=== PATIENT | female | born 1990 | race Caucasian/White ===

== ENCOUNTER 2022-02-08 23:12 | Emergency (ER) | payer OTHER ==
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
--- NOTE | 2022-02-09 00:20 | EDPHYS ---
Physician Documentation [facility] Name: Matt Tillman Age: 31 yrs Sex: Female : 1990 Arrival Date: 02/08/2022 Time: 23:15 Bed 3 Private MD: JESSICA Physician Adelso Wang HPI: 02/09 00:16 This 31 yrs old Female presents to ER via Wheelchair with complaints of Fall najma Injury. 00:16 Details of fall: The patient fell from an upright position, while walking. Onset: The najma symptoms/episode began/occurred just prior to arrival. Associated injuries: The patient sustained injury to the head, contusion, hematoma, pain, swelling. Severity of symptoms: At their worst the symptoms were. The patient has not experienced similar symptoms in the past. 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 - Social history:: Smoking status: Patient denies any tobacco usage or history of. Patient uses alcohol, on a daily basis. ROS: 02/09 00:17 Constitutional: Negative for fever, chills, and weight loss, Eyes: Negative for injury, najma pain, redness, and discharge, ENT: Negative for injury, pain, and discharge, Neck: Negative for injury, pain, and swelling, Cardiovascular: Negative for chest pain, palpitations, and edema, Respiratory: Negative for shortness of breath, cough, wheezing, and pleuritic chest pain, Abdomen/GI: Negative for abdominal pain, nausea, vomiting, diarrhea, and constipation, Back: Negative for injury and pain, : Negative for injury, bleeding, discharge, and swelling, MS/Extremity: Negative for injury and deformity, Skin: Negative for injury, rash, and discoloration, Psych: Negative for depression, anxiety, suicide ideation, homicidal ideation, and hallucinations, Allergy/Immunology: Negative for hives, rash, and allergies, Endocrine: Negative for neck swelling, polydipsia, polyuria, polyphagia, and marked weight changes, Hematologic/Lymphatic: Negative for swollen nodes, abnormal bleeding, and unusual bruising. Neuro: Positive for headache, of the forehead. Exam: 00:17 Constitutional: This is a well developed, well nourished patient who is awake, alert, najma and in no acute distress. Eyes: Pupils equal round and reactive to light, extra-ocular motions intact. Lids and lashes normal. Conjunctiva and sclera are non-icteric and not injected. Cornea within normal limits. Periorbital areas with no swelling, redness, or edema. ENT: Nares patent. No nasal discharge, no septal abnormalities noted. Tympanic membranes are normal and external auditory canals are clear. Oropharynx with no redness, swelling, or masses, exudates, or evidence of obstruction, uvula midline. Mucous membranes moist. Neck: Trachea midline, no thyromegaly or masses palpated, and no cervical lymphadenopathy. Supple, full range of motion without nuchal rigidity, or vertebral point tenderness. No Meningismus. Chest/axilla: Normal chest wall appearance and motion. Nontender with no deformity. No lesions are appreciated. Cardiovascular: Regular rate and rhythm with a normal S1 and S2. No gallops, murmurs, or rubs. Normal PMI, no JVD. No pulse deficits. Respiratory: Lungs have equal breath sounds bilaterally, clear to auscultation and percussion. No rales, rhonchi or wheezes noted. No increased work of breathing, no retractions or nasal flaring. Abdomen/GI: Soft, non-tender, with normal bowel sounds. No distension or tympany. No guarding or rebound. No evidence of tenderness throughout. Back: No spinal tenderness. No costovertebral tenderness. Full range of motion. Female : Normal external genitalia. Skin: Warm, dry with normal turgor. Normal color with no rashes, no lesions, and no evidence of cellulitis. MS/ Extremity: Pulses equal, no cyanosis. Neurovascular intact. Full, normal range of motion. Neuro: Awake and alert, GCS 15, oriented to person, place, time, and situation. Cranial nerves II-XII grossly intact. Motor strength 5/5 in all extremities. Sensory grossly intact. Cerebellar exam normal. Normal gait. Psych: Awake, alert, with orientation to person, place and time. Behavior, mood, and affect are within normal limits. 00:17 Head/face: Noted is hematoma, swelling, that is mild, of the forehead. Vital Signs: 02/08 23:20 BP 120 / 91; Pulse 105; Resp 18; Temp 98.2(TE); Pulse Ox 99% on R/A; Weight 54.43 kg; ld1 Height 5 ft. 2 in. (157.48 cm); Pain 0/10; 02/09 01:00 BP 110 / 60; Pulse 94; Resp 18; Pulse Ox 97% on R/A; lp1 02/08 23:20 Body Mass Index 21.95 (54.43 kg, 157.48 cm) ld1 MDM: 02/08 23:33 Patient medically screened. [facility] 02/08 23:33 Order name: CT Head C Spine najma Administered Medications: 02/09 01:07 Drug: Bactroban (mupirocin) Ointment 2 % 1 application Route: Topical; Site: chin; lp1 Disposition Summary: 02/09/22 00:19 Discharge Ordered Location: Home najma Problem: new najma Symptoms: have improved najma Condition: Stable najma Diagnosis - Fall on same level, unspecified najma - Unspecified injury of head, initial encounter - hematoma najma Followup: najma - With: Private Physician - When: 2 - 3 days - Reason: Recheck today's complaints, Continuance of care, Re-evaluation by your physician Discharge Instructions: - Head Injury, Adult najma - Head Injury, Adult, Whzm-so-Luou najma - Discharge Summary Sheet cp Forms: - Medication Reconciliation Form najma - Thank You Letter najma - Antibiotic Education najma - Prescription Opioid Use najma Prescriptions: - Centany 2 % Topical ointment - apply 1 application by TOPICAL route 3 times per day for 14 days; 45 gram; cp Refills: 0, Product Selection Permitted Signatures: Dispatcher [employer] Adelso Zapata MD MD cha Pena, Laura RN RN lp1 Marialuisa Martinez RN RN ld1
--- NOTE | 2022-02-09 00:20 | ER ---
Nurse's Notes 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 Pt has had previous TBI and was told to come to the ER if she ever hit her head. Denies LOC - Not on blood thinners. Coronavirus screen: At this time, the client does not indicate any symptoms associated with coronavirus-19. Ebola Screen: No symptoms or risks identified at this time. Initial Sepsis Screen: Does the patient meet any 2 criteria? No. Patient's initial sepsis screen is negative. Does the patient have a suspected source of infection? No. Patient's initial sepsis screen is negative. Risk Assessment: Do you want to hurt yourself or someone else? Patient reports no desire to harm self or others. Onset of symptoms was February 08, 2022. 23:20 Method Of Arrival: Wheelchair ld1 23:20 Acuity: ABY 3 ld1 Triage Assessment: 23:22 General: Appears in no apparent distress. comfortable, Behavior is calm, cooperative, ld1 appropriate for age. Pain: Denies pain. EENT: No signs and/or symptoms were reported regarding the EENT system. Neuro: Level of Consciousness is awake, alert, obeys commands, Oriented to person, place, time, situation. Respiratory: Airway is patent Respiratory effort is even, unlabored. 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 - Social history:: Smoking status: Patient denies any tobacco usage or history of. Patient uses alcohol, on a daily basis. Screenin/07 00:00 Abuse screen: Denies threats or abuse. Denies injuries from another. Nutritional lp1 screening: No deficits noted. Tuberculosis screening: No symptoms or risk factors identified. Fall Risk Total Carbone Fall Scale indicates High Risk Score (45 or more points). Fall prevention measures have been instituted. Side Rails Up X 2 As available patient and family educated on Fall Prevention Program and Strategies. Assessment: 02/08 23:52 General: Appears in no apparent distress. Behavior is calm, cooperative. lp1 02/09 00:07 Pain: Complains of pain in forehead Pain currently is 7 out of 10 on a pain scale. lp1 Quality of pain is described as aching. Neuro: Level of Consciousness is awake, alert, obeys commands, Oriented to person, place, time, situation, Patient has hx of TBI, weakness to left arm and left leg. EENT: No deficits noted. Cardiovascular: Patient's skin is warm and dry. Respiratory: Respiratory effort is even, unlabored, Breath sounds are clear bilaterally. GI: Abdomen is non-distended. : No signs and/or symptoms were reported regarding the genitourinary system. Derm: Skin is pink, warm \T\ dry. Bruising that is dark purple, on forehead. Musculoskeletal: Circulation, motion, and sensation intact. left BKA noted. Vital Signs: 02/08 23:20 BP 120 / 91; Pulse 105; Resp 18; Temp 98.2(TE); Pulse Ox 99% on R/A; Weight 54.43 kg; ld1 Height 5 ft. 2 in. (157.48 cm); Pain 0/10; 02/09 01:00 BP 110 / 60; Pulse 94; Resp 18; Pulse Ox 97% on R/A; lp1 02/08 23:20 Body Mass Index 21.95 (54.43 kg, 157.48 cm) ld1 ED Course: 02/08 23:15 Patient arrived in ED. ja2 23:22 Triage completed. ld1 23:22 Arm band placed on right wrist. ld1 23:33 Adelso Wang MD is Attending Physician. [facility] 23:52 Amirah Wiggins RN is Primary Nurse. lp1 02/09 00:00 Patient has correct armband on for positive identification. lp1 00:11 CT Head C Spine In Process Unspecified. EDMS 01:00 No provider procedures requiring assistance completed. Patient did not have IV access lp1 during this emergency room visit. 01:10 Wound care: to abrasion, located on chin was cleaned with dressed with Applied lp1 Bactroban and band-aid to site . Administered Medications: 01:07 Drug: Bactroban (mupirocin) Ointment 2 % 1 application Route: Topical; Site: chin; lp1 Outcome: 00:19 Discharge ordered by MD. yao 01:13 Discharged to home via wheelchair, with friend. lp1 01:13 Condition: good 01:13 Discharge instructions given to patient, friend, Instructed on discharge instructions, follow up and referral plans. medication usage, Demonstrated understanding of instructions, follow-up care, medications, Prescriptions given X 1. 01:13 Patient left the ED. lp1 Signatures: Dispatcher [employer] EDMS Adelso Wang MD MD cha Pena, Laura, RN RN lp1 Marialuisa Martinez RN RN ld1 Yasmine Díaz Corrections: (The following items were deleted from the chart) 00:10 04/06 23:52 General: Appears in no apparent distress. Behavior is calm, cooperative, lp1lp1
[2022-02-09] MEDS ORDERED: MUPIROCIN 2% OINT 22GM TUBE TOP ONE (01:02)
--- NOTE | 2022-02-09 09:06 | RAD REPORT ---
EXAM DESCRIPTION: CT - Head C Spine Mpr Wo Con - 02/09/2022 6:42 am CLINICAL HISTORY: The patient is 31 years old and is Female; PAIN TECHNIQUE: Axial computed tomography images of the head/brain and cervical spine without intravenous contrast. Sagittal and coronal reformatted images were created and reviewed. This CT exam was pe rformed using one or more of the following dose reduction techniques: automated exposure control, a djustment of the mA and/or kV according to patient size, and/or use of iterative reconstruction techn ique. COMPARISON: No relevant prior studies available. FINDINGS: Brain: Mild nonspecific white matter changes likely related to chronic microvascular isc hemic disease. Small right frontal calvarial defect with some right frontal encephalomalacia. Correlate with any history of kathy hole/right frontal approach ventriculostomy. Right anterior temporal encephalomalacia. No hemorrhage. Ventricles: Mild to moderate ventricular prominence. Skull: See above. Sinuses: Unremarkable as visualized. No acute sinusitis. Mastoid air cells: Unremarkable as visualized. No mastoid effusion. Vertebrae: Unremarkable. No acute fracture. Normal alignment. Discs/spinal canal/neural foramina: No acute findings. No spinal canal stenosis. Soft tissues: Left frontal/periorbital soft tissue swelling. IMPRESSION: No acute intracranial abnormality. No acute fracture or subluxation in the cervical spin e. Electronically signed by: Perry Agarwla MD 02/09/2022 12:39 AM CDT Due to temporary technical issues with the PACS/Fluency reporting system, reports are being signed by the in house radiologists without review as a courtesy to insure prompt reporting. The interpreting radiologist is fully responsible for the content of the report.
[2022-02-09 10:32] VITALS: BP 120/91; TEMP 98.2; O2SAT 99
== END 2022-02-09 01:13 | disposition home or self-care (01) ==
LOC: ER 23:12
DX: S00.83XA Contusion of other part of head, initial encounter (principal); W18.30XA Fall on same level, unspecified, initial encounter; F32.A Depression, unspecified; Z87.820 Personal history of traumatic brain injury
CPT/HCPCS: 70450; 72125; 99284

== ENCOUNTER 2022-06-13 14:50 | Emergency (ER) | payer OTHER ==
--- OUTSIDE RECORDS SUMMARY | 2022-06-13 14:54 | XMS REPORT | Continuity of Care Document ---
:1990 Author Organization [facility] t Address [address] [place] [address] Care Team Providers Name Role Phone RODOLFO QUEEN Primary Care Physician Unavailable LUCERO NAPOLES Attending Clinician Unavailable MARIE Attending Clinician Unavailable Lucero Napoles PA-C Attending Clinician MARIE Admitting Clinician Unavailable Payers Payer Name Policy Type Policy Number Effective Date Expiration Date S ource Problems Condition Condition Condition Status Onset Resolution Last Treating Co mments Source Name Details Category Date Date Treatment Clinician Date Allergic Allergic Disease Active Unive rs rhinitis rhinitis 7-14 ity of 00:00: [place] [facility] Herpes Herpes Disease Active Univers labialis labialis 7-14 ity of 00:00: [place] [facility] Anxiety Anxiety Disease Active Univers and and 7-14 [place] [facility] Dysarthria Dysarthria Disease Active 2019- U nivers 1-21 ity of 00:00: [place] 00 [facility] Chronic Chronic Disease Active 2019- Univers cough cough 1-21 ity of 00:00: [place] 00 [facility] S/P BKA S/P BKA Disease Active 2019- Univers (below (below 1-21 ity of knee knee 00:00: [place] amputation amputation 00 Me dical ), left ), left Branch 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 Address in postpartu m Decreased Decreased Disease Active Uni vers range of range of 3-14 ity of motion motion 00:00: [place] (ROM) of (ROM) of 00 Medica l [...] Active Univers ALLERGIE Class ity of S [facility] Social History Social Habit Start Date Stop Date Quantity Comments Source History SDOH University o f Alcohol Frequency [place] [facility] History SDOH University o f Alcohol Std [place] [facility] Drinks Branch History SDOH University o f Alcohol Binge [place] [facility] Exposure to 2022-04-14 2022-04-24 Not sure University of SARS-CoV-2 00:00:00 13:40:00 [place] [facility] (event) Branch Alcohol intake 2022-04-24 2022-04-24 Current University of 00:00:00 00:00:00 non-drinker of [facility] alcohol (finding) Branch Alcohol Comment 2022-01-04 2022-01-04 occasional Universit y of 00:00:00 00:00:00 [facility] Tobacco use and 2017-05-22 2017-05-22 Never used Universit y of exposure 00:00:00 00:00:00 [facility] Tobacco Comment 2017-05-22 2017-05-22 half a pack per Univ ersity of 00:00:00 00:00:00 day [facility] History of 2017-05-08 Cigarette Smoker Universi ty of tobacco use 00:00:00 [facility] Sex Ass[birth year] Universit y of 00:00:00 00:00:00 [facility] Smoking Status Start Date Stop Date Source Former smoker 2017-05-22 00:00:00 2017-05-22 00:00:00 Universi ty of [facility] Medications Ordered Filled Start Stop Current Ordering Indication Dosage Frequency Signature Comments Components Source Medication Medication Date Date Medication? Clinician (SIG) Name Name citalopram 2020-11 Yes [id number] 20mg Take 1 U nivers 20 mg 1-18 tablet by ity of tablet 00:00: mouth [place] 00 daily. Medical Branch fluticasone Yes [id number] 1{spray Use 1 Univers propionate 3-06 } Omro in ity o f 50 00:00: each [place] mcg/actuati 00 nostril 2 Med ical on nasal (two) Branch spray times daily. Immunizations Ordered Filled Immunization Date Status Comments Sour e Immunization Name Name Influenza Virus 2021-09-22 Completed Universit y of Vaccine Quad IM, 00:00:00 [facility] dical Preserv and ABX Branch Free 6 MO-64 YRS Influenza Virus 2020-09-16 Completed Universit y of Vaccine Quad .5 mL 00:00:00 [place] [facility] IM 6+ MO Branch Pneumococcal 2020-09-16 Completed University o f Polysaccharide, 00:00:00 [place] [facility] ical PPSV23 (PNEUMOVAX) Branch Influenza Virus 2019-12-12 Completed Universit y of Vaccine Quad .5 mL 00:00:00 [place] [facility] IM 6+ MO Branch MMR 2017-10-29 Completed University 00:00:00 [facility] TDAP 2017-10-25 Completed [facility] 00:00:00 [facility] Vital Signs Vital Name Observation Time Observation Value Comments Source Body weight 2022-04-24 18:50:00 54.885 kg [facility] BMI 2022-04-24 18:50:00 22.13 kg/m2 [facility] Procedures This patient has no known procedures. Encounters Start End Encounter Admission Attending Care Care Encounter Source Date/Time Date/Time Type Type Clinicians Facility Department ID 2022-11-09 2022-11-09 Outpatient R YESIKA [facility] [id number] Univers 13:30:00 13:30:00 LUCERO [id number] ity [facility] 2022-05-18 2022-05-18 Outpatient DANIELLE_CLAUDIA NVMAL [facility] [id number] 10:46:00 10:46:00 N 0714 [address] [facility] 2022-04-24 2022-04-24 Office Yesika [facility] [id number] Univers 13:30:00 13:45:00 Visit Lucero GONZALEZ [id number] i ty of [facility] [id number] [place] [id number] [address] Results This patient has no known results.
--- NOTE | 2022-06-13 15:48 | RAD REPORT ---
EXAM DESCRIPTION: RAD - Abdomen 1 View (KUB) - 06/13/2022 3:42 pm CLINICAL HISTORY: fb Pain COMPARISON: No comparisons FINDINGS: The bowel gas pattern is non-obstructive. No evidence of free air or pneumatosis. No suspi cious calcifications. No significant bony findings. Rounded structure is seen projecting inferior pelvis, largely radiolucent. IMPRESSION: No acute intra-abdominal finding.
--- NOTE | 2022-06-13 15:59 | ER ---
Nurse's Notes [facility] Name: Matt Tillman Age: 31 yrs Sex: Female : 1990 Arrival Date: 06/13/2022 Time: 14:52 Bed 12 Private MD: Diagnosis: Person with feared health complaint in whom no diagnosis is made Presentation: 06/13 14:55 Chief complaint: Patient states: kegel ball stuck inside vagina, got stuck two days iw ago. Coronavirus screen: At this time, the client does not indicate any symptoms associated with coronavirus-19. Ebola Screen: Patient negative for fever greater than or equal to 101.5 degrees Fahrenheit, and additional compatible Ebola Virus Disease symptoms Patient denies exposure to infectious person. Patient denies travel to an Ebola-affected area in the 21 days before illness onset. No symptoms or risks identified at this time. Initial Sepsis Screen: Does the patient meet any 2 criteria? No. Patient's initial sepsis screen is negative. Does the patient have a suspected source of infection? No. Patient's initial sepsis screen is negative. Risk Assessment: Do you want to hurt yourself or someone else? Patient reports no desire to harm self or others. Onset of symptoms was June 11, 2022. 14:55 Method Of Arrival: Wheelchair iw 14:55 Acuity: ABY 3 iw Triage Assessment: 15:21 General: Appears in no apparent distress. slender, unkempt, Behavior is calm, jh5 cooperative, appropriate for age. Pain: Denies pain. 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 Denies injuries from another. Nutritional 5 screening: No deficits noted. Tuberculosis screening: No symptoms or risk factors identified. Fall Risk None identified. Vital Signs: 14:55 BP 112 / 87; Pulse 79; Resp 16; Temp 97.6; Pulse Ox 97% on R/A; iw ED Course: 14:52 Patient arrived in ED. am2 14:55 [facility]ord[facility] Greg[facility]-C [facility]. kb 14:55 Adelso Wang MD is Attending Physician. kb 14:58 Triage completed. iw 14:58 Arm band placed on. iw 15:04 Yasmine Rubalcava, RN is Primary Nurse. jh5 15:18 Patient has correct armband on for positive identification. jh5 15:18 No provider procedures requiring assistance completed. Patient did not have IV access jh5 during this emergency room visit. 15:44 Abdomen 1 View (KUB) XRAY In Process Unspecified. EDMS Administered Medications: No medications were administered Medication: 15:21 VIS not applicable for this client. jh5 Outcome: 15:58 Discharge ordered by . kb 16:10 Patient left the ED. 5 Signatures: Dispatcher [employer] EDMS Jordana Gregorio FNP-C FNP-Krystle Valenzuela RN RN Lacy Ness am2 Yasmine Rubalcava, RN RN 5 Corrections: (The following items were deleted from the chart) 15:57 14:55 Pulse 79bpm; Resp 16bpm; Pulse Ox 97% RA; Temp 97.6F; iw iw
--- NOTE | 2022-06-13 15:59 | EDPHYS ---
Physician Documentation [facility] Name: Matt Tillman Age: 31 yrs Sex: Female : 1990 Arrival Date: 06/13/2022 Time: 14:52 Bed 12 Private MD: JESSICA Physician Adelso Wang HPI: 06/13 15:52 This 31 yrs old Female presents to ER via Wheelchair with complaints of Foreign body In kb Vagina. 15:52 The patient has not recently seen a physician. kb 15:54 The patient presents with FB in vagina. Onset: The symptoms/episode began/occurred kb today. Modifying factors: The symptoms are alleviated by nothing, the symptoms are aggravated by nothing. Associated signs and symptoms: The patient has no apparent associated signs or symptoms. Severity of symptoms: At their worst the symptoms were very mild, in the emergency department the symptoms are unchanged. The patient has not experienced similar symptoms in the past. Pt reports she was using a kegal ball and has not been able to find it so she believes it is in her vagina. 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 kb 15:51 : Positive for foreign body in vagina. 15:51 All other systems are negative. Exam: 15:51 Constitutional: This is a well developed, well nourished patient who is awake, alert, kb and in no acute distress. Head/Face: Normocephalic, atraumatic. ENT: Moist Mucous membranes Cardiovascular: Regular rate and rhythm with a normal S1 and S2. No gallops, murmurs, or rubs. No pulse deficits. Respiratory: Respirations even and unlabored. No increased work of breathing. Talking in full sentences Abdomen/GI: Soft, non-tender. No distention Pelvic Exam: Normal external genitalia. Speculum exam with closed cervical os, no discharge or bleeding noted. Bimanual exam with normal adnexa, no adnexal or cervical motion tenderness. Normal uterus. No FB found on exam Skin: Warm, dry with normal turgor. Normal color. MS/ Extremity: Pulses equal, no cyanosis. Neurovascular intact. Full, normal range of motion. Neuro: Awake and alert, GCS 15, oriented to person, place, time, and situation. Moves all extremities. Normal gait. Psych: Awake, alert, with orientation to person, place and time. Behavior, mood, and affect are within normal limits. Vital Signs: 14:55 BP 112 / 87; Pulse 79; Resp 16; Temp 97.6; Pulse Ox 97% on R/A; iw MDM: 14:58 Patient medically screened. kb 15:50 Data reviewed: vital signs, nurses notes. Data interpreted: Pulse oximetry: on room air kb is 97 %. Interpretation: normal. Counseling: I had a detailed discussion with the patient and/or guardian regarding: the historical points, exam findings, and any diagnostic results supporting the discharge/admit diagnosis, radiology results, the need for outpatient follow up, a family practitioner, to return to the emergency department if symptoms worsen or persist or if there are any questions or concerns that arise at home. 06/13 15:18 Order name: Abdomen 1 View (KUB) XRAY; Complete Time: 15:50 kb 06/13 15:00 Order name: Pelvic Exam Setup; Complete Time: 15:05 kb Administered Medications: No medications were administered Disposition Summary: 06/13/22 15:58 Discharge Ordered Location: Home kb Condition: Stable kb Diagnosis - Person with feared health complaint in whom no diagnosis is made kb Followup: kb - With: Emergency Department - When: As needed - Reason: Worsening of condition Followup: kb - With: Private Physician - When: 2 - 3 days - Reason: Recheck today's complaints, Continuance of care, Re-evaluation by your physician Discharge Instructions: - Discharge Summary Sheet kb - Vaginal Foreign Body, [id number] kb Forms: - Medication Reconciliation Form kb - Thank You Letter kb - Antibiotic Education kb - Prescription Opioid Use kb Signatures: Dispatcher [employer] Jordana Schwartz, ZHOU-C ZHOU-Krystle Valenzuela, RN RN iw
[2022-06-13 16:49] VITALS: BP 112/87; TEMP 97.6; O2SAT 97
== END 2022-06-13 16:10 | disposition home or self-care (01) ==
LOC: ER 14:50
DX: Z71.1 Person with feared health complaint in whom no diagnosis is made (principal)
CPT/HCPCS: 74018; 99282

== ENCOUNTER 2022-10-13 16:40 | Inpatient (IN) | payer OTHER ==
[~2022-10-13 16:40] MED LIST: LORazepam 2 MG/ML VIAL ONE
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
[2022-10-13 17:18] LABS: Absolute Lymphocytes (CBC) 6.2 K/uL (0.7-4.9); Hematocrit 40.8 % (36.0-45.0); Lymphocytes % 49.3 % (15.3-44.8); MCV 93.9 fL (80-100); MPV 8.7 fL (7.6-11.3); RBC Red Blood Cell Count 4.34 M/uL (3.86-4.86)
[2022-10-13] MEDS ORDERED: RSI MEDICATION KIT IV ONE (17:20)
[2022-10-13] MEDS ORDERED: propofoL 1,000 MG/100 ML VIAL IV ONE (17:21)
[2022-10-13] MEDS ORDERED: NA CHLORIDE 0.9% 1,000 ML ONE (17:21)
[2022-10-13 17:32] LABS: Albumin 4.5 g/dL (3.4-5.0); Bilirubin Total 0.2 mg/dL (0.2-1.0); Potassium 3.1 mmol/L (3.5-5.1); Protein, Total 7.8 g/dL (6.4-8.2)
--- NOTE | 2022-10-13 18:14 | RAD REPORT ---
EXAM DESCRIPTION: CT - Head Brain Wo Cont - 10/13/2022 5:45 pm CLINICAL HISTORY: Seizure disorder, clinical change COMPARISON: HEAD BRAIN W O CONTRAST dated 11/11/2015; Head C Spine Mpr Wo Con dated 02/08/2022 TECHNIQUE: Axial 5 mm thick images of the head were obtained without IV contrast. All CT scans are performed using dose optimization technique as appropriate and may include automated exposure control or mA/KV adjustment according to patient size. FINDINGS: No intracranial hemorrhage is present. Brain parenchymal volume loss is present involving the right temporal lobe and anterior right occipital lobe. Volume loss in the cerebellum is suspected as well. There are patchy areas of decreased attenuation in the anterior bifrontal region. An acute cortical based infarction is not suspected. No abnormal extra-axial fluid collections. Ventricles are prominent. Intracranial findings are similar to the February 08 examination. Mastoid air cells are clear. No air-fluid levels in the paranasal sinuses. No acute bony findings. IMPRESSION: No hemorrhage, mass, edema or other acute intracranial finding. The above detailed intracranial findings are stable from February 2022.
[2022-10-13 18:31] LABS: Arterial Blood Carboxyhemoglob 0.9 % (0-1.5); Blood Gas Oxyhemoglobin 95.4 % (94-97); Blood O2 Saturation 97.5 % (92-98.5)
[2022-10-13 18:39] LABS: Urine Blood Negative (Negative); Urine Glucose Negative (Negative); Urine Protein 1+ (Negative); Urine Specific Gravity >=1.030 (1.005-1.030); Urine pH 5.5 (5.0-7.0)
[2022-10-13] MEDS ORDERED: FENTANYL CITR 100 MCG/2 ML ONE (18:59)
[2022-10-13 19:03] LABS: Urine Mucus Slight /HPF (None Seen); Urine RBC <5 /HPF (None Seen)
--- NOTE | 2022-10-13 19:03 | ER ---
Nurse's Notes [facility] Name: Matt Tillman Age: 31 yrs Sex: Female : 1990 Arrival Date: 10/13/2022 Time: 16:41 Bed 27 Private MD: Diagnosis: Epilepsy, unspecified, not intractable, with status epilepticus;Acute respiratory failure Presentation: 10/13 16:44 Chief complaint: Parent and/or Guardian states: Pt brought to ED by family, brought ph through ambulance bay, actively seizing, hx of seizures, family states, " I went into [place] and she stayed in the truck and when I came out she was having a seizure." Pt brought to ED [address] Vegas at bedside. Coronavirus screen: Vaccine status: Patient reports being unvaccinated. Ebola Screen: No symptoms or risks identified at this time. Initial Sepsis Screen: Does the patient meet any 2 criteria? No. Patient's initial sepsis screen is negative. Does the patient have a suspected source of infection? No. Patient's initial sepsis screen is negative. Risk Assessment: Do you want to hurt yourself or someone else? Patient reports no desire to harm self or others. Onset of symptoms was October 13, 2022. 16:44 Method Of Arrival: [facility] 16:44 Acuity: ABY 2 ph Triage Assessment: 16:50 General: Appears uncomfortable, well groomed, Behavior is unresponsive. Pain: Unable to ph use pain scale. Patient is unresponsive. Neuro: Seizure activity noted at this time. Cardiovascular: Patient's skin is warm and dry. Rhythm is sinus tachycardia. Respiratory: Airway is patent. Derm: Skin is pink, warm \\T\\ dry. Historical: - Allergies: 16:49 levetiracetam; ph - PMHx: 16:49 depressive disorder; traumatic brain injury; ph - PSHx: 16:49 left leg amputation; ph - Immunization history:: Adult Immunizations unknown. - Social history:: Smoking status: unknown. Screenin:54 Abuse screen: Denies threats or abuse. Denies injuries from another. Nutritional ph screening: No deficits noted. Tuberculosis screening: No symptoms or risk factors identified. Fall Risk No fall in past 12 months (0 pts). Secondary diagnosis (15 points) seizures, IV access (20 points). Ambulatory Aid- None/Bed Rest/Nurse Assist (0 pts). Gait- Normal/Bed Rest/Wheelchair (0 pts) Mental Status- Overestimates/Forgets Limitations (15 pts.). Total Carbone Fall Scale indicates High Risk Score (45 or more points). Fall prevention measures have been instituted. Side Rails Up X 2 Placed Close to Nursing Station Frequent Obs/Assessments Occuring As available patient and family educated on Fall Prevention Program and Strategies. Assessment: 16:45 Reassessment: 24 FR nasopharyngeal airway placed, pt noted to have urinated onself. ph 17:15 Reassessment: Pt actively seizing, appears to be posturing w/ uneven pupils, ERP at ph bedside, preparing to intubate. 18:30 Reassessment: Patient appears in no apparent distress at this time. Patient and/or ph family updated on plan of care and expected duration. Pain level reassessed. Pt intubated and sedated, parents at bedside, state that she has not had a seizure in many years, pt of DR Oquendo. Vital Signs: 16:44 BP 145 / 117; Pulse 155; Pulse Ox 72% on R/A; ph 17:30 BP 141 / 102; Pulse 128; Resp 24; Pulse Ox 98% on Non-rebreather mask; ph 17:31 Weight 55.79 kg; mm9 18:30 BP 122 / 87; Pulse 127; Resp 18; Pulse Ox 100% on 40% FiO2 ETT vent; ph 19:56 BP 106 / 74; Pulse 95; Resp 14; Temp 99.2(C); Pulse Ox 100% ; ke1 ED Course: 16:41 Patient arrived in ED. zm 16:42 Inserted saline lock: 20 gauge in right antecubital area, using aseptic technique. zm 16:44 Ronel Chen, DONTAE is Primary Nurse. ph 16:47 Javi Vegas MD is Attending Physician. rt 16:48 Triage completed. ph 16:49 Arm band placed on Patient placed in an exam room, on a stretcher, on oxygen, on ph bender helper, on pulse oximetry. 16:50 Oxygen administration via non-rebreather mask \\T\\ 15L/min. ph 16:50 Patient has correct armband on for positive identification. Placed in gown. Bed in low ph position. Call light in reach. Side rails up X2. Seizure precautions initiated. Client placed on continuous cardiac and pulse oximetry monitoring. NIBP monitoring applied. 17:27 Assisted provider with intubation using 7.5 mm ETT via oral route. ET tube secured at ph 22cm at the teeth. Set up intubation tray. Intubated by Javi Vegas MD Placement verified by CO2 detector w/ + color change, auscultating bilateral breath sounds, Patient tolerated well. 17:32 NGT: inserted 16 Fr. other Via Oral route verified placement of air over stomach, to ld1 intermittent suction. Patient tolerated well. 17:46 CT Head Brain wo Cont In Process Unspecified. EDMS 18:25 Sexton cath inserted, using sterile technique, 16 Fr., by ms, balloon inflated, to ph gravity drainage, urine specimen collected. returned clear yellow urine. Patient tolerated well. Patient admitted, IV remains in place. 18:33 Inserted saline lock: 20 gauge in left forearm, using aseptic technique. Blood ld1 collected. 19:01 Brayan Esteban MD is Hospitalizing Provider. rt 19:12 Chest Single View XRAY In Process Unspecified. EDMS 10/14 06:43 Primary Nurse role handed off by Ronel Chen, DONTAE eb 07:41 Lennox Astorga, RN is Primary Nurse. bp Administered Medications: 10/13 16:38 Drug: Ativan (LORazepam) 2 mg Route: IVP; Site: right antecubital; ph 19:37 Follow up: Response: No adverse reaction ph 16:45 Drug: Ativan (LORazepam) 1 mg Route: IVP; Site: right antecubital; ph 19:37 Follow up: Response: No adverse reaction ph 17:20 Drug: Ativan (LORazepam) 1 mg Route: IVP; Site: right antecubital; ph 19:37 Follow up: Response: No adverse reaction ph 17:25 Drug: Propofol 100 mg Route: IVP; Site: right antecubital; ph 19:37 Follow up: Response: No adverse reaction ph 17:26 Drug: Rocuronium 100 mg Route: IVP; Site: right antecubital; ph 19:38 Follow up: Response: No adverse reaction ph 18:00 Drug: Propofol 5 mcg/kg/min {Note: initiated at 15 mcg/kg/min, weight set at 55 kg.} ph Route: IV; Rate: calculated rate; Site: right antecubital; 18:20 Follow up: Rate change 20 mcg/kg/min ph 18:45 Follow up: Rate change 25 mcg/kg/min ph 21:20 Follow up: Response: RASS: Very agitated (+3); Rate change 27 mcg/kg/min ke1 21:25 Follow up: Response: RASS: Drowsy (-1) ke1 18:37 Drug: Ativan (LORazepam) 2 mg Route: IVP; Site: left forearm; ph 19:37 Follow up: Response: No adverse reaction ph 19:00 Drug: fentaNYL (PF) 100 mcg Route: IVP; Site: left forearm; ph 19:38 Follow up: Response: No adverse reaction ph 19:27 Drug: Fosphenytoin 1 grams Route: IVPB; Site: right antecubital; ke1 19:36 CANCELLED (Other Intervention Used): Ativan (LORazepam) 1 mg IVP once ph Medication: 16:55 VIS not applicable for this client. ph Outcome: 19:02 Decision to Hospitalize by Provider. rt 10/14 13:27 Patient left the ED. eb Signatures: Dispatcher [employer] EDRonel Boone RN RN ph Lennox Astorga, RN Dahlia Cano Lauren, RN RN Jono Alford RN RN Aundrea Mayberry Maria mm9 Javi Vegas MD MD rt Corrections: (The following items were deleted from the chart) 10/13 18:05 18:04 NGT: inserted 16 Fr. other Via Oral route verified placement of air over stomach, ld1 to intermittent suction. Patient tolerated well. ld1 19:33 18:00 Propofol 5 mcg/kg/min IV at calculated rate in right antecubital ph ph 19:36 16:44 Ativan (LORazepam) 1 mg IVP in right antecubital ph ph
--- NOTE | 2022-10-13 19:03 | EDPHYS ---
Physician Documentation [facility] Name: Matt Tillman Age: 31 yrs Sex: Female : 1990 Arrival Date: 10/13/2022 Time: 16:41 Bed 27 Private MD: ED Physician Javi Vegas HPI: 10/13 17:54 This 31 yrs old Female presents to ER via [place] with complaints of Seizure. rt 17:54 Character of seizure(s): Motor activity: generalized, shaking all over. Seizure onset: rt the onset is not known. Unable to obtain HPI due to altered mental status. 17:54 History limited due to altered mental status due to seizure. Patient was dropped off at rt the ambulance entrance, right seizure. Further history could be obtained. Symptoms are severe in severity, no reported aggravating or alleviating factors. Historical: - Allergies: 16:49 levetiracetam; ph - PMHx: 16:49 depressive disorder; traumatic brain injury; ph - PSHx: 16:49 left leg amputation; ph - Immunization history:: Adult Immunizations unknown. - Social history:: Smoking status: unknown. ROS: 17:54 Unable to obtain ROS due to altered mental status. rt Exam: 17:44 ECG was reviewed by the Attending Physician. rt 17:54 Chest/axilla: Normal chest wall appearance and motion. Nontender with no deformity. rt No lesions are appreciated. Abdomen/GI: Soft, non-tender, with normal bowel sounds. No distension or tympany. No guarding or rebound. No evidence of tenderness throughout. Skin: Warm, dry with normal turgor. Normal color with no rashes, no lesions, and no evidence of cellulitis. MS/ Extremity: Pulses equal, no cyanosis. Neurovascular intact. Full, normal range of motion. 17:54 Constitutional: The patient appears Actively seizing, unresponsive 17:54 Eyes: Rightward gaze, somewhat disconjugate, unequal pupils.. 17:54 Cardiovascular: Tachycardic, regular rhythm, heart sounds normal. 17:54 Neuro: Actively seizing with occasional decerebrate posturing. Vital Signs: 16:44 BP 145 / 117; Pulse 155; Pulse Ox 72% on R/A; ph 17:30 BP 141 / 102; Pulse 128; Resp 24; Pulse Ox 98% on Non-rebreather mask; ph 17:31 Weight 55.79 kg; mm9 18:30 BP 122 / 87; Pulse 127; Resp 18; Pulse Ox 100% on 40% FiO2 ETT vent; ph 19:56 BP 106 / 74; Pulse 95; Resp 14; Temp 99.2(C); Pulse Ox 100% ; ke1 Procedures: 18:56 Intubation: Ventilated with 100% NRB prior to procedure. O2 saturation prior to rt procedure was 100 %. Intubated orally using Curved glidescope with 7.5 mm ETT. was successful on first attempt. Ventilated with ventilator. Tube secured with ETT arrieta Placement verified by CXR, CO2 detector with (+) color change, Patient tolerated well. MDM: 16:49 Patient medically screened. rt 18:56 Differential diagnosis: cerebral vascular accident, drug overdose, cardiac arrhythmia, rt seizure. Data reviewed: vital signs, nurses notes, old medical records, lab test result(s), EKG, radiologic studies. ED course: Patient presents to the ED with a seizure. The patient had multiple seizure episodes, requiring large doses of benzodiazepines. Patient was intubated for airway protection. Patient does have an allergy to Keppra, after discussion with neurology, will give fosphenytoin. Neurology recommends fosphenytoin every 8 hours with level check in the morning.. 12/09 17:00 Order name: CBC with Diff; Complete Time: 17:39 rt 12 17:00 Order name: CMP; Complete Time: 17:39 rt 12 17:00 Order name: Test, Serum; Complete Time: 07:14 rt 12 17:00 Order name: UA MICROSCOPIC; Complete Time: 07:14 rt 12 17:03 Order name: Salicylate; Complete Time: 07:14 rt 12 17:03 Order name: Acetaminophen; Complete Time: 18:16 rt 12/09 17:00 Order name: CT Head Brain wo Cont; Complete Time: 18:16 rt 12 17:03 Order name: Alcohol Level; Complete Time: 17:44 rt 12 17:03 Order name: UDS; Complete Time: 07:14 rt 12 18:15 Order name: ABG; Complete Time: 18:34 rt 12 18:39 Order name: Urine Dipstick-Ancillary; Complete Time: 18:44 EDMS 10/13 19:30 Order name: SARS RAPID; Complete Time: 07:14 vc1 12 05:14 Order name: CBC with Automated Diff; Complete Time: 07:14 EDMS 10/14 05:30 Order name: Comprehensive Metabolic Panel; Complete Time: 07:14 EDMS 10/13 17:00 Order name: Urine Dipstick-Ancillary (obtain specimen); Complete Time: 18:32 rt 10/13 18:50 Order name: Chest Single View XRAY; Complete Time: 07:14 rt 10/13 20:12 Order name: CONS Physician Consult; Complete Time: 21:36 EDMS 10/13 20:12 Order name: NPO; Complete Time: 21:36 EDMS EC:44 Rate is 129 beats/min. Rhythm is regular, Sinus tachycardia with No ectopy. IA interval rt is normal. QRS interval is normal. Clinical impression: NSR w/ Non-specific ST/T Changes. Administered Medications: 16:38 Drug: Ativan (LORazepam) 2 mg Route: IVP; Site: right antecubital; ph 19:37 Follow up: Response: No adverse reaction ph 16:45 Drug: Ativan (LORazepam) 1 mg Route: IVP; Site: right antecubital; ph 19:37 Follow up: Response: No adverse reaction ph 17:20 Drug: Ativan (LORazepam) 1 mg Route: IVP; Site: right antecubital; ph 19:37 Follow up: Response: No adverse reaction ph 17:25 Drug: Propofol 100 mg Route: IVP; Site: right antecubital; ph 19:37 Follow up: Response: No adverse reaction ph 17:26 Drug: Rocuronium 100 mg Route: IVP; Site: right antecubital; ph 19:38 Follow up: Response: No adverse reaction ph 18:00 Drug: Propofol 5 mcg/kg/min {Note: initiated at 15 mcg/kg/min, weight set at 55 kg.} ph Route: IV; Rate: calculated rate; Site: right antecubital; 18:20 Follow up: Rate change 20 mcg/kg/min ph 18:45 Follow up: Rate change 25 mcg/kg/min ph 21:20 Follow up: Response: RASS: Very agitated (+3); Rate change 27 mcg/kg/min ke1 21:25 Follow up: Response: RASS: Drowsy (-1) ke1 18:37 Drug: Ativan (LORazepam) 2 mg Route: IVP; Site: left forearm; ph 19:37 Follow up: Response: No adverse reaction ph 19:00 Drug: fentaNYL (PF) 100 mcg Route: IVP; Site: left forearm; ph 19:38 Follow up: Response: No adverse reaction ph 19:27 Drug: Fosphenytoin 1 grams Route: IVPB; Site: right antecubital; ke1 19:36 CANCELLED (Other Intervention Used): Ativan (LORazepam) 1 mg IVP once ph Disposition Summary: 10/13/22 19:02 Hospitalization Ordered Hospitalization Status: Inpatient Admission rt Provider: Brayan Esteban rt Condition: Critical rt Problem: an acute exacerbation rt Symptoms: have improved rt Bed/Room Type: Standard rt Location: [facility] ER HOLD(10/13/22 22:03) cg Room Assignment: ERHOLD-(10/13/22 22:03) cg Diagnosis - Epilepsy, unspecified, not intractable, with status epilepticus rt - Acute respiratory failure rt Forms: - Medication Reconciliation Form rt - SBAR form rt Critical care time excluding procedures: 19:02 Critical care time: Bedside Care: 40 minutes, Consultation: 10 minutes. Total time: 50 rt minutes Signatures: Dispatcher [employer] EDRonel Boone RN RN ph Garcia, Cindy, RN RN Jono Ha RN RN ke1 Javi Vegas MD MD rt Corrections: (The following items were deleted from the chart) 19:36 19:35 Ativan (LORazepam) 1 mg IVP once ordered. ph ph 19:36 19:35 Ativan (LORazepam) 1 mg IVP once given. ph ph 19:36 19:36 Ativan (LORazepam) 1 mg IVP once ordered. ph ph 22:03 19:02 Intensive Care Unit rt cg 22:03 19:02 rt cg
[2022-10-13 19:05] LABS: Barbiturates NEGATIVE (NEGATIVE); Benzodiazepines NEGATIVE (NEGATIVE); Cocaine NEGATIVE (NEGATIVE); METHAMPHETAM NEGATIVE (NEGATIVE); Methadone NEGATIVE (NEGATIVE); Opiates NEGATIVE (NEGATIVE); Phencyclidine NEGATIVE (NEGATIVE); THC Cannibis POSITIVE (NEGATIVE)
[2022-10-13] MEDS ORDERED: FOSPHENYTOIN PE 500 MG/10 ML VIAL ONE (19:20)
[2022-10-13] MEDS ORDERED: NA CHLORIDE 0.9% 100 ML IV ONE (19:21)
--- NOTE | 2022-10-13 19:33 | RAD REPORT ---
EXAM DESCRIPTION: RAD - Chest Single View - 10/13/2022 7:10 pm CLINICAL HISTORY: intubation COMPARISON: None TECHNIQUE: AP portable chest image was obtained 10/13/2022 7:10 pm . FINDINGS: Endotracheal tube has been placed. Tip is mid aortic arch 3 cm above the howard. NG tube h as been placed. Tip is in the proximal stomach. Side port of the tubing is in the distal esophagus. N o diffuse pulmonary edema. Hazy left base opacification could be atelectasis or infiltrate. Aspiratio n is possible given the history. This area can be monitored. Trachea is midline. Heart and vasculature are normal. No measurable pleural effusion and no pneumotho rax. No acute bony abnormality seen. No acute aortic findings suspected. IMPRESSION: Hazy left base opacification could be atelectasis or infiltrate. ET tube in good position. NG tube tip is proximal stomach with side port in the distal esophagus.
[2022-10-13] MEDS ORDERED: LORazepam 2 MG/ML VIAL IV PRN ×2 (20:05→21:35)
--- NOTE | 2022-10-13 20:11 | P.HP ---
Certification for Inpatient Patient admitted to: Inpatient With expected LOS: >2 Midnights Practitioner: I am a practitioner with admitting privileges, knowledge of patient current condition, hospital course, and medical plan of care. Services: Services provided to patient in accordance with Admission requirements found in Title 42 Section 412.3 of the Code of Federal Regulations Patient History Date of Service: 10/14/22 Reason for admission: Status epilepticus. History of Present Illness: 32-year-old female patient with a medical history significant for remote traumatic brain injury who also has a history of seizures was brought in by family member for episode of continuous seizures. Report was that patient has been having significant pain and has been feeling unwell prior to onset of seizures. No recent fall with head injury reported. Patient continued to have seizure while in the ER and patient was intubated for airway protection and started on sedation for status epilepticus. Neurology was consulted and recommendation was the patient should be given a loading dose of fosphenytoin and continued on maintenance dose. Allergies levetiracetam [From [facility]] Allergy (Severe, Verified 10/20/13 15:29) Hives/Rash NKDA Allergy (Uncoded 11/11/15 22:44) Unknown Home Medications: Baclofen [Lioresal*] 10 mg PO DAILY 10/20/13 Beta-Carotene(A)-Vits C and E [E-400 C-500 & Beta Carotene] 400 iu PO DAILY 10/20/13 Citalopram Hydrobromide [Celexa] 20 mg PO DAILY 10/20/13 Famotidine [Acid [employer] Operator] 10 mg PO BID 10/20/13 Ferrous Fumarate/Vit Bcomp&C [Super B-Complex Caplet] 1 tab PO DAILY 10/20/13 Melatonin 3 mg PO BEDTIME PRN 10/20/13 [place]-3/Dha/Epa/Fish Oil [[place]-3 Fish Oil 1,000 mg Sfgl] 1,000 mg PO DAILY 10/20/13 Ubidecarenone [Co Q-10] 1 cap PO DAILY 10/20/13 Vit B2/Niacin/B6/B12/Dexpanth [B Complex Sublingual Liquid] 10/20/13 Vit C/Chromium/Brindall Grewal [Trutical Capsule] 1,000 mg PO DAILY 10/20/13 Vit D3/Folic Acid/B2/B6/B12 [Folgard Tablet] 5,000 iu PO DAILY 10/20/13 lamoTRIgine [Lamictal*] 100 mg PO BEDTIME 10/20/13 - Past Medical/Surgical History Diabetic: No -: head injury -: seizures -: left bka -: sinus problems- sinus congestedcant breath throw her nose -: child 2005 -: child 2008 -: sinus -: tubes in ears - Social History Alcohol use: No CD- Drugs: No Caffeine use: Yes Review of Systems is unable to be obtained (Due to mechanical ventilation) Physical Examination - Physical Exam General: Other (Sedated.) HEENT: Atraumatic, Normocephalic Neck: Supple Respiratory: Normal air movement Cardiovascular: Regular rate/rhythm, Normal S1 S2 Gastrointestinal: Soft and benign Musculoskeletal: No swelling Neurological: Other (Sedated.) - Studies Laboratory Data (last 24 hrs) 10/13/22 16:50: Sodium 136, Potassium 3.1 L, BUN 10, Creatinine 0.99, Glucose 129 H, Total Bilirubin 0.2, AST 17, ALT 25, Alkaline Phosphatase 51 10/13/22 16:50: WBC 12.50 H, Hgb 13.1, Hct 40.8, Plt Count 367 Assessment and Plan - Plan Status epilepticus: Patient has continued to have seizures and has been sedated. Will continue mechanical ventilation. Will continue phenytoin dose pending neurology evaluation. No significant trigger recognized for this episode. EEG to be obtained. Neurologist consulted for management recommendation. Prophylaxis: Lovenox for DVT prophylaxis CODE STATUS: Full code Disposition: Pending neurology evaluation. Discharge Plan: Home - Advance Directives Does patient have a Living Will: No Does patient have a Durable POA for Healthcare: Yes
[2022-10-13] MEDS: D5 0.45 NS 1,000 ML IV SCH (21:00)
[2022-10-13] MEDS ORDERED: MIDAZOLAM HCL 2 MG/2 ML INJ IV PRN (21:35)
[2022-10-13 21:43] LABS: SARS-CoV-2 Antigen Rapid Res Negative (Negative)
[2022-10-13] MEDS: LORazepam 2 MG/ML VIAL IV PRN (21:55)
[2022-10-13] MEDS ORDERED: D5 0.45 NS 1,000 ML IV ONE (21:58)
[2022-10-14 00:46] VITALS: O2SAT 100
[2022-10-14] MEDS ORDERED: propofoL 1,000 MG/100 ML VIAL IV ONE ×3 (00:57→12:37)
[2022-10-14] MEDS ORDERED: LORazepam 2 MG/ML VIAL ONE ×3 (04:47→12:42)
[2022-10-14] MEDS: LORazepam 2 MG/ML VIAL IV PRN ×2 (04:47→08:00)
[2022-10-14 05:01] VITALS: BMI 20.1
[2022-10-14 05:13] LABS: Absolute Lymphocytes (CBC) 1.6 K/uL (0.7-4.9); Hematocrit 34.5 % (36.0-45.0); Lymphocytes % 11.8 % (15.3-44.8); MCV 90.2 fL (80-100); MPV 8.3 fL (7.6-11.3); RBC Red Blood Cell Count 3.82 M/uL (3.86-4.86)
[2022-10-14] MEDS ORDERED: PHENYTOIN Inj 1,000 MG in NA CHLORIDE 0.9% 100 ML IV STA ×2 (05:15→05:23)
[2022-10-14 05:29] LABS: Albumin 3.5 g/dL (3.4-5.0); Bilirubin Total 0.2 mg/dL (0.2-1.0); Protein, Total 6.3 g/dL (6.4-8.2)
[2022-10-14] MEDS ORDERED: NA CHLORIDE 0.9% 100 ML IV ONE (05:41)
[2022-10-14] MEDS ORDERED: D5 0.45 NS 1,000 ML IV ONE (05:55)
[2022-10-14] MEDS: D5 0.45 NS 1,000 ML IV SCH (05:56)
[2022-10-14] MEDS ORDERED: KCL 20 MEQ/100 mL IVPB 100 ML IV ONE ×2 (06:06→08:35)
[2022-10-14] MEDS: KCL 20 MEQ/100 mL IVPB 20 MEQ/100 ML BAG IV SCH ×2 (06:10→08:30)
[2022-10-14] MEDS: propofoL 1,000 MG/100 ML VIAL IV SCH ×2 (07:24)
[2022-10-14] MEDS ORDERED: ENOXAPARIN 40 MG/0.4 ML SQ ONE (08:35)
[2022-10-14] MEDS ORDERED: PHENYTOIN NA 100 MG/2 ML IV ONE (08:58)
[2022-10-14] MEDS ORDERED: ENOXAPARIN 40 MG/0.4 ML SQ SCH (09:00)
[2022-10-14] MEDS ORDERED: PHENYTOIN NA 100 MG/2 ML IV SCH (09:00)
[2022-10-14] MEDS ORDERED: ROCURONIUM 50 MG/5 ML VIAL IV ONE (09:16)
[2022-10-14] MEDS ORDERED: NA CHLORIDE 0.9% IV ONE (11:00)
[2022-10-14] MEDS ORDERED: PHENYTOIN IV ONE (11:00)
[2022-10-14] MEDS ORDERED: THIAMINE 200 MG/2 ML INJ IVP SCH (11:13)
[2022-10-14] MEDS ORDERED: PHENOBARBITAL 130 MG/ML INJ IV ONE (11:14)
[2022-10-14] MEDS ORDERED: LORazepam 2 MG/ML VIAL IV PRN (11:14)
[2022-10-14] MEDS ORDERED: THIAMINE 200 MG/2 ML INJ ONE (11:27)
--- NOTE | 2022-10-14 11:34 | P.CNS ---
Date of Consult: 10/14/22 Reason for Consult: Status epilepticus patient on a ventilator Chief Complaint: Status epilepticus. History of Present Illness: Patient is 32 years of age admitted with status epilepticus she has a history of traumatic brain injury brought in by her relatives was intubated currently is still twitching on a ventilator spite being on propofol also has had Ativan and Dilantin Allergies levetiracetam [From [facility]] Allergy (Severe, Verified 10/20/13 15:29) Hives/Rash NKDA Allergy (Uncoded 11/11/15 22:44) Unknown Home Medications: Baclofen [Lioresal*] 10 mg PO DAILY 10/20/13 Beta-Carotene(A)-Vits C and E [E-400 C-500 & Beta Carotene] 400 iu PO DAILY 10/20/13 Citalopram Hydrobromide [Celexa] 20 mg PO DAILY 10/20/13 Famotidine [Acid [employer] Head] 10 mg PO BID 10/20/13 Ferrous Fumarate/Vit Bcomp&C [Super B-Complex Caplet] 1 tab PO DAILY 10/20/13 Melatonin 3 mg PO BEDTIME PRN 10/20/13 [place]-3/Dha/Epa/Fish Oil [[place]-3 Fish Oil 1,000 mg Sfgl] 1,000 mg PO DAILY 10/20/13 Ubidecarenone [Co Q-10] 1 cap PO DAILY 10/20/13 Vit B2/Niacin/B6/B12/Dexpanth [B Complex Sublingual Liquid] 10/20/13 Vit C/Chromium/Brindall Grewal [Trutical Capsule] 1,000 mg PO DAILY 10/20/13 Vit D3/Folic Acid/B2/B6/B12 [Folgard Tablet] 5,000 iu PO DAILY 10/20/13 lamoTRIgine [Lamictal*] 100 mg PO BEDTIME 10/20/13 - Past Medical/Surgical History Diabetic: No -: head injury -: seizures -: left bka -: sinus problems- sinus congestedcant breath throw her nose -: child 2005 -: child 2008 -: sinus -: tubes in ears - Social History Smoking Status: Current some day smoker Alcohol use: No CD- Drugs: No Caffeine use: Yes Place of Residence: Home Review of Systems is unable to be obtained Physical Examination Temp Pulse Resp BP Pulse Ox 99.4 F 113 H 14 114/70 100 10/14/22 04:00 10/14/22 10:00 10/14/22 10:00 10/14/22 10:00 10/14/22 10:00 General: Unresponsive, Comatose Neck: Supple Respiratory: Clear to auscultation bilaterally Cardiovascular: No edema, Regular rate/rhythm Laboratory Data (last 24 hrs) 10/13/22 16:50: Sodium 136, Potassium 3.1 L, BUN 10, Creatinine 0.99, Glucose 129 H, Total Bilirubin 0.2, AST 17, ALT 25, Alkaline Phosphatase 51 10/13/22 16:50: WBC 12.50 H, Hgb 13.1, Hct 40.8, Plt Count 367 - Problems (1) Status epilepticus Current Visit: Yes Status: Acute Plan: Patient is 31 years of age admitted with status epilepticus currently on a ventilator still having some apparent seizure-like activity only on propofol receiving Ativan and phenytoin have also added a 1 dose of phenobarbital patient is also hypokalemic oxygenation satisfactory potassium replacement protocol start patient on thiamine oxygenation satisfactory patient was apparently compliant with her medication
[2022-10-14 12:13] VITALS: TEMP 98.9
[2022-10-14 12:16] VITALS: BP 114/84
--- NOTE | 2022-10-14 12:23 | P.DS ---
Admission Date: 10/13/22 Discharge Date: 10/14/22 Disposition: TRANSFER TO [facility] Comment: [facility] Discharge Condition: FAIR Reason for Admission: Status epilepticus. Consultations: 1. Neurology 2. Pulmonary Medicine Procedures: - 10/13/2022 - Endotracheal Intubation Hospital Course: DIAGNOSES: # Status Epilepticus s/p Endotracheal Intubation # Seizure Disorder # History of Traumatic Brain Injury # Substance Use Disorder - Cannabinoids HOSPITAL COURSE: Ms. Matt Tillman is a 31 year old female with a past medical history significant for seizure disorder and prior traumatic brain injury who was admitted to the [facility] on 10/13/2022 for status epi lepticus. Upon presentation, she required endotracheal intubation and was placed on mechanical ventilation. Pulmonary Medicine was consulted for assistance with the ventilator settings. Neurology was consulted and Dr. Oquendo was notified. She was started on propofol, and given phenytoin and phenobarbital. She now appears calm on the ventilator, but remains tachycardic in the 110s. After further discussion with Dr. Oquendo, it was decided to transfer her to [facility] for continuous EEG monitoring. I spoke with her parents, who were in agreement with the transfer. I have completed doc-to-doc with Dr. Brandon Peck (fellow for Dr. Kd Kiran), who has generously accepted her for transfer to the [facility]. A copy of this discharge summary will be sent to the above providers to f acilitate continuity of care. Today, I personally spent 50 minutes on her case, of which greater than 50% of the time was spent in patient family education, counseling, and coordination of care as described above. Vital Signs/Physical Exam: Temp Pulse Resp BP Pulse Ox 98.9 F 114 H 15 106/70 100 10/14/22 11:00 10/14/22 11:00 10/14/22 11:00 10/14/22 11:00 10/14/22 11:00 General: Other (Intubated, Sedated) HEENT: Atraumatic, Sclerae nonicteric Neck: JVD not distended Respiratory: Clear to auscultation bilaterally, Diminished Cardiovascular: No edema, Normal S1 S2, No gallops, No rubs, No murmurs, Other (tachycardic rate) Gastrointestinal: Normal bowel sounds, Soft and benign, Non-distended Musculoskeletal: No clubbing Integumentary: No rashes Neurological: Other (Sedated) Laboratory Data at Discharge: WBC 13.80 K/uL (4.3-10.9) H 10/14/22 04:40 Hgb 11.8 g/dL (12.0-15.0) L D 10/14/22 04:40 Hct 34.5 % (36.0-45.0) L 10/14/22 04:40 Plt Count 247 K/uL (152-406) D 10/14/22 04:40 Sodium 138 mmol/L (136-145) 10/14/22 04:48 Potassium 3.0 mmol/L (3.5-5.1) L 10/14/22 04:48 BUN 7 mg/dL (7-18) 10/14/22 04:48 Creatinine 0.53 mg/dL (0.55-1.02) L 10/14/22 04:48 Glucose 135 mg/dL (74-106) H 10/14/22 04:48 Total Bilirubin 0.2 mg/dL (0.2-1.0) 10/14/22 04:48 AST 28 U/L (15-37) 10/14/22 04:48 ALT 25 U/L (13-56) 10/14/22 04:48 Alkaline Phosphatase 31 U/L (45-117) L D 10/14/22 04:48 Home Medications: Baclofen [Lioresal*] 10 mg PO DAILY 10/20/13 Beta-Carotene(A)-Vits C and E [E-400 C-500 & Beta Carotene] 400 iu PO DAILY 10/20/13 Citalopram Hydrobromide [Celexa] 20 mg PO DAILY 10/20/13 Famotidine [Acid Waiter/[employer]] 10 mg PO BID 10/20/13 Ferrous Fumarate/Vit Bcomp&C [Super B-Complex Caplet] 1 tab PO DAILY 10/20/13 Melatonin 3 mg PO BEDTIME PRN 10/20/13 Lawai-3/Dha/Epa/Fish Oil [Lawai-3 Fish Oil 1,000 mg Sfgl] 1,000 mg PO DAILY 10/20/13 Ubidecarenone [Co Q-10] 1 cap PO DAILY 10/20/13 Vit B2/Niacin/B6/B12/Dexpanth [B Complex Sublingual Liquid] 10/20/13 Vit C/Chromium/Brindall Grewal [Trutical Capsule] 1,000 mg PO DAILY 10/20/13 Vit D3/Folic Acid/B2/B6/B12 [Folgard Tablet] 5,000 iu PO DAILY 10/20/13 lamoTRIgine [Lamictal*] 100 mg PO BEDTIME 10/20/13 Diet: NPO Activity: Bedrest Followup: Rakan Oquendo MD [ASSOCIATE-ACTIVE - CAN ADMIT] - Time spent managing pt's care (in minutes): 50
[2022-10-15] MEDS ORDERED: PHENYTOIN NA 100 MG/2 ML IV SCH (01:00)
--- NOTE | 2022-10-16 15:05 | EKG ---
Test Date: 2022-10-13 Test Time: 16:40:44 Renal Dietitian: ANGÉLICA MEASUREMENT RESULTS: Intervals: Rate: 129 [place]: 142 QRSD: 80 QT: 318 QTc: 465 [place]: P: 81 [place]: 142 QRS: 58 T: 67 INTERPRETIVE STATEMENTS: Sinus tachycardia Possible Left atrial enlargement Nonspecific ST abnormality Abnormal ECG No previous ECG available for comparison Electronically Signed On 10-16-22 14:58:00 MUSIC COORDINATOR by Wilton Quigley
== END 2022-10-14 13:21 | disposition short-term general hospital (02) | DRG 100 ==
LOC: ER 16:40 → ERHOLD 20:06
PROVIDERS: ADMIT Internal Medicine Nephrology; ATTEND Internal Medicine
PROC: 5A1935Z Respiratory Ventilation, Less than 24 Consecutive Hours (ICD-10-PCS; principal; 2022-10-13)
PROC: 0BH17EZ Insertion of Endotracheal Airway into Trachea, Via Natural or Artificial Opening (ICD-10-PCS; 2022-10-13)
DX: G40.901 Epilepsy, unspecified, not intractable, with status epilepticus (principal); J96.00 Acute respiratory failure, unspecified whether with hypoxia or hypercapnia; R40.20 Unspecified coma; E87.6 Hypokalemia; F17.200 Nicotine dependence, unspecified, uncomplicated; Z78.1 Physical restraint status; Z88.8 Allergy status to other drugs, medicaments and biological substances; Z87.820 Personal history of traumatic brain injury; Z79.899 Other long term (current) drug therapy; Z89.612 Acquired absence of left leg above knee; Z20.822 Contact with and (suspected) exposure to COVID-19
CPT/HCPCS: 31500; 36415; 51702; 70450; 71045; 80053; 80307; 80320; 80329; 81003; 81015; 82805; 84703; 85025; 87811; 93005; 94002; 94003; 99291; 99292; J1165; J1650; J2704; J3010; J3411; J3480; J7030; J7799; Q2009

== ENCOUNTER 2023-03-14 09:05 | Emergency (ER) | payer OTHER ==
[2023-03-14] MEDS ORDERED: ROCURONIUM 50 MG/5 ML VIAL IV ONE ×2 (09:06→09:14)
[2023-03-14] MEDS ORDERED: ETOMIDATE 20 MG/10 ML VIAL IV ONE (09:06)
[2023-03-14] MEDS ORDERED: LORazepam 2 MG/ML VIAL ONE ×2 (09:07→09:10)
[2023-03-14] MEDS ORDERED: RSI MEDICATION KIT IV ONE (09:10)
--- OUTSIDE RECORDS SUMMARY | 2023-03-14 09:12 | XMS REPORT | Continuity of Care Document ---
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 ical on nasal (two) Branch spray times daily. Immunizations Ordered Filled Immunization Date Status Comments [facility] e Immunization Name Name Influenza Virus 2021-09-22 Completed [facility], 00:00:00 [place] [facility] Preserv and ABX Branch Free 6 MO-64 YRS Influenza Virus 2021-09-22 Completed [facility], 00:00:00 [place] [facility] Preserv and ABX Branch Free 6 MO-64 YRS Influenza Virus 2021-09-22 Completed [facility], 00:00:00 [place] [facility] Preserv and ABX Branch Free 6 MO-64 YRS Influenza Virus 2021-09-22 Completed [facility], 00:00:00 [place] [facility] Preserv and ABX Branch Free 6 MO-64 YRS Influenza Virus 2021-09-22 Completed [facility], 00:00:00 [place] [facility] Preserv and ABX Branch Free 6 MO-64 YRS Influenza Virus 2021-09-22 Completed [facility], 00:00:00 [place] [facility] Preserv and ABX Branch Free 6 MO-64 YRS Influenza Virus 2021-09-22 Completed [facility], 00:00:00 [place] [facility] Preserv and ABX Branch Free 6 MO-64 YRS Influenza Virus 2021-09-22 Completed [facility], 00:00:00 [place] [facility] Preserv and ABX Branch Free 6 MO-64 YRS Influenza Virus 2021-09-22 Completed [facility], 00:00:00 [place] [facility] Preserv and ABX Branch Free 6 MO-64 YRS Influenza Virus 2021-09-22 Completed [facility], 00:00:00 [place] [facility] Preserv and ABX Branch Free 6 MO-64 YRS Influenza Virus 2021-09-22 Completed [facility], 00:00:00 [place] [facility] Preserv and ABX Branch Free 6 MO-64 YRS Influenza Virus 2021-09-22 Completed [facility], 00:00:00 [place] [facility] Preserv and ABX Branch Free 6 MO-64 YRS Influenza Virus 2021-09-22 Completed [facility], 00:00:00 [place] [facility] Preserv and ABX Branch Free 6 MO-64 YRS Influenza Virus 2021-09-22 Completed [facility], 00:00:00 [place] [facility] Preserv and ABX Branch Free 6 MO-64 YRS Influenza Virus 2021-09-22 Completed [facility], 00:00:00 [place] [facility] Preserv and ABX Branch Free 6 MO-64 YRS Influenza Virus 2021-09-22 Completed [facility], 00:00:00 [place] [facility] Preserv and ABX Branch Free 6 MO-64 YRS Influenza Virus 2021-09-22 Completed [facility], 00:00:00 [place] [facility] Preserv and ABX Branch Free 6 MO-64 YRS Influenza Virus 2021-09-22 Completed [facility], 00:00:00 [place] [facility] Preserv and ABX Branch Free 6 MO-64 YRS Influenza Virus 2021-09-22 Completed [facility], 00:00:00 [place] [facility] Preserv and ABX Branch Free 6 MO-64 YRS Influenza Virus 2021-09-22 Completed [facility], 00:00:00 [place] [facility] Preserv and ABX Branch Free 6 MO-64 YRS Influenza Virus 2021-09-22 Completed [facility], 00:00:00 [place] [facility] Preserv and ABX Branch Free 6 MO-64 YRS Influenza Virus 2021-09-22 Completed [facility], 00:00:00 [place] [facility] Preserv and ABX Branch Free 6 MO-64 YRS Influenza Virus 2021-09-22 Completed [facility], 00:00:00 [place] [facility] Preserv and ABX Branch Free 6 MO-64 YRS Influenza Virus 2021-09-22 Completed [facility], 00:00:00 [place] [facility] Preserv and ABX Branch Free 6 MO-64 YRS Influenza Virus 2020-09-16 Completed [facility] .5 mL 00:00:00 [place] [facility] 6+ MO Branch Pneumococcal 2020-09-16 Completed University o f Polysaccharide, 00:00:00 [place] [facility] PPSV23 (PNEUMOVAX) Branch Influenza Virus 2020-09-16 Completed [facility] .5 mL 00:00:00 [place] [facility] IM 6+ MO Branch Pneumococcal 2020-09-16 Completed University o f Polysaccharide, 00:00:00 [place] [facility] PPSV23 (PNEUMOVAX) Branch Influenza Virus 2020-09-16 Completed [facility] .5 mL 00:00:00 [place] [facility] 6+ MO Branch Pneumococcal 2020-09-16 Completed University o f Polysaccharide, 00:00:00 [place] [facility] PPSV23 (PNEUMOVAX) Branch Influenza Virus 2020-09-16 Completed [facility] .5 mL 00:00:00 [place] [facility] 6+ MO Branch Pneumococcal 2020-09-16 Completed University o f Polysaccharide, 00:00:00 [place] [facility] PPSV23 (PNEUMOVAX) Branch Influenza Virus 2020-09-16 Completed [facility] .5 mL 00:00:00 [place] [facility] 6+ MO Branch Pneumococcal 2020-09-16 Completed University o f Polysaccharide, 00:00:00 [place] [facility] PPSV23 (PNEUMOVAX) Branch Influenza Virus 2020-09-16 Completed [facility] .5 mL 00:00:00 [place] [facility] 6+ MO Branch Pneumococcal 2020-09-16 Completed University o f Polysaccharide, 00:00:00 [place] [facility] PPSV23 (PNEUMOVAX) Branch Influenza Virus 2020-09-16 Completed [facility] .5 mL 00:00:00 [place] [facility] 6+ MO Branch Pneumococcal 2020-09-16 Completed University o f Polysaccharide, 00:00:00 [place] [facility] PPSV23 (PNEUMOVAX) Branch Influenza Virus 2020-09-16 Completed [facility] .5 mL 00:00:00 [place] [facility] 6+ MO Branch Pneumococcal 2020-09-16 Completed University o f Polysaccharide, 00:00:00 [place] [facility] PPSV23 (PNEUMOVAX) Branch Influenza Virus 2020-09-16 Completed [facility] .5 mL 00:00:00 [place] [facility] 6+ MO Branch Pneumococcal 2020-09-16 Completed University o f Polysaccharide, 00:00:00 [place] [facility] PPSV23 (PNEUMOVAX) Branch Influenza Virus 2020-09-16 Completed [facility] .5 mL 00:00:00 [place] [facility] IM 6+ MO Branch Pneumococcal 2020-09-16 Completed University o f Polysaccharide, 00:00:00 [place] [facility] PPSV23 (PNEUMOVAX) Branch Influenza Virus 2020-09-16 Completed [facility] .5 mL 00:00:00 [place] [facility] IM 6+ MO Branch Pneumococcal 2020-09-16 Completed University o f Polysaccharide, 00:00:00 [place] [facility] PPSV23 (PNEUMOVAX) Branch Influenza Virus 2020-09-16 Completed [facility] .5 mL 00:00:00 [place] [facility] IM 6+ MO Branch Pneumococcal 2020-09-16 Completed University o f Polysaccharide, 00:00:00 [place] [facility] PPSV23 (PNEUMOVAX) Branch Influenza Virus 2020-09-16 Completed [facility] .5 mL 00:00:00 [place] [facility] IM 6+ MO Branch Pneumococcal 2020-09-16 Completed [facility] o f Polysaccharide, 00:00:00 [place] [facility] PPSV23 (PNEUMOVAX) Branch Influenza Virus 2020-09-16 Completed [facility] .5 mL 00:00:00 [place] [facility] 6+ MO Branch Pneumococcal 2020-09-16 Completed University o f Polysaccharide, 00:00:00 [place] [facility] PPSV23 (PNEUMOVAX) Branch Influenza Virus 2020-09-16 Completed [facility] .5 mL 00:00:00 [place] [facility] 6+ MO Branch Pneumococcal 2020-09-16 Completed [facility] o f Polysaccharide, 00:00:00 [place] [facility] PPSV23 (PNEUMOVAX) Branch Influenza Virus 2020-09-16 Completed [facility] .5 mL 00:00:00 [place] [facility] 6+ MO Branch Pneumococcal 2020-09-16 Completed University o f Polysaccharide, 00:00:00 [place] [facility] PPSV23 (PNEUMOVAX) Branch Influenza Virus 2020-09-16 Completed [facility] .5 mL 00:00:00 [place] [facility] 6+ MO Branch Pneumococcal 2020-09-16 Completed University o f Polysaccharide, 00:00:00 [place] [facility] PPSV23 (PNEUMOVAX) Branch Influenza Virus 2020-09-16 Completed [facility] .5 mL 00:00:00 [place] [facility] 6+ MO Branch Pneumococcal 2020-09-16 Completed University o f Polysaccharide, 00:00:00 [place] [facility] PPSV23 (PNEUMOVAX) Branch Influenza Virus 2020-09-16 Completed [facility] .5 mL 00:00:00 [place] [facility] 6+ MO Branch Pneumococcal 2020-09-16 Completed University o f Polysaccharide, 00:00:00 [place] [facility] PPSV23 (PNEUMOVAX) Branch Influenza Virus 2020-09-16 Completed [facility]it [facility] of Vaccine [facility] .5 mL 00:00:00 [place] [facility] IM 6+ MO Branch Pneumococcal 2020-09-16 Completed University o f Polysaccharide, 00:00:00 [place] [facility] PPSV23 (PNEUMOVAX) Branch Influenza Virus 2020-09-16 Completed [facility]ine [facility] .5 mL 00:00:00 [place] [facility] IM 6+ MO Branch Pneumococcal 2020-09-16 Completed University o f Polysaccharide, 00:00:00 [place] [facility] PPSV23 (PNEUMOVAX) Branch Influenza Virus 2020-09-16 Completed [facility] .5 mL 00:00:00 [place] [facility] 6+ MO Branch Pneumococcal 2020-09-16 Completed University o f Polysaccharide, 00:00:00 [place] [facility] PPSV23 (PNEUMOVAX) Branch Influenza Virus 2020-09-16 Completed [facility] of [facility]ine [facility] .5 mL 00:00:00 [place] [facility] 6+ MO Branch Pneumococcal 2020-09-16 Completed University o f Polysaccharide, 00:00:00 [place] [facility] PPSV23 (PNEUMOVAX) Branch Influenza Virus 2020-09-16 Completed [facility] of [facility] .5 mL 00:00:00 [place] [facility] IM 6+ MO Branch Pneumococcal 2020-09-16 Completed University o f Polysaccharide, 00:00:00 [place] [facility] PPSV23 (PNEUMOVAX) Branch Influenza Virus 2019-12-12 Completed [facility] .5 mL 00:00:00 [place] [facility] IM 6+ MO Branch Influenza Virus 2019-12-12 Completed [facility] .5 mL 00:00:00 [place] [facility] 6+ MO Branch Influenza Virus 2019-12-12 Completed [facility] of [facility]ine [facility] .5 mL 00:00:00 [place] [facility] 6+ MO Branch Influenza Virus 2019-12-12 Completed [facility] of [facility]ine [facility] .5 mL 00:00:00 [place] [facility] 6+ MO Branch Influenza Virus 2019-12-12 Completed [facility]it [facility] of [facility] .5 mL 00:00:00 [place] [facility] IM 6+ MO Branch Influenza Virus 2019-12-12 Completed [facility]it [facility] of [facility]ine [facility] .5 mL 00:00:00 [place] [facility] IM 6+ MO Branch Influenza Virus 2019-12-12 Completed [facility] of [facility]ine Quad .5 mL 00:00:00 [place] [facility] IM 6+ MO Branch Influenza Virus 2019-12-12 Completed [facility]it [facility] of [facility]ine Quad .5 mL 00:00:00 [place] [facility] 6+ MO Branch Influenza Virus 2019-12-12 Completed [facility] of Vaccine [facility] .5 mL 00:00:00 [place] [facility] IM 6+ MO Branch Influenza Virus 2019-12-12 Completed [facility] of Vaccine Quad .5 mL 00:00:00 [place] [facility] 6+ MO Branch Influenza Virus 2019-12-12 Completed [facility] of [facility]ine [facility] .5 mL 00:00:00 [place] [facility] 6+ MO Branch Influenza Virus 2019-12-12 Completed [facility] of Vaccine Quad .5 mL 00:00:00 [place] [facility] 6+ MO Branch Influenza Virus 2019-12-12 Completed [facility] of Vaccine [facility] .5 mL 00:00:00 [place] [facility] 6+ MO Branch Influenza Virus 2019-12-12 Completed [facility] of Vaccine [facility] .5 mL 00:00:00 [place] [facility] 6+ MO Branch Influenza Virus 2019-12-12 Completed [facility]ine [facility] .5 mL 00:00:00 [place] [facility] 6+ MO Branch Influenza Virus 2019-12-12 Completed [facility] Vaccine Quad .5 mL 00:00:00 [place] [facility] 6+ MO Branch Influenza Virus 2019-12-12 Completed [facility] Vaccine [facility] .5 mL 00:00:00 [place] [facility] 6+ MO Branch Influenza Virus 2019-12-12 Completed [facility] of Vaccine [facility] .5 mL 00:00:00 [place] [facility] 6+ MO Branch Influenza Virus 2019-12-12 Completed [facility] of [facility]ine [facility] .5 mL 00:00:00 [place] [facility] 6+ MO Branch Influenza Virus 2019-12-12 Completed [facility] of [facility]ine [facility] .5 mL 00:00:00 [place] [facility] 6+ MO Branch Influenza Virus 2019-12-12 Completed [facility]ine [facility] .5 mL 00:00:00 [place] [facility] 6+ MO Branch Influenza Virus 2019-12-12 Completed [facility] .5 mL 00:00:00 [place] [facility] 6+ MO Branch Influenza Virus 2019-12-12 Completed [facility] .5 mL 00:00:00 [place] [facility] 6+ MO Branch Influenza Virus 2019-12-12 Completed [facility]it y of Vaccine Quad .5 mL 00:00:00 [facility] [place] [facility] 6+ MO Branch MMR 2017-10-29 Completed University of 00:00:00 [facility] MMR 2017-10-29 Completed University of 00:00:00 [facility] MMR 2017-10-29 Completed University of 00:00:00 [facility] MMR 2017-10-29 Completed University of 00:00:00 [place] [facility] MMR 2017-10-29 Completed University of 00:00:00 [facility] MMR 2017-10-29 Completed University of 00:00:00 [facility] MMR 2017-10-29 Completed University of 00:00:00 [place] [facility] MMR 2017-10-29 Completed University of 00:00:00 [facility] MMR 2017-10-29 Completed University of 00:00:00 [facility] MMR 2017-10-29 Completed University of 00:00:00 [facility] MMR 2017-10-29 Completed University of 00:00:00 [facility] MMR 2017-10-29 Completed University of 00:00:00 [facility] MMR 2017-10-29 Completed University of 00:00:00 [facility] MMR 2017-10-29 Completed University of 00:00:00 [place] [facility] MMR 2017-10-29 Completed [facility] of 00:00:00 [place] [facility] MMR 2017-10-29 Completed [facility] of 00:00:00 [place] [facility] MMR 2017-10-29 Completed [facility] of 00:00:00 [place] [facility] MMR 2017-10-29 Completed [facility] of 00:00:00 [place] [facility] MMR 2017-10-29 Completed [facility] of 00:00:00 [place] [facility] MMR 2017-10-29 Completed [facility] of 00:00:00 [place] [facility] MMR 2017-10-29 Completed University of 00:00:00 [place] [facility] MMR 2017-10-29 Completed University of 00:00:00 [place] [facility] MMR 2017-10-29 Completed University of 00:00:00 [place] [facility] MMR 2017-10-29 Completed University of 00:00:00 [place] [facility] TDAP 2017-10-25 Completed University of 00:00:00 [place] [facility] TDAP 2017-10-25 Completed [facility] of 00:00:00 [place] [facility] TDAP 2017-10-25 Completed University of 00:00:00 [place] [facility] TDAP 2017-10-25 Completed University of 00:00:00 [place] [facility] TDAP 2017-10-25 Completed [facility] of 00:00:00 [place] [facility] TDAP 2017-10-25 Completed [facility] of 00:00:00 [place] [facility] TDAP 2017-10-25 Completed [facility] of 00:00:00 [place] [facility] TDAP 2017-10-25 Completed [facility] of 00:00:00 [place] [facility] TDAP 2017-10-25 Completed [facility] of 00:00:00 [place] [facility] TDAP 2017-10-25 Completed [facility] of 00:00:00 [place] [facility] TDAP 2017-10-25 Completed [facility] of 00:00:00 [place] [facility] TDAP 2017-10-25 Completed [facility] of 00:00:00 [place] [facility] TDAP 2017-10-25 Completed [facility] of 00:00:00 [place] [facility] TDAP 2017-10-25 Completed [facility] of 00:00:00 [place] [facility] TDAP 2017-10-25 Completed [facility] of 00:00:00 [place] [facility] TDAP 2017-10-25 Completed University of 00:00:00 [place] [facility] TDAP 2017-10-25 Completed [facility] of 00:00:00 [place] [facility] TDAP 2017-10-25 Completed [facility] of 00:00:00 [place] [facility] TDAP 2017-10-25 Completed University of 00:00:00 [place] [facility] TDAP 2017-10-25 Completed University of 00:00:00 [place] [facility] TDAP 2017-10-25 Completed University of 00:00:00 [place] [facility] TDAP 2017-10-25 Completed [facility] of 00:00:00 [place] [facility] TDAP 2017-10-25 Completed [facility] of 00:00:00 [place] [facility] TDAP 2017-10-25 Completed University of 00:00:00 [facility] Vital Signs Vital Name Observation Time Observation Value Comments Source Systolic blood 2023-01-04 16:02:00 113 mm[Hg] Univer sity of pressure [facility] Diastolic blood 2023-01-04 16:02:00 71 mm[Hg] Unive rsity of pressure [facility] Heart rate 2023-01-04 16:02:00 74 /min Universi ty of [facility] Body temperature 2023-01-04 16:02:00 36.72 Diana Univ ersity of [facility] Respiratory rate 2023-01-04 16:02:00 18 /min Univ ersity of [facility] Body height 2023-01-04 16:02:00 157.5 cm Universi ty of [facility] Body weight 2023-01-04 16:02:00 54.885 kg Universi ty of [facility] BMI 2023-01-04 16:02:00 22.13 kg/m2 Universi ty of [facility] Systolic blood 2022-12-05 19:20:00 117 mm[Hg] Univer sity of pressure [facility] Diastolic blood 2022-12-05 19:20:00 75 mm[Hg] Unive rsity of pressure [facility] Heart rate 2022-12-05 19:20:00 96 /min Universi ty of [facility] Body height 2022-12-05 19:20:00 154.9 cm Universi ty of [place] [facility] Body weight 2022-12-05 19:20:00 55.339 kg Universi ty of [facility] BMI 2022-12-05 19:20:00 23.05 kg/m2 [facility] [place] [facility] HEIGHT 2022-11-19 03:00:00 157.5 cm WEIGHT 2022-11-19 03:00:00 45 kg HEIGHT 2022-11-19 03:00:00 157.5 cm WEIGHT 2022-11-19 03:00:00 45 kg HEIGHT 2022-11-19 03:00:00 157.5 cm WEIGHT 2022-11-19 03:00:00 45 kg Systolic blood 2022-10-27 22:20:00 119 mm[Hg] Univer sity of [facility] Diastolic blood 2022-10-27 22:20:00 50 mm[Hg] Unive rsity of [facility] Heart rate 2022-10-27 22:20:00 68 /min Universi ty [facility] Body height 2022-10-27 22:20:00 154.9 cm Universi ty [facility] Body weight 2022-10-27 22:20:00 53.978 kg Universi [facility] BMI 2022-10-27 22:20:00 22.48 kg/m2 Universi ty [facility] WEIGHT 2022-10-17 05:54:00 52.1 kg HEIGHT 2022-10-14 14:52:00 165 cm WEIGHT 2022-10-14 14:52:00 52 kg WEIGHT 2022-10-17 05:54:00 52.1 kg HEIGHT 2022-10-14 14:52:00 165 cm WEIGHT 2022-10-14 14:52:00 52 kg WEIGHT 2022-10-17 05:54:00 52.1 kg HEIGHT 2022-10-14 14:52:00 165 cm WEIGHT 2022-10-14 14:52:00 52 kg Body weight 2022-04-24 18:50:00 54.885 kg Universi ty [facility] BMI 2022-04-24 18:50:00 22.13 kg/m2 Universi [facility] Systolic blood 2022-11-20 12:00:00 130 mm[Hg] [facility] Diastolic blood 2022-11-20 12:00:00 68 mm[Hg] [facility] Heart rate 2022-11-20 12:00:00 82 /min [facility] Body temperature 2022-11-20 12:00:00 37.39 Diana [facility] Respiratory rate 2022-11-20 12:00:00 18 /min [facility] Oxygen saturation in 2022-11-20 12:00:00 96 /min [facility] Arterial blood by Medical Ce nter Pulse oximetry Body height 2022-11-19 03:00:00 157.5 cm [facility] Body weight 2022-11-19 03:00:00 45 kg [facility] BMI 2022-11-19 03:00:00 18.15 kg/m2 [facility] Systolic blood 2022-10-17 15:00:00 128 mm[Hg] [facility] Diastolic blood 2022-10-17 15:00:00 72 mm[Hg] [facility] Heart rate 2022-10-17 15:00:00 112 /min [facility] Respiratory rate 2022-10-17 15:00:00 29 /min [facility] Oxygen saturation in 2022-10-17 15:00:00 98 /min [facility] Arterial blood by Medical Ce nter Pulse oximetry Body temperature 2022-10-17 12:00:00 36.94 Diana [facility] Body weight 2022-10-17 05:54:00 52.1 kg [facility] BMI 2022-10-17 05:54:00 19.14 kg/m2 [facility] Body height 2022-10-14 14:52:00 165 cm [facility] Procedures Procedure Date / Time Performing Clinician Source Performed [facility] PATIENT FINANCIAL 2023-01-04 15:34:04 Doctor Unassigned, No [facility] POLICY Name Medical [place] CONSENT/REFUSAL FOR 2022-12-05 18:48:29 Doctor Unassigned, No [facility] DIAGNOSIS AND TREATMENT Name Medical Branch POCT-GLUCOSE METER 2022-11-19 16:38:00 [facility] & 2022-11-19 13:30:00 Courtney Shukla [facility] REF LABS) Center SCREEN, URINE 2022-11-19 13:30:00 [employer] [facility] POCT-GLUCOSE METER 2022-11-19 11:58:00 Felicita Prakash [facility] XR CHEST 1 VIEW PORTABLE 2022-11-19 08:27:00 [employer] [facility] / BEDSIDE Center LACTIC ACID, VENOUS 2022-11-19 08:12:00 [facility] RAPID DRUG SCREEN, URINE 2022-11-19 04:11:00 [facility] LIPID PANEL 2022-11-19 04:08:00 [facility] COMPREHENSIVE METABOLIC 2022-11-19 04:08:00 [facility] TSH/FREE T4 IF INDICATED 2022-11-19 04:08:00 [facility] CREATINE KINASE (CK) 2022-11-19 04:08:00 [facility] CBC W/PLT COUNT & AUTO 2022-10-17 03:30:00 Nery [facility] DIFFERENTIAL [place] CBC W/PLT COUNT & AUTO 2022-10-17 03:30:00 Thierry Gabriel [facility] DIFFERENTIAL Center MAGNESIUM 2022-10-17 03:30:00 [facility] PHOSPHORUS 2022-10-17 03:30:00 [facility] BASIC METABOLIC PANEL 2022-10-17 03:30:00 [facility] POCT-GLUCOSE METER 2022-10-16 17:34:00 Manjula Mckay [facility] MAGNESIUM 2022-10-16 17:30:00 [facility] POTASSIUM 2022-10-16 17:30:00 [facility] PHOSPHORUS 2022-10-16 17:30:00 [facility] POCT-GLUCOSE METER 2022-10-16 13:44:00 [facility] EEG 12-26 HR CONTINUOUS 2022-10-16 06:15:00 Sandip Kiran [facility] MONITORING WITH VIDEO Center POCT-GLUCOSE METER 2022-10-16 05:49:00 Sandip Kiran [facility] CBC W/PLT COUNT & AUTO 2022-10-16 04:37:00 Thierry Gabriel [facility] DIFFERENTIAL [place] CBC W/PLT COUNT & AUTO 2022-10-16 04:37:00 Thierry Gabriel [facility] COMPREHENSIVE METABOLIC 2022-10-16 04:37:00 Thierry Gabriel [facility] PANEL Center MAGNESIUM 2022-10-16 04:37:00 [place] [facility] PHOSPHORUS 2022-10-16 04:37:00 [facility] POCT-GLUCOSE METER 2022-10-15 15:25:00 Sandip Kiran [facility] PROCALCITONIN 2022-10-15 12:03[facility]ID, VENOUS 2022-10-15 12:03[facility] MAGNESIUM 2022-10-15 12:03:00 [facility] POTASSIUM 2022-10-15 12:03:00 [facility] POCT-GLUCOSE METER 2022-10-15 09:05:00 Sandip Kiran [facility] EEG 12-26 HR CONTINUOUS 2022-10-15 06:01:00 Thierry Gabriel [facility] Medical MONITORING WITH VIDEO Center BLOOD GAS, ARTERIAL 2022-10-15 05:26:00 [facility] CBC W/PLT COUNT & AUTO 2022-10-15 03:17:00 Thierry Gabriel [facility] DIFFERENTIAL Center CBC W/PLT COUNT & AUTO 2022-10-15 03:17:00 Thierry Gabriel [facility] COMPREHENSIVE METABOLIC 2022-10-15 03:16:00 Thierry Gabriel [facility] PANEL Center MAGNESIUM 2022-10-15 03:16:00 [place] [facility] PHOSPHORUS 2022-10-15 03:16:00 [facility] XR ABDOMEN/KUB 1 VIEW 2022-10-15 01:02:00 [facility] XR ABDOMEN/KUB 1 VIEW 2022-10-15 00:31:00 [facility] XR ABDOMEN/KUB 1 VIEW 2022-10-15 00:25:00 [facility] XR ABDOMEN/KUB 1 VIEW 2022-10-14 22:18:00 [facility] POCT-GLUCOSE METER 2022-10-14 17:36:00 Sandip Kiran [facility] XR CHEST 1 VIEW PORTABLE 2022-10-14 17:27:00 [facility] B[facility] Center XR ABDOMEN/KUB 1 VIEW 2022-10-14 17:27:00 [facility] SARS-COV2/INFLUENZA/RSV 2022-10-14 17:06:00 Thierry Gabriel [facility] RT-PCR [place] BLOOD GAS, ARTERIAL 2022-10-14 16:47:00 Nery [facility] URINALYSIS WITH 2022-10-14 16:45:00 Nery [facility] MICROSCOPIC IF INDICATED Center COMPREHENSIVE METABOLIC 2022-10-14 16:38:00 Thierry Gabriel [facility] PANEL [place] HCG, QUANTITATIVE, 2022-10-14 16:38:00 Nery [facility] [place] Plan of Care Planned Activity Planned Date Details Comments Source Future Scheduled 2027-10-25 DTAP/TDAP/TD VACCINES [facility] Test 00:00:00 (2 - Td or Tdap) Medical Daniella ter [code = DTAP/TDAP/TD VACCINES (2 - Td or Tdap)] Future Scheduled 2027-10-25 DTAP/TDAP/TD VACCINES [facility] Test 00:00:00 (2 - Td or Tdap) Medical Daniella ter [code = DTAP/TDAP/TD VACCINES (2 - Td or Tdap)] Future Scheduled 2023-07-[address] [facility] Test 00:00:00 (Season Ended) [code Medical Center = INFLUENZA VACCINE (Season Ended)] Future Scheduled 2022-11-[address] [facility] Test 00:00:00 (12+) [code = Medical Center DEPRESSION SCREENING (12+)] Future Scheduled 2022-11-[address] [facility] Test 00:00:00 (12+) [code = Medical Center DEPRESSION SCREENING (12+)] Future Scheduled 2022-07-[address] [facility] Test 00:00:00 (#1) [code = Medical Center INFLUENZA VACCINE (#1)] Future Scheduled [address] [facility] Test 00:00:00 malignant neoplasm of Medica l Center cervix (procedure) [code = 763172447] Future Scheduled [address] [facility] Test 00:00:00 malignant neoplasm of Medica l Center cervix (procedure) [code = 398489986] Future Scheduled 2007 HEPATITIS C SCREENING [facility] Test 00:00:00 [code = HEPATITIS C Medical Center SCREENING] Future Scheduled 2007 HEPATITIS C SCREENING [facility] Test 00:00:00 [code = HEPATITIS C Medical Center SCREENING] Future Scheduled [address] [facility] Test 00:00:00 Counseling and Medical Cente r Screening (12+) [code = Tobacco Cessation Counseling and Screening (12+)] Future Scheduled [address] [facility] Test 00:00:00 Counseling and Medical Cente r Screening (12+) [code = Tobacco Cessation Counseling and Screening (12+)] Future Scheduled 1990-05-03 COVID-19 VACCINE (#1) [facility] 00:00:00 [code = COVID-[address] VACCINE (#1)] Future Scheduled 1990-05-03 COVID-19 VACCINE (#1) [facility] Test 00:00:00 [code = COVID-[address] VACCINE (#1)] Encounters Start End Encounter Admission Attending Care Care Encounter Source Date/Time Date/Time Type Type Clinicians Facility Department ID 2023-03-13 2023-03-13 [facility] 1.2.840.114 [id number] Univers 00:00:00 00:00:00 Boni TITUS 350.1.13.10 i ty of [facility] [place] [phone] Me dical NAL 134 [facility] 2023-02-13 2023-02-13 [facility] 1.2.840.114 [id number] Univers 00:00:00 00:00:00 [facility] 350.1.13.10 it y of [place] 4.2.7.2.686 Ed as PHUC?BLEA [id number] Sd dical KNEY 044 [facility] OFFICE [facility] 2023-02-12 2023-02-12 Jose [facility] 1.2.840.114 [id number] Univers 00:00:00 00:00:00 [facility] 350.1.13.10 ity of [place] 4.2.7.2.686 Ed as PHUC?BLEA [phone] Sd dical KNEY 092 [facility] 2023-01-10 2023-01-10 [facility] 1.2.840.114 [id number] Univers 00:00:00 00:00:00 [facility] 350.1.13.10 it y of Edward [place] 4.2.7.2.686 Ed as PHUC?BLEA [id number] Sd dical KNEY 044 [facility] OFFICE [facility] 2023-01-04 2023-01-04 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 2, Adc Lab [facility] 1.2.840.114 [id number] Univers 10:30:00 10:45:00 Visit Boni Estrella 350.1.13.10 ity of [place].2.7.2.[place] [phone] Me dical NAL 353 [facility] 2023-01-04 2023-01-04 Outpatient [facility] [id number] Univers 09:30:00 10:32:33 BONI kamryn [facility] 2023-01-04 2023-01-04 Office [facility] 1.2.009.992 [id number] Univers 09:30:00 10:32:33 Visit Boniharriet TITUS 350.1.13.10 i ty of [place] 4.2.7.2.686 [place] [id number] Sd dical [facility] 134 [facility] 2023-01-04 2023-01-04 Outpatient R SAMEER [facility] [id number] Univers 09:30:00 09:30:00 BONI [facility] 2023-01-04 2023-01-04 Orders Doctor BURDEN 1.2.840.114 [id number] Univers 00:00:00 00:00:00 Only Unassigned, REHANA 350.1.13.10 [facility] 4.2.7.2.686 Ed as [id number] [address] 2022-12-15 2022-12-15 Telephone [facility] 1.2.840.114 [id number] Univers 00:00:00 00:00:00 [facility] 350.1.13.10 ity of [place] 4.2.7.2.686 Ed as PHUC?BLEA [id number] [address] 2022-12-12 2022-12-12 Telephone [facility] 1.2.840.114 [id number] Univers 00:00:00 00:00:00 [facility] 350.1.13.10 ity of [place] 4.2.7.2.686 Ed as PHUC?BLEA [id number] [address] 2022-12-11 2022-12-11 [facility] 1.2.840.114 [id number] Univers 00:00:00 00:00:00 [facility] 350.1.13.10 it y of [place] 4.2.7.2.686 Ed as PHUC?BLEA [id number] Sd savanna CALLEJAS [address] MEDICAL OFFICE BUILDING 2022-12-05 2022-12-05 Outpatient R MARS HARVEY [facility] [id number] Univers 13:00:00 13:55:10 MARS HARVEY ity of [facility] 2022-12-05 2022-12-05 Office Mallory [facility] 1.2.840.114 [id number] Univers 13:00:00 13:55:10 Visit [facility] 350.1.13.10 ity of [place] 4.2.7.2.686 Ed as PHUC?BLEA [id number] Sd savanna [facility] [address] [place] [address] MEDICAL OFFICE [facility] 2022-12-05 2022-12-05 Orders Doctor JENISE 1.2.840.114 [id number] Univers 00:00:00 00:00:00 Only Unassigned, REHANA 350.1.13.10 ity of [place] [facility] 4.2.7.2.686 Ed as [phone] [address] 2022-11-24 2022-11-24 Telephone [facility] 1.2.840.114 [id number] Univers 00:00:00 00:00:00 [facility] 350.1.13.10 ity of [place] 4.2.7.2.686 Ed as PHUC?BLEA [id number] [address] MEDICAL OFFICE [facility] 2022-11-19 2022-11-20 [facility] Dwain Felicitadonna Alegria [facility] [id number] [facility] 02:42:00 15:24:00 Encounter Sandee [facility] 2022-11-19 2022-11-20 Inpatient ER SARAH MOORE Neurology [id number] [facility] 02:42:00 15:24:00 [facility] 2022-11-06 2022-11-06 Refshen Cunningham [facility] 1.2.840.114 [id number] Univers 00:00:00 00:00:00 [facility] 350.1.13.10 it y of Edward [place] 4.2.7.2.686 Ed as PHUC?BLEA [id number] Sd savanna CALLEJAS [address] [place] MEDICAL OFFICE BUILDING 2022-10-27 2022-10-27 Outpatient R MARS HARVEY [facility] [id number] Univers 16:20:00 16:53:51 MARS HARVEY ity of [facility] 2022-10-27 2022-10-27 Office Mallory [facility] 1.2.840.114 [id number] Univers 16:20:00 16:53:51 Visit [facility] 350.1.13.10 ity of [place] 4.2.7.2.686 Ed as PHUC?BLEA [id number] Sd savanna [facility] [address] [place] [address] MEDICAL OFFICE [facility] 2022-10-19 2022-10-19 Telephone Octavio [facility] 1.2.840.114 [id number] Univers 00:00:00 00:00:00 [facility] 350.1.13.10 it y of [place] 4.2.7.2.686 Ed as PHUC?BLEA [id number] Sd savanna [address] MEDICAL OFFICE [facility] 2022-10-18 2022-10-18 Telephone Mallory [facility] 1.2.840.114 [id number] Univers 00:00:00 00:00:00 [facility] 350.1.13.10 ity of [place] 4.2.7.2.686 Ed as PHUC?BLEA [id number] [address] MEDICAL OFFICE [facility] 2022-10-14 2022-10-17 [facility] [id number] [facility] St 14:16:00 17:30:00 Encounter Felicita Prakash Nejmudin [facility] [place] 2022-10-14 2022-10-17 [facility] [id number] 14:16:00 17:30:00 Encounter Felicita Prakash Nejmudin [facility] [place] 2022-10-14 2022-10-17 Inpatient UR SEVEN, [facility] Neurology [id number] SLE 14:16:00 17:30:00 THAO 2022-09-19 2022-09-19 Refshen [facility] 1.2.840.114 [id number] Univers 00:00:00 00:00:00 Micaela HEALTH 350.1.13.10 it y of [place] 4.2.7.2.686 Ed as PHUC?BLEA [id number] [address] MEDICAL OFFICE [facility] 2022-07-28 2022-07-28 Refshen Queen[facility] 1.2.840.114 [id number] Univers 00:00:00 00:00:00 Wondiful A HEALTH 350.1.13.10 ity of [place] 4.2.7.2.686 Ed as PHUC?BLEA [id number] [address] 2022-05-18 2022-05-18 Outpatient [place] [address] [place] 10:46:00 10:46:00 N 0714 [facility] 2022-04-24 2022-04-24 Office [facility] 1.2.840.114 [id number] Univers 13:30:00 13:45:00 Visit Lucero GONZALEZ 350.1.13.10 i ty of [place].7.2.686 [place] [id number] [address] 2022-04-24 2022-04-24 Outpatient Sheree NAPOLES [facility] [id number] Univers 13:30:00 13:30:00 LUCERO beasley [facility] 2022-04-24 2022-04-24 Outpatient Sheree NAPOLES [facility] [id number] Univers 13:30:00 13:30:00 LUCERO beasley [facility] 2022-03-23 2022-03-23 Office Octavio [facility] 1.2.840.114 [id number] Univers 11:00:00 11:30:00 Visit Micaela [facility] 350.1.13.10 it y of [place] 4.2.7.2.686 Ed as PHUC?BLEA [id number] Sd dical KARRIEEY 044 [facility] OFFICE [facility] 2022-03-23 2022-03-23 Outpatient R OCTAVIO [facility] [id number] Univers 11:00:00 11:00:00 [facility] 2022-03-23 2022-03-23 Outpatient R VALREIAALICIA [facility] [id number] Univers 11:00:00 11:00:00 [facility] 2022-02-28 2022-02-28 [facility] 1.2.840.114 [id number] Univers 14:40:00 15:48:53 Visit [facility] 350.1.13.10 ity eyal [place] 4.2.7.2.686 Ed as PHUC?BLEA [phone] Sd savanna YOON [address] [place] [address] 2022-02-28 2022-02-28 Outpatient MARS MANNING [facility] [id number] Univers 14:40:00 15:48:53 MALLORYMARS [facility] 2022-02-28 2022-02-28 Outpatient MARS MANNING [facility] [id number] Univers 14:40:00 14:40:00 MARS HARVEY [facility] 2022-02-07 2022-02-07 Telephone Mallory, [facility] 1.2.840.114 [id number] Univers 00:00:00 00:00:00 [facility] 350.1.13.10 itKimberly 4.2.7.2.686 Ed as PHUC?BLEA [phone] Sd dicswathi YOONEY 092 [facility] 2022-01-04 2022-01-04 Office [facility] 1.2.427.092 [id number] Univers 13:00:00 14:05:16 Visit Boni TITUS 350.1.13.10 i ty of [place]2.7.2.[place] [id number] Sd dical NAL 134 [facility] 2022-01-04 2022-01-04 Outpatient Sheree ESTRELLA [facility] [id number] Univers 13:00:00 14:05:16 BONI [facility] 2022-01-04 2022-01-04 Outpatient Sheree ESTRELLA [facility] [id number] Univers 13:00:00 13:00:00 BONI [facility] 2021-10-24 2021-10-24 Office [facility] 1.2.840.114 [id number] Univers 13:00:00 13:37:52 Visit Miroslavamackenzie GONZALEZ 350.1.13.10 i ty of [facility] 4.2.7.2.686 [place] [id number] [facility] [address] 2021-10-24 2021-10-24 Outpatient R [facility] [id number] Univers 13:00:00 13:37:52 [facility] 2021-10-18 2021-10-18 [facility] 1.2.840.114 [id number] Univers 11:08:45 23:59:00 Encounter Sandip TITUS 350.1.13.10 ity of [place].2.7.2.686 [place] [id number] [facility] [address] 2021-10-18 2021-10-18 Outpatient Sheree MALLORY MARS [facility] [id number] Univers 10:30:17 11:07:00 [facility] 2021-10-18 2021-10-18 [facility] 1.2.796.442 [id number] Univers 10:30:00 11:07:00 Encounter Mars ITTUS 350.1.13.10 ity of [facility] 4.2.7.2.686 [place] C[place] [phone] [facility] [address] 2021-09-22 2021-09-22 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 Lab, Gentry - Walt [facility] 1.2.840.1 14 [id number] Univers 14:58:12 15:13:12 Visit Rodolfo Queen [facility] 350.1.13.1 0 ity of [place] 4.2.7.2.686 Ed as PHUC?BLEA [phone] Me dicswathi CALLEJAS 353 [facility] OFFICE [facility] 2021-09-22 2021-09-22 Office [facility] 1.2.840.114 [id number] Univers 14:02:46 14:48:25 Visit [facility] 350.1.13.10 ity of [place] 4.2.7.2.686 Ed as PHUC?BLEA [phone] Me dicswathi CALLEJAS 044 [facility] OFFICE [facility] 2021-09-22 2021-09-22 Outpatient R BERNICE [facility] [id number] Univers 14:00:00 14:48:25 [facility] ity o f [facility] 2021-09-22 2021-09-22 Telephone [facility] 1.2.840.114 [id number] Univers 00:00:00 00:00:00 [facility] 350.1.13.10 ity of [place] 4.2.7.2.686 Ed as PHUC?BLEA [id number] Sd savanna CALLEJAS 092 [facility] OFFICE [facility] 2021-08-26 2021-08-26 Office [facility] 1.2.840.114 [id number] Univers 11:18:55 11:44:59 Visit Jenise Titus 350.1.13.10 i ty of [place]2.7.2.[place] Profess[place] [phone] [facility] nal 188 [facility] 2021-08-26 2021-08-26 Outpatient Sheree GIL [facility] [id number] Univers 11:15:00 11:15:00 JENISE beasley [facility] 2021-08-05 2021-08-05 Office [facility] 1.2.840.114 [id number] Univers 09:41:48 11:12:52 Visit Jenise Titus 350.1.13.10 i ty of [place].2.7.2.[place] [phone] Sd dical nal 188 [facility] 2021-08-05 2021-08-05 Outpatient R [facility] [id number] Univers 09:30:00 09:30:00 EJNISE beasley [facility] 2021-08-05 2021-08-05 Orders Doctor JENISE 1.2.840.114 [id number] Univers 00:00:00 00:00:00 Only Unassigned, REHANA 350.1.13.10 ity of [place] [facility] 4.2.7.2.686 Ed as [id number] [address] 2021-07-12 2021-07-12 Office Mallory [facility] 1.2.840.114 [id number] Univers 13:36:24 15:02:01 Visit Mars [facility] 350.1.13.10 ity of [place] 4.2.7.2.686 Ed as Phuc?Blea [id number] [facility] 092 [facility] Office Building 2021-07-12 2021-07-12 Outpatient R MARS HARVEY [facility] [id number] Univers 13:40:00 13:40:00 MARS HARVEY [facility] 2021-06-30 2021-06-30 Office [facility] 1.2.840.114 [id number] Univers 12:09:02 12:54:48 Visit Wonchristianoful [facility] Health 350.1.13.10 ity of [place] 4.2.7.2.686 Ed as Phuc?Blea [id number] [facility] [address] Medical Office Building 2021-06-30 2021-06-30 Outpatient R BERNICE [facility] [id number] Univers 11:45:00 11:45:00 WONDIFUL ity o f [facility] 2021-06-06 2021-06-06 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 Lab, Adc Fam Pob I [facility] 1.2. 840.114 [id number] Univers 10:33:58 10:53:58 Visit Rodolfo [facility] 350.1.13.1 0 ity of [place] 4.2.7.2.686 Ed as Professio [phone] [address] Office Building One 2021-06-06 2021-06-06 Outpatient R BERNICE [facility] [id number] Univers 10:20:00 10:20:00 WONDIFUL ity o f [facility] 2021-06-02 2021-06-02 Office [facility] 1.2.840.114 [id number] Univers 15:39:55 17:24:04 Visit Wondiful [facility] Health 350.1.13.10 ity of [place] 4.2.7.2.686 Ed as Professio [id number] [address] Office [facility] One 2021-06-02 2021-06-02 Outpatient R B[facility]LECT [facility] [id number] Univers 15:45:00 15:45:00 WONDIFUL ity o f [facility] 2021-05-17 2021-05-17 Office [facility] 1.2.840.114 [id number] Univers 11:13:31 12:02:[address] [facility] 350.1.13.10 ity of [place] 4.2.7.2.686 Ed as Professio [phone] [address] Office [facility] One 2021-05-17 2021-05-17 Outpatient R BERNICE [facility] [id number] Univers 11:15:00 11:15:00 WONDIFUL ity o [facility] 2021-05-17 2021-05-17 Orders Doctor JENISE 1.2.840.114 [id number] Univers 00:00:00 00:00:00 Only Unassigned, REHANA 350.1.13.10 ity of [place] [facility] 4.2.7.2.686 Ed as [phone] [facility] [address] 2021-04-25 2021-04-25 Office [facility] 1.2.840.114 [id number] Univers 12:54:10 13:09:10 Visit Miroslavamackenzie GONZALEZ 350.1.13.10 i ty of [facility] 4.2.7.2.686 [place] [id number] [facility] [address] 2021-04-25 2021-04-25 Outpatient R KEVIN [facility] [id number] Univers 11:30:00 11:30:00 MIROSLAVA ity of [facility] 2021-01-03 2021-01-03 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 2, Adc Lab [facility] 1.2.840.114 [id number] Univers 10:00:53 10:15:53 Visit Boni Estrella 350.1.13.10 ity of [place].2.[place] [phone] [facility] 353 [facility] 2021-01-03 2021-01-03 Office Sameer [facility] 1.2.295.826 [id number] Univers 08:30:48 09:39:14 Visit Boni Chandlerton 350.1.13.10 i ty of [place].2.7.2.[place] [id number] [facility] 134 [facility] 2021-01-03 2021-01-03 Outpatient R SAMEER [facility] [id number] Univers 08:00:00 08:00:00 BONI [facility] 2020-12-31 2020-12-31 Outpatient R SAMEER [facility] [id number] Univers 09:00:00 09:00:00 [facility] 2020-10-26 2020-10-26 Telephone [facility] 1.2.840.114 [id number] Univers 00:00:00 00:00:00 Wondiful A Health 350.1.13.10 ity of [place] 4.2.7.2.686 Ed as Professio [phone] [facility] [address] Office Building One 2020-10-26 2020-10-26 Orders Doctor JENISE 1.2.840.114 [id number] Univers 00:00:00 00:00:00 Only Unassigned, REHANA 350.1.13.10 ity of [place] [facility] 4.2.7.2.686 Ed as [phone] [facility] [address] 2020-10-25 2020-10-25 Office Kevin [facility] 1.2.840.114 [id number] Univers 14:44:52 14:59:52 Visit Miroslava GONZALEZ 350.1.13.10 i ty of [facility] 4.2.7.2.686 [place] [phone] [address] 2020-10-25 2020-10-25 Outpatient R KEVIN [facility] [id number] Univers 14:45:00 14:45:00 MIROSLAVA ity [facility] 2020-10-08 2020-10-08 Ancillary Marilou Franklin [facility] 1.2.840 .114 [id number] Univers 11:06:11 11:46:11 Visit Hesham Max 350.1.13.10 ity of [place].2.[place] [phone] Sd dical nal 179 [facility] 2020-10-08 2020-10-08 Outpatient R [facility] [id number] Univers 11:20:00 11:20:00 ity of [facility] 2020-10-08 2020-10-08 Ancillary Snow Lambert [facility] 1.2.8 40.114 [id number] Univers 10:20:06 11:05:06 Visit Hesham Max 350.1.13.10 ity of [place].2.[place] [id number] Sd dical nal 145 [facility] 2020-10-08 2020-10-08 Outpatient R [facility] [id number] Univers 10:15:00 10:15:00 HESHAM ity [facility] 2020-09-24 2020-09-24 Outpatient R [facility] [id number] Univers 10:15:00 10:15:00 ity of [facility] 2020-09-24 2020-09-24 Ancillary Snow Lambert [facility] 1.2.8 40.114 [id number] Univers 09:23:11 10:08:11 Visit Hesham Max 350.1.13.10 ity of [place].2.[place] [phone] Sd dical nal 145 [facility] 2020-09-24 2020-09-24 Ancillary Narcisa Peraza [facility] 1 .2.840.114 [id number] Univers 08:52:03 09:52:03 Visit Hesham Max 350.1.13.10 ity of [place]2.7.2.[place] [phone] Sd dical nal 179 [facility] 2020-09-24 2020-09-24 Outpatient R [facility] [id number] Univers 08:40:00 08:40:00 ity of [facility] 2020-09-16 2020-09-16 Office Bernice [facility] 1.2.840.114 [id number] Univers 14:24:24 15:07:08 Visit Wondiful A Health 350.1.13.10 ity of [place] 4.2.7.2.686 Ed as Professio [phone] Sd dical nal 044 [facility] 2020-09-16 2020-09-16 Out[facility] [id number] Univers 14:15:00 14:15:00 WONDIFUL ity o f [facility] 2020-01-16 2020-01-16 [facility] [id number] [id number] Univers 00:00:00 00:00:00 [facility] 350.1.13.10 ity of [place] 4.2.7.2.686 Ed as Professio [phone] [facility] 044 [facility] 2020-01-09 2020-01-09 [facility] [id number] [id number] [facility] 09:01:26 09:16:26 Visit Libertadjay GONZALEZ 350.1.13.10 ity of [facility] 4[place].7.2.[place] [phone] [address] 2020-01-09 2020-01-09 Outpatient R MARSHA [facility] [id number] Univers 08:45:00 08:45:[address] [facility] ity of [facility] 2019-12-26 2020-01-06 Office Sameer [facility] [id number] Univers 10:09:19 10:58:29 Visit Boni Titus 350.1.13.10 i [place]2.[place] Profess[place] [phone] Sd dical nal 134 [facility] 2019-12-26 2019-12-26 Outpatient R SAMEER, [facility] [id number] Univers 10:00:00 11:02:01 BONI itkamryn of [facility] 2019-12-13 2019-12-13 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 Kyler [facility] 1.2.8 40.114 [id number] Univers 09:29:57 09:44:57 Visit Rodolfo [place] 350.1.13. 10 [place] Profess[place] [phone] [facility] 353 [facility] 2019-12-13 2019-12-13 Orders Doctor JENISE [id number] [id number] Univers 00:00:00 00:00:00 Only Unassigned, REHANA 350.1.13.10 ity of [facility] 4.2.7.2.686 Ed as [phone] [address] 2019-12-12 2019-12-12 [facility] 1.2.840.114 [id number] Univers 11:51:09 12:29:49 Visit [facility] 350.1.13.10 ity of [place] 4.2.7.2.686 Ed as Professio [phone] [facility] [address] [facility] One 2019-11-25 2019-11-25 [facility] 1.2.840.114 [id number] Univers 10:22:11 11:33:49 Visit [facility] 350.1.13.10 ity of [place] 4.2.7.2.686 Ed as Professio [phone] [facility] [address] [place] Office [facility] 2019-11-25 2019-11-25 Orders Doctor JENISE 1.2.840.114 [id number] Univers 00:00:00 00:00:00 Only Unassigned, REHANA 350.1.13.10 ity of [place] [facility] 4.2.7.2.686 Ed as [phone] [address] 2018-11-25 2018-11-25 Orders Doctor JENISE 1.2.840.114 [id number] Univers 00:00:00 00:00:00 Only Unassigned, REHANA 350.1.13.10 ity of [place] [facility] 4.2.7.2.686 Ed as [phone] Medi sue 009 Branch Results Test Description Test Time Test Comments Results Result Comments Source POC-Glucose meter 2022-11-19 16:50:01 Test Item Value Reference Range Interpretation Comme nts POC-Glucose Meter (test code = 101 mg/dL 70-110 : TESTED AT [facility] [address]) [facility], 770 30: Insurance Loss Assessor/Techni rosita ID = [id number] for Isabel Powell Lab Interpretation (test code = Normal 68587-1) [facility] [id number] 16:50:01 Test Item Value Reference Range Interpretation Comments POC-GLUCOSE METER 101 mg/dL 70-110 : TESTED A T [facility] [address]20 (BEAKER) (test code = [address] R [facility], 1538) [address]: Insurance Loss Assessor/Techni rosita ID = [id number] for Deana todd, Isabel Screen, [id number] 14:40:42 Test Item Value Reference Range Interpretation Comments Preg Test, Ur (test code = 2112-1) Negative Negative Lab Interpretation (test code = Normal 72389-1) [facility], [id number] 14:40:42 Test Item Value Reference Range Interpretation Comments TEST URINE (BEAKER) (test Negative Negative code = 583) SARS-CoV2/RT-PCR (Asymptomatic ONLY)2022-11-19 14:36:36 Test Item Value Reference Interpretation Comments Range SARS-COV2/RT-PCR Negative Negative The SARS-Co V-2 (test code = target nucleic 38826-6) acids are not detected in [facility] s specimen. Negat janelle results do not preclude SARS-C oV-2 infection and should not be u sed as the sole bas is for patient management decisions. Nega tive results must be combined with clinical observations, patient history , and epidemiolog ical information. A false negative result may occu r if a specimen is improperly collected, transported or handled. This S ARS CoV-2 test is a rapid, real-rody e RT-PCR test intended for e qualitative detection of nucleic acid fr om SARS-CoV-2 in a nasopharyngeal swab specimen collec keron from individual s suspected of COVID-19 by the ir healthcare provider. GABRIEL (test code = This test has been GABRIEL) authorized by FDA under an EUA for use by authorized laboratories. This test is only authorized for the duration of the declaration that circumstances exist justifying the authorization of emergency use of in vitro diagnostic tests for detection and/or diagnosis of COVID-19 under Section 564(b)(1) of the Federal Food, Drug and Cosmetic Act, 21 U.S.C. 360bbb-3(b)(1), unless the authorization is terminated or revoked sooner. Fact Sheet for Healthcare Providers: https://www.[employer]/Documents/Xp ert%20Xpress%20SAR S%20CoV-2/Fact%20S heets/302-3802%20S ARS-COV-2%20HEALTH CARE%20PROVIDERS%2 0FACT%20SHEET.pdf Fact Sheet for Healthcare Patients: https://wwwThink [employer]/Documents/Xp ert%20Xpress%20SAR S%20CoV-2/Fact%20S heets/302-3801%20S ARS-COV-2%20PATIEN T%20FACT%20SHEET.p df Lab Interpretation Normal (test code = 41844-7) [facility])2022-11-19 14:36:36 Test Item Value Reference Range Interpretation Comments SARS-COV2/RT-PCR Negative Negative The SARS-Co V-2 target (test code = nucleic acids a re not 4385157) detected in thi s specimen. Negative result s do not preclude SARS-C oV-2 infection and s hould not be used as the modesto e basis for patient managem ent decisions. Nega tive results must be combine d with clinical observ ations, patient history , and epidemiological information. A false negativ e result may occur if a spec imen is improperly jonathon ected, transported or handled. This SARS CoV-2 test is a rapid, real-time RT-PC R test intended for th e qualitative detection of nu cleic acid from SARS-CoV-2 in a nasopharyngeal swab specimen collected from individuals suspected of CO VID-19 by their healthcar e provider. This test has been authorized by FDA under an EUA for use by authorized laboratories. This test is only authorized for the duration of the declaration that circumstances exist justifying the authorization of emergency use of in vitro diagnostic tests for detection and/or diagnosis of COVID-19 under Section 564(b)(1) of the Federal Food, Drug and Cosmetic Act, 21 U.S.C. 360bbb-3(b)(1), unless the authorization is terminated or revoked sooner. Fact Sheet for Healthcare Providers: https://www.[employer]/Documents/Xpert%20Xpress%20SARS%20CoV-2/Fact%20Sheets/302-3802%43CPWJ-ZCY-7%20 HEALTHCARE%20PROVIDERS%20FACT%20SHEET.pdf Fact Sheet for Healthcare Patients: https://www.[employer]/Documents/Xpert%20Xp ress%20SARS%20CoV-2/Fact%20Sheets/302-3801%22UTDL-PGJ-7%20PATIENT%20FACT%20SHEET .pdfPOCT-GLUCOSE [id number] 12:10:04 Test Item Value Reference Range Interpretation Comments POC-GLUCOSE METER 107 mg/dL 70-110 : TESTED A T [facility] 6720 ([facility]) (test code = [address] [place], 1538) [address]: Insurance Loss Assessor/Techni rosita ID = [id number] for Lo irmaz, Isabel Rapid drug screen, [id number] 09:26:21 Test Item Value Reference Range Interpretation Comments Barbiturate Screen Negative Negative (test code = 36080-4) Benzodiazepine Screen Negative Negative (test code = 82852-1) Cocaine (Metab.) Negative Negative Screen (test code = 3397-7) Methadone Screen (test Negative Negative code = 16510-3) Opiate Screen (test Negative Negative code = 93064-3) Cannabinoid Screen Positive Negative A (test code = 49917-2) Amph/Methamph Screen Negative Negative (test code = 66576-2) Phencyclidine Screen Negative Negative (test code = 96486-5) pH, UA (test code = 6.5 5.0-8.0 5803-2) GABRIEL (test code = GABRIEL) DRUG CUTOFF CONC.Cocaine 300 ng/mL Cannabinoid 50 ng/mLBenzodiazepine 200 ng/mLBarbiturate 200 ng/mLPhencyclidine 25 ng/mLOpiate 300 ng/mLMethadone 300 ng/mLAmphetamine/ 1000 ng/mL Methamphetamine This assay provides an unconfirmed qualitative test result for the clinical management of patients in emergency situations. Chain of custody not maintained. Some hqaz-aro-rhtbezw medications, as well as adulterants, may cause inaccurate results. Clinical correlation should be applied. A more comprehensive drug screen or confirmation of a detected drug may be performed upon request.Insurance Loss Assessor ID Shemar Clark ID - tech Lab Interpretation Abnormal (test code = 60380-5) [facility], [id number] 09:26:21 Test Item Value Reference Range Interpretation Comments BARBITURATE URINE (BEAKER) (test Negative Negative code = 725) BENZODIAZEPINE SCREEN URINE (BEAKER) Negative Negative (test code = 726) COCAINE (METAB.) SCREEN (BEAKER) Negative Negative (test code = 1164) METHADONE SCREEN (BEAKER) (test code Negative Negative = 1436) OPIATE SCREEN URINE (BEAKER) (test Negative Negative code = 734) CANNABINOID SCREEN URINE (BEAKER) Positive Negative A (test code = 727) AMPH/METHAMPH SCREEN (BEAKER) (test Negative Negative code = 1438) PHENCYCLIDINE SCREEN URINE (BEAKER) Negative Negative (test code = 608) PH UA (BEAKER) (test code = 467) 6.5 5.0-8.0 DRUG CUTOFF CONC.Cocaine 300 ng/mL Cannabinoid 50 ng/mLBenzodiazepine 200 ng/mLBarbiturate 200 ng/mLPhencyclidine 25 ng/mLOpiate 300 ng/mLMethadone 300 ng/mLAmphetamine/ 1000 ng/mL MethamphetamineThis assay provides an unconfirmed qualitative test result for the clinical management of patients in emergency situations. Chain of custody not maintained. Some hxah-pmd-dptmniu medications, as well as adulterants, may cause inaccurate results. Clinical correlation should be applied. A more comprehensive drug screen or confirmation of a detected drug may be performed upon request.Insurance Loss Assessor ID Shemar Clark ID - techRAD, CHEST, 1 VIEW, NON [id number] 09:22:00Reason for exam:->cough, concern for aspirationShould this be performed at the bedside?->Yes [facility] : 1990 Sex: FFINAL REPORT AP view of the chest dated 11/19/2022 CLINICAL INFORMATION: cough, concern for aspiration Comment: Heart is normal in size. Pulmonary vasculature is unremarkable. Lungs are clear. No pulmonary infiltrate or pleural effusion is present. Impression: No active cardiopulmonary disease. Signed: Micaela Barton Verified Date/Time: 11/19/2022 09:22:00 Reading Location: [facility] C013Y CT Body Reading Room CREATINE KINASE (CK)2022-11-19 08:43:21 Test Item Value Reference Range Interpretation Comments CREATINE KINASE TOTAL (BEAKER) (test 406 U/L 29-200 H code = 380) Insurance Loss Assessor ID - PIANNIKA LLACTIC ACID, [id number] 08:39:17 Test Item Value Reference Range Interpretation Comments LACTATE BLOOD VENOUS 1.31 mmol/L 0.50-2.20 Specime n slightly (2) (BEAKER) (test hemolyzed code = 2872) Insurance Loss Assessor ID - PIANNIKA LTSH/FREE T4 IF [id number] 04:57:19 Test Item Value Reference Range Interpretation Comments THYROID STIMULATING HORMONE 0.891 uIU/mL 0.350-4.940 (BEAKER) (test code = 772) Insurance Loss Assessor ID - MARIA DEL ROSARIO LCOMPREHENSIVE METABOLIC [id number] 04:35:14 Test Item Value Reference Range Interpretation Comments TOTAL PROTEIN 5.9 gm/dL 6.0-8.3 L (BEAKER) (test code = 770) ALBUMIN (BEAKER) 3.8 g/dL 3.5-5.0 (test code = 1145) ALKALINE 42 U/L 40-150 PHOSPHATASE (BEAKER) (test code = 346) BILIRUBIN TOTAL 0.2 mg/dL 0.2-1.2 (BEAKER) (test code = 377) SODIUM (BEAKER) 139 meq/L 136-145 (test code = 381) POTASSIUM (BEAKER) 3.7 meq/L 3.5-5.1 (test code = 379) CHLORIDE (BEAKER) 111 meq/L 98-107 H (test code = 382) CO2 (BEAKER) (test 21 meq/L 22-29 L code = 355) BLOOD UREA 8 mg/dL 7-21 NITROGEN (BEAKER) (test code = 354) CREATININE 0.62 mg/dL 0.57-1.25 (BEAKER) (test code = 358) GLUCOSE RANDOM 109 mg/dL 70-105 H (BEAKER) (test code = 652) CALCIUM (BEAKER) 8.6 mg/dL 8.4-10.2 (test code = 697) AST (SGOT) 17 U/L 5-34 (BEAKER) (test code = 353) ALT (SGPT) 16 U/L 6-55 (BEAKER) (test code = 347) EGFR (BEAKER) 121 Interpretatio n of eGFR (test code = 1092) mL/min/1.[address] age Description sq m Result G1 Kaylene l or high >=90 G2 Mildly decreased 60-89 G3a Mild ly to moderately 45-5 9 G3b Moderately to s everely 30-44 G4 Severl y decreased 15-29 G5 Kidney failure <15Reported eGF R is based on the CKD-EPI 2021 equation that d oes not use a race coefficientEsti mated GFR is not as accur ate as Creatinine Violeta sofy in predicting glom erular filtration rate . Estimated GFR is not appl icable for dialysis patien ts Insurance Loss Assessor ID - MARIA DEL ROSARIO MORALESID [id number] 04:35:14 Test Item Value Reference Range Interpretation Comments TRIGLYCERIDES (BEAKER) (test code = 71 mg/dL 540) CHOLESTEROL (BEAKER) (test code = 161 mg/dL 631) HDL CHOLESTEROL (BEAKER) (test code 42 mg/dL = 976) LDL CHOLESTEROL CALCULATED (BEAKER) 105 mg/dL (test code = 633) Triglyceride Reference Range: Low Risk <150 Borderline 150-199 High Risk 200- 499 Very High Risk >=500Cholesterol Reference Range: Low Risk <200 Borderline 200-239 High Risk >240HDL Cholesterol Reference Range: Low Risk >=60 High Risk <40LDL Cholesterol Reference Range: Optimal <100 Near Optimal 100-129 Borderline 130-159 High 160-189 Very High >=190 Insurance Loss Assessor ID - MARIA DEL ROSARIO LBASIC METABOLIC [id number] 04:39:21 Test Item Value Reference Range Interpretation Comments SODIUM (BEAKER) 141 meq/L 136-145 (test code = 381) POTASSIUM 4.1 meq/L 3.5-5.1 (BEAKER) (test code = 379) CHLORIDE (BEAKER) 112 meq/L 98-107 H (test code = 382) CO2 (BEAKER) 21 meq/L 22-29 L (test code = 355) BLOOD UREA 4 mg/dL 7-21 L NITROGEN (BEAKER) (test code = 354) CREATININE 0.57 mg/dL 0.57-1.25 (BEAKER) (test code = 358) GLUCOSE RANDOM 89 mg/dL 70-105 (BEAKER) (test code = 652) CALCIUM (BEAKER) 9.2 mg/dL 8.4-10.2 (test code = 697) EGFR (BEAKER) 124 Interpretati on of eGFR (test code = mL/min/1.73 values Stage De scription 1092) sq m Result G1 Kaylene l or high >=90 G2 Mildly decreased 60-89 G3a Mildl y to moderately 45-5 9 G3b Moderately to s everely 30-44 G4 Severl y decreased 15-29 G5 Kidney failure <15Reported eGF R is based on the CKD-EPI 2020 equation that d oes not use a race coefficientEsti mated GFR is not as accur ate as Creatinine Violeta sofy in predicting glom erular filtration rate . Estimated GFR is not appl icable for dialysis patien ts Insurance Loss Assessor ID - [id number] 04:39:21 Test Item Value Reference Range Interpretation Comments MAGNESIUM (BEAKER) (test code = 1.8 mg/dL 1.6-2.6 627) Insurance Loss Assessor ID - [id number] 04:39:21 Test Item Value Reference Range Interpretation Comments PHOSPHORUS (BEAKER) (test code = 3.4 mg/dL 2.3-4.7 604) Insurance Loss Assessor ID - MARCOCBC W/PLT COUNT & AUTO [id number] 04:00:45 Test Item Value Reference Range Interpretation Comments WHITE BLOOD CELL COUNT (BEAKER) 4.8 K/ L 3.5-10.5 (test code = 775) RED BLOOD CELL COUNT (BEAKER) 3.85 M/ L 3.93-5.22 L (test code = 761) HEMOGLOBIN (BEAKER) (test code = 11.5 GM/DL 11.2-15.7 410) HEMATOCRIT (BEAKER) (test code = 34.1 % 34.1-44.9 411) MEAN CORPUSCULAR VOLUME (BEAKER) 89 fL 79-95 (test code = 753) MEAN CORPUSCULAR HEMOGLOBIN 29.9 pg 25.6-32.2 (BEAKER) (test code = 751) MEAN CORPUSCULAR HEMOGLOBIN CONC 33.7 GM/DL 32.2-35.5 (BEAKER) (test code = 752) RED CELL DISTRIBUTION WIDTH 13.2 % 11.7-14.4 (BEAKER) (test code = 412) PLATELET COUNT (BEAKER) (test 230 K/CU MM 150-450 code = 756) MEAN PLATELET VOLUME (BEAKER) 10.3 fL 9.4-12.3 (test code = 754) NUCLEATED RED BLOOD CELLS 0 /100 WBC 0-0 (BEAKER) (test code = 413) NEUTROPHILS RELATIVE PERCENT 61 % (BEAKER) (test code = 429) LYMPHOCYTES RELATIVE PERCENT 27 % (BEAKER) (test code = 430) MONOCYTES RELATIVE PERCENT 8 % (BEAKER) (test code = 431) EOSINOPHILS RELATIVE PERCENT 3 % (BEAKER) (test code = 432) BASOPHILS RELATIVE PERCENT 1 % (BEAKER) (test code = 437) NEUTROPHILS ABSOLUTE COUNT 2.92 K/ L 1.56-6.13 (BEAKER) (test code = 670) LYMPHOCYTES ABSOLUTE COUNT 1.26 K/ L 1.18-3.74 (BEAKER) (test code = 414) MONOCYTES ABSOLUTE COUNT (BEAKER) 0.38 K/ L 0.24-0.36 H (test code = 415) EOSINOPHILS ABSOLUTE COUNT 0.14 K/ L 0.04-0.36 (BEAKER) (test code = 416) BASOPHILS ABSOLUTE COUNT (BEAKER) 0.03 K/ L 0.01-0.08 (test code = 417) IMMATURE GRANULOCYTES-RELATIVE 0.60 % 0.00-1.00 PERCENT (BEAKER) (test code = 2801) [id number] 18:26:18 Test Item Value Reference Range Interpretation Comments PHOSPHORUS (BEAKER) 2.2 mg/dL 2.3-4.7 L Specimen slightly (test code = 604) hemolyzed Insurance Loss Assessor ID - PIANNIKA [id number] 18:26:18 Test Item Value Reference Range Interpretation Comments POTASSIUM (BEAKER) 4.0 meq/L 3.5-5.1 Specimen slightly (test code = 379) hemolyzed Insurance Loss Assessor ID - PIANNIKA [id number] 18:26:17 Test Item Value Reference Range Interpretation Comments MAGNESIUM (BEAKER) 2.1 mg/dL 1.6-2.6 Specimen slightly (test code = 627) hemolyzed Insurance Loss Assessor ID - MARIA DEL ROSARIO LPOC-Glucose [id number] 17:59:36 Test Item Value Reference Range Interpretation Comments POC-Glucose Meter (test 108 mg/dL 70-110 : TE STED AT [facility] code = 1538) [address] [facility] [place], [address]: Insurance Loss Assessor/Techni rosita ID = [id number] for DANIELLA PATEL Lab Interpretation (test Normal code = 34347-3) [facility] [id number] 17:59:36 Test Item Value Reference Range Interpretation Comments POC-GLUCOSE METER 108 mg/dL 70-110 : [facility] (BEAKER[facility] (test code = [facility], 153) [address]: Insurance Loss Assessor/Techni rosita ID = [id number] for DANIELLA CHEN POCT-GLUCOSE [id number] 16:16:05 Test Item Value Reference Range Interpretation Comments POC-GLUCOSE METER 92 mg/dL 70-110 : [facility] (BEAKER) (test code = [facility], 1538) [address]: Insurance Loss Assessor/Techni rosita ID = [id number] for DANIELLA SANTIAGO POCT-GLUCOSE [id number] 06:01:33 Test Item Value Reference Range Interpretation Comments POC-GLUCOSE METER 100 mg/dL 70-110 : TESTED A T [facility] 6720 (BEAKER) (test code = [address] [facility], 1538) [address]: Insurance Loss Assessor/Techni rosita ID = [id number] for GIL DE LA TORRE [id number] 05:57:41 Test Item Value Reference Range Interpretation Comments PHOSPHORUS (BEAKER) (test code = 1.5 mg/dL 2.3-4.7 LL 604) Insurance Loss Assessor ID - PIAYA LCOMPREHENSIVE METABOLIC [id number] 05:33:19 Test Item Value Reference Range Interpretation Comments TOTAL PROTEIN 6.1 gm/dL 6.0-8.3 (BEAKER) (test code = 770) ALBUMIN (BEAKER) 3.6 g/dL 3.5-5.0 (test code = 1145) ALKALINE 48 U/L 40-150 PHOSPHATASE (BEAKER) (test code = 346) BILIRUBIN TOTAL 0.4 mg/dL 0.2-1.2 (BEAKER) (test code = 377) SODIUM (BEAKER) 138 meq/L 136-145 (test code = 381) POTASSIUM (BEAKER) 3.5 meq/L 3.5-5.1 (test code = 379) CHLORIDE (BEAKER) 111 meq/L 98-107 H (test code = 382) CO2 (BEAKER) (test 19 meq/L 22-29 L code = 355) BLOOD UREA 7 mg/dL 7-21 NITROGEN (BEAKER) (test code = 354) CREATININE 0.53 mg/dL 0.57-1.25 L (BEAKER) (test code = 358) GLUCOSE RANDOM 98 mg/dL 70-105 (BEAKER) (test code = 652) CALCIUM (BEAKER) 8.3 mg/dL 8.4-10.2 L (test code = 697) AST (SGOT) 38 U/L 5-34 H (BEAKER) (test code = 353) ALT (SGPT) 21 U/L 6-55 (BEAKER) (test code = 347) EGFR (BEAKER) 126 Interpretatio n of eGFR (test code = 1092) mL/min/1.[address] age Description sq m Result G1 Kaylene l or high >=90 G2 Mildly decreased 60-89 G3a Mildl y to moderately 45-5 9 G3b Moderately to s everely 30-44 G4 Severl y decreased 15-29 G5 Kidney failure <15Reported eGF R is based on the CKD-EPI 2020 equation that d oes not use a race coefficientEsti mated GFR is not as accur ate as Creatinine Violeta sofy in predicting glom erular filtration rate . Estimated GFR is not appl icable for dialysis patien ts Insurance Loss Assessor ID - MARIA DEL ROSARIO [id number] 05:33:19 Test Item Value Reference Range Interpretation Comments MAGNESIUM (BEAKER) (test code = 1.9 mg/dL 1.6-2.6 627) Insurance Loss Assessor ID - MARIA DEL ROSARIO LCBC W/PLT COUNT & AUTO [id number] 05:31:00 Test Item Value Reference Range Interpretation Comments WHITE BLOOD CELL COUNT (BEAKER) 8.3 K/ L 3.5-10.5 (test code = 775) RED BLOOD CELL COUNT (BEAKER) 3.56 M/ L 3.93-5.22 L (test code = 761) HEMOGLOBIN (BEAKER) (test code = 10.9 GM/DL 11.2-15.7 L 410) HEMATOCRIT (BEAKER) (test code = 31.7 % 34.1-44.9 L 411) MEAN CORPUSCULAR VOLUME (BEAKER) 89 fL 79-95 (test code = 753) MEAN CORPUSCULAR HEMOGLOBIN 30.6 pg 25.6-32.2 (BEAKER) (test code = 751) MEAN CORPUSCULAR HEMOGLOBIN CONC 34.4 GM/DL 32.2-35.5 (BEAKER) (test code = 752) RED CELL DISTRIBUTION WIDTH 13.0 % 11.7-14.4 (BEAKER) (test code = 412) PLATELET COUNT (BEAKER) (test 214 K/CU MM 150-450 code = 756) MEAN PLATELET VOLUME (BEAKER) 11.3 fL 9.4-12.3 (test code = 754) NUCLEATED RED BLOOD CELLS 0 /100 WBC 0-0 (BEAKER) (test code = 413) NEUTROPHILS RELATIVE PERCENT 77 % (BEAKER) (test code = 429) LYMPHOCYTES RELATIVE PERCENT 15 % (BEAKER) (test code = 430) MONOCYTES RELATIVE PERCENT 6 % (BEAKER) (test code = 431) EOSINOPHILS RELATIVE PERCENT 2 % (BEAKER) (test code = 432) BASOPHILS RELATIVE PERCENT 0 % (BEAKER) (test code = 437) NEUTROPHILS ABSOLUTE COUNT 6.34 K/ L 1.56-6.13 H (BEAKER) (test code = 670) LYMPHOCYTES ABSOLUTE COUNT 1.22 K/ L 1.18-3.74 (BEAKER) (test code = 414) MONOCYTES ABSOLUTE COUNT (BEAKER) 0.51 K/ L 0.24-0.36 H (test code = 415) EOSINOPHILS ABSOLUTE COUNT 0.16 K/ L 0.04-0.36 (BEAKER) (test code = 416) BASOPHILS ABSOLUTE COUNT (BEAKER) 0.02 K/ L 0.01-0.08 (test code = 417) IMMATURE GRANULOCYTES-RELATIVE 0.40 % 0.00-1.00 PERCENT (BEAKER) (test code = 2801) POCT-GLUCOSE [id number] 15:36:17 Test Item Value Reference Range Interpretation Comments POC-GLUCOSE METER 110 mg/dL 70-110 : TESTED A T [facility] 6720 (BEAKER) (test code = [address] [place], 1538) [address]: Insurance Loss Assessor/Techni rosita ID = [id number] for An akani, Lula [id number] 12:44:12 Test Item Value Reference Range Interpretation Comments PROCALCITONIN (BEAKER) (test code = < ng/mL <0.05 3036) SEPSIS RISK (ng/mL)Low: 0.05-0.50Intermediate: 0.51-2.00High: >=2.01MAGNESIUM 2022-10-15 12:34:52 Test Item Value Reference Range Interpretation Comments MAGNESIUM (BEAKER) (test code = 2.2 mg/dL 1.6-2.6 627) Insurance Loss Assessor ID - [id number] 12:34:52 Test Item Value Reference Range Interpretation Comments POTASSIUM (BEAKER) (test code = 3.8 meq/L 3.5-5.1 379) Insurance Loss Assessor ID - MARCOLACTIC ACID, [id number] 12:32:48 Test Item Value Reference Range Interpretation Comments LACTATE BLOOD VENOUS (2) (JIMMY) 1.10 mmol/L 0.50-2.20 (test code = 2872) Insurance Loss Assessor ID - MARCOPOCT-GLUCOSE [id number] 09:16:39 Test Item Value Reference Range Interpretation Comments POC-GLUCOSE METER 119 mg/dL 70-110 H : TESTED A T [facility] 6720 (JIMMY) (test code = [place], 1538) [address]: Insurance Loss Assessor/Techni rosita ID = [id number] for Irlanda Devlin RAD, ABDOMEN/KUB, 1 VIEW [id number] 07:45:00Reason for exam:->S/P corpa placementShould this be performed at the bedside?->Yes [facility] : 1990 Sex: FFINAL REPORT RAD, ABDOMEN/KUB, 1 VIEW AP INDICATION: S/P corpa placement COMPARISON: Prior day's exam FINDINGS: Portable frontal view of the chest. IMPRESSION: Support Lines: ET tube tip is 2 cm superior to the howard. Feeding tube descends below the diaphragm, terminating overlying the distal stomach. Lungs and pleura: The visualized lungs are clear. No significant pneumothorax. Heart and mediastinum: Normal contours. Additional findings: None. Signed: Andressa Grady VerifiedDate/Time: 10/15/2022 07:45:36 Blood gas, [id number] 05:54:55 Test Item Value Reference Range Interpretation Comments pH, Arterial (test code 7.43 7.35-7.45 = 2744-1) pCO2, Arterial (test 33 See_Comment L [Autom ated code = 2019-06) message] The system which generated this result transmitted reference range : 35 - 45 mm Hg. The reference range was not used to interpret this result as normal/abnormal . pO2, Arterial (test 201 See_Comment H [Automa keron code = 2703-7) message] The system which generated this result transmitted reference range : 80 - 90 mm Hg. The reference range was not used to interpret this result as normal/abnormal . O2 Sat, Arterial (test 99.4 % 96.0-97.0 H code = 2708-6) HCO3, Arterial (test 21 mmol/L 21-29 code = 1960-4) Base Excess, Arterial -2.2 mmol/L -2.0-3.0 L (test code = 1925-7) Patient Temperature 36.9 (test code = 8310-5) FIO2 (test code = 1819) 40 Lab Interpretation Abnormal (test code = 61240-8) [id number] 05:54:55 Test Item Value Reference Range Interpretation Comments pH, Arterial (test code 7.43 7.35-7.45 = 2744-1) pCO2, Arterial (test 33 See_Comment L [Autom ated code = 2019-06) message] The system which generated this result transmitted reference range : 35 - 45 mm Hg. The reference range was not used to interpret this result as normal/abnormal . pO2, Arterial (test 201 See_Comment H [Automa keron code = 2703-7) message] The system which generated this result transmitted reference range : 80 - 90 mm Hg. The reference range was not used to interpret this result as normal/abnormal . O2 Sat, Arterial (test 99.4 % 96.0-97.0 H code = 2708-6) HCO3, Arterial (test 21 mmol/L 21-29 code = 1960-4) Base Excess, Arterial -2.2 mmol/L -2.0-3.0 L (test code = 1925-7) Patient Temperature 36.9 (test code = 8310-5) FIO2 (test code = 1819) 40 Lab Interpretation Abnormal (test code = 39482-6) [facility] [id number] 05:54:55 Test Item Value Reference Range Interpretation Comments PH ARTERIAL (BEAKER) (test code = 7.43 7.35-7.45 383) PCO2 ARTERIAL (BEAKER) (test code 33 mm Hg 35-45 L = 384) PO2 ARTERIAL (BEAKER) (test code 201 mm Hg 80-90 H = 385) O2 SATURATION ARTERIAL (BEAKER) 99.4 % 96.0-97.0 H (test code = 386) HCO3 ARTERIAL (BEAKER) (test code 21 mmol/L 21-29 = 388) BASE EXCESS ARTERIAL (BEAKER) -2.2 mmol/L -2.0-3.0 L (test code = 387) PATIENT TEMPERATURE (BEAKER) 36.9 (test code = 1818) FIO2 (BEAKER) (test code = 1819) 40.0 [id number] 04:06:58 Test Item Value Reference Range Interpretation Comments PHOSPHORUS (BEAKER) 2.7 mg/dL 2.3-4.7 Specimen slightly (test code = 604) hemolyzed Insurance Loss Assessor ID - FRANKIE MCOMPREHENSIVE METABOLIC [id number] 04:06:58 Test Item Value Reference Range Interpretation Comments TOTAL PROTEIN 6.1 gm/dL 6.0-8.3 Specimen sligh tly (BEAKER) (test hemolyzed code = 770) ALBUMIN (BEAKER) 3.6 g/dL 3.5-5.0 Specimen sl ightly (test code = 1145) hemolyzed ALKALINE 35 U/L 40-150 L PHOSPHATASE (BEAKER) (test code = 346) BILIRUBIN TOTAL 0.4 mg/dL 0.2-1.2 Specimen sli ghtly (BEAKER) (test hemolyzed code = 377) SODIUM (BEAKER) 136 meq/L 136-145 (test code = 381) POTASSIUM (BEAKER) 3.5 meq/L 3.5-5.1 Specimen slightly (test code = 379) hemolyzed CHLORIDE (BEAKER) 109 meq/L 98-107 H (test code = 382) CO2 (BEAKER) (test 19 meq/L 22-29 L code = 355) BLOOD UREA 6 mg/dL 7-21 L NITROGEN (BEAKER) (test code = 354) CREATININE 0.63 mg/dL 0.57-1.25 Specimen slight ly (BEAKER) (test hemolyzed code = 358) GLUCOSE RANDOM 116 mg/dL 70-105 H (BEAKER) (test code = 652) CALCIUM (BEAKER) 8.2 mg/dL 8.4-10.2 L (test code = 697) AST (SGOT) 27 U/L 5-34 Specimen slight ly (BEAKER) (test hemolyzed code = 353) ALT (SGPT) 14 U/L 6-55 Specimen slight ly (BEAKER) (test hemolyzed code = 347) EGFR (BEAKER) 121 Interpretatio n of eGFR (test code = 1092) mL/min/1.[address] age Description sq m Result G1 Kaylene l or high >=90 G2 Mildly decreased 60-89 G3a Mildl y to moderately 45-5 9 G3b Moderately to s everely 30-44 G4 Severl y decreased 15-29 G5 Kidney failure <15Reported eGF R is based on the CKD-EPI 2020 equation that d oes not use a race coefficientEsti mated GFR is not as accur ate as Creatinine Violeta sofy in predicting glom erular filtration rate . Estimated GFR is not appl icable for dialysis patien ts Insurance Loss Assessor ID - FRANKIE [id number] 04:06:57 Test Item Value Reference Range Interpretation Comments MAGNESIUM (BEAKER) 1.8 mg/dL 1.6-2.6 Specimen slightly (test code = 627) hemolyzed Insurance Loss Assessor ID - FRANKIE MCBC W/PLT COUNT & AUTO [id number] 03:35:01 Test Item Value Reference Range Interpretation Comments WHITE BLOOD CELL COUNT (BEAKER) 15.0 K/ L 3.5-10.5 H (test code = 775) RED BLOOD CELL COUNT (BEAKER) 3.73 M/ L 3.93-5.22 L (test code = 761) HEMOGLOBIN (BEAKER) (test code = 11.2 GM/DL 11.2-15.7 410) HEMATOCRIT (BEAKER) (test code = 33.7 % 34.1-44.9 L 411) MEAN CORPUSCULAR VOLUME (BEAKER) 90 fL 79-95 (test code = 753) MEAN CORPUSCULAR HEMOGLOBIN 30.0 pg 25.6-32.2 (BEAKER) (test code = 751) MEAN CORPUSCULAR HEMOGLOBIN CONC 33.2 GM/DL 32.2-35.5 (BEAKER) (test code = 752) RED CELL DISTRIBUTION WIDTH 13.2 % 11.7-14.4 (BEAKER) (test code = 412) PLATELET COUNT (BEAKER) (test 198 K/CU MM 150-450 code = 756) MEAN PLATELET VOLUME (BEAKER) 10.3 fL 9.4-12.3 (test code = 754) NUCLEATED RED BLOOD CELLS 0 /100 WBC 0-0 (BEAKER) (test code = 413) NEUTROPHILS RELATIVE PERCENT 84 % (BEAKER) (test code = 429) LYMPHOCYTES RELATIVE PERCENT 10 % (BEAKER) (test code = 430) MONOCYTES RELATIVE PERCENT 5 % (BEAKER) (test code = 431) EOSINOPHILS RELATIVE PERCENT 0 % (BEAKER) (test code = 432) BASOPHILS RELATIVE PERCENT 0 % (BEAKER) (test code = 437) NEUTROPHILS ABSOLUTE COUNT 12.50 K/ L 1.56-6.13 H (BEAKER) (test code = 670) LYMPHOCYTES ABSOLUTE COUNT 1.52 K/ L 1.18-3.74 (BEAKER) (test code = 414) MONOCYTES ABSOLUTE COUNT (BEAKER) 0.80 K/ L 0.24-0.36 H (test code = 415) EOSINOPHILS ABSOLUTE COUNT 0.01 K/ L 0.04-0.36 L (BEAKER) (test code = 416) BASOPHILS ABSOLUTE COUNT (BEAKER) 0.04 K/ L 0.01-0.08 (test code = 417) IMMATURE GRANULOCYTES-RELATIVE 0.50 % 0.00-1.00 PERCENT (BEAKER) (test code = 2801) RAD, ABDOMEN/KUB, 1 VIEW [id number] 01:14:00Reason for exam:->corpak readjustmentShould this be performed at the bedside?->Yes [facility] 1990 Sex: FFINAL REPORT CLINICAL HISTORY: corpak readjustment COMPARISON: 10/15/2022 at 0025 hourshours FINDINGS: A single image of the upper abdomen is submitted. A feeding tube is similar in position with the distal portion looped in the gastric lumen and the tip projecting over the proximal stomach. The examination is otherwise similar to previous. Signed: Jaret Stallworth Verified Date/Time: 10/15/2022 01:14:07 RAD, ABDOMEN/KUB, 1 VIEW [id number] 01:11:00Reason for exam:->S/p NG tube readjustmentShould this be performed at the bedside?->Yes [facility] 1990 Sex: FFINAL REPORT CLINICAL HISTORY: S/p NG tube readjustment COMPARISON: 10/15/2022 at 2218 hours FINDINGS: A single image of the upper abdomen is submitted. A feeding tube is similar in position with the distal portion looped in the gastric lumen and the tip projecting over the proximal stomach. The examination is otherwise similar to previous. Signed: Jaret Stallworth Verified Date/Time: 10/15/2022 01:11:13 RAD, ABDOMEN/KUB, 1 VIEW [id number] 23:16:00Reason for exam:->S/p NG tube placementShould this be performed at the bedside?->Yes [facility] 1990 Sex: FFINAL REPORT CLINICAL HISTORY: S/p NG tube placement COMPARISON: Same date at 1640 hours FINDINGS: 2 supine images of the abdomen are submitted. The distal portion of a feeding tube is looped in the gastric lumen with the tip overlying the proximal stomach. The abdominal bowel gas patternis nonspecific but grossly unobstructed. There is no acute osseous abnormality. Signed: Jaret Stallworth MDReport Verified Date/Time: 10/14/2022 23:16:15 SARS-CoV2/Influenza/RSV [id number] 19:15:20 Test Item Value Reference Interpretation Comments Range SARS-COV2/RT-PCR Negative Negative The SARS-Co V-2 (test code = target nucleic 99537-6) acids are not detected in thi s specimen. Negat janelle results do not preclude SARS-C oV-2 infection and should not be u sed as the sole bas is for patient management decisions. Nega tive results must be combined with clinical observations, patient history , and epidemiolog ical information. A false negative result may occu r if a specimen is improperly collected, transported or handled. This S ARS CoV-2 test is a rapid, real-rody e RT-PCR test intended for th e qualitative detection of nucleic acid fr om SARS-CoV-2 in a nasopharyngeal swab specimen collec keron from individual s suspected of COVID-19 by the healthcare provider. Influenza A RT-PCR Negative Negative The Flu A target (test code = [place] [address]-6) not detected in this specimen. Influenza B RT-PCR Negative Negative The Flu B target (test code = [place] 52[address]-1) not detected in this specimen. RSV by RT-PCR (test Negative Negative The RSV target code = 48917-6) nucleic acid s are not detected in this specimen. GABRIEL (test code = The presence of GABRIEL) SARS-CoV-2/FLU/RSV viral nucleic acids cannot rule out co-infections or disease caused by other viral or bacterial pathogens. As with any molecular test, mutations within the target regions of the Xpert Xpress SARS-CoV-2/Flu/RSV test could affect primer and/or probe binding resulting in failure to detect the presence of virus or the virus being detected less predictably. False negative results may occur if the virus is present at levels below the analytical limit of detection in this specimen. This Xpert Xpress SARS-CoV-2/Flu/RSV test is a rapid, real-time RT-PCR test intended for the qualitative detection of nucleic acid from Xpert Xpress SARS-CoV-2/Flu/RSV in a nasopharyngeal swab specimen collected from individuals suspected of Xpert Xpress SARS-CoV-2/Flu/RSV by their healthcare provider. Results from [facility] Xpert Xpress SARS-CoV-2/Flu/RSV test should be correlated with the clinical history, epidemiological data, and other data available to the clinician evaluating the patient. Viral nucleic acid may persist in vivo, independent of virus viability. Detection of analyte target(s) does not imply that the corresponding virus(es) are infectious or are the causative agents for clinical symptoms. This test has not been Food and Drug Administration (FDA) cleared or approved and has been authorized by FDA under an Emergency Use Authorization (EUA). This EUA will be effective until the declaration that circumstances exist justifying the authorization of the emergency use of in vitro diagnostic tests for detection and/or diagnosis of COVID-19 is terminated under Section 564(b)(2) of the Act or the EUA is revoked under Section 564(g) of the Act. Fact Sheet for Healthcare Providers:https://w SmartCup/Docu ments/Xpert%20Xpres s%20SARS%20CoV-2/Fa ct%20Sheets/302-390 2%98VGND-FBA-2%20HE ALTHCARE%20PROVIDER S%20FACT%20SHEET.pd f Fact Sheet for Healthcare Patients:https://ww PicBadges/Docum ents/Xpert%20Xpress %20SARS%20Cov-2/Fac t%20Sheets/302-3801 %18JGFC-ANI-4%20PAT IENT%20FACT%20SHEET .pdf Lab Interpretation Normal (test code = 65526-5) [facility] [id number] 19:15:20 Test Item Value Reference Interpretation Comments Range SARS-COV2/RT-PCR Negative Negative The SARS-Co V-2 (test code = target nucleic 91149-6) acids are not detected in thi s specimen. Negat janelle results do not preclude SARS-C oV-2 infection and should not be u sed as the sole bas is for patient management decisions. Nega tive results must be combined with clinical observations, patient history , and epidemiolog ical information. A false negative result may occu r if a specimen is improperly collected, transported or handled. This S ARS CoV-2 test is a rapid, real-rody e RT-PCR test intended for e qualitative detection of nucleic acid fr om SARS-CoV-2 in a nasopharyngeal swab specimen collec keron from individual s suspected of COVID-19 by the ir healthcare provider. Influenza A RT-PCR Negative Negative The Flu A target (test code = [place] [address]-6) not detected in this specimen. Influenza B RT-PCR Negative Negative The Flu B target (test code = nucleic acids [place] 11339-5) not detected in this specimen. RSV by RT-PCR (test Negative Negative The RSV target code = 61247-7) nucleic acid s are not detected in this specimen. GABRIEL (test code = The presence of GABRIEL) SARS-CoV-2/FLU/RSV viral nucleic acids cannot rule out co-infections or disease caused by other viral or bacterial pathogens. As with any molecular test, mutations within the target regions of the Xpert Xpress SARS-CoV-2/Flu/RSV test could affect primer and/or probe binding resulting in failure to detect the presence of virus or the virus being detected less predictably. False negative results may occur if the virus is present at levels below the analytical limit of detection in this specimen. This Xpert Xpress SARS-CoV-2/Flu/RSV test is a rapid, real-time RT-PCR test intended for the qualitative detection of nucleic acid from Xpert Xpress SARS-CoV-2/Flu/RSV in a nasopharyngeal swab specimen collected from individuals suspected of Xpert Xpress SARS-CoV-2/Flu/RSV by their healthcare provider. Results from [facility] Xpert Xpress SARS-CoV-2/Flu/RSV test should be correlated with the clinical history, epidemiological data, and other data available to the clinician evaluating the patient. Viral nucleic acid may persist in vivo, independent of virus viability. Detection of analyte target(s) does not imply that the corresponding virus(es) are infectious or are the causative agents for clinical symptoms. This test has not been Food and Drug Administration (FDA) cleared or approved and has been authorized by FDA under an Emergency Use Authorization (EUA). This EUA will be effective until the declaration that circumstances exist justifying the authorization of the emergency use of in vitro diagnostic tests for detection and/or diagnosis of COVID-19 is terminated under Section 564(b)(2) of the Act or the EUA is revoked under Section 564(g) of the Act. Fact Sheet for Healthcare Providers:https://w SmartCup/Docu ments/Xpert%20Xpres s%20SARS%20CoV-2/Fa ct%20Sheets/302-390 2%93LEGN-VUJ-0%20HE ALTHCARE%20PROVIDER S%20FACT%20SHEET.pd f Fact Sheet for Healthcare Patients:https://ramsey PicBadges/Docum ents/Xpert%20Xpress %20SARS%20Cov-2/Fac t%20Sheets/302-3801 %08DQFQ-GDE-0%20PAT IENT%20FACT%20SHEET .pdf Lab Interpretation Normal (test code = 80078-5) [facility]FL[facility]ZA/RSV [id number] 19:15:20 Test Item Value Reference Range Interpretation Comments SARS-COV2/RT-PCR Negative Negative The SARS-Co V-2 target (test code = nucleic acids a re not 3908855) detected in thi s specimen. Negat janelle results do not preclude SARS-CoV-2 infe ction and should not be u sed as the sole basis for patient management deci sions. Negative result s must be combined with c linical observations, p atient history, and epidemiological information. A false negative result may occur if a specimen i s improperly jonathon ected, transported or handled. This SARS CoV-2 test is a rapid, real-rody e RT-PCR test intended f or the qualitative det ection of nucleic acid fr om SARS-CoV-2 in a nasopharyngeal swab specimen collec keron from individuals yvon pected of COVID-19 by the [facility]. INFLUENZA A RT-PCR Negative Negative The Flu A target nucleic (test code = acids are not d etected in 9717815) this specimen. INFLUENZA B RT-PCR Negative Negative The Flu B target nucleic (test code = acids are not d etected in 3263031) this specimen. RSV RT-PCR (test Negative Negative The RSV tar get nucleic code = 7543066) acids are no t detected in this specimen. The presence of SARS-CoV-2/FLU/RSV viral nucleic acids cannot rule out co- infections or disease caused by other viral or bacterial pathogens. As with any molecular test, mutations within the target regions of the Xpert Xpress SARS-CoV-2/Flu/RSV test could affect primer and/or probe binding resulting in failure to detect the presence of virus or the virus being detected less predictably. False negative results may occur if the virus is present at levels below the analytical limit of detection in thisspecimen.This Xpert Xpress SARS-CoV-2/Flu/RSV test is a rapid, real-time RT-PCR test intended for the qualitative detection of nucleic acid from Xpert Xpress SARS-CoV-2/Flu/RSV in a nasopharyngeal swabspecimen collected from individuals suspected of Xpert Xpress SARS-CoV-2/Flu/RSV by their healthcareprovider. Results from [facility] Xpert Xpress SARS-CoV-2/Flu/RSV test should be correlated with the clinical history, epidemiological data, and other data available to the clinician evaluating the patient. Viral nucleic acid may persist in vivo, independent of virus viability. Detection of analyte target(s)does not imply that the corresponding virus(es) are infectious or are the causative agents for clinical symptoms.This test has not been Food and Drug Administration (FDA) cleared or approved and has been authorized by FDA under an Emergency Use Authorization (EUA). This EUA will be effective until thedeclaration that circumstances exist justifying the authorization of the emergency use of in vitro diagnostic tests for detection and/or diagnosis of COVID-19 is terminated under Section 564(b)(2) of the Act or the EUA is revoked under Section 564(g) of the Act.Fact Sheet for Healthcare Providers:https ://www.1EQ/Documents/Xpert%20Xpress%20SARS%20CoV-2/Fact%20Sheets/302-390 2%92HBWT-GDB-1%20HEALTHCARE%20PROVIDERS%20FACT%20SHEET.pdfFact Sheet for Healthcare Patients:https://www.1EQ/Docum ents/Xpert%20Xpress%20SARS%20Cov-2/Fact%20Sheets/302-3801%50DIYX-MXX-1%20PATIENT %20FACT%20SHEET.pdfPOCT-GLUCOSE [id number] 17:48:07 Test Item Value Reference Range Interpretation Comments POC-GLUCOSE METER 110 mg/dL 70-110 : TESTED A T [facility] 6720 (gantto) (test code = [address], 1538) [address]: Insurance Loss Assessor/Techni rosita ID = [id number] for Lo pez, Isabel HCG, QUANTITATIVE, [id number] 17:36:23 Test Item Value Reference Range Interpretation Comments GONADOTROPIN, CHORIONIC (HCG) QUANT < mIU/mL 0-10 (gantto) (test code = 649) Non- Females: <10 mIU/mL Females: Gestation Age Reference Range(mIU/mL) 0.2-1 Week 5-50 1-2 Weeks 50-500 2-3 Weeks 100-5,000 3-4 Weeks 500-10,000 4-5 Weeks 1,000-50,000 5-6 Weeks 10,000-100,000 6-8 Weeks 15,000- 200,000 2-3 Months 10,000-100,000 Insurance Loss Assessor MARILYN PATTENOMPREHENSIVE METABOLIC [id number] 17:26:15 Test Item Value Reference Range Interpretation Comments TOTAL PROTEIN 6.1 gm/dL 6.0-8.3 (BEAKER) (test code = 770) ALBUMIN (BEAKER) 3.8 g/dL 3.5-5.0 (test code = 1145) ALKALINE 35 U/L 40-150 L PHOSPHATASE (BEAKER) (test code = 346) BILIRUBIN TOTAL 0.4 mg/dL 0.2-1.2 (BEAKER) (test code = 377) SODIUM (BEAKER) 135 meq/L 136-145 L (test code = 381) POTASSIUM (BEAKER) 3.5 meq/L 3.5-5.1 (test code = 379) CHLORIDE (BEAKER) 109 meq/L 98-107 H (test code = 382) CO2 (BEAKER) (test 17 meq/L 22-29 L code = 355) BLOOD UREA 4 mg/dL 7-21 L NITROGEN (BEAKER) (test code = 354) CREATININE 0.61 mg/dL 0.57-1.25 (BEAKER) (test code = 358) GLUCOSE RANDOM 150 mg/dL 70-105 H (BEAKER) (test code = 652) CALCIUM (BEAKER) 8.1 mg/dL 8.4-10.2 L (test code = 697) AST (SGOT) 24 U/L 5-34 (BEAKER) (test code = 353) ALT (SGPT) 14 U/L 6-55 (BEAKER) (test code = 347) EGFR (BEAKER) 122 Interpretatio n of eGFR (test code = 1092) mL/min/1.[address] age Description sq m Result G1 Kaylene l or high >=90 G2 Mildly decreased 60-89 G3a Mildl y to moderately 45-5 9 G3b Moderately to s everely 30-44 G4 Severl y decreased 15-29 G5 Kidney failure <15Reported eGF R is based on the CKD-EPI 2020 equation that d oes not use a race coefficientEsti mated GFR is not as accur ate as Creatinine Violeta neelyce in predicting glom erular filtration rate . Estimated GFR is not appl icable for dialysis patien ts Insurance Loss Assessor ID - MARIA DEL ROSARIO LUrinalysis with Microscopic If [id number] 17:22:51 Test Item Value Reference Range Interpretation Comments Color, UA (test code = Light Yellow 5778-6) Clarity, UA (test code = Clear 5767-9) Specific [place], UA (test 1.010 1.001-1.035 code = 5811-5) pH, UA (test code = 6.0 5.0-8.0 5803-2) Protein, UA (test code = Negative Negative 52074-0) Glucose, UA (test code = 500 mg/dL Negative A 365) Ketones, UA (test code = Negative Negative 2514-8) Bilirubin, UA (test code = Negative Negative 15611-8) Blood, UA (test code = Negative Negative 80287-4) Nitrite, UA (test code = Negative Negative 5802-4) Leukocytes, UA (test code Negative Negative = 5799-2) Urobilinogen, UA (test 0.2 0.2-1.0 code = 91162-3) Specimen Source (test code = 2795) GABRIEL (test code = GABRIEL) Insurance Loss Assessor ID - [auto]Insurance Loss Assessor ID - tech Lab Interpretation (test Abnormal code = 39617-5) [facility] If [id number] 17:22:51 Test Item Value Reference Range Interpretation Comments Color, UA (test code = Light Yellow 5778-6) Clarity, UA (test code = Clear 5767-9) Specific [place], UA (test 1.010 1.001-1.035 code = 5811-5) pH, UA (test code = 6.0 5.0-8.0 5803-2) Protein, UA (test code = Negative Negative 31359-2) Glucose, UA (test code = 500 mg/dL Negative A 365) Ketones, UA (test code = Negative Negative 2514-8) Bilirubin, UA (test code = Negative Negative 56916-8) Blood, UA (test code = Negative Negative 40294-4) Nitrite, UA (test code = Negative Negative 5802-4) Leukocytes, UA (test code Negative Negative = 5799-2) Urobilinogen, UA (test 0.2 0.2-1.0 code = 99300-4) Specimen Source (test code = 2795) GABRIEL (test code = GABRIEL) Insurance Loss Assessor ID - [auto]Insurance Loss Assessor ID - tech Lab Interpretation (test Abnormal code = 47422-9) [facility]OSCOPIC IF [id number] 17:22:51 Test Item Value Reference Range Interpretation Comments COLOR (BEAKER) (test code = 470) Light Yellow CLARITY (BEAKER) (test code = Clear 469) SPECIFIC GRAVITY UA (BEAKER) 1.010 1.001-1.035 (test code = 468) PH UA (BEAKER) (test code = 467) 6.0 5.0-8.0 PROTEIN UA (BEAKER) (test code = Negative Negative 464) GLUCOSE UA (BEAKER) (test code = 500 mg/dL Negative A 365) KETONES UA (BEAKER) (test code = Negative Negative 371) BILIRUBIN UA (BEAKER) (test code Negative Negative = 462) BLOOD UA (BEAKER) (test code = Negative Negative 461) NITRITE UA (BEAKER) (test code = Negative Negative 465) LEUKOCYTE ESTERASE UA (BEAKER) Negative Negative (test code = 466) UROBILINOGEN UA (BEAKER) (test 0.2 0.2-1.0 code = 463) SOURCE(BEAKER) (test code = 2795) Insurance Loss Assessor ID - [auto]Insurance Loss Assessor ID - techRAD, ABDOMEN/KUB, 1 VIEW [id number] 17:17:00Reason for exam:->[facility] 1990 Sex: FFINAL REPORT RAD, ABDOMEN/KUB, 1 VIEW AP INDICATION: OG placement COMPARISON: None TECHNIQUE: Limited portable radiograph of the lower chest and upper abdomen was acquired for purposes of evaluating tube placement FINDINGS/IMPRESSION:NG side-port overlies the esophagus. Signed: Andressa Grady Verified Date/Time: 10/14/2022 17:17:14 RAD, CHEST, 1 VIEW, NON DEPT 2022-10-14 17:06:00Post-intubationReason for exam:->Tube positionShould this be performed at the bedside?->Yes [facility] 1990 Sex: FFINAL REPORT RAD, CHEST, 1 VIEW, NON DEPT INDICATION: Tube position COMPARISON: Prior day's exam FINDINGS: Portable frontal view of the chest. IMPRESSION: Support Lines: ET tube tip is 2 cm superior to howard. NG side-port overlies the mid esophagus. Lungs and pleura: Lungs are clear. No significant pneumothorax. Heart and mediastinum: Normal contours. Additional findings: None. Signed: Andressa Grady Verified Date/Time: 10/14/2022 17:06:21 D GAS, [id number] 16:58:15 Test Item Value Reference Range Interpretation Comments PH ARTERIAL (BEAKER) (test code = 7.43 7.35-7.45 383) PCO2 ARTERIAL (BEAKER) (test code 29 mm Hg 35-45 L = 384) PO2 ARTERIAL (BEAKER) (test code 224 mm Hg 80-90 H = 385) O2 SATURATION ARTERIAL (BEAKER) 99.5 % 96.0-97.0 H (test code = 386) HCO3 ARTERIAL (BEAKER) (test code 19 mmol/L 21-29 L = 388) BASE EXCESS ARTERIAL (BEAKER) -3.9 mmol/L -2.0-3.0 L (test code = 387) PATIENT TEMPERATURE (BEAKER) 38.0 (test code = 1818) FIO2 (BEAKER) (test code = 1819) 50.0
[2023-03-14] MEDS ORDERED: propofoL 1,000 MG/100 ML VIAL IV ONE (09:22)
[2023-03-14 09:31] LABS: Absolute Lymphocytes (CBC) 2.1 K/uL (0.7-4.9); Lymphocytes % 18.4 % (15.3-44.8); MCV 88.3 fL (80-100); MPV 7.8 fL (7.6-11.3)
--- NOTE | 2023-03-14 09:45 | RAD REPORT ---
EXAM DESCRIPTION: RAD - Chest Single View - 03/14/2023 9:37 am CLINICAL HISTORY: intubation COMPARISON: Chest Single View dated 10/13/2022; Abdomen 1 View (KUB) dated 06/13/2022 FINDINGS: Lines: Endotracheal tube terminates at the howard and is angulated toward the right. Enter ic tube overlying the stomach. Lungs: Ill-defined retrocardiac opacities similar to prior. Pleural: No significant pleural effusions or pneumothorax. Cardiac: The heart size is within normal limits. Mediastinum: Within normal limits. Bones: No acute fractures. Other: None IMPRESSION: 1. ETT angulated toward the right mainstem bronchus. Recommend retraction by 2 cm. Enter ic tube in satisfactory position. 2. Persistent mild retrocardiac opacities could reflect atelectasis, pneumonitis, and/or pneumonia.
[2023-03-14 09:50] LABS: Albumin 4.1 g/dL (3.4-5.0); Bilirubin Total 0.2 mg/dL (0.2-1.0); Magnesium 1.9 mg/dL (1.6-2.4); Potassium 3.1 mEq/L (3.5-5.1); Protein, Total 7.4 g/dL (6.4-8.2)
[2023-03-14 10:08] LABS: Specific Gravity 1.014 (1.005-1.030)
[2023-03-14 10:09] LABS: Specific Gravity 1.014 (1.005-1.030); Urine Bacteria <20 /HPF (<20); Urine Bilirubin NEGATIVE (Negative); Urine Blood Negative (Negative); Urine Clarity Clear (Clear); Urine Color Light-Yellow (Yellow); Urine Glucose TRACE (Negative); Urine Mucus Slight /HPF (None Seen); Urine Protein TRACE (Negative); Urine RBC <5 /HPF (None Seen); Urine Urobilinogen Normal (Normal); Urine pH 5.5 (5.0-7.0)
[2023-03-14 10:10] LABS: Arterial Blood Carboxyhemoglob 0.9 % (0-1.5); Blood Gas Oxyhemoglobin 96.4 % (94-97); Blood O2 Saturation 98.9 % (92-98.5)
--- NOTE | 2023-03-14 10:48 | RAD REPORT ---
EXAM DESCRIPTION: CT - Head Brain Wo Cont - 03/14/2023 9:43 am CLINICAL HISTORY: seuzure COMPARISON: Head Brain Wo Cont dated 10/13/2022; HEAD BRAIN W O CONTRAST dated 11/11/2015; Head C Spine Mpr Wo Con dated 11/18/2022 TECHNIQUE: All CT scans are performed using dose optimization technique as appropriate and may inclu de automated exposure control or mA/KV adjustment according to patient size. FINDINGS: No intracranial hemorrhage, hydrocephalus or extra-axial fluid collection.No areas of brai n edema or evidence of midline shift. Chronic right temporal lobe encephalomalacia. Remote right hayde etal craniotomy. Bifrontal encephalomalacia. Age advanced cerebral atrophy. Partially imaged endotrac heal tube. The paranasal sinuses and mastoids are clear. The calvarium is intact. IMPRESSION: No acute intracranial abnormality. No significant change compared 11/18/2022.
[2023-03-14] MEDS ORDERED: MIDAZOLAM HCL 2 MG/2 ML INJ ONE (10:49)
--- NOTE | 2023-03-14 10:59 | EDPHYS ---
Physician Documentation [facility] Name: Matt Tillman Age: 32 yrs Sex: Female : 1990 Arrival Date: 03/14/2023 Time: 09:05 Bed 2 Private MD: ED Physician Javi Vegas HPI: 03/14 09:39 This 32 yrs old Female presents to ER via EMS with complaints of Seizure. rt 09:39 History limited due to patient with altered mental status. History obtained per EMS. rt Patient with reported seizure disorder and missed a dose of her medications last night, is unclear what medications these are. Patient has had a seizure, the timing of which is unclear. Patient was given a total of 10 mg of Versed prior to arrival by EMS with no improvement of his seizure activity. Denies any evidence of trauma. No other reported complaints. Symptoms are severe in severity, no other aggravating or alleviating factors.. Historical: - Allergies: 09:27 levetiracetam; ss - PMHx: 09:27 depressive disorder; traumatic brain injury; ss - PSHx: 09:27 left leg amputation; ss - Family history:: not pertinent. ROS: 09:39 Unable to obtain ROS due to altered mental status. rt Exam: 09:39 Chest/axilla: Normal chest wall appearance and motion. Nontender with no deformity. rt No lesions are appreciated. Cardiovascular: Regular rate and rhythm with a normal S1 and S2. No gallops, murmurs, or rubs. Normal PMI, no JVD. No pulse deficits. Abdomen/GI: Soft, non-tender, with normal bowel sounds. No distension or tympany. No guarding or rebound. No evidence of tenderness throughout. 09:39 Constitutional: The patient appears Actively seizing, unresponsive 09:39 Eyes: Left eye laterally deviated, right eye inferiorly deviated. 09:39 ENT: Laceration on tongue, currently biting on tongue. 09:39 Respiratory: Sonorous respirations, not protecting airway. 09:39 Neuro: Actively seizing with generalized tonic-clonic activity. 11:02 ECG was reviewed by the Attending Physician. rt Vital Signs: 09:07 BP 143 / 92; Pulse 123; Resp 33 S; Pulse Ox 87% on 15 lpm Non-rebreather mask; ss 09:24 BP 126 / 79; Pulse 99; Resp 20 A; Pulse Ox 100% on ETT vent; iw 09:53 BP 124 / 82; Pulse 97; Resp 18 A; Pulse Ox 100% on ETT vent; iw 10:16 BP 124 / 77; Pulse 95; Resp 20; Temp 99.2; Pulse Ox 100% on ETT vent; iw 11:10 BP 120 / 60; Pulse 102; Resp 23; Pulse Ox 100% on ETT vent; iw 11:34 Weight 59.87 kg (M); iw 11:34 BP 121 / 59; Pulse 95; Resp 22; Pulse Ox 100% on ETT vent; iw 12:15 BP 115 / 80; Pulse 79; Resp 22 A; Temp 99.9(Ca); Pulse Ox 100% on ETT vent; iw 12:30 BP 111 / 65; Pulse 92; Resp 22 A; Pulse Ox 100% on ETT vent; iw Procedures: 09:39 Intubation: Ventilated with 100% NRB prior to procedure. O2 saturation prior to rt procedure was 90 %. Intubated orally using Enderlin scope with 7.5 mm ETT. was successful on first attempt. Ventilated with Ambu bag. Tube secured with ETT arrieta measured 25 cm at lip. Placement verified by CXR, CO2 detector with (+) color change, O2 saturation after procedure was 100 %. Patient tolerated well, Retracted after chest x-ray. MDM: 09:15 Patient medically screened. rt 10:59 Differential diagnosis: Status epilepticus, intracranial hemorrhage, medication rt nonadherence, electrolyte disturbance, dysrhythmia. Data reviewed: vital signs, nurses notes. Consideration of Admission/Observation Requires transfer for higher level of care, neuro ICU, continuous EEG monitoring. Management of patient was discussed with the following: Driver Manager: Discussed with accepting neurologist. I considered the following discharge prescriptions or medication management in the emergency department Medications were administered in the Emergency Department. See MAR. Independent interpretation of the following test(s) in the Emergency Department X-Ray: My interpretation is Right mainstem intubation seen on my interpretation of the x-ray image, subsequently retracted. Discussion of test interpretation with radiology: I had a discussion with radiology regarding a test interpretation. Discussed x-ray findings with radiologist. Care significantly affected by the following chronic conditions: Seizure disorder. 03/14 09:18 Order name: CBC with Diff; Complete Time: 09:59 rt 03/14 09:18 Order name: CMP; Complete Time: 09:59 rt 03/14 09:18 Order name: Magnesium; Complete Time: 09:59 rt 03/14 09:18 Order name: UAM; Complete Time: 10:18 rt 03/14 09:18 Order name: PREGU; Complete Time: 10:18 rt 03/14 10:11 Order name: ABG Arterial Blood Gas; Complete Time: 10:18 EDMS 03/14 11:00 Order name: SARS-COV-2 Antigen Rapid; Complete Time: 12:20 bd 03/14 09:18 Order name: Chest Single View XRAY; Complete Time: 09:59 rt 03/14 09:18 Order name: CT Head Brain wo Cont; Complete Time: 10:53 rt 03/14 09:18 Order name: EKG; Complete Time: 09:19 rt 03/14 09:18 Order name: EKG - Nurse/Tech; Complete Time: 10:55 rt 03/14 09:18 Order name: Sexton; Complete Time: 09:31 rt EC:02 Rate is 83 beats/min. Rhythm is regular, Normal Sinus Rhythm with Occasional PVCs. NH rt interval is normal. QRS interval is normal. QT interval is normal. No Q waves. T waves are Normal. No ST changes noted. Interpreted by me. Administered Medications: 09:00 Drug: Ativan IVP 2 mg Route: IVP; Site: right hand; ss 09:04 Follow up: Response: No change in condition iw 09:05 Drug: Ativan IVP 2 mg Route: IVP; Site: right hand; ss 09:07 Follow up: Response: No change in condition iw 09:11 Drug: Etomidate IVP 20 mg Route: IVP; Site: right hand; ss 09:13 Follow up: Response: Patient is sedated iw 09:12 Drug: Rocuronium IVP 100 mg Route: IVP; Site: right hand; ss 09:13 Follow up: Response: Patient is sedated iw 09:24 Drug: Propofol IV 5 mcg/kg/min Route: IV; Rate: calculated rate; Site: right wrist; iw 09:26 Follow up: Response: RASS: Agitated (+2); Rate change 7 mcg/kg/min iw 09:30 Follow up: Response: RASS: Agitated (+2); Rate change 10 mcg/kg/min iw 09:40 Follow up: Response: RASS: Agitated (+2); Rate change 14 mcg/kg/min iw 09:45 Follow up: Rate change 15 mcg/kg/min iw 10:54 Follow up: Rate change 25 mcg/kg/min iw 12:41 Follow up: IV Status: Infusion continued upon transfer iw 09:30 Not Given (Physician Discretion): Etomidate IVP 15 mg IVP once ss 10:52 Drug: Midazolam IVP or IV 5 mg Route: IVP; Site: right wrist; iw 11:20 Follow up: Response: No adverse reaction iw 11:08 Drug: Potassium Chloride IV 40 mEq Route: IV; Rate: calculated rate; Site: right wrist; iw 12:40 Follow up: IV Status: Infusion continued upon transfer iw 11:15 Drug: Midazolam IVP or IV 5 mg Route: IVP; Site: right wrist; iw 11:20 Follow up: Response: No adverse reaction iw 11:34 Drug: Fosphenytoin IV 20 mg pe/kg Route: IV; Rate: calculated rate; Site: right wrist; iw 11:50 Follow up: IV Status: Completed infusion iw Disposition Summary: 03/14/23 10:59 Transfer Ordered Transfer Location: [facility] rt Reason: Higher level of care rt Condition: Critical rt Problem: an acute exacerbation rt Symptoms: have improved rt Accepting Physician: Dr. Colin(03/14/23 12:51) iw Diagnosis - Epilepsy, unspecified, intractable, with status epilepticus rt - Acute respiratory failure rt Forms: - Medication Reconciliation Form rt - SBAR form rt Critical care time excluding procedures: 10:00 Critical care time: Bedside Care: 30 minutes, Consultation: 10 minutes. Total time: 40 rt minutes Signatures: Dispatcher [employer] Krystle Ortega RN RN iw Delaney Briscoe RN RN ss Javi Vegas MD MD rt Corrections: (The following items were deleted from the chart) 11:18 10:59 rt rt 12:51 11:18 Dr. Colin rt iw
--- NOTE | 2023-03-14 10:59 | ER ---
Nurse's Notes [facility] Name: Matt Tillman Age: 32 yrs Sex: Female : 1990 Arrival Date: 03/14/2023 Time: 09:05 Bed 2 Private MD: Diagnosis: Epilepsy, unspecified, intractable, with status epilepticus;Acute respiratory failure Presentation: 03/14 09:00 Chief complaint: EMS states: Family member found patient seizing this morning. EMS ss initiated PIV and administered Versed 5 mg IVP x2 with no improvement. Pt still seizing upon arrival. NRB in place. Coronavirus screen: Client denies travel out of the [place] in the last 14 days. Ebola Screen: Patient denies exposure to infectious person. Patient denies travel to an Ebola-affected area in the 21 days before illness onset. Initial Sepsis Screen: Does the patient meet any 2 criteria? RR > 20 per min. HR > 90 bpm. Does the patient have a suspected source of infection? No. Patient's initial sepsis screen is negative. Onset of symptoms was March 14, 2023. 09:00 Method Of Arrival: EMS: [facility] ss 09:00 Acuity: ABY 1 ss Historical: - Allergies: 09:27 levetiracetam; ss - PMHx: 09:27 depressive disorder; traumatic brain injury; ss - PSHx: 09:27 left leg amputation; ss - Family history:: not pertinent. Assessment: 09:10 General: Appears ill, well developed, Behavior is restless. Neuro: Seizure activity iw noted at this time. reported prior to arrival. Type of seizure:. 09:12 Reassessment: no improvement in seizure activity after 2 rounds of Ativan, set up for iw intubation, RT at bedside , Dr. Gilliland at bedside. 09:45 Reassessment: pt started on propofol drip, per verbal order Dr. Vegas, increased iw propofol from 5 mcg/kg/min up to 15 mcg/kg/min from 923 to 944 until RASS of -2 was reached, Dr. Vegas aware of increase in drip rate, preparing pt for transport to CT at this time. 09:54 Reassessment: pt transported back to ER bed 2, remains on vent, on propofol, appears iw sedated , no seizure activity noted. 10:54 Reassessment: pt appears to be having a seizure , Dr. Vegas at bedside , order to iw increase propofol drip rate to 25 mcg/kg/min, verbal order given for versed 10 mg IVP for break through seizure activity, 5mg versed IVP given at 1052, 5 mg versed given at 1115 for noted seizure activity and restlessness, pt more relaxed RASS of -2 achieved. 11:41 Reassessment: Point of Contact, Allison Tillman Chance (mother) : . ss Vital Signs: 09:07 BP 143 / 92; Pulse 123; Resp 33 S; Pulse Ox 87% on 15 lpm Non-rebreather mask; ss 09:24 BP 126 / 79; Pulse 99; Resp 20 A; Pulse Ox 100% on ETT vent; iw 09:53 BP 124 / 82; Pulse 97; Resp 18 A; Pulse Ox 100% on ETT vent; iw 10:16 BP 124 / 77; Pulse 95; Resp 20; Temp 99.2; Pulse Ox 100% on ETT vent; iw 11:10 BP 120 / 60; Pulse 102; Resp 23; Pulse Ox 100% on ETT vent; iw 11:34 Weight 59.87 kg (M); iw 11:34 BP 121 / 59; Pulse 95; Resp 22; Pulse Ox 100% on ETT vent; iw 12:15 BP 115 / 80; Pulse 79; Resp 22 A; Temp 99.9(Ca); Pulse Ox 100% on ETT vent; iw 12:30 BP 111 / 65; Pulse 92; Resp 22 A; Pulse Ox 100% on ETT vent; iw ED Course: 09:00 Maintain EMS IV. Dressing intact. Good blood return noted. Site clean \T\ dry. Gauge \T\ ss site: 20 gauge in R hand. 09:07 Patient arrived in ED. bd 09:07 Javi Vegas MD is Attending Physician. ms3 09:13 Assisted provider with intubation using 7.0 mm ETT via oral route. ET tube secured at iw 25cm at the teeth. Set up intubation tray. Intubated by Javi Vegas MD Placement verified by CO2 detector w/ + color change, auscultating bilateral breath sounds, End-tidal CO2 montioring Patient tolerated well. 09:18 Inserted saline lock: 20 gauge in left antecubital area, using aseptic technique. ss ,using aseptic technique. insertion by Korina field operations technician Blood collected. 09:20 Sexton cath inserted, using sterile technique, 16 Fr., by dry wall finisher, balloon inflated, to gravity drainage. 09:24 Krystle Garces, RN is Primary Nurse. iw 09:27 Triage completed. ss 09:27 Arm band placed on right wrist. ss 09:30 Changed ETT pulled back to 23 at teeth. iw 09:38 Chest Single View XRAY In Process Unspecified. EDMS 09:45 CT Head Brain wo Cont In Process Unspecified. EDMS 11:02 initiated transfer to [facility]. bd 11:25 pt accepted in transfer to [facility] by dr Colin admin approval given by aziza Ness pt going to [address] [place] [address] room 17. 12:30 Patient transferred, IV remains in place. iw Administered Medications: 09:00 Drug: Ativan IVP 2 mg Route: IVP; Site: right hand; ss 09:04 Follow up: Response: No change in condition iw 09:05 Drug: Ativan IVP 2 mg Route: IVP; Site: right hand; ss 09:07 Follow up: Response: No change in condition iw 09:11 Drug: Etomidate IVP 20 mg Route: IVP; Site: right hand; ss 09:13 Follow up: Response: Patient is sedated iw 09:12 Drug: Rocuronium IVP 100 mg Route: IVP; Site: right hand; ss 09:13 Follow up: Response: Patient is sedated iw 09:24 Drug: Propofol IV 5 mcg/kg/min Route: IV; Rate: calculated rate; Site: right wrist; iw 09:26 Follow up: Response: RASS: Agitated (+2); Rate change 7 mcg/kg/min iw 09:30 Follow up: Response: RASS: Agitated (+2); Rate change 10 mcg/kg/min iw 09:40 Follow up: Response: RASS: Agitated (+2); Rate change 14 mcg/kg/min iw 09:45 Follow up: Rate change 15 mcg/kg/min iw 10:54 Follow up: Rate change 25 mcg/kg/min iw 12:41 Follow up: IV Status: Infusion continued upon transfer iw 09:30 Not Given (Physician Discretion): Etomidate IVP 15 mg IVP once ss 10:52 Drug: Midazolam IVP or IV 5 mg Route: IVP; Site: right wrist; iw 11:20 Follow up: Response: No adverse reaction iw 11:08 Drug: Potassium Chloride IV 40 mEq Route: IV; Rate: calculated rate; Site: right wrist; iw 12:40 Follow up: IV Status: Infusion continued upon transfer iw 11:15 Drug: Midazolam IVP or IV 5 mg Route: IVP; Site: right wrist; iw 11:20 Follow up: Response: No adverse reaction iw 11:34 Drug: Fosphenytoin IV 20 mg pe/kg Route: IV; Rate: calculated rate; Site: right wrist; iw 11:50 Follow up: IV Status: Completed infusion iw Outcome: 10:59 ER care complete, transfer ordered by MD. rt 12:41 Transferred by ground EMS to [facility], Transfer form completed. iw X-rays sent w/ patient. 12:41 Condition: stable 12:41 Discharge instructions given to family, Instructed on the need for transfer. 12:51 Patient left the ED. iw Signatures: Dispatcher [employer] EDMS Mora Hogue Irene, RN RN Delaney Briscoe RN RN Danilo Warner DO DO ms3 Javi Vegas MD MD rt Corrections: (The following items were deleted from the chart) 11:34 09:24 70 kg Reported; 03/15 07:18 03/14 10:54 Rate change 25 mcg/kg/min [facility] 03/15 07:19 07:17 Rate change 25 mcg/kg/min [facility] 07:26 03/14 09:30 Response: RASS: Agitated (+2); Rate change 10 mcg/kg/min [facility] 03/15 07:27 05 09:35 Response: RASS: Agitated (+2); Rate change 12 mcg/kg/min 03/15 07:30 05 09:45 Rate change 15 mcg/kg/min [facility] 03/15 07:30 07:28 Response: RASS: Light sedation (-2); Rate change 15 mcg/kg/min [facility] 07:30 07:29 Response: RASS: Light sedation (-2); Rate change 15 mcg/kg/min [facility] 07:42 05 10:54 Reassessment: pt appears to be having a seizure , Dr. Vegas at bedside iw , medicated as ordered iw
[2023-03-14] MEDS ORDERED: NA CHLORIDE 0.9% 1,000 ML ONE (11:10)
[2023-03-14] MEDS ORDERED: KCL 20 MEQ/100 mL IVPB 100 ML IV ONE (11:10)
[2023-03-14] MEDS ORDERED: FOSPHENYTOIN PE 500 MG/10 ML VIAL ONE (11:30)
[2023-03-14] MEDS ORDERED: NA CHLORIDE 0.9% 100 ML ONE (11:31)
[2023-03-14 12:18] LABS: SARS-CoV-2 Antigen Rapid Res Negative (Negative)
[2023-03-14 12:57] VITALS: O2SAT 100
[2023-03-14 13:06] VITALS: TEMP 99.9
[2023-03-14 13:08] VITALS: BP 111/65
--- NOTE | 2023-03-15 14:28 | EKG ---
Test Date: 2023-03-14 Test Time: 10:47:35 Estimating Manager: EARL MEASUREMENT RESULTS: Intervals: Rate: 83 MS: 138 QRSD: 86 QT: 408 QTc: 479 [place]: P: 81 MS: 138 QRS: 66 T: 34 INTERPRETIVE STATEMENTS: Normal sinus rhythm Nonspecific ST abnormality Abnormal ECG Compared to ECG 11/19/2022 00:28:27 ST (T wave) deviation now present Electronically Signed On 03-15-23 14:26:25 CDT by Wilton Quigley
== END 2023-03-14 12:51 | disposition short-term general hospital (02) ==
LOC: ER 09:05
PROC: 0BH17EZ Insertion of Endotracheal Airway into Trachea, Via Natural or Artificial Opening (ICD-10-PCS; principal; 2023-03-14)
PROC: 5A1935Z Respiratory Ventilation, Less than 24 Consecutive Hours (ICD-10-PCS; 2023-03-14)
DX: G40.911 Epilepsy, unspecified, intractable, with status epilepticus (principal); J96.00 Acute respiratory failure, unspecified whether with hypoxia or hypercapnia; Z20.822 Contact with and (suspected) exposure to COVID-19
CPT/HCPCS: 85025; 81001; 36415; 83735; 81025; 80053; 70450; 71045; 82805; 87811; 31500; 94002; J2704; J3480; Q2009; J2250; J7030; 93005; 94003

== ENCOUNTER 2023-06-27 13:23 | Emergency (ER) | payer OTHER ==
--- OUTSIDE RECORDS SUMMARY | 2023-06-27 13:30 | XMS REPORT | Continuity of Care Document ---
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 00 nostril 2 Med ical on nasal (two) Branch spray times daily. fluticasone 2020-0 Yes [id number] 1{spray Use 1 [facility] propionate 3-06 } [place] in ity o f 50 00:00: each [place] mcg/actuati 00 nostril 2 Med ical on nasal (two) Branch spray times daily. fluticasone 2020-0 Yes [id number] 1{spray Use 1 [facility] propionate 3-06 } [place] in ity o f 50 00:00: each [place] mcg/actuati 00 nostril 2 Med ical on nasal (two) Branch spray times daily. fluticasone 2020-0 Yes [id number] 1{spray Use 1 [facility] propionate 3-06 } [place] in it o f 50 00:00: each [place] mcg/actuati 00 nostril 2 Med ical on nasal (two) Branch spray times daily. fluticasone 2020-0 Yes [id number] 1{spray Use 1 [facility] propionate 3-06 } [place] in ity o f 50 00:00: each [place] mcg/actuati 00 nostril 2 Med ical on nasal (two) Branch spray times daily. fluticasone 2020-0 Yes [id number] 1{spray Use 1 [facility] propionate 3-06 } [place] in it o 50 00:00: each [place] mcg/actuati 00 nostril 2 Med ical on nasal (two) Branch spray times daily. fluticasone 2020-0 Yes [id number] 1{spray Use 1 [facility] propionate 3-06 } [place] in it o 50 00:00: each [place] mcg/actuati 00 nostril 2 Med ical on nasal (two) Branch spray times daily. fluticasone 2020-0 Yes [id number] 1{spray Use 1 [facility] propionate 3-06 } [place] in it o 50 00:00: each [place] mcg/actuati 00 nostril 2 Med ical on nasal (two) Branch spray times daily. fluticasone 2020-0 Yes [id number] 1{spray Use 1 [facility] propionate 3-06 } [place] in ity o f 50 00:00: each [place] mcg/actuati 00 nostril 2 Med ical on nasal (two) Branch spray times daily. fluticasone 2020-0 Yes [id number] 1{spray Use 1 [facility] propionate 3-06 } [place] in ity o f 50 00:00: each [place] mcg/actuati 00 nostril 2 Med ical on nasal (two) Branch spray times daily. fluticasone 2020-0 Yes [id number] 1{spray Use 1 [facility] propionate 3-06 } [place] in ity o f 50 00:00: each [place] mcg/actuati 00 nostril 2 Med ical on nasal (two) Branch spray times daily. fluticasone 2020-0 Yes [id number] 1{spray Use 1 [facility] propionate 3-06 } [place] in ity o f 50 00:00: each [place] mcg/actuati 00 nostril 2 Med ical on nasal (two) Branch spray times daily. fluticasone 2020-0 Yes [id number] 1{spray Use 1 [facility] propionate 3-06 } [place] in ity o f 50 00:00: each [place] mcg/actuati 00 nostril 2 Med ical on nasal (two) Branch spray times daily. Immunizations Ordered Filled Immunization Date Status Comments [facility] Immunization Name Name Influenza Virus 2021-09-22 [...] [facility]it [facility], 00:00:00 [place] [facility] Preserv and ABX Branch Free [...] y of Vaccine Quad .5 mL 00:00:00 [place] [facility] IM 6+ MO Branch Pneumococcal 2020-09-16 Completed University o f Polysaccharide, 00:00:00 [place] [facility] PPSV23 (PNEUMOVAX) Branch Influenza Virus 2020-09-16 Completed [facility]it [facility] Vaccine Quad .5 mL 00:00:00 [place] [facility] IM 6+ MO Branch Pneumococcal 2020-09-16 Completed University o f Polysaccharide, 00:00:00 [place] [facility] ical PPSV23 (PNEUMOVAX) Branch Influenza Virus 2020-09-16 Completed [facility]it [facility] .5 mL 00:00:00 [place] [facility] 6+ MO [facility] Pneumococcal 2020-09-16 Completed University o f Polysaccharide, 00:00:00 [place] [facility] PPSV23 (PNEUMOVAX) Branch Influenza Virus 2020-09-16 Completed [facility] .5 mL 00:00:00 [place] [facility] 6+ MO [facility] Pneumococcal 2020-09-16 Completed University o f Polysaccharide, 00:00:00 [place] [facility] ical PPSV23 (PNEUMOVAX) Branch Influenza Virus 2020-09-16 Completed [facility]it [facility] .5 mL 00:00:00 [place] [facility] 6+ MO [facility] Pneumococcal 2020-09-16 Completed University o f Polysaccharide, 00:00:00 [place] [facility] ical PPSV23 (PNEUMOVAX) Branch Influenza Virus 2020-09-16 Completed [facility]it [facility] .5 mL 00:00:00 [place] [facility] 6+ MO Branch Pneumococcal 2020-09-16 Completed University o f Polysaccharide, 00:00:00 [place] [facility] ical PPSV23 (PNEUMOVAX) Branch Influenza Virus 2020-09-16 Completed [facility]it [facility] .5 mL 00:00:00 [place] [facility] 6+ MO Branch Pneumococcal 2020-09-16 Completed University o f Polysaccharide, 00:00:00 [place] [facility] ical PPSV23 (PNEUMOVAX) Branch Influenza Virus 2020-09-16 Completed [facility]it [facility] Quad .5 mL 00:00:00 [place] [facility] 6+ MO [facility] Pneumococcal 2020-09-16 Completed University o f Polysaccharide, 00:00:00 [place] [facility] PPSV23 (PNEUMOVAX) Branch Influenza Virus 2020-09-16 Completed [facility]it [facility] Quad .5 mL 00:00:00 [place] [facility] 6+ MO Branch Pneumococcal 2020-09-16 Completed University o f Polysaccharide, 00:00:00 [place] [facility] ical PPSV23 (PNEUMOVAX) Branch Influenza Virus 2020-09-16 Completed [facility] Quad .5 mL 00:00:00 [place] [facility] 6+ MO Branch Pneumococcal 2020-09-16 Completed University o f Polysaccharide, 00:00:00 [place] [facility] ical PPSV23 (PNEUMOVAX) Branch Influenza Virus 2020-09-16 Completed [facility] Quad .5 mL 00:00:00 [place] [facility] 6+ MO Branch Pneumococcal 2020-09-16 [...] y of Vaccine Quad .5 mL 00:00:00 [place] [facility] 6+ MO Branch Pneumococcal 2020-09-16 Completed University o f Polysaccharide, 00:00:00 [place] [facility] ical PPSV23 (PNEUMOVAX) Branch Influenza Virus 2020-09-16 Completed [facility]it [facility] of Vaccine Quad .5 mL 00:00:00 [place] [facility] 6+ MO Branch Pneumococcal 2020-09-16 Completed University o f Polysaccharide, 00:00:00 [place] [facility] ical PPSV23 (PNEUMOVAX) Branch Influenza Virus 2020-09-16 Completed [facility]it y of Vaccine Quad .5 mL 00:00:00 [place] [facility] 6+ MO Branch Pneumococcal 2020-09-16 Completed University o f Polysaccharide, 00:00:00 [place] [facility] ical PPSV23 (PNEUMOVAX) Branch Influenza Virus 2020-09-16 Completed [facility]it y [facility] Vaccine Quad .5 mL 00:00:00 [place] [facility] 6+ MO Branch Pneumococcal 2020-09-16 Completed University o f Polysaccharide, 00:00:00 [place] [facility] PPSV23 (PNEUMOVAX) Branch Influenza Virus 2020-09-16 Completed [facility]it [facility] Vaccine Quad .5 mL 00:00:00 [place] [facility] 6+ MO Branch Pneumococcal 2020-09-16 Completed University o f Polysaccharide, 00:00:00 [place] [facility] PPSV23 (PNEUMOVAX) Branch Influenza Virus 2020-09-16 Completed [facility]it y of Vaccine Quad .5 mL 00:00:00 [place] [facility] 6+ MO Branch Pneumococcal 2020-09-16 Completed University o f Polysaccharide, 00:00:00 [place] [facility] PPSV23 (PNEUMOVAX) Branch Influenza Virus 2020-09-16 Completed [facility]it [facility] of Vaccine Quad .5 mL 00:00:00 [place] [facility] 6+ MO Branch Pneumococcal 2020-09-16 Completed University o f Polysaccharide, 00:00:00 [place] [facility] ical PPSV23 (PNEUMOVAX) Branch Influenza Virus 2020-09-16 Completed [facility]it y of Vaccine Quad .5 mL 00:00:00 [place] [facility] 6+ MO Branch Pneumococcal 2020-09-16 Completed University o f Polysaccharide, 00:00:00 [place] [facility] PPSV23 (PNEUMOVAX) Branch Influenza Virus 2020-09-16 Completed [facility]it [facility] of Vaccine Quad .5 mL 00:00:00 [place] [facility] 6+ MO Branch Pneumococcal 2020-09-16 Completed University o f Polysaccharide, 00:00:00 [facility] ical PPSV23 (PNEUMOVAX) Branch Influenza Virus 2019-12-12 Completed Universit y of Vaccine Quad .5 mL 00:00:00 [place] [facility] 6+ MO Branch Influenza Virus 2019-12-12 Completed Universit y of Vaccine Quad .5 mL 00:00:00 [place] [facility] 6+ MO Branch Influenza Virus 2019-12-12 Completed [facility]it y of Vaccine Quad .5 mL 00:00:00 [place] [facility] 6+ MO Branch Influenza Virus 2019-12-12 Completed [facility]it y of Vaccine Quad .5 mL 00:00:00 [place] [facility] 6+ MO Branch Influenza Virus 2019-12-12 Completed [facility]it y of Vaccine Quad .5 mL 00:00:00 [place] [facility] 6+ MO Branch Influenza Virus 2019-12-12 Completed [facility]it y of Vaccine Quad .5 mL 00:00:00 [place] [facility] 6+ MO Branch Influenza Virus 2019-12-12 Completed [facility]it y of Vaccine Quad .5 mL 00:00:00 [place] [facility] 6+ MO Branch Influenza Virus 2019-12-12 Completed [facility]it y of Vaccine Quad .5 mL 00:00:00 [place] [facility] 6+ MO Branch Influenza Virus 2019-12-12 Completed [facility]it y of Vaccine Quad .5 mL 00:00:00 [place] [facility] 6+ MO Branch Influenza Virus 2019-12-12 Completed [facility]it y of Vaccine Quad .5 mL 00:00:00 [place] [facility] 6+ MO Branch Influenza Virus 2019-12-12 Completed [facility]it y of Vaccine Quad .5 mL 00:00:00 [place] [facility] 6+ MO Branch Influenza Virus 2019-12-12 Completed [facility]it y of Vaccine Quad .5 mL 00:00:00 [place] [facility] 6+ MO Branch Influenza Virus 2019-12-12 Completed [facility]it y of Vaccine Quad .5 mL 00:00:00 [place] [facility] 6+ MO Branch Influenza Virus 2019-12-12 Completed [facility]it y of Vaccine Quad .5 mL 00:00:00 [place] [facility] 6+ MO Branch Influenza Virus [...] y of Vaccine Quad .5 mL 00:00:00 [place] [facility] 6+ MO [facility] MMR 2017-10-29 Completed University of 00:00:00 [facility] MMR 2017-10-29 Completed University of 00:00:00 [facility] MMR 2017-10-29 Completed University of 00:00:00 [facility] MMR 2017-10-29 Completed University of 00:00:00 [facility] MMR 2017-10-29 Completed University of 00:00:00 [place] [facility] MMR 2017-10-29 Completed University of 00:00:00 [place] [facility] MMR 2017-10-29 Completed University of 00:00:00 [place] [facility] MMR 2017-10-29 Completed University of 00:00:00 [place] [facility] MMR 2017-10-29 Completed University of 00:00:00 [place] [facility] MMR 2017-10-29 Completed University of 00:00:00 [place] [facility] MMR 2017-10-29 Completed University of 00:00:00 [place] [facility] MMR 2017-10-29 Completed University of 00:00:00 [place] [facility] MMR 2017-10-29 Completed University of 00:00:00 [place] [facility] MMR 2017-10-29 Completed University of 00:00:00 [place] [facility] MMR 2017-10-29 Completed University of 00:00:00 [place] [facility] MMR 2017-10-29 Completed University of 00:00:00 [place] [facility] MMR 2017-10-29 Completed University of 00:00:00 [place] [facility] MMR 2017-10-29 Completed University of 00:00:00 [place] [facility] MMR 2017-10-29 Completed University of 00:00:00 [place] [facility] MMR 2017-10-29 Completed University of 00:00:00 [place] [facility] MMR 2017-10-29 Completed University of 00:00:00 [place] [facility] MMR 2017-10-29 Completed University of 00:00:00 [place] [facility] MMR 2017-10-29 Completed University of 00:00:00 [place] [facility] MMR 2017-10-29 Completed University of 00:00:00 [place] [facility] MMR 2017-10-29 Completed University of 00:00:00 [place] [facility] MMR 2017-10-29 Completed University of 00:00:00 [place] [facility] MMR 2017-10-29 Completed University of 00:00:00 [place] [facility] MMR 2017-10-29 Completed University of 00:00:00 [place] [facility] MMR 2017-10-29 Completed University of 00:00:00 [place] [facility] MMR 2017-10-29 Completed University of 00:00:00 [place] [facility] TDAP 2017-10-25 Completed University of 00:00:00 [facility] TDAP 2017-10-25 Completed University of 00:00:00 [place] [facility] TDAP 2017-10-25 Completed University of 00:00:00 [place] [facility] TDAP 2017-10-25 Completed University of 00:00:00 [facility] TDAP 2017-10-25 Completed University of 00:00:00 [facility] TDAP 2017-10-25 Completed University of 00:00:00 [facility] TDAP 2017-10-25 Completed University of 00:00:00 [facility] TDAP 2017-10-25 Completed University of 00:00:00 [facility] TDAP 2017-10-25 Completed University of 00:00:00 [facility] TDAP 2017-10-25 Completed University of 00:00:00 [facility] TDAP 2017-10-25 Completed University of 00:00:00 [facility] TDAP 2017-10-25 Completed University of 00:00:00 [facility] TDAP 2017-10-25 Completed University of 00:00:00 [facility] TDAP 2017-10-25 Completed University of 00:00:00 [facility] TDAP 2017-10-25 Completed University of 00:00:00 [facility] TDAP 2017-10-25 Completed University of 00:00:00 [facility] TDAP 2017-10-25 Completed University of 00:00:00 [facility] TDAP 2017-10-25 Completed University of 00:00:00 [facility] TDAP 2017-10-25 Completed University of 00:00:00 [facility] TDAP 2017-10-25 Completed University of 00:00:00 [facility] TDAP 2017-10-25 Completed University of 00:00:00 [facility] TDAP 2017-10-25 Completed University of 00:00:00 [facility] TDAP 2017-10-25 Completed University of 00:00:00 [facility] TDAP 2017-10-25 Completed University of 00:00:00 [facility] TDAP 2017-10-25 Completed University of 00:00:00 [facility] TDAP 2017-10-25 Completed University of 00:00:00 [facility] TDAP 2017-10-25 Completed University of 00:00:00 [facility] TDAP 2017-10-25 Completed University of 00:00:00 [facility] TDAP 2017-10-25 Completed University of 00:00:00 [facility] TDAP 2017-10-25 Completed University of 00:00:00 [facility] Vital Signs Vital Name Observation Time Observation Value Comments Source Systolic blood 2023-05-02 14:16:00 113 mm[Hg] Univer sity of pressure [facility] Diastolic blood 2023-05-02 14:16:00 71 mm[Hg] Unive rsity of pressure [facility] Heart rate 2023-05-02 14:16:00 95 /min Universi ty of [facility] Body weight 2023-05-02 14:16:00 53.071 kg Universi ty of [facility] BMI 2023-05-02 14:16:00 21.40 kg/m2 [facility] [place] [facility] WEIGHT 2023-03-18 05:00:00 51.256 kg WEIGHT 2023-03-17 03:00:00 52.935 kg WEIGHT 2023-03-14 14:14:00 45 kg WEIGHT 2023-03-18 05:00:00 51.256 kg WEIGHT 2023-03-17 03:00:00 52.935 kg WEIGHT 2023-03-14 14:14:00 45 kg WEIGHT 2023-03-18 05:00:00 51.256 kg WEIGHT 2023-03-17 03:00:00 52.935 kg WEIGHT 2023-03-14 14:14:00 45 kg Systolic blood 2023-01-04 16:02:00 113 mm[Hg] Univer sity of pressure [facility] Diastolic blood 2023-01-04 16:02:00 71 mm[Hg] Unive rsity of pressure [facility] Heart rate 2023-01-04 16:02:00 74 /min Universi ty of [facility] Body temperature 2023-01-04 16:02:00 36.72 Diana Univ ersity of [facility] Respiratory rate 2023-01-04 16:02:00 18 /min Univ ersity of [facility] Body height 2023-01-04 16:02:00 157.5 cm [facility] [place] [facility] Body weight 2023-01-04 16:02:00 54.885 kg Universi ty of [facility] BMI 2023-01-04 16:02:00 22.13 kg/m2 Universi ty of [facility] Systolic blood 2022-12-05 19:20:00 117 mm[Hg] Univer sity of pressure [facility] Diastolic blood 2022-12-05 19:20:00 75 mm[Hg] Unive rsity of pressure [facility] Heart rate 2022-12-05 19:20:00 96 /min Universi ty of [facility] Body height 2022-12-05 19:20:00 154.9 cm Universi ty of [facility] Body weight 2022-12-05 19:20:00 55.339 kg Universi ty [facility] BMI 2022-12-05 19:20:00 23.05 kg/m2 Universi ty of [facility] HEIGHT 2022-11-19 03:00:00 157.5 cm WEIGHT 2022-11-19 03:00:00 45 kg HEIGHT 2022-11-19 03:00:00 157.5 cm WEIGHT 2022-11-19 03:00:00 45 kg HEIGHT 2022-11-19 03:00:00 157.5 cm WEIGHT 2022-11-19 03:00:00 45 kg Systolic blood 2022-10-27 22:20:00 119 mm[Hg] Univer sity of pressure [facility] Diastolic blood 2022-10-27 22:20:00 50 mm[Hg] Unive rsity of pressure [facility] Heart rate 2022-10-27 22:20:00 68 /min Universi ty of [facility] Body height 2022-10-27 22:20:00 154.9 cm Universi ty of [facility] Body weight 2022-10-27 22:20:00 53.978 kg Universi ty [facility] BMI 2022-10-27 22:20:00 22.48 kg/m2 Universi ty of [facility] WEIGHT 2022-10-17 05:54:00 52.1 kg HEIGHT 2022-10-14 14:52:00 165 cm WEIGHT 2022-10-14 14:52:00 52 kg WEIGHT 2022-10-17 05:54:00 52.1 kg HEIGHT 2022-10-14 14:52:00 165 cm WEIGHT 2022-10-14 14:52:00 52 kg WEIGHT 2022-10-17 05:54:00 52.1 kg HEIGHT 2022-10-14 14:52:00 165 cm WEIGHT 2022-10-14 14:52:00 52 kg Body weight 2022-04-24 18:50:00 54.885 kg [facility] BMI 2022-04-24 18:50:00 22.13 kg/m2 [facility] Heart rate 2023-03-19 15:23:00 92 /min [facility] Respiratory rate 2023-03-19 15:23:00 16 /min [facility] Oxygen saturation in 2023-03-19 15:23:00 98 /min [facility] Arterial blood by Medical Ce nter Pulse oximetry Systolic blood 2023-03-19 14:00:00 109 mm[Hg] [facility] Diastolic blood 2023-03-19 14:00:00 57 mm[Hg] [facility] Body temperature 2023-03-19 14:00:00 36.33 Diana [facility] Body weight 2023-03-18 05:00:00 51.256 kg [facility] BMI 2023-03-18 05:00:00 20.67 kg/m2 [facility] Systolic blood 2022-11-20 12:00:00 130 mm[Hg] [facility] Diastolic blood 2022-11-20 12:00:00 68 mm[Hg] [facility] Heart rate 2022-11-20 12:00:00 82 /min [facility] Body temperature 2022-11-20 12:00:00 37.39 Diana [facility] Respiratory rate 2022-11-20 12:00:00 18 /min [facility] Oxygen saturation in 2022-11-20 12:00:00 96 /min [facility] Arterial blood by Medical Ce nter Pulse oximetry Body height 2022-11-19 03:00:00 157.5 cm [facility] Body weight 2022-11-19 03:00:00 45 kg [facility] BMI 2022-11-19 03:00:00 18.15 kg/m2 [facility] Systolic blood 2022-10-17 15:00:00 128 mm[Hg] [facility] Diastolic blood 2022-10-17 15:00:00 72 mm[Hg] [facility] Heart rate 2022-10-17 15:00:00 112 /min [facility] Respiratory rate 2022-10-17 15:00:00 29 /min [facility] Oxygen saturation in 2022-10-17 15:00:00 98 /min [facility] Arterial blood by Medical Ce nter Pulse oximetry Body temperature 2022-10-17 12:00:00 36.94 Diana [facility] Body weight 2022-10-17 05:54:00 52.1 kg [facility] BMI 2022-10-17 05:54:00 19.14 kg/m2 [facility] Body height 2022-10-14 14:52:00 165 cm [facility] Procedures Procedure Date / Time Performing Clinician Source Performed POCT-GLUCOSE METER 2023-03-19 17:57:00 Meghan [facility] POCT-GLUCOSE METER 2023-03-19 13:38:00 Meghan [facility] POCT-GLUCOSE METER 2023-03-19 05:08:00 Meghan [facility] CBC W/PLT COUNT & AUTO 2023-03-19 04:41:[address] [facility] COMPREHENSIVE METABOLIC 2023-03-19 04:41:00 Fito [facility] PANEL [facility] MAGNESIUM 2023-03-19 04:41:00 Fito [facility] PHOSPHORUS 2023-03-19 04:41:00 Fito [facility] CBC W/PLT COUNT & AUTO 2023-03-19 04:41:[address] [facility] POCT-GLUCOSE METER 2023-03-18 23:19:00 Meghan [facility] POCT-GLUCOSE METER 2023-03-18 17:53:00 Meghan [facility] POCT-GLUCOSE METER 2023-03-18 11:28:00 Meghan, [facility] POCT-GLUCOSE METER 2023-03-18 05:53:00 [facility] POCT-GLUCOSE METER 2023-03-18 01:47:00 [facility] CBC W/PLT COUNT & AUTO 2023-03-18 01:42:[address] [facility] COMPREHENSIVE METABOLIC 2023-03-18 01:42[facility] 2023-03-18 [facility] 2023-03-18 01:42[facility]00 [facility] CBC W/PLT COUNT & AUTO 2023-03-18 01:42:[address] [facility] POCT-GLUCOSE METER 2023-03-17 17:42[facility]SE [facility] 2023-03-17 13:07:00 [facility] POCT-GLUCOSE METER 2023-03-17 06:35:00 [facility] POCT-GLUCOSE METER 2023-03-17 06:13:[facility] W/PLT COUNT & AUTO 2023-03-17 03:21:[address] [facility] COMPREHENSIVE METABOLIC 2023-03-17 03:21:00 [facility] MAGNESIUM 2023-03-17 03:21:00 Fito [facility] PHOSPHORUS 2023-03-17 03:21:00 [facility] PROCALCITONIN 2023-03-17 03:21:00 [facility] W/[facility]T [facility] & AUTO 2023-03-17 03:21:00 Fito [facility] DIFFERENTIAL [facility] POCT-GLUCOSE METER 2023-03-17 02:10:00 [facility] POCT-GLUCOSE METER 2023-03-17 01:49:00 [facility] POCT-GLUCOSE METER 2023-03-16 23:34:00 [facility] POCT-GLUCOSE METER 2023-03-16 17:50:00 [facility] POCT-GLUCOSE METER 2023-03-16 12:57:00 [facility] EEG 12-26 HR CONTINUOUS 2023-03-16 07:00:00 [facility] MONITORING WITH VIDEO [facility] POCT-GLUCOSE METER 2023-03-16 06:51:00 [facility] XR CHEST 1 VIEW PORTABLE 2023-03-16 05:27:00 [facility] / BEDSIDE [place] BLOOD GAS, ARTERIAL 2023-03-16 04:12:00 [facility] CBC W/PLT COUNT & AUTO 2023-03-16 04:11:00 [facility] DIFFERENTIAL [facility] COMPREHENSIVE METABOLIC 2023-03-16 04:11:00 [facility] PANEL [facility] MAGNESIUM 2023-03-16 04:11:00 [facility]ito [facility] PHOSPHORUS 2023-03-16 04:11:00 [facility] PROCALCITONIN 2023-03-16 04:11:00 [facility] CBC W/PLT COUNT & AUTO 2023-03-16 04:11:00 [facility] DIFFERENTIAL [facility] POCT-GLUCOSE METER 2023-03-16 00:48:00 [facility] POCT-GLUCOSE METER 2023-03-15 17:58:00 [facility] POCT-GLUCOSE METER 2023-03-15 11:02:00 [facility] EEG 12-26 HR CONTINUOUS 2023-03-15 08:24:07 [facility] MONITORING WITH VIDEO [facility] [facility] XR CHEST 1 VIEW PORTABLE 2023-03-15 04:10:00 [facility] / BEDSIDE Center CBC W/PLT COUNT & AUTO 2023-03-15 03:46:[address] [facility] COMPREHENSIVE METABOLIC 2023-03-15 03:46:00 [facility] PANEL [facility] MAGNESIUM 2023-03-15 03:46:00 [facility] PHOSPHORUS 2023-03-15 03:46:00 [facility] PROCALCITONIN 2023-03-15 03:46:00 [facility] BLOOD GAS, ARTERIAL 2023-03-15 03:46:00 Arjun [facility] CBC W/PLT COUNT & AUTO 2023-03-15 03:46:[address] [facility] POCT-GLUCOSE METER 2023-03-14 18:39:00 Marsha [facility] XR ABDOMEN/KUB 1 VIEW 2023-03-14 18:05:00 Fiot [facility] PORTABLE [facility] BLOOD CULTURE 2023-03-14 17:36:00 [facility] SPUTUM CULTURE + GRAM 2023-03-14 16:58:00 [facility] STAIN [facility] URINALYSIS W/ REFLEX 2023-03-14 16:37:00 Hottman, [facility] URINE CULTURE [facility] PHENYTOIN LEVEL, TOTAL 2023-03-14 16:33:00 Hottman, [facility] PROCALCITONIN 2023-03-14 16:33:00 Hottman, [facility] HIGH SENSITIVITY 2023-03-14 15:42:00 Hottman, [facility] TROPONIN I [facility] LACTIC ACID, VENOUS 2023-03-14 15:42:00 Hottman, [facility] CBC W/PLT COUNT & AUTO 2023-03-14 15:42:00 Hottman, [facility] DIFFERENTIAL [facility] COMPREHENSIVE METABOLIC 2023-03-14 15:42:00 Hottman, [facility] PANEL [facility] APTT 2023-03-14 15:42:00 Hottman, [facility] PROTHROMBIN TIME/INR 2023-03-14 15:42:00 Hottman, [facility] CBC W/PLT COUNT & AUTO 2023-03-14 15:42:00 Hottman, [facility] DIFFERENTIAL [facility] (CELLAVISION MANUAL 2023-03-14 15:42:00 Hottmmarjorie, [facility] DIFF) [facility] BLOOD GAS, ARTERIAL 2023-03-14 15:32:00 Hotmarjorie, [facility] XR CHEST 1 VIEW PORTABLE 2023-03-14 15:14:00 [facility] Tammy [facility] / BEDSIDE [facility] ECG 12-LEAD 2023-03-14 14:53:37 Hotan, [facility] ECG 12-LEAD 2023-03-14 14:53:37 Unknown, Hl7 Doctor [facility] HOME HEALTH - OTHER 2023-03-06 05:01:00 Doctor Unassigned, No Un [facility] HEALTH - OTHER 2023-02-16 05:01:00 Doctor Unassigned, No Un iversity of [facility] PATIENT FINANCIAL 2023-01-04 15:34:04 Doctor Unassigned, No [facility] POLICY Name Medical Branch CONSENT/REFUSAL FOR 2022-12-05 18:48:29 Doctor Unassigned, No [facility] Name Medical Branch POCT-GLUCOSE METER 2022-11-19 16:38:00 [facility] SARS-COV2/RT-PCR ([facility] & 2022-11-19 13:30:00 Courtney Shukla [facility] REF LABS) [place] SCREEN, URINE 2022-11-19 13:30:00 [facility] POCT-GLUCOSE METER 2022-11-19 11:58:00 [facility] XR CHEST 1 VIEW PORTABLE 2022-11-19 08:27:00 [facility] LACTIC ACID, VENOUS 2022-11-19 08:12:00 [facility] RAPID DRUG SCREEN, URINE 2022-11-19 04:11[facility]00 [facility]EL 2022-11-19 04:08:00 [facility] COMPREHENSIVE METABOLIC 2022-11-19 04:08:00 [facility] TSH/FREE T4 IF INDICATED 2022-11-19 04:08:00 [facility] CREATINE KINASE (CK) 2022-11-19 04:08:00 [facility] CBC W/PLT COUNT & AUTO 2022-10-17 03:30:00 Thierry Gabriel [facility] DIFFERENTIAL [place] CBC W/PLT COUNT & AUTO 2022-10-17 03:30:00 Thierry Gabriel [facility] DIFFERENTIAL Center MAGNESIUM 2022-10-17 03:30:00 [facility] PHOSPHORUS 2022-10-17 03:30:00 [facility] BASIC METABOLIC PANEL 2022-10-17 03:30:00 [facility] POCT-GLUCOSE METER 2022-10-16 17:34:00 Manjula Mckay [facility] MAGNESIUM 2022-10-16 17:30:00 Jeannie Díaz [facility] POTASSIUM 2022-10-16 17:30:00 Jeannie Díaz [facility] PHOSPHORUS 2022-10-16 17:30:00 [facility] POCT-GLUCOSE METER 2022-10-16 13:44:00 Felicita Prakash [facility] Center EEG 12-26 HR CONTINUOUS 2022-10-16 06:15:00 Sandip Kiran [facility] MONITORING WITH VIDEO Center POCT-GLUCOSE METER 2022-10-16 05:49:00 Sandip Kiran [facility] CBC W/PLT COUNT & AUTO 2022-10-16 04:37:00 Thierry Gabriel [facility] DIFFERENTIAL [place] CBC W/PLT COUNT & AUTO 2022-10-16 04:37:00 Thierry Gabriel [facility] DIFFERENTIAL Center COMPREHENSIVE METABOLIC 2022-10-16 04:37:00 Thierry Gabriel [facility] PANEL Center MAGNESIUM 2022-10-16 04:37:00 Jeannie Díaz [facility] PHOSPHORUS 2022-10-16 04:37:00 [facility] POCT-GLUCOSE METER 2022-10-15 15:25:00 Sandip Kiran [facility] PROCALCITONIN 2022-10-15 12:03:00 [facility] LACT[facility] ACID, VENOUS 2022-10-15 12:03:00 Thierry Gabriel [facility] MAGNESIUM 2022-10-15 12:03:00 Jeannie Díaz [facility] POTASSIUM 2022-10-15 12:03:00 Arjun [facility] POCT-GLUCOSE METER 2022-10-15 09:05:00 Sandip Kiran [facility] EEG 12-26 HR CONTINUOUS 2022-10-15 06:01:00 Thierry Gabriel [facility] Medical MONITORING WITH VIDEO Center BLOOD GAS, ARTERIAL 2022-10-15 05:26:00 Arjun [facility] CBC W/PLT COUNT & AUTO 2022-10-15 03:17:00 Thierry Gabriel [facility] DIFFERENTIAL Center CBC W/PLT COUNT & AUTO 2022-10-15 03:17:00 Thierry Gabriel [facility] DIFFERENTIAL Center COMPREHENSIVE METABOLIC 2022-10-15 03:16:00 Thierry Gabriel [facility] PANEL Center MAGNESIUM 2022-10-15 03:16:00 [facility] PHOSPHORUS 2022-10-15 03:16:00 [facility] XR ABDOMEN/KUB 1 VIEW 2022-10-15 01:02:00 [facility] XR ABDOMEN/KUB 1 VIEW 2022-10-15 00:31:00 [facility] XR ABDOMEN/KUB 1 VIEW 2022-10-15 00:25:00 [facility] XR ABDOMEN/KUB 1 VIEW 2022-10-14 22:18:00 [facility] POCT-GLUCOSE METER 2022-10-14 17:36:00 Sandip Kiran [facility] XR CHEST 1 VIEW PORTABLE 2022-10-14 17:27:00 [facility] / BEDSIDE Center XR ABDOMEN/KUB 1 VIEW 2022-10-14 17:27:00 Nery [facility] SARS-COV2/INFLUENZA/RSV 2022-10-14 17:06:00 Thierry Gabriel [facility] RT-PCR Center BLOOD GAS, ARTERIAL 2022-10-14 16:47:00 Nery [facility] URINALYSIS WITH 2022-10-14 16:45:00 Thierry Gabriel [facility] Medical [facility] IF INDICATED Center COMPREHENSIVE METABOLIC 2022-10-14 16:38:00 [facility] HCG, QUANTITATIVE, 2022-10-14 16:38:00 Thierry Gabriel [facility] Center Plan of Care Planned Activity Planned Date Details Comments Source Future Scheduled 2027-10-25 DTAP/TDAP/TD VACCINES ([address] [facility] 00:00:00 - Td or Tdap) [code = Medica l Center DTAP/TDAP/TD VACCINES (2 - Td or Tdap)] Future Scheduled 2027-10-25 DTAP/TDAP/TD VACCINES ([address] [facility] 00:00:00 - Td or Tdap) [code = Medica l Center DTAP/TDAP/TD VACCINES (2 - Td or Tdap)] Future Scheduled 2027-10-25 DTAP/TDAP/TD VACCINES ([address] [facility] 00:00:00 - Td or Tdap) [code = Medica l Center DTAP/TDAP/TD VACCINES (2 - Td or Tdap)] Future Scheduled 2025-11-19 Lipid panel (procedure) [facility] 00:00:00 [code = 10471502] Medical Ce nter Future Scheduled 2023-07-06 Influenza Vaccine (#1) [facility]00 [code = Influenza Vaccine Ma dical Center (#1)] Future Scheduled 2023-07-06 INFLUENZA VACCINE (Season [facility] 00:00:00 Ended) [code = INFLUENZA Med ical Center VACCINE (Season Ended)] Future Scheduled 2022-11-[address] [facility] 00:00:00 (12+) [code = DEPRESSION Med ical Center SCREENING (12+)] Future Scheduled 2022-11-[address] [facility] 00:00:00 (12+) [code = DEPRESSION Med ical Center SCREENING (12+)] Future Scheduled 2022-11-[address] [facility] 00:00:00 (12+) [code = DEPRESSION Med ical Center SCREENING (12+)] Future Scheduled 2022-07-06 INFLUENZA VACCINE (#1) [facility] 00:00:00 [code = INFLUENZA VACCINE [facility] Center (#1)] Future Scheduled 2010 Screening for malignant [facility] 00:00:00 neoplasm of cervix Medical C enter (procedure) [code = 487486206] Future Scheduled 2010 Screening for malignant [facility] 00:00:00 neoplasm of cervix Medical C enter (procedure) [code = 898307933] Future Scheduled 2010 Screening for malignant [facility] 00:00:00 neoplasm of cervix Medical C enter (procedure) [code = 410228850] Future Scheduled 2007 HEPATITIS C [facility]CRE[facility]ING [facility] 00:00:00 [code = HEPATITIS C Medical Center SCREENING] Future Scheduled 2007 HEPATITIS C [facility] 00:00:00 [code = HEPATITIS C Medical Center SCREENING] Future Scheduled 2007 HEPATITIS C [facility] 00:00:00 [code = HEPATITIS C Medical Center SCREENING] Future Scheduled [address] [facility] 00:00:00 virus screening Medical Cent er (procedure) [code = 689059781] Future Scheduled [address] [facility] 00:00:00 Counseling and Screening [facility] (12+) [code = Tobacco Cessation Counseling and Screening (12+)] Future Scheduled [address] [facility] 00:00:00 Counseling and Screening [facility] (12+) [code = Tobacco Cessation Counseling and Screening (12+)] Future Scheduled [address] [facility] 00:00:00 Counseling and Screening [facility] (12+) [code = Tobacco Cessation Counseling and Screening (12+)] Future Scheduled 1990-05-03 COVID-19 VACCINE (#1) [facility]00 [code = COVID-19 VACCINE [facility] ical Center (#1)] Future Scheduled 1990-05-03 COVID-19 VACCINE (#1) [facility] 00:00:00 [code = COVID-19 VACCINE [facility] ical Center (#1)] Future Scheduled 1990-05-03 COVID-19 VACCINE (#1) [facility] 00:00:00 [code = COVID-19 VACCINE Med [facility] (#1)] Encounters Start End Encounter Admission Attending Care Care Encounter Source Date/Time Date/Time Type Type Clinicians Facility Department ID 2023-11-01 2023-11-01 Outpatient Sheree CUNNINGHAM [facility] [id number] Univers 13:00:00 13:00:00 [facility] 2023-05-02 2023-05-02 Outpatient Sheree [facility] [id number] Univers 09:15:00 09:36:52 [facility] 2023-05-02 2023-05-02 Office [facility] 1.2.840.114 [id number] [facility] 09:15:00 09:30:00 Visit [place] [id number] it y of Edward [place] 4.2.7.2.686 Ed as PHUC?BLEA [phone] [address] OFFICE [facility] 2023-04-05 2023-04-05 [facility] 1.2.840.114 [id number] Univers 00:00:00 00:00:00 [facility] 350.1.13.10 it y of [place] 4.2.7.2.686 Ed as PHUC?BLEA [id number] [address] OFFICE [facility] 2023-03-20 2023-03-20 [facility] 1.2.840.114 [id number] Univers 00:00:00 00:00:00 [facility] 350.1.13.10 it y of [place] 4.2.7.2.686 Ed as PHUC?BLEA [id number] [address] OFFICE [facility] 2023-03-14 2023-03-19 Inpatient ER SARAH ELMORE Neuro ICU [id number] [facility] 13:52:00 19:35:00 MARYSE 2023-03-14 2023-03-19 [facility] Raymon Larson [facility] [id number] [facility] 13:52:00 19:35:00 Encounter Maryse Elmore [facility] 2023-03-14 2023-03-14 Travel [facility] [id number] [facility] 00:[facility]:00 [facility] 2023-03-14 2023-03-14 Orders [facility] [id number] 00:00:00 00:00:00 Only [facility] 2023-03-13 2023-03-13 Telephone [facility] 1.2.840.114 [id number] Univers 00:00:00 00:00:00 Boni TACHO 350.1.13.10 i ty of [place] [id number] Ma savanna [facility] [address] BU[address]ING 2023-03-06 2023-03-06 Orders Doctor BURDEN 1.2.840.114 [id number] Univers 00:00:00 00:00:00 Only Unassigned, REHANA 350.1.13.10 ity of [place] [facility] 4.2.7.2.686 Ed as [phone] [address] 2023-02-16 2023-02-16 Orders Doctor JENISE 1.2.840.114 [id number] Univers 00:00:00 00:00:00 Only Unassigned, REHANA 350.1.13.10 ity of [place] [facility] 4.2.7.2.686 Ed as [phone] [address] 2023-02-13 2023-02-13 Jose [facility] 1.2.840.114 [id number] Univers 00:00:00 00:00:00 [facility] 350.1.13.10 it y of [place] [facility] 4.2.7.2.686 Ed as PHUC?BLEA [id number] Ma dical KARRIEEY [address] MEDICAL OFFICE BUILDING 2023-02-12 2023-02-12 Jose Tejada [facility] 1.2.840.114 [id number] Univers 00:00:00 00:00:00 [facility] 350.1.13.10 ity of [place] 4.2.7.2.686 Ed as PHUC?BLEA [id number] Me dical KNEY 092 [facility] 2023-01-10 2023-01-10 Refshen Howard [facility] 1.2.840.114 [id number] Univers 00:00:00 00:00:00 [facility] 350.1.13.10 it y of [place] 4.2.7.2.686 Ed as PHUC?BLEA [id number] Me dical BRITTA 044 [facility] 2023-01-04 2023-01-04 Licensed Investment Sales Assistant 2, Adc Lab [facility] 1.2.840.114 [id number] Univers 10:30:00 10:45:00 Visit Boni Estrella 350.1.13.10 ity [facility] [place] [phone] Ma dical NAL 353 [facility] 2023-01-04 2023-01-04 Outpatient Sheree ESTRELLA [facility] [id number] Univers 09:30:00 10:32:33 BONI ity of [facility] 2023-01-04 2023-01-04 Office [facility] 1.2.732.054 [id number] Univers 09:30:00 10:32:33 Visit Boni TITUS 350.1.13.10 i ty of [place] 4.2.7.2.[place] [id number] Ma dical NAL 134 [facility] 2023-01-04 2023-01-04 Outpatient Sheree ESTRELLA [facility] [id number] Univers 09:30:00 09:30:00 BONI ity of [facility] 2023-01-04 2023-01-04 Orders Doctor BURDEN 1.2.840.114 [id number] Univers 00:00:00 00:00:00 Only Unassigned, REHANA 350.1.13.10 ity of [place] [facility] 4.2.7.2.686 Ed as [id number] [address] 2022-12-15 2022-12-15 Telephone [facility] 1.2.840.114 [id number] Univers 00:00:00 00:00:00 [facility] 350.1.13.10 ity of [place] 4.2.7.2.686 Ed as PHUC?BLEA [id number] Ma savanna YOON[address] OFFICE [facility] 2022-12-12 2022-12-12 Telephone Wes [facility] 1.2.840.114 [id number] Univers 00:00:00 00:00:00 [facility] 350.1.13.10 ity of [place] 4.2.7.2.686 Ed as PHUC?BLEA [id number] [address] OFFICE [facility] 2022-12-11 2022-12-11 Refill [facility] 1.2.840.114 [id number] Univers 00:00:00 00:00:00 [facility] 350.1.13.10 it y of [place] [facility] 4.2.7.2.686 Ed as PHUC?BLEA [id number] [address] OFFICE [facility] 2022-12-05 2022-12-05 Outpatient R MARS TEJADA [facility] [id number] Univers 13:00:00 13:55:10 MARS TEJADA ity of [facility] 2022-12-05 2022-12-05 Office [facility] 1.2.840.114 [id number] Univers 13:00:00 13:55:10 Visit [facility] 350.1.13.10 ity of [place] 4.2.7.2.686 Ed as PHUC?BLEA [phone] [address] OFFICE [facility] 2022-12-05 2022-12-05 Orders Doctor JENISE 1.2.840.114 [id number] Univers 00:00:00 00:00:00 Only Unassigned, REHANA 350.1.13.10 ity of [place] [facility] 4.2.7.2.686 Ed as [phone] [address] 2022-11-24 2022-11-24 Telephone [facility] 1.2.840.114 [id number] Univers 00:00:00 00:00:00 [facility] 350.1.13.10 ity of [place] 4.2.7.2.686 Ed as PHUC?BLEA [id number] Ma dicswathi CALLEJAS [address] MEDICAL OFFICE BUILDING 2022-11-19 2022-11-20 Hospital ER Felicita Prakash [facility] [id number] [facility] 02:42:00 15:24:00 Encounter Sandee [facility] 2022-11-19 2022-11-20 [facility] [id number] SLE 02:42:00 15:24:00 [facility] 2022-11-19 2022-11-20 [facility] [id number] [facility] 02[facility]42:00 15:24:00 [facility] 2022-11-06 2022-11-06 Refill [facility] 1.2.840.114 [id number] Univers 00:00:00 00:00:00 [facility] 350.1.13.10 it y of [place] [facility] 4.2.7.2.686 Ed as PHUC?BLEA [id number] [address] MEDICAL OFFICE [facility] 2022-10-27 2022-10-27 Outpatient R MARS TEJADA [facility] [id number] Univers 16:20:00 16:53:51 MARS TEJADA [facility] 2022-10-27 2022-10-27 Office Wes [facility] 1.2.840.114 [id number] [facility] 16:20:00 16:53:51 Visit [facility] 350.1.13.10 ity of [facility] 4.2.7.2.686 Ed as PHUC?BLEA [phone] Ma dicswathi CALLEJAS [address] MEDICAL OFFICE BUILDING 2022-10-19 2022-10-19 Telephone [facility] 1.2.840.114 [id number] Univers 00:00:00 00:00:00 [facility] 350.1.13.10 it y of [place] 4.2.7.2.686 Ed as PHUC?BLEA [id number] Ma [address] MEDICAL OFFICE BUILDING 2022-10-18 2022-10-18 Telephone [facility] 1.2.840.114 [id number] Univers 00:00:00 00:00:00 [facility] 350.1.13.10 ity of [place] 4.2.7.2.686 Ed as PHUC?BLEA [id number] [address] OFFICE [facility] 2022-10-14 2022-10-17 [facility] [id number] [facility] 14:16:00 17:30:00 Encounter Felicita Prakash [facility], [facility] 2022-10-14 2022-10-17 [facility] Neurology [id number] [facility] 14:16:00 17:30:00 [place] 2022-10-14 2022-10-17 [facility] [id number] [facility] 14:16:00 17:30:00 Encounter Felicita Prakash [facility], [facility] 2022-09-19 2022-09-19 Refshen [facility] 12.840.114 [id number] Univers 00:00:00 00:00:00 [facility] 350.1.13.10 it y of [place] 4.2.7.2.686 Ed as PHUC?BLEA [id number] [address] 2022-07-28 2022-07-28 Refill [facility] 1.2.840.114 [id number] Univers 00:00:00 00:00:00 Wondiful [facility] 350.1.13.10 ity of [place] 4.2.7.2.686 Ed as PHUC?BLEA [id number] [address] OFFICE [facility] 2022-05-18 2022-05-18 Outpatient [place] [id number] [place] 10:46:00 10:46:00 N 0714 [facility] 2022-04-24 2022-04-24 Office [facility] 1.2.840.114 [id number] Univers 13:30:00 13:45:00 Visit Lucero CARLOS 350.1.13.10 i ty of [facility] [place].2.7.2.686 [place] [id number] [address] 2022-04-24 2022-04-24 Outpatient R YESIKA [facility] [id number] Univers 13:30:00 13:30:00 LUCERO [facility] 2022-04-24 2022-04-24 Outpatient Sheree NAPOLES [facility] [id number] Univers 13:30:00 13:30:00 LUCERO [facility] 2022-03-23 2022-03-23 Office [facility] 1.2.840.114 [id number] Univers 11:00:00 11:30:00 Visit Micaela [facility] 350.1.13.10 it y of [place] 4.2.7.2.686 Ed as PHUC?BLEA [id number] [facility] [address] MEDICAL OFFICE BUILDING 2022-03-23 2022-03-23 Outpatient Sheree CUNNINGHAM [facility] [id number] Univers 11:00:00 11:00:00 MICAELA [facility] 2022-03-23 2022-03-23 Outpatient Sheree CUNNINGHAM [facility] [id number] Univers 11:00:00 11:00:00 MICAELA [facility] 2022-02-28 2022-02-28 Office Wes [facility] 1.2.840.114 [id number] Univers 14:40:00 15:48:53 Visit Mars Umana [facility] 350.1.13.10 ity of [place] 4.2.7.2.686 Ed as PHUC?BLEA [id number] [facility] [address] MEDICAL OFFICE BUILDING 2022-02-28 2022-02-28 Outpatient MARS MANNING [facility] [id number] Univers 14:40:00 15:48:53 MARS TEJADA [facility] 2022-02-28 2022-02-28 Outpatient R MARS TEJADA [facility] [id number] Univers 14:40:00 14:40:00 MARS TEJADA [facility] 2022-02-07 2022-02-07 Telephone Wes [facility] 1.2.840.114 [id number] Univers 00:00:00 00:00:00 [facility] 350.1.13.10 ity of [place] 4.2.7.2.686 Ed as PHUC?BLEA [id number] Ma dical KNEY 092 [facility] OFFICE [facility] 2022-01-04 2022-01-04 Office [facility] [id number] Univers 13:00:00 14:05:16 Visit Boni TITUS 350.1.13.10 i ty of [place].2.[place] [id number] Ma dical NAL 134 [facility] 2022-01-04 2022-01-04 Outpatient R [facility]SELECT [facility] [id number] Univers 13:00:00 14:05:16 [facility] 2022-01-04 2022-01-04 Out[facility] [place] [id number] Univers 13:00:00 13:00:00 [facility] 2021-10-24 2021-10-24 [facility] [id number] Univers 13:00:00 13:37:52 Visit Miroslava GONZALEZ [id number] i ty of [facility] [phone] [address] 2021-10-24 2021-10-24 Outpatient R [facility] [place] [id number] Univers 13:00:00 13:37:52 [facility] 2021-10-18 2021-10-18 [facility] [id number] Univers 11:08:45 23:59:00 Encounter Sandip M [place] [id number] ity of [place] 4.2.7.2.686 [facility] [phone] [facility] [address] [place] [address] 2021-10-18 2021-10-18 Outpatient R MARS TEJADA [facility] [id number] Univers 10:30:17 11:07:00 MARS TEJADA ity of [facility] 2021-10-18 2021-10-18 [facility] [id number] Univers 10:30:00 11:07:00 Encounter Mars MASONTON 350.1.13.10 ity of [place] 4.2.7.2.686 [facility] [phone] [address] 2021-09-22 2021-09-22 Licensed Investment Sales Assistant Lab, Ang - [facility] 1.2.840.1 [id number] Univers 14:58:12 15:13:12 Visit Rodolfo Queen A HEALTH 350.1.13.1 0 ity of [place] 4.2.7.2.686 Ed as PHUC?BLEA [phone] Ma dadaswathi BRITTA 353 [facility] OFFICE [facility] 2021-09-22 2021-09-22 Office [facility] 1.2.840.114 [id number] Univers 14:02:46 14:48:25 Visit Coleful A HEALTH 350.1.13.10 ity of [place] 4.2.7.2.686 Ed as PHUC?BLEA [phone] Ma savanna CALLEJAS [address] [place] MEDICAL OFFICE [facility] 2021-09-22 2021-09-22 Outpatient R BERNICE [facility] [id number] Univers 14:00:00 14:48:25 WONDIFUL ity o f Formerly [facility] 2021-09-22 2021-09-22 Telephone [facility] 1.2.840.114 [id number] Univers 00:00:00 00:00:00 Mars Umana HEALTH 350.1.13.10 ity of [place] 4.2.7.2.686 Ed as PHUC?BLEA [phone] Ma dadaswathi BRITTA [address] [place] MEDICAL OFFICE BUILDING 2021-08-26 2021-08-26 Office [facility] 1.2.840.114 [id number] Univers 11:18:55 11:44:59 Visit Jenise Tacho 350.1.13.10 i ty of [place].2.7.2.686 [place] [phone] Ma dical [facility] 188 [facility] 2021-08-26 2021-08-26 Outpatient Sheree [facility] [id number] Univers 11:15:00 11:15:00 JENISE beasley [facility] 2021-08-05 2021-08-05 Office [facility] 1.2.840.114 [id number] Univers 09:41:48 11:12:52 Visit Jenise Tacho 350.1.13.10 i ty of [place]2.7.2.[place] [phone] [address] 2021-08-05 2021-08-05 Outpatient Sheree EVANS [facility] [id number] Univers 09:30:00 09:30:00 JENISE beasley [facility] 2021-08-05 2021-08-05 Orders Doctor JENISE 1.2.840.114 [id number] Univers 00:00:00 00:00:00 Only Unassigned, REHANA 350.1.13.10 ity of [place] [facility] 4.2.7.2.686 Ed as [phone] [address] 2021-07-12 2021-07-12 Office Wes [facility] 1.2.840.114 [id number] Univers 13:36:24 15:02:01 Visit Mars [facility] 350.1.13.10 ity of [place] 4.2.7.2.686 Ed as Phuc?Blea [phone] Ma dada[address] 2021-07-12 2021-07-12 Outpatient MARS MANNING [facility] [id number] Univers 13:40:00 13:40:00 MARS TEJADA [facility] 2021-06-30 2021-06-30 Office Bernice [facility] 1.2.840.114 [id number] Univers 12:09:02 12:54:48 Visit Wondiful A Health 350.1.13.10 ity of [place] 4.2.7.2.686 Ed as Phuc?Blea [phone] Ma savanna callejas [address] [place] [address] Office Building 2021-06-30 2021-06-30 Outpatient R BERNICE [facility] [id number] Univers 11:45:00 11:45:00 WONDIFUL ity o f Formerly [facility] 2021-06-06 2021-06-06 Licensed Investment Sales Assistant Lab, Adc Fam Pob I [facility] 1.2. 840.114 [id number] Univers 10:33:58 10:53:58 Visit Rodolfo Queen [facility] 350.1.13.1 0 ity of [place] 4.2.7.2.686 Ed as Professio [phone] [address] Office [facility] 2021-06-06 2021-06-06 Outpatient R BERNICE [facility] [id number] Univers 10:20:00 10:20:00 WONDIFUL ity o f Formerly [facility] 2021-06-02 2021-06-02 Office [facility] 1.2.840.114 [id number] Univers 15:39:55 17:24:04 Visit Wondiful A Health 350.1.13.10 ity of [place] 4.2.7.2.686 Ed as Professio [phone] [address] Office [facility] 2021-06-02 2021-06-02 Outpatient R BERNICE [facility] [id number] Univers 15:45:00 15:45:00 WONDIFUL ity o f Formerly [facility] 2021-05-17 2021-05-17 Office [facility] 1.2.840.114 [id number] Univers 11:13:31 12:02:19 Visit Wondiful A Health 350.1.13.10 ity of [place] 4.2.7.2.686 Ed as Professio [phone] [address] Office [facility] 2021-05-17 2021-05-17 Outpatient R BERNICE [facility] [id number] Univers 11:15:00 11:15:00 WONDIFUL ity o f Formerly [facility] 2021-05-17 2021-05-17 Orders Doctor JENISE 1.2.840.114 [id number] Univers 00:00:00 00:00:00 Only Unassigned, REHANA 350.1.13.10 ity of [place] [facility] 4.2.7.2.686 Ed as [phone] [facility] [address] [place] 2021-04-25 2021-04-25 [facility] 1.2.840.114 [id number] [facility] 12:54:10 13:09:10 Visit Miroslava GONZALEZ 350.1.13.10 i ty of [facility] 4.2.7.2.[place] [phone] [facility] [address] [place] 2021-04-25 2021-04-25 Outpatient R VERONICA [facility] [id number] [facility] 11:30:00 11:30:00 MIROSLAVA beasley [facility] 2021-01-03 2021-01-03 Licensed Investment Sales Assistant 2, Adc Lab [facility] 1.2.840.114 [id number] [facility] 10:00:53 10:15:53 Visit Boni Estrella 350.1.13.10 ity of [place].2.7.2.[place] [phone] Ma dical [facility] 353 [facility] 2021-01-03 2021-01-03 Office [facility] 1.2.630.917 [id number] Univers 08:30:48 09:39:14 Visit Boni Titus 350.1.13.10 i ty of [place] 4.2.7.2.686 [place] [phone] Ma dical nal 134 [facility] 2021-01-03 2021-01-03 Outpatient R SAMEER [facility] [id number] Univers 08:00:00 08:00:00 BONI beasley [facility] 2020-12-31 2020-12-31 Outpatient R SAMEER [facility] [id number] Univers 09:00:00 09:00:00 BONI beasley [facility] 2020-10-26 2020-10-26 Telephone Bernice [facility] 1.2.840.114 [id number] Univers 00:00:00 00:00:00 Wondiful A Health 350.1.13.10 ity of [place] 4.2.7.2.686 Ed as Professio [phone] Ma dical nal [address] [place] Office Building One 2020-10-26 2020-10-26 Orders Doctor JENISE 1.2.840.114 [id number] Univers 00:00:00 00:00:00 Only Unassigned, REHANA 350.1.13.10 ity of [place] [facility] 4.2.7.2.686 Ed as [phone] [facility] [address] [place] 2020-10-25 2020-10-25 Office [facility] 1.2.840.114 [id number] Univers 14:44:52 14:59:52 Visit Miroslavamackenzie GONZALEZ 350.1.13.10 i ty of [facility] 4.2.7.2.[place] [phone] [facility] [address] [place] 2020-10-25 2020-10-25 [facility] [id number] Univers 14:45:00 14:45:00 MIROSLAVA ity of [facility] 2020-10-08 2020-10-08 Ancillary Marilou Franklin Román [facility] 1.2.840 .114 [id number] Univers 11:06:11 11:46:11 Visit Hesham Max 350.1.13.10 ity of [place].2.[place].2.[place] [phone] Ma dical nal 179 [facility] 2020-10-08 2020-10-08 Outpatient R [facility] [id number] Univers 11:20:00 11:20:00 ity of [facility] 2020-10-08 2020-10-08 Ancillary Snow Lambert [facility] 1.2.8 40.114 [id number] Univers 10:20:06 11:05:06 Visit Hesham Max 350.1.13.10 ity of [place].2.7.2.[place] [phone] Ma dical nal 145 [facility] 2020-10-08 2020-10-08 Outpatient R WINTER [facility] [id number] Univers 10:15:00 10:15:00 HESHAM ity of [facility] 2020-09-24 2020-09-24 Outpatient R [facility] [id number] Univers 10:15:00 10:15:00 ity of [facility] 2020-09-24 2020-09-24 Ancillary Snow Lambert [facility] 1.2.8 40.114 [id number] Univers 09:23:11 10:08:11 Visit Hesham Max Luca [place] 350.1.13.10 ity of [place].2.7.2.[place] [phone] Ma dical nal 145 [facility] 2020-09-24 2020-09-24 Ancillary Narcisa Peraza [facility] 1 .2.840.114 [id number] Univers 08:52:03 09:52:03 Visit Hesham Max [place] 350.1.13.10 ity of [place] 4.2.7.2.[place] [phone] Ma dical nal 179 [facility] 2020-09-24 2020-09-24 Outpatient R [facility] [id number] Univers 08:40:00 08:40:00 ity of [facility] 2020-09-16 2020-09-16 Office [facility] 1.2.840.114 [id number] Univers 14:24:24 15:07:08 Visit Wondiful A Health 350.1.13.10 ity of [place] 4.2.7.2.686 Ed as Professio [phone] Ma dical nal [address] [place] Office Building One 2020-09-16 2020-09-16 Outpatient R BERNICE [facility] [id number] Univers 14:15:00 14:15:00 WONDIFUL ity o f Formerly [facility] 2020-01-16 2020-01-16 Telephone Bernice [facility] 1.2.840.114 [id number] Univers 00:00:00 00:00:00 Wondiful A Health 350.1.13.10 ity of [place] 4.2.7.2.686 Ed as Professio [phone] Ma dical nal [address] [place] Office [facility] 2020-01-09 2020-01-09 Office Marsha [facility] 1.2.956.600 [id number] Univers 09:01:26 09:16:[address] Jerardo GONZALEZ 350.1.13.10 ity of [facility] 4.2.7.2.686 [place] [phone] [facility] [address] 2020-01-09 2020-01-09 Outpatient R [facility] [id number] Univers 08:45:00 08:45:00 LIBERTAD ity of [facility] 2019-12-26 2020-01-06 Office [facility] 1.2.053.735 [id number] [facility] 10:09:19 10:58:29 Visit Boni Titus 350.1.13.10 i ty of [place] 4.2.[place].2.[place] [phone] Ma dical nal 134 [facility] 2019-12-26 2019-12-26 Outpatient R [facility] [id number] Univers 10:00:00 11:02:01 BONI ity of [facility] 2019-12-13 2019-12-13 Licensed Investment Sales Assistant Kyler Collins Lab Main [facility] 1.2.8 40.114 [id number] Univers 09:29:57 09:44:57 Visit Rodolfo Queen 350.1.13. 10 ity of [place].2.7.2.686 [place] [phone] Ma dical nal 353 [facility] 2019-12-13 2019-12-13 Orders Doctor BURDEN 1.2.840.114 [id number] Univers 00:00:00 00:00:00 Only Unassigned, REHANA 350.1.13.10 ity of [place] [facility] 4.2.7.2.686 Ed as [phone] [facility] [address] [place] 2019-12-12 2019-12-12 Office Bernice [facility] 1.2.840.114 [id number] Univers 11:51:09 12:29:49 Visit Rodolfo Gomez Health 350.1.13.10 ity of [place] 4.2.7.2.686 Ed as Professio [phone] Ma dical nal [address] [place] Office Building One 2019-11-25 2019-11-25 Office BELEN Queen 1.2.840.114 [id number] Univers 10:22:11 11:33:49 Visit Rodolfo Gomez Health 350.1.13.10 ity of [place] 4.2.7.2.686 Ed as Professio [phone] Ma dical nal [address] [place] Office Building One 2019-11-25 2019-11-25 Orders Doctor JENISE 1.2.840.114 [id number] Univers 00:00:00 00:00:00 Only Unassigned, REHANA 350.1.13.10 ity of [place] [facility] 4.2.7.2.686 Ed as [phone] [address] 2018-11-25 2018-11-25 Orders Doctor JENISE 1.2.840.114 [id number] Univers 00:00:00 00:00:00 Only Unassigned, REHANA 350.1.13.10 ity of [place] [facility] 4.2.7.2.686 Ed as [phone] [address] Results Test Description Test Time Test Comments Results Result Comments Source BLOOD CULTURE 2023-03-19 19:01:00 Test Item Value Reference Range Interpretation Comme nts CULTURE (BEAKER) (test code = 1095) No growth in 5 days BLOOD [id number] 19:01:00 Test Item Value Reference Range Interpretation Comments CULTURE (BEAKER) (test No growth in 5 days code = 1095) POC-Glucose [id number] 18:09:19 Test Item Value Reference Range Interpretation Comments POC-Glucose Meter (test 112 mg/dL 70-110 H : TE STED AT [facility] code = 1538) 6720 [facility], 770 30: [facility]/Techni rosita ID = [id number] for Felipe Kymberly Lab Interpretation (test Abnormal code = 48639-9) [facility] [id number] 18:09:19 Test Item Value Reference Range Interpretation Comments POC-GLUCOSE METER 112 mg/dL 70-110 H : TESTED A T [facility] 6720 (BEAKER) (test code = ALEXANDER Bentley [place], 1538) [address]: [facility]/Techni rosita ID = [id number] for An Kymberly meyer POCT-GLUCOSE [id number] 13:52:12 Test Item Value Reference Range Interpretation Comments POC-GLUCOSE METER 143 mg/dL 70-110 H : TESTED A T [facility] 6720 (BEAKER) (test code = ALEXANDER Bentley [place], 1538) [address]: [facility]/Techni rosita ID = [id number] for An Kymberly meyer [id number] 05:55:02 Test Item Value Reference Range Interpretation Comments MAGNESIUM (BEAKER) (test code = 1.8 mg/dL 1.6-2.6 627) [facility] ID Shemar CAGE [id number] 05:55:02 Test Item Value Reference Range Interpretation Comments PHOSPHORUS (BEAKER) (test code = 3.9 mg/dL 2.3-4.7 604) [facility] ID Shemar CAGE WCOMPREHENSIVE METABOLIC [id number] 05:55:01 Test Item Value Reference Range Interpretation Comments TOTAL PROTEIN 6.3 gm/dL 6.0-8.3 (BEAKER) (test code = 770) ALBUMIN (BEAKER) 3.7 g/dL 3.5-5.0 (test code = 1145) ALKALINE 36 U/L 40-150 L PHOSPHATASE (BEAKER) (test code = 346) BILIRUBIN TOTAL 0.2 mg/dL 0.2-1.2 (BEAKER) (test code = 377) SODIUM (BEAKER) 141 meq/L 136-145 (test code = 381) POTASSIUM (BEAKER) 3.3 meq/L 3.5-5.1 L (test code = 379) CHLORIDE (BEAKER) 108 meq/L 98-107 H (test code = 382) CO2 (BEAKER) (test 20 meq/L 22-29 L code = 355) BLOOD UREA 9 mg/dL 7-21 NITROGEN (BEAKER) (test code = 354) CREATININE 0.57 mg/dL 0.57-1.25 (BEAKER) (test code = 358) GLUCOSE RANDOM 106 mg/dL 70-105 H (BEAKER) (test code = 652) CALCIUM (BEAKER) 8.8 mg/dL 8.4-10.2 (test code = 697) AST (SGOT) 32 U/L 5-34 (BEAKER) (test code = 353) ALT (SGPT) 21 U/L 6-55 (BEAKER) (test code = 347) EGFR (BEAKER) 123 Interpretatio n of eGFR (test code = [...] not appl icable for dialysis patien ts [facility] ID - NILES WPOCT-GLUCOSE [id number] 05:19:17 Test Item Value Reference Range Interpretation Comments POC-GLUCOSE METER 105 mg/dL 70-110 : TESTED A T [facility] 6720 ([facility] (test code = MISHELEVELIO Bentley [facility], 1538) 742[address]: Farmer [facility]/Techni rosita ID = [id number] for Charity Salvador [place] CBC W/PLT COUNT & AUTO [id number] 05:09:46 Test Item Value Reference Range Interpretation Comments WHITE BLOOD CELL COUNT (BEAKER) 5.7 K/ L 3.5-10.5 (test code = 775) RED BLOOD CELL COUNT (BEAKER) 3.54 M/ L 3.93-5.22 L (test code = 761) HEMOGLOBIN (BEAKER) (test code = 10.5 GM/DL 11.2-15.7 L 410) HEMATOCRIT (BEAKER) (test code = 30.9 % 34.1-44.9 L 411) MEAN CORPUSCULAR VOLUME (BEAKER) 87 fL 79-95 (test code = 753) MEAN CORPUSCULAR HEMOGLOBIN 29.7 pg 25.6-32.2 (BEAKER) (test code = 751) MEAN CORPUSCULAR HEMOGLOBIN CONC 34.0 GM/DL 32.2-35.5 (BEAKER) (test code = 752) RED CELL DISTRIBUTION WIDTH 14.4 % 11.7-14.4 (BEAKER) (test code = 412) PLATELET COUNT (BEAKER) (test 288 K/CU MM 150-450 code = 756) MEAN PLATELET VOLUME (BEAKER) 9.9 fL 9.4-12.3 (test code = 754) NUCLEATED RED BLOOD CELLS 0 /100 WBC 0-0 (BEAKER) (test code = 413) NEUTROPHILS RELATIVE PERCENT 50 % (BEAKER) (test code = 429) LYMPHOCYTES RELATIVE PERCENT 35 % (BEAKER) (test code = 430) MONOCYTES RELATIVE PERCENT 11 % (BEAKER) (test code = 431) EOSINOPHILS RELATIVE PERCENT 4 % (BEAKER) (test code = 432) BASOPHILS RELATIVE PERCENT 1 % (BEAKER) (test code = 437) NEUTROPHILS ABSOLUTE COUNT 2.84 K/ L 1.56-6.13 (BEAKER) (test code = 670) LYMPHOCYTES ABSOLUTE COUNT 2.01 K/ L 1.18-3.74 (BEAKER) (test code = 414) MONOCYTES ABSOLUTE COUNT (BEAKER) 0.60 K/ L 0.24-0.36 H (test code = 415) EOSINOPHILS ABSOLUTE COUNT 0.21 K/ L 0.04-0.36 (BEAKER) (test code = 416) BASOPHILS ABSOLUTE COUNT (BEAKER) 0.04 K/ L 0.01-0.08 (test code = 417) IMMATURE GRANULOCYTES-RELATIVE 0.30 % 0.00-1.00 PERCENT (BEAKER) (test code = 2801) POCT-GLUCOSE [id number] 23:31:36 Test Item Value Reference Range Interpretation Comments POC-GLUCOSE METER 118 mg/dL 70-110 H : TESTED A T [facility] 6720 (BEAKER) (test code = [facility], 1538) 08534: Farmer [facility]/Techni rosita ID = [id number] for REYES DE LA TORRE POCT-GLUCOSE [id number] 18:05:44 Test Item Value Reference Range Interpretation Comments POC-GLUCOSE METER 116 mg/dL 70-110 H : TESTED A T [facility] 6720 (BEAKER) (test code = [facility], 1538) 93803: Farmer [facility]/Techni rosita ID = [id number] for An Kymberly meyer POCT-GLUCOSE [id number] 11:39:36 Test Item Value Reference Range Interpretation Comments POC-GLUCOSE METER 153 mg/dL 70-110 H : TESTED A T [facility] 6720 (BEAKER) (test code = [facility], 1538) 61298: Farmer General/Techni rosita ID = [id number] for Kymberly Gunn POCT-GLUCOSE [id number] 06:05:31 Test Item Value Reference Range Interpretation Comments POC-GLUCOSE METER 89 mg/dL 70-110 : TESTED A T [facility] 6720 (BEAKER) (test code = [facility], 1538) 39790: Farmer [facility]/Techni rosita ID = [id number] for REYES [place] COMPREHENSIVE METABOLIC [id number] 02:16:43 Test Item Value Reference Range Interpretation Comments TOTAL PROTEIN 6.5 gm/dL 6.0-8.3 (BEAKER) (test code = 770) ALBUMIN (BEAKER) 3.8 g/dL 3.5-5.0 (test code = 1145) ALKALINE 40 U/L 40-150 PHOSPHATASE (BEAKER) (test code = 346) BILIRUBIN TOTAL 0.4 mg/dL 0.2-1.2 (BEAKER) (test code = 377) SODIUM (BEAKER) 139 meq/L 136-145 (test code = 381) POTASSIUM (BEAKER) 3.3 meq/L 3.5-5.1 L (test code = 379) CHLORIDE (BEAKER) 107 meq/L 98-107 (test code = 382) CO2 (BEAKER) (test 23 meq/L 22-29 code = 355) BLOOD UREA 4 mg/dL 7-21 L NITROGEN (BEAKER) (test code = 354) CREATININE 0.57 mg/dL 0.57-1.25 (BEAKER) (test code = 358) GLUCOSE RANDOM 81 mg/dL 70-105 (BEAKER) (test code = 652) CALCIUM (BEAKER) 9.0 mg/dL 8.4-10.2 (test code = 697) AST (SGOT) 28 U/L 5-34 (BEAKER) (test code = 353) ALT (SGPT) 19 U/L 6-55 (BEAKER) (test code = 347) EGFR (BEAKER) 123 Interpretatio n of eGFR (test code = [...] not appl icable for dialysis patien ts [facility] ID - NILES [id number] 02:16:43 Test Item Value Reference Range Interpretation Comments MAGNESIUM (BEAKER) (test code = 2.0 mg/dL 1.6-2.6 627) [facility] ID Shemar CAGE [id number] 02:16:43 Test Item Value Reference Range Interpretation Comments PHOSPHORUS (BEAKER) (test code = 3.1 mg/dL 2.3-4.7 604) [facility] ID Shemar CAGE OCT-GLUCOSE [id number] 01:58:52 Test Item Value Reference Range Interpretation Comments POC-GLUCOSE METER 87 mg/dL 70-110 : TESTED A T [facility] 6720 (BEAKER) (test code = ALEXANDER Bentley [facility], 1538) 22188: Farmer General/Techni rosita ID = [id number] for REYES GRE[place]OD CBC W/PLT COUNT & AUTO [id number] 01:53:22 Test Item Value Reference Range Interpretation Comments WHITE BLOOD CELL COUNT (BEAKER) 7.1 K/ L 3.5-10.5 (test code = 775) RED BLOOD CELL COUNT (BEAKER) 3.57 M/ L 3.93-5.22 L (test code = 761) HEMOGLOBIN (BEAKER) (test code = 10.6 GM/DL 11.2-15.7 L 410) HEMATOCRIT (BEAKER) (test code = 30.9 % 34.1-44.9 L 411) MEAN CORPUSCULAR VOLUME (BEAKER) 87 fL 79-95 (test code = 753) MEAN CORPUSCULAR HEMOGLOBIN 29.7 pg 25.6-32.2 (BEAKER) (test code = 751) MEAN CORPUSCULAR HEMOGLOBIN CONC 34.3 GM/DL 32.2-35.5 (BEAKER) (test code = 752) RED CELL DISTRIBUTION WIDTH 14.4 % 11.7-14.4 (BEAKER) (test code = 412) PLATELET COUNT (BEAKER) (test 289 K/CU MM 150-450 code = 756) MEAN PLATELET VOLUME (BEAKER) 10.5 fL 9.4-12.3 (test code = 754) NUCLEATED RED BLOOD CELLS 0 /100 WBC 0-0 (BEAKER) (test code = 413) NEUTROPHILS RELATIVE PERCENT 62 % (BEAKER) (test code = 429) LYMPHOCYTES RELATIVE PERCENT 27 % (BEAKER) (test code = 430) MONOCYTES RELATIVE PERCENT 8 % (BEAKER) (test code = 431) EOSINOPHILS RELATIVE PERCENT 1 % (BEAKER) (test code = 432) BASOPHILS RELATIVE PERCENT 1 % (BEAKER) (test code = 437) NEUTROPHILS ABSOLUTE COUNT 4.44 K/ L 1.56-6.13 (BEAKER) (test code = 670) LYMPHOCYTES ABSOLUTE COUNT 1.95 K/ L 1.18-3.74 (BEAKER) (test code = 414) MONOCYTES ABSOLUTE COUNT (BEAKER) 0.58 K/ L 0.24-0.36 H (test code = 415) EOSINOPHILS ABSOLUTE COUNT 0.10 K/ L 0.04-0.36 (BEAKER) (test code = 416) BASOPHILS ABSOLUTE COUNT (BEAKER) 0.04 K/ L 0.01-0.08 (test code = 417) IMMATURE GRANULOCYTES-RELATIVE 0.40 % 0.00-1.00 PERCENT (BEAKER) (test code = 2801) POCT-GLUCOSE [id number] 17:53:44 Test Item Value Reference Range Interpretation Comments POC-GLUCOSE METER 91 mg/dL 70-110 : TESTED A T [facility] 6720 (BEAKER) (test code = [facility], 1538) 00605: Farmer General/Techni rosita ID = [id number] for Sylvia navarro Mary Lou Ochoa POCT-GLUCOSE [id number] 13:19:13 Test Item Value Reference Range Interpretation Comments POC-GLUCOSE METER 117 mg/dL 70-110 H : TESTED A T [facility] 6720 (BEAKER) (test code = [facility], 1538) [id number]: Farmer General/Techni rosita ID = [id number] for Brina Fry SPUTUM CULTURE + GRAM [id number] 11:33:50 Test Item Value Reference Interpretation Comments Range CULTURE (BEAKER) (test KLEBSIELLA A 4+ Kl ebsiella code = 1095) PNEUMONIAE SSP pneumoniae ss p PNEUMONIAE pneumoniae Amikacin (test code = S 1) Ampicillin + Sulbactam S (test code = 6) Aztreonam (test code = S 32) Cefepime (test code = S 51) Cefoxitin (test code = S 68) Ceftazidime (test code S = 27) Ceftriaxone (test code S = 52) Ertapenem (test code = S 38) Gentamicin (test code S = 18) Levofloxacin (test S code = 22) Meropenem (test code = S 34) Piperacillin + S Tazobactam (test code = 29) Tetracycline (test S code = 2) Tobramycin (test code S = 25) Trimethoprim + S Sulfamethoxazole (test code = 47) CULTURE (BEAKER) (test ENTEROBACTER A 4+ En terobacter code = 1095) CLOACAE COMPLEX cloacae comp priyanka Amikacin (test code = S 1) Aztreonam (test code = S 32) Cefepime (test code = S 51) Cefoxitin (test code = R 68) Ceftazidime (test code S = 27) Ceftriaxone (test code S = 52) Ertapenem (test code = S 38) Gentamicin (test code S = 18) Levofloxacin (test S code = 22) Meropenem (test code = S 34) Piperacillin + S Tazobactam (test code = 29) Tetracycline (test S code = 2) Tobramycin (test code S = 25) Trimethoprim + S Sulfamethoxazole (test code = 47) GRAM STAIN RESULT 4+ WBCs (BEAKER) (test code = 1123) GRAM STAIN RESULT 1+ gram negative (BEAKER) (test code = rods 535782) GRAM STAIN RESULT 4+ gram positive (BEAKER) (test code = cocci in chains [id number]) and pairs GRAM STAIN RESULT 1+ gram positive (BEAKER) (test code = cocci in clusters [id number]) GRAM STAIN RESULT <1+ yeast with (BEAKER) (test code = pseudohyphae 565804) 4+ Normal respiratory almas presentPOCT-GLUCOSE [id number] 06:48:14 Test Item Value Reference Range Interpretation Comments POC-GLUCOSE METER 130 mg/dL 70-110 H : TESTED A T [facility] 6720 (BEAKER) (test code = [facility], 1538) 31546: Farmer General/Techni rosita ID = [id number] for DIEUDONNE BEACH POCT-GLUCOSE [id number] 06:29:52 Test Item Value Reference Range Interpretation Comments POC-GLUCOSE METER 72 mg/dL 70-110 : TESTED A T [facility] 6720 (BEAKER) (test code = [facility] [place], 1538) 40186: Farmer General/Techni rosita ID = [id number] for DIEUDONNE VIDALES [id number] 04:07:45 Test Item Value Reference Range Interpretation Comments PROCALCITONIN (BEAKER) (test code = < ng/mL <0.05 3036) SEPSIS RISK (ng/mL)Low: 0.05-0.50Intermediate: 0.51-2.00High: >=2.01MAGNESIUM 2023-03-17 04:00:20 Test Item Value Reference Range Interpretation Comments MAGNESIUM (BEAKER) (test code = 1.7 mg/dL 1.6-2.6 627) [facility] ID - [id number] 04:00:20 Test Item Value Reference Range Interpretation Comments PHOSPHORUS (BEAKER) (test code = 3.1 mg/dL 2.3-4.7 604) [facility] ID - MMCOMPREHENSIVE METABOLIC [id number] 04:00:19 Test Item Value Reference Range Interpretation Comments TOTAL PROTEIN 5.8 gm/dL 6.0-8.3 L (BEAKER) (test code = 770) ALBUMIN (BEAKER) 3.5 g/dL 3.5-5.0 (test code = 1145) ALKALINE 37 U/L 40-150 L PHOSPHATASE (BEAKER) (test code = 346) BILIRUBIN TOTAL 0.3 mg/dL 0.2-1.2 (BEAKER) (test code = 377) SODIUM (BEAKER) 141 meq/L 136-145 (test code = 381) POTASSIUM (BEAKER) 3.1 meq/L 3.5-5.1 L (test code = 379) CHLORIDE (BEAKER) 112 meq/L 98-107 H (test code = 382) CO2 (BEAKER) (test 18 meq/L 22-29 L code = 355) BLOOD UREA 3 mg/dL 7-21 L NITROGEN (BEAKER) (test code = 354) CREATININE 0.59 mg/dL 0.57-1.25 (BEAKER) (test code = 358) GLUCOSE RANDOM 109 mg/dL 70-105 H (BEAKER) (test code = 652) CALCIUM (BEAKER) 8.6 mg/dL 8.4-10.2 (test code = 697) AST (SGOT) 30 U/L 5-34 (BEAKER) (test code = 353) [...] not appl icable for dialysis patien ts [facility] ID - MMCBC W/PLT COUNT & AUTO [id number] 03:29:27 Test Item Value Reference Range Interpretation Comments WHITE BLOOD CELL COUNT (BEAKER) 7.1 K/ L 3.5-10.5 (test code = 775) RED BLOOD CELL COUNT (BEAKER) 3.37 M/ L 3.93-5.22 L (test code = 761) HEMOGLOBIN (BEAKER) (test code = 9.9 GM/DL 11.2-15.7 L 410) HEMATOCRIT (BEAKER) (test code = 29.8 % 34.1-44.9 L 411) MEAN CORPUSCULAR VOLUME (BEAKER) 88 fL 79-95 (test code = 753) MEAN CORPUSCULAR HEMOGLOBIN 29.4 pg 25.6-32.2 (BEAKER) (test code = 751) MEAN CORPUSCULAR HEMOGLOBIN CONC 33.2 GM/DL 32.2-35.5 (BEAKER) (test code = 752) RED CELL DISTRIBUTION WIDTH 14.4 % 11.7-14.4 (BEAKER) (test code = 412) PLATELET COUNT (BEAKER) (test 231 K/CU MM 150-450 code = 756) MEAN PLATELET VOLUME (BEAKER) 10.0 fL 9.4-12.3 (test code = 754) NUCLEATED RED BLOOD CELLS 0 /100 WBC 0-0 (BEAKER) (test code = 413) NEUTROPHILS RELATIVE PERCENT 61 % (BEAKER) (test code = 429) LYMPHOCYTES RELATIVE PERCENT 29 % (BEAKER) (test code = 430) MONOCYTES RELATIVE PERCENT 8 % (BEAKER) (test code = 431) EOSINOPHILS RELATIVE PERCENT 2 % (BEAKER) (test code = 432) BASOPHILS RELATIVE PERCENT 0 % (BEAKER) (test code = 437) NEUTROPHILS ABSOLUTE COUNT 4.31 K/ L 1.56-6.13 (BEAKER) (test code = 670) LYMPHOCYTES ABSOLUTE COUNT 2.02 K/ L 1.18-3.74 (BEAKER) (test code = 414) MONOCYTES ABSOLUTE COUNT (BEAKER) 0.58 K/ L 0.24-0.36 H (test code = 415) EOSINOPHILS ABSOLUTE COUNT 0.14 K/ L 0.04-0.36 (BEAKER) (test code = 416) BASOPHILS ABSOLUTE COUNT (BEAKER) 0.03 K/ L 0.01-0.08 (test code = 417) IMMATURE GRANULOCYTES-RELATIVE 0.30 % 0.00-1.00 PERCENT (BEAKER) (test code = 2801) POCT-GLUCOSE [id number] 02:22:13 Test Item Value Reference Range Interpretation Comments POC-GLUCOSE METER 140 mg/dL 70-110 H : TESTED A T [facility] 6720 (BEAKER) (test code = ALEXANDER BARTH, 1538) 09244: [facility]/Techni rosita ID = [id number] for ON DIEUDONNE COCHRAN POCT-GLUCOSE [id number] 02:01:04 Test Item Value Reference Range Interpretation Comments POC-GLUCOSE METER 67 mg/dL 70-110 L : TESTED A T [facility] 6720 (BEAKER) (test code = ALEXANDER Bentley [facility], 1538) 77181: Farmer [facility]/Techni rosita ID = [id number] for ONREID GARCIAELU, NWADIUTO POCT-GLUCOSE [id number] 23:45:29 Test Item Value Reference Range Interpretation Comments POC-GLUCOSE METER 76 mg/dL 70-110 : TESTED A T [facility] 6720 (JIMMY) (test code = [facility] Sheree [facility], 1538) 77696: [facility]/Techni rosita ID = [id number] for ONREID GARCIAELU, NWADIUTO POCT-GLUCOSE [id number] 18:01:23 Test Item Value Reference Range Interpretation Comments POC-GLUCOSE METER 77 mg/dL 70-110 : TESTED A T [facility] 6720 (JIMMY) (test code = [facility] Sheree [facility], 1538) 34274: Farmer [facility]/Techni rosita ID = [id number] for Ольга molly Massiel POCT-GLUCOSE [id number] 13:08:41 Test Item Value Reference Range Interpretation Comments POC-GLUCOSE METER 93 mg/dL 70-110 : TESTED A T [facility] 6720 (JIMMY) (test code = [facility] Sheree [facility], 1538) 66114: [facility]/Techni rosita ID = [id number] for Ольга molly, Massiel RAD, CHEST, 1 VIEW, NON [id number] 08:56:00Reason for exam:- >intubatedShould this be performed at the bedside?->Yes [facility] : 1990 Sex: FFINAL REPORT RAD, CHEST, 1 VIEW, NON DEPT INDICATION: intubated COMPARISON: Prior day'sexam TECHNIQUE: Portable frontal view(s) of the chest. FINDINGS: Support Lines and Devices: Stable. Lungs and pleura: Unchanged airspace and pleural opacities. No pneumothorax identified. Heart and medi astinum: Stable contours. Stable surgical changes. Additional findings: None. IMPRESSION: No significant change from prior exam. No focal consolidation. Signed: Avery Dunn MDRepcharles Verified Date/Time: 03/16/2023 08:56:21 Reading Location: [address] Reading Room POCT-GLUCOSE [id number] 07:02:53 Test Item Value Reference Range Interpretation Comments POC-GLUCOSE METER 94 mg/dL 70-110 : TESTED A T [facility] 6720 (BEAKER) (test code = [place], 1538) 267[address]: [facility]/Techni rosita ID = [id number] for Jose D Sewell [id number] 05:19:10 Test Item Value Reference Range Interpretation Comments PROCALCITONIN (BEAKER) (test code 0.12 ng/mL <0.05 H = 3036) SEPSIS RISK (ng/mL)Low: 0.05-0.50Intermediate: 0.51-2.00High: >=2.01 COMPREHENSIVE METABOLIC [id number] 05:15:15 Test Item Value Reference Range Interpretation Comments TOTAL PROTEIN 5.8 gm/dL 6.0-8.3 L (BEAKER) (test code = 770) ALBUMIN (BEAKER) 3.4 g/dL 3.5-5.0 L (test code = 1145) ALKALINE 37 U/L 40-150 L PHOSPHATASE (BEAKER) (test code = 346) BILIRUBIN TOTAL 0.3 mg/dL 0.2-1.2 (BEAKER) (test code = 377) SODIUM (BEAKER) 139 meq/L 136-145 (test code = 381) POTASSIUM (BEAKER) 3.4 meq/L 3.5-5.1 L (test code = 379) CHLORIDE (BEAKER) 113 meq/L 98-107 H (test code = 382) CO2 (BEAKER) (test 17 meq/L 22-29 L code = 355) BLOOD UREA 5 mg/dL 7-21 L NITROGEN (BEAKER) (test code = 354) CREATININE 0.57 mg/dL 0.57-1.25 (BEAKER) (test code = 358) GLUCOSE RANDOM 94 mg/dL 70-105 (BEAKER) (test code = 652) CALCIUM (BEAKER) 7.7 mg/dL 8.4-10.2 L (test code = 697) AST (SGOT) 20 U/L 5-34 (BEAKER) (test code = 353) ALT (SGPT) 14 U/L 6-55 (BEAKER) (test code = 347) EGFR (BEAKER) 123 Interpretatio n of eGFR (test code = [...] not appl icable for dialysis patien ts [facility] ID - [id number] 05:13:42 Test Item Value Reference Range Interpretation Comments MAGNESIUM (BEAKER) (test code = 1.7 mg/dL 1.6-2.6 627) [facility] ID - [id number] 05:13:42 Test Item Value Reference Range Interpretation Comments PHOSPHORUS (BEAKER) (test code = 2.5 mg/dL 2.3-4.7 604) [facility] ID - ADMINBlood gas, [id number] 04:47:44 Test Item Value Reference Range Interpretation Comments pH, Arterial (test code 7.41 7.35-7.45 = 2744-1) pCO2, Arterial (test 31 See_Comment L [Autom ated code = 2019-06) message] The system which generated this result transmitted reference range : 35 - 45 mm Hg. The reference range was not used to interpret this result as normal/abnormal . pO2, Arterial (test 210 See_Comment H [Automa keron code = 2703-7) message] The system which generated this result transmitted reference range : 80 - 90 mm Hg. The reference range was not used to interpret this result as normal/abnormal . O2 Sat, Arterial (test 99.4 % 96.0-97.0 H code = 2708-6) HCO3, Arterial (test 19 mmol/L 21-29 L code = 1960-4) Base Excess, Arterial -4.7 mmol/L -2.0-3.0 L (test code = 1925-7) Patient Temperature 36.8 (test code = 8310-5) FIO2 (test code = 1819) 30.0 Lab Interpretation Abnormal (test code = 48236-4) [facility] [id number] 04:47:44 Test Item Value Reference Range Interpretation Comments PH ARTERIAL (BEAKER) (test code = 7.41 7.35-7.45 383) PCO2 ARTERIAL (BEAKER) (test code 31 mm Hg 35-45 L = 384) PO2 ARTERIAL (BEAKER) (test code 210 mm Hg 80-90 H = 385) O2 SATURATION ARTERIAL (BEAKER) 99.4 % 96.0-97.0 H (test code = 386) HCO3 ARTERIAL (BEAKER) (test code 19 mmol/L 21-29 L = 388) BASE EXCESS ARTERIAL (BEAKER) -4.7 mmol/L -2.0-3.0 L (test code = 387) PATIENT TEMPERATURE (BEAKER) 36.8 (test code = 1818) FIO2 (BEAKER) (test code = 1819) 30.0 CBC W/PLT COUNT & AUTO [id number] 04:41:05 Test Item Value Reference Range Interpretation Comments WHITE BLOOD CELL COUNT (BEAKER) 13.7 K/ L 3.5-10.5 H (test code = 775) RED BLOOD CELL COUNT (BEAKER) 3.26 M/ L 3.93-5.22 L (test code = 761) HEMOGLOBIN (BEAKER) (test code = 9.7 GM/DL 11.2-15.7 L 410) HEMATOCRIT (BEAKER) (test code = 28.2 % 34.1-44.9 L 411) MEAN CORPUSCULAR VOLUME (BEAKER) 87 fL 79-95 (test code = 753) MEAN CORPUSCULAR HEMOGLOBIN 29.8 pg 25.6-32.2 (BEAKER) (test code = 751) MEAN CORPUSCULAR HEMOGLOBIN CONC 34.4 GM/DL 32.2-35.5 (BEAKER) (test code = 752) RED CELL DISTRIBUTION WIDTH 14.3 % 11.7-14.4 (BEAKER) (test code = 412) PLATELET COUNT (BEAKER) (test 266 K/CU MM 150-450 code = 756) MEAN PLATELET VOLUME (BEAKER) 10.3 fL 9.4-12.3 (test code = 754) NUCLEATED RED BLOOD CELLS 0 /100 WBC 0-0 (BEAKER) (test code = 413) NEUTROPHILS RELATIVE PERCENT 72 % (BEAKER) (test code = 429) LYMPHOCYTES RELATIVE PERCENT 18 % (BEAKER) (test code = 430) MONOCYTES RELATIVE PERCENT 8 % (BEAKER) (test code = 431) EOSINOPHILS RELATIVE PERCENT 1 % (BEAKER) (test code = 432) BASOPHILS RELATIVE PERCENT 1 % (BEAKER) (test code = 437) NEUTROPHILS ABSOLUTE COUNT 9.86 K/ L 1.56-6.13 H (BEAKER) (test code = 670) LYMPHOCYTES ABSOLUTE COUNT 2.51 K/ L 1.18-3.74 (BEAKER) (test code = 414) MONOCYTES ABSOLUTE COUNT (BEAKER) 1.05 K/ L 0.24-0.36 H (test code = 415) EOSINOPHILS ABSOLUTE COUNT 0.15 K/ L 0.04-0.36 (BEAKER) (test code = 416) BASOPHILS ABSOLUTE COUNT (BEAKER) 0.08 K/ L 0.01-0.08 (test code = 417) IMMATURE GRANULOCYTES-RELATIVE 0.50 % 0.00-1.00 PERCENT (BEAKER) (test code = 2801) POCT-GLUCOSE [id number] 00:59:22 Test Item Value Reference Range Interpretation Comments POC-GLUCOSE METER 102 mg/dL 70-110 : [facility] (BEAKER) (test code = ALEXANDER BARTH, 1538) 00416: [facility]/Techni rosita ID = [id number] for Jose D Ponce POCT-GLUCOSE [id number] 18:10:01 Test Item Value Reference Range Interpretation Comments POC-GLUCOSE METER 98 mg/dL 70-110 : [facility]ED A [facility] (JIMMY) (test code = ALEXANDER Bentley [facility], 1538) 32976: [facility]/Techni rosita ID = [id number] for Massiel Carpenter POCT-GLUCOSE [id number] 11:16:28 Test Item Value Reference Range Interpretation Comments POC-GLUCOSE METER 108 mg/dL 70-110 : TESTED A T [facility] 6720 (JIMMY) (test code = ALEXANDER Bentley [place], 1538) 369[address]: [facility]/Techni rosita ID = [id number] for Massiel Partida RAD, CHEST, 1 VIEW, NON [id number] 09:23:00Reason for exam:- >intubatedShould this be performed at the bedside?->Yes [facility] : 1990 Sex: FFINAL REPORT RAD, CHEST, 1 VIEW, NON DEPT INDICATION: intubated COMPARISON: Prior day'sexam TECHNIQUE: Portable frontal view(s) of the chest. FINDINGS: Support Lines and Devices: Stable. Lungs and pleura: Unchanged airspace and pleural opacities. No pneumothorax identified. Heart and medi astinum: Stable contours. Stable surgical changes. Additional findings: None. IMPRESSION: No significant change from prior exam. No focal consolidation. Signed: Avery Dunn Verified Date/Time: 03/15/2023 09:23:56 Reading Location: [address] Reading Room [id number] 04:45:13 Test Item Value Reference Range Interpretation Comments MAGNESIUM (BEAKER) 1.9 mg/dL 1.6-2.6 Specimen slightly (test code = 627) hemolyzed [facility] ID - [id number] 04:45:13 Test Item Value Reference Range Interpretation Comments PHOSPHORUS (BEAKER) 2.8 mg/dL 2.3-4.7 Specimen slightly (test code = 604) hemolyzed [facility] ID - ADMINCOMPREHENSIVE METABOLIC [id number] 04:45:13 Test Item Value Reference Range Interpretation Comments TOTAL PROTEIN 6.3 gm/dL 6.0-8.3 Specimen sligh tly (BEAKER) (test hemolyzed code = 770) ALBUMIN (BEAKER) 3.9 g/dL 3.5-5.0 Specimen sl ightly (test code = 1145) hemolyzed ALKALINE 35 U/L 40-150 L PHOSPHATASE (BEAKER) (test code = 346) BILIRUBIN TOTAL 0.4 mg/dL 0.2-1.2 Specimen sli ghtly (BEAKER) (test hemolyzed code = 377) SODIUM (BEAKER) 139 meq/L 136-145 (test code = 381) POTASSIUM (BEAKER) 3.6 meq/L 3.5-5.1 Specimen slightly (test code = 379) hemolyzed CHLORIDE (BEAKER) 111 meq/L 98-107 H (test code = 382) CO2 (BEAKER) (test 17 meq/L 22-29 L code = 355) BLOOD UREA 11 mg/dL 7-21 NITROGEN (BEAKER) (test code = 354) CREATININE 0.69 mg/dL 0.57-1.25 Specimen slight ly (BEAKER) (test hemolyzed code = 358) GLUCOSE RANDOM 127 mg/dL 70-105 H (BEAKER) (test code = 652) CALCIUM (BEAKER) 8.6 mg/dL 8.4-10.2 (test code = 697) AST (SGOT) 32 U/L 5-34 Specimen slight ly (BEAKER) (test hemolyzed code = 353) ALT (SGPT) 16 U/L 6-55 Specimen slight ly (BEAKER) (test hemolyzed code = 347) EGFR (BEAKER) 117 Interpretatio n of eGFR (test code = [...] not appl icable for dialysis patien ts [facility] ID - [id number] 04:39:23 Test Item Value Reference Range Interpretation Comments PROCALCITONIN (BEAKER) (test code 0.13 ng/mL <0.05 H = 3036) SEPSIS RISK (ng/mL)Low: 0.05-0.50Intermediate: 0.51-2.00High: >=2.01BLOOD GAS, [id number] 04:29:39 Test Item Value Reference Range Interpretation Comments PH ARTERIAL (BEAKER) (test code = 7.37 7.35-7.45 383) PCO2 ARTERIAL (BEAKER) (test code 36 mm Hg 35-45 = 384) PO2 ARTERIAL (BEAKER) (test code 102 mm Hg 80-90 H = 385) O2 SATURATION ARTERIAL (BEAKER) 97.6 % 96.0-97.0 H (test code = 386) HCO3 ARTERIAL (BEAKER) (test code 20 mmol/L 21-29 L = 388) BASE EXCESS ARTERIAL (BEAKER) -4.4 mmol/L -2.0-3.0 L (test code = 387) PATIENT TEMPERATURE (BEAKER) 36.8 (test code = 1818) FIO2 (BEAKER) (test code = 1819) 30.0 CBC W/PLT COUNT & AUTO [id number] 04:26:21 Test Item Value Reference Range Interpretation Comments WHITE BLOOD CELL COUNT (BEAKER) 19.4 K/ L 3.5-10.5 H (test code = 775) RED BLOOD CELL COUNT (BEAKER) 3.56 M/ L 3.93-5.22 L (test code = 761) HEMOGLOBIN (BEAKER) (test code = 10.6 GM/DL 11.2-15.7 L 410) HEMATOCRIT (BEAKER) (test code = 31.1 % 34.1-44.9 L 411) MEAN CORPUSCULAR VOLUME (BEAKER) 87 fL 79-95 (test code = 753) MEAN CORPUSCULAR HEMOGLOBIN 29.8 pg 25.6-32.2 (BEAKER) (test code = 751) MEAN CORPUSCULAR HEMOGLOBIN CONC 34.1 GM/DL 32.2-35.5 (BEAKER) (test code = 752) RED CELL DISTRIBUTION WIDTH 14.3 % 11.7-14.4 (BEAKER) (test code = 412) PLATELET COUNT (BEAKER) (test 295 K/CU MM 150-450 code = 756) MEAN PLATELET VOLUME (BEAKER) 10.4 fL 9.4-12.3 (test code = 754) NUCLEATED RED BLOOD CELLS 0 /100 WBC 0-0 (BEAKER) (test code = 413) NEUTROPHILS RELATIVE PERCENT 81 % (BEAKER) (test code = 429) LYMPHOCYTES RELATIVE PERCENT 12 % (BEAKER) (test code = 430) MONOCYTES RELATIVE PERCENT 6 % (BEAKER) (test code = 431) EOSINOPHILS RELATIVE PERCENT 0 % (BEAKER) (test code = 432) BASOPHILS RELATIVE PERCENT 0 % (BEAKER) (test code = 437) NEUTROPHILS ABSOLUTE COUNT 15.82 K/ L 1.56-6.13 H (BEAKER) (test code = 670) LYMPHOCYTES ABSOLUTE COUNT 2.23 K/ L 1.18-3.74 (BEAKER) (test code = 414) MONOCYTES ABSOLUTE COUNT (BEAKER) 1.20 K/ L 0.24-0.36 H (test code = 415) EOSINOPHILS ABSOLUTE COUNT 0.01 K/ L 0.04-0.36 L (BEAKER) (test code = 416) BASOPHILS ABSOLUTE COUNT (BEAKER) 0.07 K/ L 0.01-0.08 (test code = 417) IMMATURE GRANULOCYTES-RELATIVE 0.50 % 0.00-1.00 PERCENT (BEAKER) (test code = 2801) RAD, ABDOMEN/KUB, 1 VIEW [id number] 19:32:00Reason for exam:->OGT [facility] : 1990 Sex: FFINAL REPORT TECHNIQUE: Supine views of the abdomen. INDICATION: OGT. COMPARISON: 10/15/2022. FINDINGS/IMPRESSION: Patient is rotated to the right. The orogastric tube coils within the distal stomach and crosses the midline twice with the tip overlying the inferior margin of the stomach. It is indeterminate if the orogastric tube exits the stomach and terminates within the proximal jejunum versus coils within the distal stomach terminating in the distal gastric body. There is moderate gaseous distention of the stomach. No distended loops of small bowel. There is nonspecific gaseous colon. No acute osseous abnormality. Signed: Micaela Salvador MDReport Verified Date/Time: 03/14/2023 19:32:47 [id number] 19:26:23 Test Item Value Reference Range Interpretation Comments PROCALCITONIN (BEAKER) (test code = < ng/mL <0.05 3036) SEPSIS RISK (ng/mL)Low: 0.05-0.50Intermediate: 0.51-2.00High: >=2.01POCT- GLUCOSE [id number] 18:51:12 Test Item Value Reference Range Interpretation Comments POC-GLUCOSE METER 145 mg/dL 70-110 H : TESTED A T [facility] 6720 (BEAKER) (test code = [place], 1538) [address]: Farmer General/Techni rosita ID = [id number] for Katherine Skaggs PHENYTOIN LEVEL, [id number] 18:31:08 Test Item Value Reference Range Interpretation Comments PHENYTOIN (DILANTIN) (BEAKER) 15.9 ug/mL 10.0-20.0 (test code = 605) [facility] ID - JS(CELLAVISION MANUAL DIFF)2023-03-14 18:07:28 Test Item Value Reference Range Interpretation Comments NEUTROPHILS - REL 96 % (CELLAVISION)(BEAKER) (test code = 2816) LYMPHOCYTES - REL 4 % (CELLAVISION)(BEAKER) (test code = 2817) NEUTROPHILS - ABS 23.23 K/ul 1.56-6.13 H (CELLAVISION)(BEAKER) (test code = 2830) LYMPHOCYTES - ABS 0.97 K/ul 1.18-3.74 L (CELLAVISION)(BEAKER) (test code = 2831) TOTAL COUNTED (BEAKER) (test code 100 = 1351) RBC MORPHOLOGY (BEAKER) (test code Normal = 762) WBC MORPHOLOGY (BEAKER) (test code Normal = 487) PLT MORPHOLOGY (BEAKER) (test code Normal = 486) ARTIFACT (CELLAVISION)(BEAKER) Present (test code = 3432) PLATELET CONCENTRATION Adequate (CELLAVISION)(BEAKER) (test code = 3438) [facility] ID - Tati Trisha comments: Slide comments:CBC W/PLT COUNT & AUTO [id number] 18:07:27 Test Item Value Reference Range Interpretation Comments WHITE BLOOD CELL COUNT (BEAKER) 24.2 K/ L 3.5-10.5 H (test code = 775) RED BLOOD CELL COUNT (BEAKER) 3.98 M/ L 3.93-5.22 (test code = 761) HEMOGLOBIN (BEAKER) (test code = 11.7 GM/DL 11.2-15.7 410) HEMATOCRIT (BEAKER) (test code = 34.1 % 34.1-44.9 411) MEAN CORPUSCULAR VOLUME (BEAKER) 86 fL 79-95 (test code = 753) MEAN CORPUSCULAR HEMOGLOBIN 29.4 pg 25.6-32.2 (BEAKER) (test code = 751) MEAN CORPUSCULAR HEMOGLOBIN CONC 34.3 GM/DL 32.2-35.5 (BEAKER) (test code = 752) RED CELL DISTRIBUTION WIDTH 14.1 % 11.7-14.4 (BEAKER) (test code = 412) PLATELET COUNT (BEAKER) (test 317 K/CU MM 150-450 code = 756) MEAN PLATELET VOLUME (BEAKER) 9.6 fL 9.4-12.3 (test code = 754) NUCLEATED RED BLOOD CELLS 0 /100 WBC 0-0 (BEAKER) (test code = 413) Urinalysis w/Microscopic + Reflex to [id number] 17:22:23 Test Item Value Reference Range Interpretation Comments Color, UA (test code Yellow = 5778-6) Clarity, UA (test Cloudy code = 5767-9) Specific [place], UA 1.021 1.001-1.035 (test code = 5811-5) pH, UA (test code = 6.5 5.0-8.0 5803-2) Protein, UA (test 30 mg/dL Negative A code = 36340-3) Glucose, UA (test Negative Negative code = 365) Ketones, UA (test 40 mg/dL Negative A code = 2514-8) Bilirubin, UA (test Negative Negative code = 18254-0) Blood, UA (test code Moderate Negative A = 40617-7) Nitrite, UA (test Negative Negative code = 5802-4) Leukocytes, UA (test Negative Negative code = 5799-2) Urobilinogen, UA 0.2 0.2-1.0 (test code = 48785-0) RBC, UA (test code = 27 See_Comment [Autom ated 60307-5) message] The system which generated this result transmit keron reference range : /HPF. The reference range was not used to interpret this result as normal/abnormal . WBC, UA (test code = 6 See_Comment [Autom ated 5821-4) message] The system which generated this result transmit keron reference range : /HPF. The reference range was not used to interpret this result as normal/abnormal . Mucus (test code = Many 8247-9) Squam Epithel, UA 3 See_Comment [Automate d (test code = 01758-6) messag e] The system which generated this result transmit keron reference range : /HPF. The reference range was not used to interpret this result as normal/abnormal . Specimen Source (test code = 2795) GABRIEL (test code = GABRIEL) [facility] ID - [auto]Farmer [facility] ID - tech Lab Interpretation Abnormal (test code = 20872-7) [facility] [id number] 17:22:23 Test Item Value Reference Range Interpretation Comments COLOR (BEAKER) (test code = 470) Yellow CLARITY (BEAKER) (test code = 469) Cloudy SPECIFIC GRAVITY UA (BEAKER) (test 1.021 1.001-1.035 code = 468) PH UA (BEAKER) (test code = 467) 6.5 5.0-8.0 PROTEIN UA (BEAKER) (test code = 30 mg/dL Negative A 464) GLUCOSE UA (BEAKER) (test code = Negative Negative 365) KETONES UA (BEAKER) (test code = 40 mg/dL Negative A 371) BILIRUBIN UA (BEAKER) (test code = Negative Negative 462) BLOOD UA (BEAKER) (test code = 461) Moderate Negative A NITRITE UA (BEAKER) (test code = Negative Negative 465) LEUKOCYTE ESTERASE UA (BEAKER) (test Negative Negative code = 466) UROBILINOGEN UA (BEAKER) (test code 0.2 0.2-1.0 = 463) RBC UA (BEAKER) (test code = 519) 27 /HPF WBC UA (BEAKER) (test code = 520) 6 /HPF MUCUS (BEAKER) (test code = 1574) Many SQUAMOUS EPITHELIAL (BEAKER) (test 3 /HPF code = 516) SOURCE(BEAKER) (test code = 2795) [facility] ID - [auto]Far[facility] ID - techHIGH SENSITIVITY TROPONIN [id number] 16:18:41 Test Item Value Reference Range Interpretation Comments HIGH SENSITIVITY TROPONIN I (test 8 pg/ml <=17 code = 4439413) [facility] ID - ADMINThe RESIDENT CAREGIVER STAT High Sensitivity Troponin-I results should be used in conjunction with other diagnostic information such as ECG, clinical observations and information, and patientsymptoms to aid in the diagnosis of MN. COMPREHENSIVE METABOLIC [id number] 16:12:33 Test Item Value Reference Range Interpretation Comments TOTAL PROTEIN 6.7 gm/dL 6.0-8.3 (BEAKER) (test code = 770) ALBUMIN (BEAKER) 4.2 g/dL 3.5-5.0 (test code = 1145) ALKALINE 37 U/L 40-150 L PHOSPHATASE (BEAKER) (test code = 346) BILIRUBIN TOTAL 0.4 mg/dL 0.2-1.2 (BEAKER) (test code = 377) SODIUM (BEAKER) 139 meq/L 136-145 (test code = 381) POTASSIUM (BEAKER) 3.8 meq/L 3.5-5.1 (test code = 379) CHLORIDE (BEAKER) 109 meq/L 98-107 H (test code = 382) CO2 (BEAKER) (test 21 meq/L 22-29 L code = 355) BLOOD UREA 9 mg/dL 7-21 NITROGEN (BEAKER) (test code = 354) CREATININE 0.71 mg/dL 0.57-1.25 (BEAKER) (test code = 358) GLUCOSE RANDOM 136 mg/dL 70-105 H (BEAKER) (test code = 652) CALCIUM (BEAKER) 8.6 mg/dL 8.4-10.2 (test code = 697) AST (SGOT) 21 U/L 5-34 (BEAKER) (test code = 353) ALT (SGPT) 14 U/L 6-55 (BEAKER) (test code = 347) EGFR (BEAKER) 115 Interpretatio n of eGFR (test code = [...] not appl icable for dialysis patien ts [facility] ID - [id number] 16:07:10 Test Item Value Reference Range Interpretation Comments PARTIAL THROMBOPLASTIN TIME 26.5 seconds 22.5-36.0 (BEAKER) (test code = 760) PROTHROMBIN TIME/[id number] 16:06:30 Test Item Value Reference Range Interpretation Comments PROTIME (BEAKER) (test code = 14.3 seconds 11.9-14.2 H 759) INR (BEAKER) (test code = 370) 1.13 <=5.90 RECOMMENDED COUMADIN/WARFARIN INR THERAPY RANGESSTANDARD DOSE: 2.0 - 3.0 Includes: PROPHYLAXIS for venous thrombosis, systemic embolization; TREATMENT for venous thrombosis and/or pulmonary embolus.HIGH RISK: Target INR is 2.5-3.5 for patients with mechanical heart valves.LACTIC ACID, [id number] 16:03:42 Test Item Value Reference Range Interpretation Comments LACTATE BLOOD VENOUS (2) (BEAKER) 1.04 mmol/L 0.50-2.00 (test code = 2872) Farmer [facility] ID - ADMINRAD, CHEST, 1 VIEW, NON [id number] 15:56:00Reason for exam:->IntubatedShould this be performed at the bedside?->Yes [facility] : 1990 Sex: FFINAL REPORT RAD, CHEST, 1 VIEW, NON DEPT INDICATION: Intubated COMPARISON: 11/19/2022 FINDINGS: Portable frontal view of the chest. IMPRESSION: Support Lines: The endotracheal tube terminates 0.7 cm cephalad to the howard projecting towards the right mainstem. Consider retraction approximately 2 cm for more optimal positioning. Enteric tube descends into the stomach beyond wilsv-ih-wyoa.Lungs and pleura: No consolidation or effusion. No pneumothorax. Heart and mediastinum: Stable contours. Additional findings: None. Signed: Micaela Salvador MDReport Verified Date/Time: 03/14/2023 15:56:50 BLOOD GAS, [id number] 15:46:16 Test Item Value Reference Range Interpretation Comments PH ARTERIAL (BEAKER) (test code = 7.44 7.35-7.45 383) PCO2 ARTERIAL (BEAKER) (test code 32 mm Hg 35-45 L = 384) PO2 ARTERIAL (BEAKER) (test code 159 mm Hg 80-90 H = 385) O2 SATURATION ARTERIAL (BEAKER) 99.1 % 96.0-97.0 H (test code = 386) HCO3 ARTERIAL (BEAKER) (test code 21 mmol/L 21-29 = 388) BASE EXCESS ARTERIAL (BEAKER) -2.2 mmol/L -2.0-3.0 L (test code = 387) PATIENT TEMPERATURE (BEAKER) 38.5 (test code = 1818) FIO2 (BEAKER) (test code = 1819) 30.0 POC-Glucose [id number] 16:50:01 Test Item Value Reference Range Interpretation Comments POC-Glucose Meter (test 101 mg/dL 70-110 : TE STED AT [facility] code = 1538) [address] [facility], 7[address]: Farmer General/Techni rosita ID = [id number] for Isabel Powell Lab Interpretation (test Normal code = 00812-3) [facility] [id number] 16:50:01 Test Item Value Reference Range Interpretation Comments POC-GLUCOSE METER 101 mg/dL 70-110 : TESTED A T [facility] 6720 (BEAKER) (test code = [facility], 1538) [address]: Farmer General/Techni rosita ID = [id number] for Deana perez, Isabel Screen, [id number] 14:40:42 Test Item Value Reference Range Interpretation Comments Preg Test, Ur (test code = 2-1) Negative Negative Lab Interpretation (test code = Normal 73469-7) [facility] HospitalPregnancy Screen, [id number] 14:40:42 Test Item Value Reference Range Interpretation Comments Preg Test, Ur (test code = 2112-1) Negative Negative Lab Interpretation (test code = Normal 83919-6) [facility] HospitalPREGNANCY SCREEN, [id number] 14:40:42 Test Item Value Reference Range Interpretation Comments TEST URINE (BEAKER) (test Negative Negative code = 583) SARS-CoV2/RT-PCR (Asymptomatic ONLY)2022-11-19 14:36:36 Test Item Value Reference Interpretation Comments Range SARS-COV2/RT-PCR Negative Negative The SARS-Co V-2 (test code = target nucleic 82236-6) acids are not detected in thi s [...] revoked sooner. Fact Sheet for Healthcare Providers: https://www.[employer]/Documents/Xp ert%20Xpress%20SAR S%20CoV-2/Fact%20S heets/302-3802%20S ARS-COV-2%20HEALTH CARE%20PROVIDERS%2 0FACT%20SHEET.pdf Fact Sheet for Healthcare Patients: https://www.[employer]/Documents/Xp ert%20Xpress%20SAR S%20CoV-2/Fact%20S heets/302-3801%20S ARS-COV-2%20PATIEN T%20FACT%20SHEET.p df Lab Interpretation Normal (test code = 33334-9) [facility]omatic ONLY)2022-11-19 14:36:36 Test Item Value Reference Interpretation Comments Range SARS-COV2/RT-PCR Negative Negative The SARS-Co V-2 (test code = target nucleic 12108-4) acids are not detected in thi s [...] om SARS-CoV-2 in a nasopharyngeal swab specimen colle keron from individual s suspected of COVID-19 [...] revoked sooner. Fact Sheet for Healthcare Providers: https://www.[employer]/Documents/Xp ert%20Xpress%20SAR S%20CoV-2/Fact%20S heets/302-3802%20S ARS-COV-2%20HEALTH CARE%20PROVIDERS%2 0FACT%20SHEET.pdf Fact Sheet for Healthcare Patients: https://www.[employer]/Documents/Xp ert%20Xpress%20SAR S%20CoV-2/Fact%20S heets/302-3801%20S ARS-COV-2%20PATIEN T%20FACT%20SHEET.p df Lab Interpretation Normal (test code = 91301-1) [facility])2022-11-19 14:36:36 Test Item Value Reference Range Interpretation Comments SARS-COV2/RT-PCR Negative Negative The SARS-Co V-2 target (test code = nucleic acids a re not 2659942) detected in thi s specimen. Negative result [...] revoked sooner. Fact Sheet for Healthcare Providers: https://www.[employer]low[employer] m/Documents/Xpert%20Xpress%20SARS%20CoV-2/Fact%20Sheets/302-3802%67TQQK-UZW-6%20 HEALTHCARE%20PROVIDERS%20FACT%20SHEET.pdf Fact Sheet for Healthcare Patients: https://www.[employer]/Documents/Xpert%20Xp ress%20SARS%20CoV-2/Fact%20Sheets/302-3801%23OIXZ-LCA-5%20PATIENT%20FACT%20SHEET .pdfPOCT-GLUCOSE [id number] 12:10:04 Test Item Value Reference Range Interpretation Comments POC-GLUCOSE METER 107 mg/dL 70-110 : TESTED A T [facility] 6720 (JIMMY) (test code = [place], 1538) [address]: Farmer General/Techni rosita ID = [id number] for Deana todd Isabel Rapid drug screen, [id number] 09:26:21 Test Item Value Reference Range Interpretation Comments Barbiturate Screen Negative Negative (test code = 35343-2) Benzodiazepine Screen Negative Negative (test code = 12237-5) Cocaine (Metab.) Negative Negative Screen (test code = 3397-7) Methadone Screen (test Negative Negative code = 86754-9) Opiate Screen (test Negative Negative code = 82227-8) Cannabinoid Screen Positive Negative A (test code = 00291-2) Amph/Methamph Screen Negative Negative (test code = 58554-2) Phencyclidine Screen Negative Negative (test code = 25463-0) pH, UA (test code = 6.5 5.0-8.0 5803-2) GABRIEL (test code = GABRIEL) DRUG CUTOFF CONC.Cocaine 300 ng/mL Cannabinoid 50 ng/mLBenzodiazepine 200 ng/mLBarbiturate 200 ng/mLPhencyclidine 25 ng/mLOpiate 300 ng/mLMethadone 300 ng/mLAmphetamine/ 1000 ng/mL Methamphetamine This assay provides an unconfirmed qualitative test result for the clinical management of patients in emergency situations. Chain of custody not maintained. Some altq-yoe-ryygljx medications, as well as adulterants, may cause inaccurate results. Clinical correlation should be applied. A more comprehensive drug screen or confirmation of a detected drug may be performed upon request.Farmer General MARILYN Clark ID - tech Lab Interpretation Abnormal (test code = 59826-4) [facility] HospitalRapid drug screen, [id number] 09:26:21 Test Item Value Reference Range Interpretation Comments Barbiturate Screen Negative Negative (test code = 82041-5) Benzodiazepine Screen Negative Negative (test code = 81257-7) Cocaine (Metab.) Negative Negative Screen (test code = 3397-7) Methadone Screen (test Negative Negative code = 43741-4) Opiate Screen (test Negative Negative code = 25708-4) Cannabinoid Screen Positive Negative A (test code = 69703-5) Amph/Methamph Screen Negative Negative (test code = 23072-1) Phencyclidine Screen Negative Negative (test code = 96969-0) pH, UA (test code = 6.5 5.0-8.0 5803-2) GABRIEL (test code = GBARIEL) DRUG CUTOFF CONC.Cocaine 300 ng/mL Cannabinoid 50 ng/mLBenzodiazepine 200 ng/mLBarbiturate 200 ng/mLPhencyclidine 25 ng/mLOpiate 300 ng/mLMethadone 300 ng/mLAmphetamine/ 1000 ng/mL Methamphetamine This assay provides an unconfirmed qualitative test result for the clinical management of patients in emergency situations. Chain of custody not maintained. Some vapx-cnc-tdfdidp medications, as well as adulterants, may cause inaccurate results. Clinical correlation should be applied. A more comprehensive drug screen or confirmation of a detected drug may be performed upon request.Farmer General ID Shemar Clark ID - tech Lab Interpretation Abnormal (test code = 22029-1) [facility] HospitalRAPID DRUG SCREEN, [id number] 09:26:21 Test Item Value Reference Range Interpretation [...] situations. Chain of custody not maintained. Some qril-xxx-idkytab medications, as well as adulterants, may cause inaccurate results. Clinical correlation should be applied. A more comprehensive drug screen or confirmation of a detected drug may be performed upon request.Farmer General ID Shemar Clark ID - techRAD, CHEST, 1 VIEW, NON [id number] 09:22:00Reason for exam:->cough, concern for aspirationShould this be performed at the bedside?->Yes [facility] 1990 Sex: FFINAL REPORT AP view of the chest dated 11/19/2022 CLINICAL INFORMATION: cough, concern for aspiration Comment: Heart is normal in size. Pulmonary vasculature is unremarkable. Lungs are clear. No pulmonary infiltrate or pleural effusion is present. Impression: No active cardiopulmonary disease. Signed: Micaela Barton Verified Date/Time: 11/19/2022 09:22:00 Reading Location: [address] Body Reading Room CREATINE KINASE (CK)2022-11-19 08:43:21 Test Item Value Reference Range Interpretation Comments CREATINE KINASE TOTAL (BEAKER) (test 406 U/L 29-200 H code = 380) Farmer [facility] ID - MARIA DEL ROSARIO LLACTIC ACID, [id number] 08:39:17 Test Item Value Reference Range Interpretation Comments LACTATE BLOOD VENOUS 1.31 mmol/L 0.50-2.20 Specime n slightly (2) (BEAKER) (test hemolyzed code = 7762) Farmer [facility] ID - PIANNIKA LTSH/FREE T4 IF [id number] 04:57:19 Test Item Value Reference Range Interpretation Comments THYROID STIMULATING HORMONE 0.891 uIU/mL 0.350-4.940 (BEAKER) (test code = 772) Farmer [facility] ID - MARIA DEL ROSARIO LCOMPREHENSIVE METABOLIC [id number] 04:35:14 Test Item Value Reference Range Interpretation [...] not appl icable for dialysis patien ts Farmer [facility] ID - PIAYA LLIPID [id number] 04:35:14 Test Item Value Reference Range Interpretation [...] Borderline 130-159 High 160-189 Very High >=190 Farmer [facility] ID - MARIA DEL ROSARIO LOZADAASIC METABOLIC [id number] 04:39:21 Test Item Value Reference Range Interpretation [...] (test code = 697) EGFR (BEAKER) 124 Interpretatio n of eGFR (test code = mL/min/1.73 values Stage D escription 1092) sq m Result G1 Kaylene l or high >=90 G2 Mildly decreased 60-89 G3a Mildl y to moderately 45-5 9 G3b Moderately to s everely 30-44 G4 Severl y decreased 15-29 G5 Kidney failure <15Reported eGF R is based on the CKD-EPI 2021 equation that d oes not use a race coefficientEsti mated GFR is not as accur ate as Creatinine Violeta goetz in predicting glom erular filtration rate . Estimated GFR is not appl icable for dialysis patien ts Farmer [facility] ID - [id number] 04:39:21 Test Item Value Reference Range Interpretation Comments MAGNESIUM (BEAKER) (test code = 1.8 mg/dL 1.6-2.6 627) Farmer General ID - [id number] 04:39:21 Test Item Value Reference Range Interpretation Comments PHOSPHORUS (BEAKER) (test code = 3.4 mg/dL 2.3-4.7 604) Farmer General ID - MARCOCBC W/PLT COUNT & AUTO [id number] 04:00:45 Test Item Value Reference Range Interpretation [...] 0.00-1.00 PERCENT (BEAKER) (test code = 2801) [id number] 18:26:18 Test Item Value Reference Range Interpretation Comments PHOSPHORUS (BEAKER) 2.2 mg/dL 2.3-4.7 L Specimen slightly (test code = 604) hemolyzed Farmer General ID - MARIA DEL ROSARIO [id number] 18:26:18 Test Item Value Reference Range Interpretation Comments POTASSIUM (BEAKER) 4.0 meq/L 3.5-5.1 Specimen slightly (test code = 379) hemolyzed Farmer [facility] ID - MARIA DEL ROSARIO [id number] 18:26:17 Test Item Value Reference Range Interpretation Comments MAGNESIUM (BEAKER) 2.1 mg/dL 1.6-2.6 Specimen slightly (test code = 627) hemolyzed Farmer General ID - MARIA DEL ROSARIO LPOC-Glucose [id number] 17:59:36 Test Item Value Reference Range Interpretation Comments POC-Glucose Meter (test 108 mg/dL 70-110 : TE STED AT [facility] code = 1538) [address] [facility], [address]: Farmer General/Techni rosita ID = [id number] for DANIELLA PATEL Lab Interpretation (test Normal code = 69023-8) [facility] HospitalPOCT-GLUCOSE [id number] 17:59:36 Test Item Value Reference Range Interpretation Comments POC-GLUCOSE METER 108 mg/dL 70-110 : [facility] (test code = [facility], 1538) [address]: Farmer General/Techni rosita ID = [id number] for AMANDA ESCOBAR DANIELLA POCT-GLUCOSE [id number] 16:16:05 Test Item Value Reference Range Interpretation Comments POC-GLUCOSE METER 92 mg/dL 70-110 : [facility] ([facility]ER[facility] (test code = [facility], 1538) [address]: Farmer General/Techni rosita ID = [id number] for AUG[place]A GR DANIELLA POCT-GLUCOSE [id number] 06:01:33 Test Item Value Reference Range Interpretation Comments POC-GLUCOSE METER 100 mg/dL 70-110 : TESTED A T [facility] 6720 (BEAKER) (test code = [place], 1538) [address]: Farmer General/Techni rosita ID = [id number] for GIL DE LA TORRE [id number] 05:57:41 Test Item Value Reference Range Interpretation Comments PHOSPHORUS (BEAKER) (test code = 1.5 mg/dL 2.3-4.7 LL 604) Farmer General ID - CLAUDETTEAYA LCOMPREHENSIVE METABOLIC [id number] 05:33:19 Test Item Value Reference Range Interpretation [...] 30-44 G4 Severl y decreased 15-29 G5 Kidne y failure <15Reported eGF R is based on the CKD-EPI 2020 equation that d oes not use a race coefficientEsti mated GFR is not as accur ate as Creatinine Violeta goetz in predicting glom erular filtration rate . Estimated GFR is not appl icable for dialysis patien ts Farmer [facility] ID - MARIA DEL ROSARIO [id number] 05:33:19 Test Item Value Reference Range Interpretation Comments MAGNESIUM (BEAKER) (test code = 1.9 mg/dL 1.6-2.6 627) Farmer General ID - MARIA DEL ROSARIO LCBC W/PLT COUNT & AUTO [id number] 05:31:00 Test Item Value Reference Range Interpretation [...] PERCENT (BEAKER) (test code = 2801) POCT-GLUCOSE [id number] 15:36:17 Test Item Value Reference Range Interpretation Comments POC-GLUCOSE METER 110 mg/dL 70-110 : TESTED A T [facility] 6720 (BEAKER) (test code = MISHELEVELIO Bentley [facility], 1538) [address]: Farmer General/Techni rosita ID = [id number] for An akani, Lula [id number] 12:44:12 Test Item Value Reference Range Interpretation Comments PROCALCITONIN (BEAKER) (test code = < ng/mL <0.05 3036) SEPSIS RISK (ng/mL)Low: 0.05-0.50Intermediate: 0.51-2.00High: >=2.01MAGNESIUM 2022-10-15 12:34:52 Test Item Value Reference Range Interpretation Comments MAGNESIUM (BEAKER) (test code = 2.2 mg/dL 1.6-2.6 627) Farmer General ID - [id number] 12:34:52 Test Item Value Reference Range Interpretation Comments POTASSIUM (BEAKER) (test code = 3.8 meq/L 3.5-5.1 379) Farmer General ID - MARCOLACTIC ACID, [id number] 12:32:48 Test Item Value Reference Range Interpretation Comments LACTATE BLOOD VENOUS (2) (BEAKER) 1.10 mmol/L 0.50-2.20 (test code = 2872) Farmer General ID - MARCOPOCT-GLUCOSE [id number] 09:16:39 Test Item Value Reference Range Interpretation Comments POC-GLUCOSE METER 119 mg/dL 70-110 H : TESTED A T [facility] 6720 (BEAKER) (test code = [place], 1538) [address]: Farmer General/Techni rosita ID = [id number] for Irlanda Devlin RAD, ABDOMEN/KUB, 1 VIEW [id number] 07:45:00Reason for exam:->S/P corpa placementShould this be performed at the bedside?->Yes [facility] Oksana : 1990 Sex: FFINAL REPORT RAD, ABDOMEN/KUB, [...] Normal contours. Additional findings: None. Signed: Andressa Sebastian VerifiedDate/Time: 10/15/2022 07:45:36 Blood gas, [id number] 05:54:55 Test Item Value Reference Range Interpretation Comments pH, Arterial (test code 7.43 7.35-7.45 = 2744-1) pCO2, Arterial (test 33 See_Comment L [Autom ated code = 2019-8) message] The system which generated this result [...] 40 Lab Interpretation Abnormal (test code = 51092-9) [facility] HospitalBlood gas, [id number] 05:54:55 Test Item Value Reference Range Interpretation Comments pH, Arterial (test code 7.43 7.35-7.45 = 2744-1) pCO2, Arterial (test 33 See_Comment L [Autom ated code = 2018-) message] The system which generated this result [...] 40 Lab Interpretation Abnormal (test code = 55200-9) [facility] HospitalBLOOD GAS, [id number] 05:54:55 Test Item Value Reference Range Interpretation [...] FIO2 (BEAKER) (test code = 1819) 40.0 [id number] 04:06:58 Test Item Value Reference Range Interpretation Comments PHOSPHORUS (BEAKER) 2.7 mg/dL 2.3-4.7 Specimen slightly (test code = 604) hemolyzed Farmer [facility] ID - FRANKIE MCOMPREHENSIVE METABOLIC [id number] 04:06:58 Test Item Value Reference Range Interpretation [...] not appl icable for dialysis patien ts [facility] ID - FRANKIE [id number] 04:06:57 Test Item Value Reference Range Interpretation Comments MAGNESIUM (BEAKER) 1.8 mg/dL 1.6-2.6 Specimen slightly (test code = 627) hemolyzed Farmer [facility] ID - FRANKIE MCBC W/PLT COUNT & AUTO [id number] 03:35:01 Test Item Value Reference Range Interpretation [...] code = 2801) RAD, ABDOMEN/KUB, 1 VIEW [id number] 01:14:00Reason for exam:->corpak readjustmentShould this be performed at the bedside?->Yes [facility]ks[facility] : 1990 Sex: FFINAL REPORT CLINICAL HISTORY: corpak readjustment COMPARISON: 10/15/2022 at 0025 hourshours FINDINGS: A single image of the upper abdomen is submitted. A feeding tube is similar in position with the distal portion looped in the gastric lumen and the tip projecting over the proximal stomach. The examination is otherwise similar to previous. Signed: Jaret Stallworth Verified Date/Time: 10/15/2022 01:14:07 EY ABDOMEN/KUB, 1 VIEW [id number] 01:11:00Reason for exam:->S/p NG tube readjustmentShould this be performed at the bedside?->Yes [facility] : 1990 Sex: FFINAL REPORT [...] Date/Time: 10/15/2022 01:11:13 RAD, ABDOMEN/KUB, 1 VIEW [id number] 23:16:00Reason for exam:->S/p NG tube placementShould this be performed at the bedside?->Yes [facility] 1990 Sex: FFINAL [...] Stallworth MDReport Verified Date/Time: 10/14/2022 23:16:15 SARS-CoV2/Influenza/RSV [id number] 19:15:20 Test Item Value Reference Interpretation Comments Range SARS-COV2/RT-PCR Negative Negative The SARS-Co V-2 (test code = target nucleic 49886-2) acids are not detected in thi s [...] om SARS-CoV-2 in a nasopharyngeal swab specimen [facility] from individual s suspected of COVID-19 by the ir healthcare provider. Influenza A RT-PCR Negative Negative The Flu A target (test code = [place] 79565-0) not detected in this specimen. Influenza B RT-PCR Negative Negative The Flu B target (test code = nucleic [place] re 66364-2) not detected in this specimen. RSV by RT-PCR (test Negative Negative The RSV target code = 89494-1) nucleic acid s are not detected in [...] the Act. Fact Sheet for Healthcare Providers:https://w ww.[employer]/Docu ments/Xpert%20Xpres s%20SARS%20CoV-2/Fa ct%20Sheets/302-390 2%91FKTN-KQX-0%20HE ALTHCARE%20PROVIDER S%20FACT%20SHEET.pd f Fact Sheet for Healthcare Patients:https://ramsey w.[employer]/Docum ents/Xpert%20Xpress %20SARS%20Cov-2/Fac t%20Sheets/302-3801 %02MVGS-PRR-0%20PAT IENT%20FACT%20SHEET .pdf Lab Interpretation Normal (test code = 34857-9) [facility] [id number] 19:15:20 Test Item Value Reference Interpretation Comments Range SARS-COV2/RT-PCR Negative Negative The SARS-Co V-2 (test code = target nucleic 51554-6) acids are not detected in thi s [...] om SARS-CoV-2 in a nasopharyngeal swab specimen colle keron from individual s suspected of COVID-19 by the ir healthcare provider. Influenza A RT-PCR Negative Negative The Flu A target (test code = [place] re 55454-7) not detected in this specimen. Influenza B RT-PCR Negative Negative The Flu B target (test code = nucleic [place] re 41176-9) not detected in this specimen. RSV by RT-PCR (test Negative Negative The RSV target code = 26644-1) nucleic acid s are not detected in [...] SARS-CoV-2/Flu/RSV by their healthcare provider. Results from [facility] Xpert Xpress SARS-CoV-2/Flu/RSV test should be correlated [...] the Act. Fact Sheet for Healthcare Providers:https://w [employer]/Docu ments/Xpert%20Xpres s%20SARS%20CoV-2/Fa ct%20Sheets/302-390 2%01RHHH-LKO-3%20HE ALTHCARE%20PROVIDER S%20FACT%20SHEET.pd f Fact Sheet for Healthcare Patients:https://ramsey [employer]/Docum ents/Xpert%20Xpress %20SARS%20Cov-2/Fac t%20Sheets/302-3801 %26KWVL-UUH-1%20PAT IENT%20FACT%20SHEET .pdf Lab Interpretation Normal (test code = 48318-0) [facility]V [id number] 19:15:20 Test Item Value Reference Interpretation Comments Range SARS-COV2/RT-PCR Negative Negative The SARS-Co V-2 (test code = target nucleic 38223-9) acids are not detected in thi s [...] (test code = [place] re 87146-4) not detected in this specimen. Influenza B RT-PCR Negative Negative The Flu B target (test code = nucleic acids a re 14651-1) not detected in this specimen. RSV by RT-PCR (test Negative Negative The RSV target code = 51593-8) nucleic acid s are not detected in [...] SARS-CoV-2/Flu/RSV by their healthcare provider. Results from [facility] Xpert Xpress SARS-CoV-2/Flu/RSV test should be correlated [...] the Act. Fact Sheet for Healthcare Providers:https://w [employer]/Docu ments/Xpert%20Xpres s%20SARS%20CoV-2/Fa ct%20Sheets/302-390 2%67EWBX-OST-3%20HE ALTHCARE%20PROVIDER S%20FACT%20SHEET.pd f Fact Sheet for Healthcare Patients:https://Trivial[employer]/Docum ents/Xpert%20Xpress %20SARS%20Cov-2/Fac t%20Sheets/302-3801 %37YFTH-WQA-2%20PAT IENT%20FACT%20SHEET .pdf Lab Interpretation Normal (test code = 05476-8) [facility]/INFLUENZA/RSV [id number] 19:15:20 Test Item Value Reference Range Interpretation Comments SARS-COV2/RT-PCR Negative Negative The SARS-Co V-2 target (test code = nucleic acids a re not 7341596) detected in thi s specimen. Negat janelle [...] individuals yvon pected of COVID-19 by the [facility]. INFLUENZA A RT-PCR Negative Negative The Flu A target nucleic (test code = acids are not d etected in 5207096) this specimen. INFLUENZA B RT-PCR Negative Negative The Flu B target nucleic (test code = acids are not d etected in 6044033) this specimen. RSV RT-PCR (test Negative Negative The RSV tar get nucleic code = 6055573) acids are no t detected in this [...] Xpress SARS-CoV-2/Flu/RSV by their healthcareprovider. Results from [facility] Xpert Xpress SARS-CoV-2/Flu/RSV test [...] of the Act.Fact Sheet for Healthcare Providers:https ://www.[employer]low[employer].com/Documents/Xpert%20Xpress%20SARS%20CoV-2/Fact%20Sheets/302-390 2%38MGOM-ATT-3%20HEALTHCARE%20PROVIDERS%20FACT%20SHEET.pdfFact Sheet for Healthcare Patients:https://www.[employer]/Docum ents/Xpert%20Xpress%20SARS%20Cov-2/Fact%20Sheets/302-3801%73JAWA-HXS-1%20PATIENT %20FACT%20SHEET.pdfPOCT-GLUCOSE [id number] 17:48:07 Test Item Value Reference Range Interpretation Comments POC-GLUCOSE METER 110 mg/dL 70-110 : TESTED A T [facility] 6720 ([facility]) (test code = [place], 1538) [address]: Farmer General/Techni rosita ID = [id number] for Isabel Gr HCG, QUANTITATIVE, [id number] 17:36:23 Test Item Value Reference Range Interpretation Comments GONADOTROPIN, CHORIONIC (HCG) QUANT < mIU/mL 0-10 ([facility]) (test code = 649) Non- Females: <10 mIU/mL Females: Gestation Age Reference Range(mIU/mL) 0.2-1 Week 5-50 1-2 Weeks 50-500 2-3 Weeks 100-5,000 3-4 Weeks 500-10,000 4-5 Weeks 1,000-50,000 5-6 Weeks 10,000-100,000 6-8 Weeks 15,000- 200,000 2-3 Months 10,000-100,000 Farmer [facility] ID - MARIA DEL ROSARIO LCOMPREHENSIVE METABOLIC [id number] 17:26:15 Test Item Value Reference Range Interpretation [...] not as accur ate as Creatinine Violeta goetz in predicting glom erular filtration rate . Estimated GFR is not appl icable for dialysis patien ts [facility] ID - CLAUDETTEAYA LUrinalysis with Microscopic If [id number] 17:22:51 Test Item Value Reference Range Interpretation Comments Color, UA (test code = Light Yellow 5778-6) Clarity, UA (test code = Clear 5767-9) Specific [place], UA (test 1.010 1.001-1.035 code = 5811-5) pH, UA (test code = 6.0 5.0-8.0 5803-2) Protein, UA (test code = Negative Negative 36314-9) Glucose, UA (test code = 500 mg/dL Negative A 365) Ketones, UA (test code = Negative Negative 2904-8) Bilirubin, UA (test code = Negative Negative 67252-2) Blood, UA (test code = Negative Negative 18628-5) Nitrite, UA (test code = Negative Negative 5802-4) Leukocytes, UA (test code Negative Negative = 5799-2) Urobilinogen, UA (test 0.2 0.2-1.0 code = 14089-2) Specimen Source (test code = 2795) GABRIEL (test code = GABRIEL) Farmer General ID - [auto]Farmer General ID - tech Lab Interpretation (test Abnormal code = 83207-0) [facility] If [id number] 17:22:51 Test Item Value Reference Range Interpretation Comments Color, UA (test code = Light Yellow 5778-6) Clarity, UA (test code = Clear 5767-9) Specific [place], UA (test 1.010 1.001-1.035 code = 5811-5) pH, UA (test code = 6.0 5.0-8.0 5803-2) Protein, UA (test code = Negative Negative 49190-1) Glucose, UA (test code = 500 mg/dL Negative A 365) Ketones, UA (test code = Negative Negative 2514-8) Bilirubin, UA (test code = Negative Negative 79187-6) Blood, UA (test code = Negative Negative 94788-7) Nitrite, UA (test code = Negative Negative 5802-4) Leukocytes, UA (test code Negative Negative = 5799-2) Urobilinogen, UA (test 0.2 0.2-1.0 code = 62343-0) Specimen Source (test code = 2795) GABRIEL (test code = GABRIEL) Farmer General ID - [auto]Farmer General ID - tech Lab Interpretation (test Abnormal code = 91447-2) [facility] If [id number] 17:22:51 Test Item Value Reference Range Interpretation Comments Color, UA (test code = Light Yellow 5778-6) Clarity, UA (test code = Clear 5767-9) Specific [place], UA (test 1.010 1.001-1.035 code = 5811-5) pH, UA (test code = 6.0 5.0-8.0 5803-2) Protein, UA (test code = Negative Negative 89130-0) Glucose, UA (test code = 500 mg/dL Negative A 365) Ketones, UA (test code = Negative Negative 2514-8) Bilirubin, UA (test code = Negative Negative 05505-6) Blood, UA (test code = Negative Negative 60557-4) Nitrite, UA (test code = Negative Negative 5802-4) Leukocytes, UA (test code Negative Negative = 5799-2) Urobilinogen, UA (test 0.2 0.2-1.0 code = 16742-9) Specimen Source (test code = 2795) GABRIEL (test code = GABRIEL) Farmer General ID - [auto]Farmer General ID - tech Lab Interpretation (test Abnormal code = 63645-8) [facility] WITH MICROSCOPIC IF [id number] 17:22:51 Test Item Value Reference Range Interpretation [...] = 463) SOURCE(BEAKER) (test code = 2795) Farmer General ID - [auto]Farmer General ID - techRAD, ABDOMEN/KUB, 1 VIEW [id number] 17:17:00Reason for exam:->[facility] 1990 Sex: FFINAL REPORT RAD, ABDOMEN/KUB, 1 VIEW AP INDICATION: OG placement COMPARISON: None TECHNIQUE: Limited portable radiograph of the lower chest and upper abdomen was acquired for purposes of evaluating tube placement FINDINGS/IMPRESSION:NG side-port overlies the esophagus. Signed: Andressa Sebastian Verified Date/Time: 10/14/2022 17:17:14 RAD, CHEST, 1 VIEW, NON DEPT 2022-10-14 17:06:00Post-intubationReason for exam:->Tube positionShould this be performed at the bedside?->Yes [facility] 1990 Sex: FFINAL REPORT [...] Normal contours. Additional findings: None. Signed: Andressa Sebastian Verified Date/Time: 10/14/2022 17:06:21 D GAS, [id number] 16:58:15 Test Item Value Reference Range Interpretation [...]
[2023-06-27] MEDS ORDERED: NA CHLORIDE 0.9% 100 ML ONE (14:23)
[2023-06-27] MEDS ORDERED: FOSPHENYTOIN PE 500 MG/10 ML VIAL ONE (14:24)
[2023-06-27 14:44] LABS: Specific Gravity 1.014 (1.005-1.030)
[2023-06-27] MEDS ORDERED: LORazepam 2 MG/ML VIAL ONE (14:44)
[2023-06-27 14:49] LABS: Specific Gravity 1.014 (1.005-1.030); Urine Bacteria <20 /HPF (<20); Urine Bilirubin NEGATIVE (Negative); Urine Blood Negative (Negative); Urine Clarity Turbid (Clear); Urine Color Light-Yellow (Yellow); Urine Glucose NEGATIVE (Negative); Urine Mucus Slight /HPF (None Seen); Urine Protein NEGATIVE (Negative); Urine RBC <5 /HPF (None Seen); Urine Urobilinogen Normal (Normal); Urine pH 7.5 (5.0-7.0)
[2023-06-27 14:53] LABS: Barbiturates NEGATIVE (NEGATIVE); Benzodiazepines NEGATIVE (NEGATIVE); Cocaine NEGATIVE (NEGATIVE); METHAMPHETAM NEGATIVE (NEGATIVE); Methadone NEGATIVE (NEGATIVE); Opiates NEGATIVE (NEGATIVE); Phencyclidine NEGATIVE (NEGATIVE); THC Cannibis POSITIVE (NEGATIVE)
[2023-06-27] MEDS ORDERED: lamoTRIgine 150 MG TAB PO ONE (15:00)
[2023-06-27] MEDS ORDERED: NA CHLORIDE 0.9% 1,000 ML ONE (15:00)
[2023-06-27 16:32] LABS: Protime INR 1.06
[2023-06-27 16:44] LABS: Absolute Lymphocytes (CBC) 0.5 K/uL (0.7-4.9); Hematocrit 31.7 % (36.0-45.0); Lymphocytes % 10.2 % (15.3-44.8); MCV 88.7 fL (80-100); MPV 8.1 fL (7.6-11.3); Platelets 224 thou/uL (152-406); RBC Red Blood Cell Count 3.57 M/uL (3.86-4.86)
[2023-06-27 16:50] LABS: ALT/SGPT 15 U/L (13-56); Albumin 3.4 g/dL (3.4-5.0); Alkaline Phosphatase 37 U/L (45-117); BUN Blood Urea Nitrogen 7 mg/dL (7-18); Bicarbonate 21 mEq/L (21-32); Glomerular Filtration Rate 122 ml/min (=/>90); Glucose Level 95 mg/dL (74-106); Protein, Total 6.3 g/dL (6.4-8.2); Sodium Level 145 mEq/L (136-145)
[2023-06-27 16:51] LABS: AST/SGOT 7 U/L (15-37); Bilirubin Direct < 0.1 mg/dL (0-0.2); Bilirubin Indirect, Calculated ND mg/dL (0.2-0.8); Bilirubin Total < 0.1 mg/dL (0.2-1.0); Potassium 4.6 mEq/L (3.5-5.1)
--- NOTE | 2023-06-27 17:09 | EDPHYS ---
Physician Documentation [facility] Name: Matt Tillman Age: 32 yrs Sex: Female : 1990 Arrival Date: 06/27/2023 Time: 13:23 Bed 19 Private MD: Adelso Alicea HPI: 06/27 14:12 This 32 yrs old Female presents to ER via Stretcher with complaints of najma Seizure. 14:12 The patient presents after having a single isolated seizure, that lasted an unknown najma period of time. Character of seizure(s): Loss of consciousness: it is not known if the patient experienced loss of consciousness, Motor activity: generalized, shaking all over, Incontinence: none, Apnea: the patient did not experience apnea, Circulation: the patient did not experience evidence of pulse disturbance. Seizure onset: the onset is not known. Context: the seizure(s) was witnessed, unk. Seizure Hx: Last seizure: The patient's last seizure is unknown. Associated injury: The patient did not suffer any apparent associated injury. EMS care: none. Current symptoms: confusion. The patient has experienced similar episodes in the past, multiple times. Historical: - Allergies: 13:47 levetiracetam; kc6 - Home Meds: 14:39 citalopram 20 mg oral tablet daily [Active]; lacosamide 10 mg/mL oral solution 2 mL 2 me1 times per day [Active]; - PMHx: 13:47 depressive disorder; traumatic brain injury; Seizure; kc6 - PSHx: 13:47 left leg amputation; kc6 - Immunization history:: Adult Immunizations unknown. - Social history:: Smoking status: unknown. - Family history:: not pertinent. ROS: 14:12 Constitutional: Negative for fever, chills, and weight loss, Eyes: Negative for injury, najma pain, redness, and discharge, ENT: Negative for injury, pain, and discharge, Neck: Negative for injury, pain, and swelling, Cardiovascular: Negative for chest pain, palpitations, and edema, Respiratory: Negative for shortness of breath, cough, wheezing, and pleuritic chest pain, Abdomen/GI: Negative for abdominal pain, nausea, vomiting, diarrhea, and constipation, Back: Negative for injury and pain, : Negative for injury, bleeding, discharge, and swelling, MS/Extremity: Negative for injury and deformity, Skin: Negative for injury, rash, and discoloration, Psych: Negative for depression, anxiety, suicide ideation, homicidal ideation, and hallucinations, Allergy/Immunology: Negative for hives, rash, and allergies, Endocrine: Negative for neck swelling, polydipsia, polyuria, polyphagia, and marked weight changes. 14:12 Neuro: Positive for seizure activity. Exam: 14:12 Constitutional: This is a well developed, well nourished patient who is awake, alert, najma and in no acute distress. Head/Face: Normocephalic, atraumatic. Eyes: Pupils equal round and reactive to light, extra-ocular motions intact. Lids and lashes normal. Conjunctiva and sclera are non-icteric and not injected. Cornea within normal limits. Periorbital areas with no swelling, redness, or edema. ENT: Nares patent. No nasal discharge, no septal abnormalities noted. Tympanic membranes are normal and external auditory canals are clear. Oropharynx with no redness, swelling, or masses, exudates, or evidence of obstruction, uvula midline. Mucous membranes moist. Neck: Trachea midline, no thyromegaly or masses palpated, and no cervical lymphadenopathy. Supple, full range of motion without nuchal rigidity, or vertebral point tenderness. No Meningismus. Chest/axilla: Normal chest wall appearance and motion. Nontender with no deformity. No lesions are appreciated. Cardiovascular: Regular rate and rhythm with a normal S1 and S2. No gallops, murmurs, or rubs. Normal PMI, no JVD. No pulse deficits. Respiratory: Lungs have equal breath sounds bilaterally, clear to auscultation and percussion. No rales, rhonchi or wheezes noted. No increased work of breathing, no retractions or nasal flaring. Abdomen/GI: Soft, non-tender, with normal bowel sounds. No distension or tympany. No guarding or rebound. No evidence of tenderness throughout. Back: No spinal tenderness. No costovertebral tenderness. Full range of motion. Skin: Warm, dry with normal turgor. Normal color with no rashes, no lesions, and no evidence of cellulitis. MS/ Extremity: Pulses equal, no cyanosis. Neurovascular intact. Full, normal range of motion. Neuro: Awake and alert, GCS 15, oriented to person, place, time, and situation. Cranial nerves II-XII grossly intact. Motor strength 5/5 in all extremities. Sensory grossly intact. Cerebellar exam normal. Normal gait. Psych: Awake, alert, with orientation to person, place and time. Behavior, mood, and affect are within normal limits. 17:24 ECG was reviewed by the Attending Physician. [facility] Vital Signs: 13:50 BP 122 / 98; Pulse 87; Resp 17; Temp 98.9; Pulse Ox 100% on R/A; Weight 55.34 kg; me1 Height 5 ft. 2 in. ; 15:09 BP 103 / 66; Pulse 72; Resp 18; Pulse Ox 100% on R/A; ph 16:00 BP 104 / 53; Pulse 77; Resp 16; Pulse Ox 99% on R/A; me1 16:00 BP 111 / 67; Pulse 82; Resp 16; Pulse Ox 100% on R/A; me1 13:50 Body Mass Index 22.31 (55.34 kg, 157.48 cm) me1 [place] Coma Score: 13:50 Eye Response: spontaneous(4). Motor Response: obeys commands(6). Verbal Response: me1 oriented(5). Total: 15. MDM: 13:52 Patient medically screened. [facility] 14:15 Differential diagnosis: drug overdose, cardiac arrhythmia, seizure. Data reviewed: [facility] vital signs, nurses notes, lab test result(s). Consideration of Admission/Observation Escalation of care including admission/observation considered. I considered the following discharge prescriptions or medication management in the emergency department Medications were administered in the Emergency Department. See MAR. Independent interpretation of the following test(s) in the Emergency Department EKG: See my EKG interpretation above. Test considered but Not performed: EKG: no ct , no mri. Historians other than the Patient: EMS: ems , well informed. Care significantly affected by the following chronic conditions: depression, traumatic brain, seizure. Counseling: I had a detailed discussion with the patient and/or guardian regarding the historical points, exam findings, and any diagnostic results supporting the discharge/admit diagnosis, lab results, radiology results, the need for outpatient follow up, for definitive care, a family practitioner, a neurologist. 06/27 14: Order name: Acetaminophen; Complete Time: 17:08 [facility] 06/27 14:01 Order name: Basic Metabolic Panel; Complete Time: 17: [facility] 06/27 14:01 Order name: CBC with Diff; Complete Time: 16:47 [facility] 06/27 14:01 Order name: ETOH Level; Complete Time: 15:22 [facility] 06/27 14:01 Order name: Hepatic Function; Complete Time: 17:08 [facility] 06/27 14:01 Order name: PT-INR; Complete Time: 16:47 [facility] 06/27 14:01 Order name: Test, Urine; Complete Time: 14:59 [facility] 06/27 14:01 Order name: Ptt, Activated; Complete Time: 16:47 [facility] 06/27 14:01 Order name: Salicylate; Complete Time: 17:08 [facility] 06/27 14:01 Order name: Urinalysis w/ reflexes; Complete Time: 14:59 [facility] 06/27 14:01 Order name: Urine Drug Screen; Complete Time: 14:59 [facility] 06/27 14:01 Order name: EKG; Complete Time: 14:01 [facility] 06/27 14:01 Order name: EKG - Nurse/Tech; Complete Time: 14:29 [facility] 06/27 14:01 Order name: IV Saline Lock; Complete Time: 14:29 [facility] 06/27 14:01 Order name: Labs collected and sent; Complete Time: 14:29 [facility] EC:24 Rate is 78 beats/min. Rhythm is regular. QRS [place] is Normal. [place] interval is normal. QRS [place] interval is normal. QT interval is normal. No Q waves. T waves are Normal. No ST changes noted. Clinical impression: Normal ECG, NSR w/ Non-specific ST/T Changes, and No evidence of ischemia. Interpreted by me. Reviewed by me. Administered Medications: 14:31 Drug: Fosphenytoin IVPB 1 grams Route: IVPB; Site: left antecubital; me1 15:00 Follow up: IV Status: Completed infusion me1 14:35 Drug: Ativan IVP 1 mg Route: IVP; Site: left antecubital; me1 17:25 Follow up: Response: No adverse reaction me1 14:47 Not Given (Duplicate Order): LaMICtal PO 150 mg PO once [facility] 14:48 Drug: NS 0.9% IV 1000 ml Route: IV; Rate: 1 bolus; Site: left antecubital; me1 17:25 Follow up: IV Status: Completed infusion me1 18:06 Drug: Ondansetron PO 4 mg Route: PO; ph 18:15 Follow up: Response: No adverse reaction; Vomiting decreased me1 Disposition Summary: 06/27/23 17:08 Discharge Ordered Location: Home [facility] Problem: new najma Symptoms: have improved najma Condition: Stable najma Diagnosis - Epileptic seizures related to external causes, not intractable, 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 Followup: najma - With: Private Physician - When: 2 - 3 days - Reason: Recheck today's complaints, Continuance of care, Re-evaluation by your physician Followup: najma - With: - When: 2 - 3 days - Reason: Recheck today's complaints, Re-evaluation by your physician Discharge Instructions: - Discharge Summary Sheet najma - Epilepsy najma - Seizure, Adult najma - Seizure, Adult, Pxvx-[id number] najma - Epilepsy, Tizq-as-Cqay najma Forms: - Medication Reconciliation Form [facility] - Thank You Letter [facility] - Antibiotic Education najma - Prescription Opioid Use najma - Patient Portal Instructions [facility] - Leadership Thank You Letter [facility] Prescriptions: - Dilantin Kapseal 100 mg Oral Capsule - take 1 capsule by ORAL route every 8 hours; 60 capsule; Refills: 0, Product [facility] Selection Permitted Signatures: Dispatcher [employer] Adelso Zapata MD MD cha Hall, Patricia, RN RN ph Cele Hurley RN RN 6 Jena Marc RN RN me1 Corrections: (The following items were deleted from the chart) 14:29 14:01 Suicide Screening ([place]) ordered. [facility] me1
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
[2023-06-27] MEDS ORDERED: ONDANSETRON 4 MG (ODT) TAB ONE (18:16)
[2023-06-27 18:23] VITALS: TEMP 98.9; O2SAT 100
[2023-06-27 18:26] VITALS: BP 111/67
--- NOTE | 2023-06-28 12:38 | EKG ---
Test Date: 2023-06-27 Test Time: 17:20:42 Sterile Processing Technician: MEASUREMENT RESULTS: Intervals: Rate: 78 DE: 136 QRSD: 80 QT: 378 QTc: 430 [place]: P: 71 DE: 136 QRS: 62 T: 51 INTERPRETIVE STATEMENTS: Normal sinus rhythm Normal ECG Compared to ECG 03/14/2023 10:47:35 ST (T wave) deviation no longer present Electronically Signed On 06-28-23 12:36:58 CDT by Wilton Quigley
== END 2023-06-27 18:17 | disposition home or self-care (01) ==
LOC: ER 13:23
DX: G40.509 Epileptic seizures related to external causes, not intractable, without status epilepticus (principal); Z88.8 Allergy status to other drugs, medicaments and biological substances
CPT/HCPCS: 85025; 81001; 80048; 36415; 81025; 85610; 80076; 85730; 80307; 80143; 80179; 82077; Q0162; Q2009; J7030; 93005

== ENCOUNTER 2023-07-20 10:07 | Emergency (ER) | payer OTHER ==
--- OUTSIDE RECORDS SUMMARY | 2023-07-20 10:16 | XMS REPORT | Continuity of Care Document ---
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 mcg/actuati 00 nostril 2 Med ical on nasal (two) Branch spray times daily. fluticasone 2020-0 Yes [id number] 1{spray Use 1 [facility] propionate 3-06 } [place] [address] 00:00: each [place] mcg/actuati 00 nostril 2 Med ical on nasal (two) Branch spray times daily. fluticasone 2020-0 Yes [id number] 1{spray Use 1 [facility] propionate 3-06 } [place] [address] 00:00: each [place] mcg/actuati 00 nostril 2 Med ical on nasal (two) Branch spray times daily. fluticasone 2020-0 Yes [id number] 1{spray Use 1 [facility] propionate 3-06 } [place] [address] 00:00: each [place] mcg/actuati 00 nostril 2 Med ical on nasal (two) Branch spray times daily. fluticasone 2020-0 Yes [id number] 1{spray Use 1 [facility] propionate 3-06 } [facility] 00:00: each [place] mcg/actuati 00 nostril 2 Med ical on nasal (two) Branch spray times daily. fluticasone 2020-0 Yes [id number] 1{spray Use 1 [facility] propionate 3-06 } [place] [address] 00:00: each [place] mcg/actuati 00 nostril 2 Med ical on nasal (two) Branch spray times daily. fluticasone 2020-0 Yes [id number] 1{spray Use 1 [facility] propionate 3-06 } [place] [place] 00:00: each [place] mcg/actuati 00 nostril 2 Med ical on nasal (two) Branch spray times daily. fluticasone 2020-0 Yes [id number] 1{spray Use 1 [facility] propionate 3-06 } [facility] [place] 00:00: each [place] mcg/actuati 00 nostril 2 Med ical on nasal (two) Branch spray times daily. fluticasone 2020-0 Yes [id number] 1{spray Use 1 [facility] propionate 3-06 } [place] [place] 00:00: each [place] mcg/actuati 00 nostril 2 Med ical on nasal (two) Branch spray times daily. fluticasone 2020-0 Yes [id number] 1{spray Use 1 [facility] propionate 3-06 } [place] [place] 00:00: each [place] mcg/actuati 00 nostril 2 Med ical on nasal (two) Branch spray times daily. fluticasone 2020-0 Yes [id number] 1{spray Use 1 [facility] propionate 3-06 } [place] [place] 00:00: each [place] mcg/actuati 00 nostril 2 Med ical on nasal (two) Branch spray times daily. fluticasone 2020-0 Yes [id number] 1{spray Use 1 [facility] propionate 3-06 } [place] [place] 00:00: each [place] mcg/actuati 00 nostril 2 Med ical on nasal (two) Branch spray times daily. fluticasone 2020-0 Yes [id number] 1{spray Use 1 [facility] propionate 3-06 } [place] [place] 00:00: each [place] mcg/actuati 00 nostril 2 Med ical on nasal (two) Branch spray times daily. fluticasone 2020-0 Yes [id number] 1{spray Use 1 [facility] propionate 3-06 } [facility] [place] 00:00: each [place] mcg/actuati 00 nostril 2 Med ical on nasal (two) Branch spray times daily. fluticasone 2020-0 Yes [id number] 1{spray Use 1 [facility] propionate 3-06 } [facility] [place] [facility] 00:00: each [place] mcg/actuati 00 nostril 2 Med ical on nasal (two) Branch spray times daily. fluticasone 2020-0 Yes [id number] 1{spray Use 1 [facility] propionate 3-06 } [place] [place] 00:00: each [place] mcg/actuati 00 nostril 2 Med ical on nasal (two) Branch spray times daily. fluticasone 2020-0 Yes [id number] 1{spray Use 1 [facility] propionate 3-06 } [place] 00:00: each [place] mcg/actuati 00 nostril 2 Med ical on nasal (two) Branch spray times daily. fluticasone 2020-0 Yes [id number] 1{spray Use 1 [facility] propionate 3-06 } [place] 00:00: each [place] mcg/actuati 00 nostril 2 Med ical on nasal (two) Branch spray times daily. fluticasone 2020-0 Yes [id number] 1{spray Use 1 [facility] propionate 3-06 } [place] 00:00: each [place] mcg/actuati 00 nostril 2 Med ical on nasal (two) Branch spray times daily. fluticasone 2020-0 Yes [id number] 1{spray Use 1 [facility] propionate 3-06 } [place] 00:00: each [place] mcg/actuati 00 nostril 2 Med ical on nasal (two) Branch spray times daily. fluticasone 2020-0 Yes [id number] 1{spray Use 1 [facility] propionate 3-06 } [place] 00:00: each [place] mcg/actuati 00 nostril 2 Med ical on nasal (two) Branch spray times daily. fluticasone 2020-0 Yes [id number] 1{spray Use 1 [facility] propionate 3-06 } [place] 00:00: each [place] mcg/actuati 00 nostril 2 Med ical on nasal (two) Branch spray times daily. fluticasone 2020-0 Yes [id number] 1{spray Use 1 [facility] propionate 3-06 } [place] 00:00: each [place] mcg/actuati 00 nostril 2 Med ical on nasal (two) Branch spray times daily. fluticasone 2020-0 Yes [id number] 1{spray Use 1 [facility] propionate 3-06 } [place] 00:00: each [place] mcg/actuati 00 nostril 2 Med ical on nasal (two) Branch spray times daily. fluticasone 2020-0 Yes [id number] 1{spray Use 1 [facility] propionate 3-06 } [place] 00:00: each [place] mcg/actuati 00 nostril 2 Med ical on nasal (two) Branch spray times daily. fluticasone 2020-0 Yes [id number] 1{spray Use 1 [facility] propionate 3-06 } [place] 00:00: each [place] mcg/actuati 00 nostril 2 Med ical on nasal (two) Branch spray times daily. fluticasone 2020-0 Yes [id number] 1{spray Use 1 [facility] propionate 3-06 } [place] 00:00: each [place] mcg/actuati 00 nostril 2 Med ical on nasal (two) Branch spray times daily. Immunizations Ordered Filled Immunization Date Status Comments [facility] e Immunization Name Name Influenza Virus [...] and ABX Branch Free 6 MO-64 YRS (FLUCELVAX) Influenza Virus 2020-09-16 Completed Universit y of Vaccine Quad .5 mL 00:00:00 [facility] 6+ MO Branch Pneumococcal 2020-09-16 Completed University o f Polysaccharide, 00:00:00 [facility] ica PPSV23 (PNEUMOVAX) Branch Influenza Virus 2020-09-16 Completed Universit y of Vaccine Quad .5 mL 00:00:00 [facility] IM 6+ MO Branch (FLUZONE/FLULAVAL/F LUARIX) Pneumococcal 2020-09-16 Completed University o f Polysaccharide, [...] y of Vaccine Quad .5 mL 00:00:00 [facility] IM 6+ MO Branch Pneumococcal 2020-09-16 [...] y of Vaccine Quad .5 mL 00:00:00 [facility] IM 6+ MO Branch Pneumococcal 2020-09-16 Completed University o f Polysaccharide, 00:00:00 [place] [facility] PPSV23 (PNEUMOVAX) Branch Influenza Virus 2020-09-16 Completed Universit y of Vaccine Quad .5 mL 00:00:00 [facility] IM 6+ MO Branch Pneumococcal 2020-09-16 Completed University o f Polysaccharide, 00:00:00 [place] [facility] ical PPSV23 (PNEUMOVAX) [place] Influenza Virus 2019-12-12 Completed Universit y of Vaccine Quad .5 mL 00:00:00 [facility] IM 6+ MO [place] Influenza Virus 2019-12-12 Completed Universit y of Vaccine Quad .5 mL 00:00:00 [facility] IM 6+ MO Branch Influenza Virus 2019-12-12 Completed Universit y of Vaccine Quad .5 mL 00:00:00 [facility] IM 6+ MO Branch Influenza Virus [...] y of Vaccine Quad .5 mL 00:00:00 [facility] IM 6+ MO Branch Influenza Virus 2019-12-12 Completed Universit y of Vaccine Quad .5 mL 00:00:00 [facility] IM 6+ MO Branch Influenza Virus 2019-12-12 Completed Universit y of Vaccine Quad .5 mL 00:00:00 [facility] 6+ MO Branch Influenza Virus [...] y of Vaccine Quad .5 mL 00:00:00 [facility] IM 6+ MO Branch Influenza Virus 2019-12-12 Completed Universit y of Vaccine Quad .5 mL 00:00:00 [place] [facility] 6+ MO Branch Influenza Virus 2019-12-12 Completed Universit y of Vaccine Quad .5 mL 00:00:00 [facility] IM 6+ MO Branch Influenza Virus 2019-12-12 Completed Universit y of Vaccine Quad .5 mL 00:00:00 [facility] IM 6+ MO Branch Influenza Virus 2019-12-12 Completed Universit y of Vaccine Quad .5 mL 00:00:00 [facility] IM 6+ MO Branch (FLUZONE/FLULAVAL/F LUARIX) MMR 2017-10-29 Completed University of 00:00:00 [facility] MMR 2017-10-29 Completed University of 00:00:00 [facility] MMR 2017-10-29 Completed University of 00:00:00 [facility] MMR 2017-10-29 Completed University of 00:00:00 [facility] MMR 2017-10-29 Completed University of 00:00:00 [facility] MMR 2017-10-29 Completed University of 00:00:00 [facility] MMR 2017-10-29 Completed University of 00:00:00 [facility] MMR 2017-10-29 Completed University of 00:00:00 [facility] MMR 2017-10-29 Completed University of 00:00:00 [facility] MMR 2017-10-29 Completed University of 00:00:00 [facility] MMR 2017-10-29 Completed University of 00:00:00 [facility] MMR 2017-10-29 Completed University of 00:00:00 [facility] MMR 2017-10-29 Completed University of 00:00:00 [facility] MMR 2017-10-29 Completed University of 00:00:00 [facility] MMR 2017-10-29 Completed University of 00:00:00 [facility] MMR 2017-10-29 Completed University of 00:00:00 [facility] MMR 2017-10-29 Completed University of 00:00:00 [facility] MMR 2017-10-29 Completed University of 00:00:00 [facility] MMR 2017-10-29 Completed University of 00:00:00 [facility] MMR 2017-10-29 Completed University of 00:00:00 [facility] MMR 2017-10-29 Completed University of 00:00:00 [facility] MMR 2017-10-29 Completed University of 00:00:00 [facility] MMR 2017-10-29 Completed University of 00:00:00 [facility] MMR 2017-10-29 Completed University of 00:00:00 [facility] MMR 2017-10-29 Completed University of 00:00:00 [facility] MMR 2017-10-29 Completed University of 00:00:00 [facility] MMR 2017-10-29 Completed University of 00:00:00 [facility] MMR 2017-10-29 Completed University of 00:00:00 [facility] MMR 2017-10-29 Completed University of 00:00:00 [facility] MMR 2017-10-29 Completed University of 00:00:00 [facility] MMR 2017-10-29 Completed University of 00:00:00 [facility] TDAP 2017-10-25 Completed University of 00:00:00 [facility] TDAP 2017-10-25 Completed University of 00:00:00 [facility] TDAP 2017-10-25 Completed University of 00:00:00 [facility] TDAP 2017-10-25 Completed University of 00:00:00 [facility] TDAP 2017-10-25 Completed University of 00:00:00 [facility] TDAP 2017-10-25 Completed University of 00:00:00 [facility] TDAP 2017-10-25 Completed University of 00:00:00 [facility] TDAP 2017-10-25 Completed University of 00:00:00 [facility] TDAP 2017-10-25 Completed University of 00:00:00 [facility] TDAP 2017-10-25 Completed University of 00:00:00 [facility] TDAP 2017-10-25 Completed University of 00:00:00 [facility] TDAP 2017-10-25 Completed University of 00:00:00 [facility] TDAP 2017-10-25 Completed University of 00:00:00 [facility] TDAP 2017-10-25 Completed University of 00:00:00 [facility] TDAP 2017-10-25 Completed University of 00:00:00 [facility] TDAP 2017-10-25 Completed University of 00:00:00 [facility] TDAP 2017-10-25 Completed University of 00:00:00 [facility] TDAP 2017-10-25 Completed University of 00:00:00 [facility] TDAP 2017-10-25 Completed University of 00:00:00 [facility] TDAP 2017-10-25 Completed University of 00:00:00 [facility] TDAP 2017-10-25 Completed University of 00:00:00 [facility] TDAP 2017-10-25 Completed University of 00:00:00 [facility] TDAP 2017-10-25 Completed University of 00:00:00 [facility] TDAP 2017-10-25 Completed University of 00:00:00 [facility] TDAP 2017-10-25 Completed University of 00:00:00 [facility] TDAP 2017-10-25 Completed University of 00:00:00 [facility] TDAP 2017-10-25 Completed University of 00:00:00 [facility] TDAP 2017-10-25 Completed University of 00:00:00 [facility] TDAP 2017-10-25 Completed University of 00:00:00 [facility] Branch TDAP 2017-10-25 Completed University of 00:00:00 [facility] TDAP 2017-10-25 Completed University of 00:00:00 [facility] Vital Signs Vital Name Observation Time Observation Value Comments Source Systolic blood 2023-07-13 18:32:00 105 mm[Hg] Univer sity of pressure [facility] Diastolic blood 2023-07-13 18:32:00 61 mm[Hg] Unive rsity of pressure [facility] Heart rate 2023-07-13 18:32:00 80 /min [facility] Body temperature 2023-07-13 18:32:00 36.94 Diana [facility] Respiratory rate 2023-07-13 18:32:00 16 /min [facility] Body height 2023-07-13 18:32:00 157.5 cm [facility] Body weight 2023-07-13 18:32:00 53.071 kg [facility] BMI 2023-07-13 18:32:00 21.40 kg/m2 [facility] Oxygen saturation in 2023-07-13 18:32:00 100 /min [facility] Arterial blood by [facility] Pulse oximetry Branch Systolic blood 2023-05-02 14:16:00 113 mm[Hg] Univer sity of pressure [facility] Diastolic blood 2023-05-02 14:16:00 71 mm[Hg] Unive rsity of pressure [facility] Branch Heart rate 2023-05-02 14:16:00 95 /min [facility] Body weight 2023-05-02 14:16:00 53.071 kg [facility] of [facility] BMI 2023-05-02 14:16:00 21.40 kg/m2 [facility] WEIGHT 2023-03-18 05:00:00 51.256 kg WEIGHT 2023-03-17 03:00:00 52.935 kg WEIGHT 2023-03-14 14:14:00 45 kg WEIGHT 2023-03-18 05:00:00 51.256 kg WEIGHT 2023-03-17 03:00:00 52.935 kg WEIGHT 2023-03-14 14:14:00 45 kg WEIGHT 2023-03-18 05:00:00 51.256 kg WEIGHT 2023-03-17 03:00:00 52.935 kg WEIGHT 2023-03-14 14:14:00 45 kg Systolic blood 2023-01-04 16:02:00 113 mm[Hg] Univer sity of pressure [facility] Diastolic blood 2023-01-04 16:02:00 71 mm[Hg] Unive rsity of [facility] Heart rate 2023-01-04 16:02:00 74 /min [facility] Body temperature 2023-01-04 16:02:00 36.72 Diana Univ ersity of [facility] Respiratory rate 2023-01-04 16:02:00 18 /min Univ ersity of [facility] Body height 2023-01-04 16:02:00 157.5 cm Universi [facility] of [facility] Body weight 2023-01-04 16:02:00 54.885 kg Universi ty of [facility] Branch BMI 2023-01-04 16:02:00 22.13 kg/m2 Universi ty of [facility] Branch Systolic blood 2022-12-05 19:20:00 117 mm[Hg] Univer sity of pressure [facility] Diastolic blood 2022-12-05 19:20:00 75 mm[Hg] Unive rsity of pressure [facility] Heart rate 2022-12-05 19:20:00 96 /min Universi ty of [facility] Branch Body height 2022-12-05 19:20:00 154.9 cm Universi ty of [facility] Branch Body weight 2022-12-05 19:20:00 55.339 kg Universi ty of [facility] Branch BMI 2022-12-05 19:20:00 23.05 kg/m2 [facility] of [facility] HEIGHT 2022-11-19 03:00:00 157.5 cm WEIGHT 2022-11-19 03:00:00 45 kg HEIGHT 2022-11-19 03:00:00 157.5 cm WEIGHT 2022-11-19 03:00:00 45 kg HEIGHT 2022-11-19 03:00:00 157.5 cm WEIGHT 2022-11-19 03:00:00 45 kg Systolic blood 2022-10-27 22:20:00 119 mm[Hg] Univer sity of pressure [facility] Diastolic blood 2022-10-27 22:20:00 50 mm[Hg] Unive rsity of pressure [facility] Heart rate 2022-10-27 22:20:00 68 /min [facility] of [facility] Body height 2022-10-27 22:20:00 154.9 cm Universi ty of [facility] Branch Body weight 2022-10-27 22:20:00 53.978 kg [facility] of [facility] BMI 2022-10-27 22:20:00 22.48 kg/m2 [facility] WEIGHT 2022-10-17 05:54:00 52.1 kg HEIGHT 2022-10-14 14:52:00 165 cm WEIGHT 2022-10-14 14:52:00 52 kg WEIGHT 2022-10-17 05:54:00 52.1 kg HEIGHT 2022-10-14 14:52:00 165 cm WEIGHT 2022-10-14 14:52:00 52 kg WEIGHT 2022-10-17 05:54:00 52.1 kg HEIGHT 2022-10-14 14:52:00 165 cm WEIGHT 2022-10-14 14:52:00 52 kg Body weight 2022-04-24 18:50:00 54.885 kg [facility] BMI 2022-04-24 18:50:00 22.13 kg/m2 Universi ty of [facility] Branch Heart rate 2023-03-19 15:23:00 92 /min [facility] Respiratory rate 2023-03-19 15:23:00 16 /min [facility] Oxygen saturation in 2023-03-19 15:23:00 98 /min [facility] Arterial blood by Medical Ce [facility]ter Pulse oximetry Systolic blood 2023-03-19 14:00:00 109 mm[Hg] [facility] Diastolic blood 2023-03-19 14:00:00 57 mm[Hg] [facility] Body temperature 2023-03-19 14:00:00 36.33 Diana [facility] Body weight 2023-03-18 05:00:00 51.256 kg [facility] BMI 2023-03-18 05:00:00 20.67 kg/m2 [facility] Systolic blood 2022-11-20 12:00:00 130 mm[Hg] [facility] Diastolic blood 2022-11-20 12:00:00 68 mm[Hg] [facility] Heart rate 2022-11-20 12:00:00 82 /min [facility] Body temperature 2022-11-20 12:00:00 37.39 Diana [facility] Respiratory rate 2022-11-20 12:00:00 18 /min [facility] Oxygen saturation in 2022-11-20 12:00:00 96 /min [facility] Arterial blood by Medical Ce [facility]ter Pulse oximetry Body height 2022-11-19 03:00:00 157.5 cm [facility] Body weight 2022-11-19 03:00:00 45 kg [facility] BMI 2022-11-19 03:00:00 18.15 kg/m2 [facility] Systolic blood 2022-10-17 15:00:00 128 mm[Hg] [facility] Diastolic blood 2022-10-17 15:00:00 72 mm[Hg] [facility] Heart rate 2022-10-17 15:00:00 112 /min [facility] Respiratory rate 2022-10-17 15:00:00 29 /min [facility] Oxygen saturation in 2022-10-17 15:00:00 98 /min [facility] Arterial blood by Medical Ce [facility]ter Pulse oximetry Body temperature 2022-10-17 12:00:00 36.94 Diana [facility] Body weight 2022-10-17 05:54:00 52.1 kg [facility] BMI 2022-10-17 05:54:00 19.14 kg/m2 [facility] Body height 2022-10-14 14:52:00 165 cm [facility] Procedures Procedure Date / Time Performing Clinician Source Performed POCT-GLUCOSE METER 2023-03-19 17:57:00 [facility] POCT-GLUCOSE METER 2023-03-19 13:38:00 Meg[facility] POCT-GLUCOSE METER 2023-03-19 05:08:00 Meghan [facility] CBC W/PLT COUNT & AUTO 2023-03-19 04:41:00 Fito [facility] COMPREHENSIVE METABOLIC 2023-03-19 04:41:00 Fito [facility] PANEL [facility] MAGNESIUM 2023-03-19 04:41:00 Fito [facility] PHOSPHORUS 2023-03-19 04:41:00 Fito [facility] CBC W/PLT COUNT & AUTO 2023-03-19 04:41:00 Fito [facility] POCT-GLUCOSE METER 2023-03-18 23:19:00 Meghan [facility] POCT-GLUCOSE METER 2023-03-18 17:53:00 [facility] POCT-GLUCOSE METER 2023-03-18 11:28:00 [facility] POCT-GLUCOSE METER 2023-03-18 05:53:[facility] 2023-03-18 01:47:[facility] CBC W/PLT COUNT & AUTO 2023-03-18 01:42:00 Hottmmarjorie [facility] DIFFERENTIAL [facility] COMPREHENSIVE METABOLIC 2023-03-18 01:42:00 Hottman [facility] PANEL [facility] MAGNESIUM 2023-03-18 01:42:00 Hottman, [facility] PHOSPHORUS 2023-03-18 01:42:00 [facility] CBC W/PLT COUNT & AUTO 2023-03-18 01:42[facility]00 [facility] POCT-GLUCOSE METER 2023-03-17 17:42:00 [facility] POCT-GLUCOSE METER 2023-03-17 13:07:00 [facility] POCT-GLUCOSE METER 2023-03-17 06:35:00 [facility] POCT-GLUCOSE METER 2023-03-17 06:13:00 [facility] CBC W/PLT COUNT & AUTO 2023-03-17 03:21:00 [facility] 03:21[facility]00 [facility] MAGNESIUM 2023-03-17 03:21:00 [facility] PHOSPHORUS 2023-03-17 03:21:00 [facility] PROCALCITONIN 2023-03-17 03:21:00 [facility] CBC W/PLT COUNT & AUTO 2023-03-17 03:21:00 [facility] POCT-GLUCOSE METER 2023-03-17 02:10:00 Larson [facility] POCT-GLUCOSE METER 2023-03-17 01:49:00 Larson [facility] POCT-GLUCOSE METER 2023-03-16 23:34:00 Larson [facility] POCT-GLUCOSE METER 2023-03-16 17:50[facility] 2023-03-16 12:57:00 [facility] EEG 12-26 HR CONTINUOUS 2023-03-16 07:00:00 [facility] MONITORING WITH VIDEO [facility] POCT-GLUCOSE METER 2023-03-16 06:51:00 [facility] XR CHEST 1 VIEW PORTABLE 2023-03-16 05:27:00 [facility]ED[facility]IDE Center BLOOD GAS, ARTERIAL 2023-03-16 04:12:00 [facility] CBC W/PLT COUNT & AUTO 2023-03-16 04:11:00 Fito [facility] COMPREHENSIVE METABOLIC 2023-03-16 04:11:00 Fito [facility] PANEL [facility] MAGNESIUM 2023-03-16 04:11:00 Fito [facility] PHOSPHORUS 2023-03-16 04:11:00 [facility] PROCALCITONIN 2023-03-16 04:11:00 [facility] CBC W/PLT COUNT & AUTO 2023-03-16 04:11:00 Fito [facility] DIFFERENTIAL [facility] POCT-GLUCOSE METER 2023-03-16 00:48:00 Larson, [facility] POCT-GLUCOSE METER 2023-03-15 17:58:00 Larson, [facility] POCT-GLUCOSE METER 2023-03-15 11:02:00 Larson, [facility] EEG 12-26 HR CONTINUOUS 2023-03-15 08:24:07 [facility] MONITORING WITH VIDEO [facility] XR CHEST 1 VIEW PORTABLE 2023-03-15 04:10:00 [facility] BEDSIDE Center CBC W/PLT COUNT & AUTO 2023-03-15 03:46:00 Hottmmarjorie [facility] DIFFERENTIAL [facility] COMPREHENSIVE METABOLIC 2023-03-15 03:46:00 Hottmmarjorie [facility] PANEL [facility] MAGNESIUM 2023-03-15 03:46:00 Hottmmarjorie [facility] PHOSPHORUS 2023-03-15 03:46:00 Hottman [facility] PROCALCITONIN 2023-03-15 03:46:00 Hotmarjorie [facility] BLOOD GAS, ARTERIAL 2023-03-15 03:46:00 Arjun [facility] CBC W/PLT COUNT & AUTO 2023-03-15 03:46:00 Hottmmarjorie [facility] DIFFERENTIAL [facility] POCT-GLUCOSE METER 2023-03-14 18:39:00 Marsha [facility] XR ABDOMEN/KUB 1 VIEW 2023-03-14 18:05:00 Hottmmarjorie [facility] PORTABLE [facility] BLOOD CULTURE 2023-03-14 17:36:00 Hotmarjorie [facility] SPUTUM CULTURE + GRAM 2023-03-14 16:58:00 Hotmarjorie [facility] STAIN [facility] URINALYSIS W/ REFLEX 2023-03-14 16:37:00 Hotmarjorie [facility] URINE CULTURE [facility] [facility] PHENYTOIN LEVEL, TOTAL 2023-03-14 16:33:00 Hottman, [facility] PROCALCITONIN 2023-03-14 16:33:00 Hottman, [facility] HIGH SENSITIVITY 2023-03-14 15:42:00 Hottman, [facility] TROPONIN I [facility] LACTIC ACID, VENOUS 2023-03-14 15:42:00 Hottman, [facility] CBC W/PLT COUNT & AUTO 2023-03-14 15:42:00 Hottman, [facility] DIFFERENTIAL [facility] COMPREHENSIVE METABOLIC 2023-03-14 15:42:00 Hottman, [facility] PANEL [facility] APTT 2023-03-14 15:42:00 Hottman, [facility] PROTHROMBIN TIME/INR 2023-03-14 15:42:00 Hottman, [facility] CBC W/PLT COUNT & AUTO 2023-03-14 15:42:00 Hottman, [facility] DIFFERENTIAL [facility] (CELLAVISION MANUAL 2023-03-14 15:42:00 Hottman, [facility] DIFF) [facility] BLOOD GAS, ARTERIAL 2023-03-14 15:32:00 Hottmmarjorie, [facility] XR CHEST 1 VIEW PORTABLE 2023-03-14 15:14:00 Hottmmarjorie, [facility] / BEDSIDE [facility] ECG 12-LEAD 2023-03-14 14:53:37 Unknown, Hl7 [facility] ECG 12-LEAD 2023-03-14 14:53:37 Hottman, [facility] ECG 12-LEAD 2023-03-14 14:53:37 Unknown, Hl7 [facility] HOME HEALTH - OTHER 2023-03-06 05:01:00 Doctor Unassigned, No Un iversity of [facility] HEALTH - OTHER 2023-02-16 05:01:00 Doctor Unassigned, No Un iversity of [facility] PATIENT FINANCIAL 2023-01-04 15:34:04 Doctor Unassigned, No [facility] POLICY Name Medical Branch CONSENT/REFUSAL FOR 2022-12-05 18:48:29 Doctor Unassigned, No [facility] Name Medical Branch POCT-GLUCOSE METER 2022-11-19 16:38:00 [facility] SARS-COV2/RT-PCR ([facility] & 2022-11-19 13:30:00 Courtney Shukla [facility] REF LABS) Center SCREEN, URINE 2022-11-19 13:30:00 [facility] POCT-GLUCOSE METER 2022-11-19 11:58:00 [facility] XR CHEST 1 VIEW PORTABLE 2022-11-19 08:27:00 [facility] / BEDSIDE Center LACTIC ACID, VENOUS 2022-11-19 08:12:00 [facility] RAPID DRUG SCREEN, URINE 2022-11-19 04:11:00 [facility]IP[facility]EL 2022-11-19 04:08:00 [facility] COMPREHENSIVE METABOLIC 2022-11-19 04:08:00 [facility] TSH/FREE T4 IF INDICATED 2022-11-19 04:08:00 [facility] CREATINE KINASE (CK) 2022-11-19 04:08:00 [facility] CBC W/PLT COUNT & AUTO 2022-10-17 03:30:[address] [facility] DIFFERENTIAL [place] CBC W/PLT COUNT & AUTO 2022-10-17 03:30:[address] [facility] DIFFERENTIAL Center MAGNESIUM 2022-10-17 03:30:00 [facility] PHOSPHORUS 2022-10-17 03:30:00 [facility] BASIC METABOLIC PANEL 2022-10-17 03:30:00 [facility] POCT-GLUCOSE METER 2022-10-16 17:34:00 WoodyManjula arredondo [facility] Reshad Center MAGNESIUM 2022-10-16 17:30:00 [facility] POT[facility]SIUM 2022-10-16 17:30:00 Jeannie Díaz [facility] PHOSPHORUS 2022-10-16 17:30:00 Ar[facility] POCT-GLUCOSE METER 2022-10-16 13:44:00 Felicita Prakash [facility] Hareshkumar [place] EEG 12-26 HR CONTINUOUS 2022-10-16 06:15:00 Sandip Kiran [facility] MONITORING WITH VIDEO Center POCT-GLUCOSE METER 2022-10-16 05:49:00 Sandip Kiran [facility] CBC W/PLT COUNT & AUTO 2022-10-16 04:37:[address] [facility] DIFFERENTIAL [place] CBC W/PLT COUNT & AUTO 2022-10-16 04:37:[address] [facility] DIFFERENTIAL [place] COMPREHENSIVE METABOLIC 2022-10-16 04:37:00 Thierry Gabriel [facility] PANEL Center MAGNESIUM 2022-10-16 04:37:00 [facility] PHOSPHORUS 2022-10-16 04:37:00 Arjun [facility] POCT-GLUCOSE METER 2022-10-15 15:25:00 Sandip Kiran [facility] PROCALCITONIN 2022-10-15 12:03:00 [facility] LACTIC ACID, VENOUS 2022-10-15 12:03:00 [facility] MAGNESIUM 2022-10-15 12:03:00 [facility] POTASSIUM 2022-10-15 12:03:00 Arjun [facility] POCT-GLUCOSE METER 2022-10-15 09:05:00 Sandip Kiran [facility] EEG 12-26 HR CONTINUOUS 2022-10-15 06:01:00 Thierry Gabriel [facility] Medical MONITORING WITH VIDEO Center BLOOD GAS, ARTERIAL 2022-10-15 05:26:00 Arjun [facility] CBC W/PLT COUNT & AUTO 2022-10-15 03:17:[address] [facility] DIFFERENTIAL Center CBC W/PLT COUNT & AUTO 2022-10-15 03:17:[address] [facility] DIFFERENTIAL Center COMPREHENSIVE METABOLIC 2022-10-15 03:16:00 Thierry Gabriel [facility] PANEL Center MAGNESIUM 2022-10-15 03:16:00 [facility] PHOSPHORUS 2022-10-15 03:16:00 [facility] XR ABDOMEN/KUB 1 VIEW 2022-10-15 01:02:00 [facility] XR ABDOMEN/KUB 1 VIEW 2022-10-15 00:31:00 [facility] XR ABDOMEN/KUB 1 VIEW 2022-10-15 00:25:00 [facility] XR ABDOMEN/KUB 1 VIEW 2022-10-14 22:18:00 [facility] POCT-GLUCOSE METER 2022-10-14 17:36:00 Sandip Kiran [facility] XR CHEST 1 VIEW PORTABLE 2022-10-14 17:27:00 Nery [facility] / BEDSIDE Center XR ABDOMEN/KUB 1 VIEW 2022-10-14 17:27:00 Nery [facility] SARS-COV2/INFLUENZA/RSV 2022-10-14 17:06:00 Thierry Gabriel [facility] RT-PCR Center BLOOD GAS, ARTERIAL 2022-10-14 16:47:00 Nery Thierry [facility] URINALYSIS WITH 2022-10-14 16:45:00 Thierry Gabriel [facility] Medical [facility] IF INDICATED Center COMPREHENSIVE METABOLIC 2022-10-14 16:38:00 Thierry Gabriel [facility] Medical PANEL Center HCG, QUANTITATIVE, 2022-10-14 16:38:00 Thierry Gabriel [facility] Center Plan of Care Planned [...] [facility] 00:00:00 [code = 08883320] Medical Ce nter Future Scheduled 2025-11-19 Lipid panel (procedure) [facility] 00:00:00 [code = 53577247] Medical Ce nter Future Scheduled 2023-07-06 Influenza Vaccine (#1) [facility]00 [code = Influenza Vaccine Me dical Center (#1)] Future Scheduled 2023-07-06 INFLUENZA VACCINE (Season [facility] 00:00:00 Ended) [code = INFLUENZA Med ical Center VACCINE (Season Ended)] Future Scheduled 2023-07-06 Influenza Vaccine (#1) [facility] 00:00[facility]00 [code = Influenza Vaccine Me dical Center (#1)] Future Scheduled 2022-11-[address] [facility] 00:00:00 [code = INFLUENZA VACCINE [facility] Center (#1)] Future Scheduled 2010 Screening for malignant [facility] 00:00:00 neoplasm of cervix Medical C enter (procedure) [code = 894234936] Future Scheduled 2010 Screening for malignant [facility] Test 00:00:00 neoplasm of cervix Medical C enter (procedure) [code = 642485266] Future Scheduled 2010 Screening for malignant [facility] Test 00:00:00 neoplasm of cervix Medical C enter (procedure) [code = 820464779] Future Scheduled 2010 Screening for malignant [facility] Test 00:00:00 neoplasm of cervix Medical C enter (procedure) [code = 078976589] Future Scheduled 2007 HEPATITIS C SCREENING CH [...] screening Medical Cent er (procedure) [code = 553739091] Future Scheduled [address] [facility] 00:00:00 virus screening Medical Cent er (procedure) [code = 744251711] Future Scheduled [address] [facility] Test 00:00:00 Counseling and Screening Med ical Center (12+) [code = Tobacco Cessation Counseling and Screening (12+)] Future Scheduled [address] [facility] Test 00:00:00 Counseling and Screening Med ical Center (12+) [code = Tobacco Cessation Counseling and Screening (12+)] Future Scheduled [address] [facility] 00:00:00 Counseling and Screening Med ical Center (12+) [code = Tobacco Cessation Counseling and Screening (12+)] Future Scheduled [address] [facility] 00:00:00 Counseling and Screening Med ical Center (12+) [code = Tobacco Cessation Counseling and Screening (12+)] Future Scheduled 1990-05-03 COVID-19 VACCINE (#1) [facility] 00:[facility]00 [code = COVID-19 VACCINE Med ical Center (#1)] Future Scheduled 1990-05-03 COVID-19 VACCINE (#1) [facility] 00:00:00 [code = COVID-19 VACCINE Med ical Center (#1)] Future Scheduled 1990-05-03 COVID-19 VACCINE (#1) [facility] 00:00:00 [code = COVID-19 VACCINE Med ical Center (#1)] Future Scheduled 1990-05-03 COVID-19 VACCINE (#1) [facility] 00:00:00 [code = COVID-19 VACCINE Med ical Center (#1)] Encounters Start End Encounter Admission Attending Care Care Encounter Source Date/Time Date/Time Type Type Clinicians Facility Department ID 2023-11-01 2023-11-01 Outpatient Sheree C[facility]INGHAM [facility] [id number] Univers 13:00:00 13:00:00 MICAELA beasley [facility] 2023-07-13 2023-07-13 Urgent DiaKarin chaves [facility] 1.2.840.114 [id number] Univers 13:20:00 13:40:00 Care Unknown, Attending HEALTH [facility].1.13.10 ity of [place] 4.2.7.2.686 Ed as PHUC?BLEA [phone] Ok savanna CALLEJAS [address] MEDICAL OFFICE BUILDING 2023-07-13 2023-07-13 Outpatient R SABAS [facility] [id number] Univers 13:20:00 13:20:00 KARIN itkamryn [facility] 2023-05-02 2023-05-02 Outpatient R OCTAVIO [facility] [id number] Univers 09:15:00 09:36:52 MICAELA y [facility] 2023-05-02 2023-05-02 Office [facility] 1.2.840.114 [id number] Univers 09:15:00 09:30:00 Visit [place] [id number] it y of [place] 4.2.7.2.686 Ed as PHUC?BLEA [phone] Ok savanna YOON 044 [facility] OFFICE [facility] 2023-04-05 2023-04-05 [facility] 1.2.840.114 [id number] Univers 00:00:00 00:00:00 [facility] 350.1.13.10 it y of [place] 4.2.7.2.686 Ed as PHUC?BLEA [id number] Ok savanna YOON[address] MEDICAL OFFICE [facility] 2023-03-20 2023-03-20 [facility] 1.2.840.114 [id number] Univers 00:00:00 00:00:00 [facility] 350.1.13.10 it y of [place] 4.2.7.2.686 Ed as PHUC?BLEA [phone] Ok savanna CALLEJAS [address] MEDICAL OFFICE [facility] 2023-03-14 2023-03-19 [facility] Raymon Larson [facility] [id number] [facility] 13:52:00 19:35:00 Maryse Loomis [facility] 2023-03-14 2023-03-19 Inpatient ER SARAH ELMORE Neuro ICU [id number] [facility] 13:52:00 19:35:00 MARYSE 2023-03-14 2023-03-19 [facility] Raymon Larson [facility] [id number] [facility] 13:52:00 19:35:00 Encounter Maryse Elmore [facility] 2023-03-14 2023-03-14 Travel [facility] [id number] [facility] 00:[facility] 00:00:00 [facility] 2023-03-14 2023-03-14 Orders [facility] [id number] 00:00:00 00:00:00 Only [facility] 2023-03-14 2023-03-14 Travel [facility] [id number] [facility] 00:[facility]:00 00:00:00 [facility] 2023-03-14 2023-03-14 Orders [facility] [id number] 00:00:00 00:00:00 Only [facility] 2023-03-13 2023-03-13 Telephone Sameer [facility] 1.2.840.114 [id number] Univers 00:00:00 00:00:00 Boni TITUS 350.1.13.10 i ty of [place].2.[place] [phone] Ok dical [facility] [address] [facility] 2023-03-06 2023-03-06 Orders Doctor BURDEN 1.2.840.114 [id number] Univers 00:00:00 00:00:00 Only Unassigned, REHANA 350.1.13.10 ity of [place] [facility] 4.2.7.2.686 Ed as [phone] [place] [address] Branch 2023-02-16 2023-02-16 Orders Doctor JENISE 1.2.840.114 [id number] Univers 00:00:00 00:00:00 Only Unassigned, REHANA 350.1.13.10 ity of [place] [facility] 4.2.7.2.686 Ed as [phone] [place] [address] Branch 2023-02-13 2023-02-13 Jose Cunningham [facility] 1.2.840.114 [id number] Univers 00:00:00 00:00:00 [facility] 350.1.13.10 it y of [place] 4.2.7.2.686 Ed as PHUC?BLEA [phone] Ok savanna CALLEJAS 044 [facility] OFFICE [facility] 2023-02-12 2023-02-12 [facility] 1.2.840.114 [id number] Univers 00:00:00 00:00:00 [facility] 350.1.13.10 ity [facility] 4.2.7.2.686 Ed as PHUC?BLEA [phone] Ok savanna CALLEJAS 092 [facility] OFFICE [facility] 2023-01-10 2023-01-10 [facility] 1.2.840.114 [id number] Univers 00:00:00 00:00:00 [facility] 350.1.13.10 it y of [place] 4.2.7.2.686 Ed as PHUC?BLEA [id number] Ok savanna CALLEJAS 044 [facility] OFFICE [facility] 2023-01-04 2023-01-04 Machine Rigger 2, Adc Lab [facility] 1.2.840.114 [id number] Univers 10:30:00 10:45:00 Visit Boni Estrella 350.1.13.10 ity of [place] [facility] 4.2.7.2.[place] [phone] [facility] 353 [facility] 2023-01-04 2023-01-04 Outpatient Sheree ESTRELLA [facility] [id number] Univers 09:30:00 10:32:33 BONI ity [facility] 2023-01-04 2023-01-04 Office [facility] 1.2.858.607 [id number] Univers 09:30:00 10:32:33 Visit Boni TITUS 350.1.13.10 i ty of DORONABRAZO [facility] 4.2.7.2.[place] [phone] Ok dical NAL 134 [facility] 2023-01-04 2023-01-04 Outpatient Sheree ESTRELLA [facility] [id number] Univers 09:30:00 09:30:00 BONI ity of [facility] 2023-01-04 2023-01-04 Orders Doctor JENISE 1.2.840.114 [id number] Univers 00:00:00 00:00:00 Only Unassigned, REHANA 350.1.13.10 ity of [place] [facility] 4.2.7.2.686 Ed as [phone] [address] 2022-12-15 2022-12-15 Telephone [facility] 1.2.840.114 [id number] Univers 00:00:00 00:00:00 [facility] 350.1.13.10 ity of [place] 4.2.7.2.686 Ed as PHUC?BLEA [id number] [address] MEDICAL OFFICE [facility] 2022-12-12 2022-12-12 Telephone [facility] 1.2.840.114 [id number] Univers 00:00:00 00:00:00 [facility] 350.1.13.10 ity of [place] 4.2.7.2.686 Ed as PHUC?BLEA [id number] [address] OFFICE [facility] 2022-12-11 2022-12-11 [facility] 1.2.840.114 [id number] Univers 00:00:00 00:00:00 [facility] 350.1.13.10 it y of [place] 4.2.7.2.686 Ed as PHUC?BLEA [id number] [address] MEDICAL OFFICE [facility] 2022-12-05 2022-12-05 Outpatient R MARS TEJADA [facility] [id number] Univers 13:00:00 13:55:10 MARS TEJADA [facility] 2022-12-05 2022-12-05 Office Mallory [facility] 1.2.840.114 [id number] Univers 13:00:00 13:55:10 Visit [facility] 350.1.13.10 ity of [place] 4.2.7.2.686 Ed as PHUC?BLEA [phone] [address] MEDICAL OFFICE [facility] 2022-12-05 2022-12-05 Orders Doctor JENISE 1.2.840.114 [id number] Univers 00:00:00 00:00:00 Only Unassigned, REHANA 350.1.13.10 ity of [place] [facility] 4.2.7.2.686 Ed as [phone] [address] 2022-11-24 2022-11-24 Telephone Mallory [facility] 1.2.840.114 [id number] Univers 00:00:00 00:00:00 Mars [facility] 350.1.13.10 ity of [place] 4.2.7.2.686 Ed as PHUC?BLEA [id number] Ok savanna CALLEJAS 092 [facility] OFFICE [facility] 2022-11-19 2022-11-20 [facility] [id number] [facility] 02:42:00 15:24:00 Encounter Sandee [facility] 2022-11-19 2022-11-20 [facility] [id number] [facility] 02:42:00 15:24:00 [facility] 2022-11-19 2022-11-20 [facility] [id number] [facility] 02:42:00 15:24:00 [facility] 2022-11-06 2022-11-06 Refill Octavio [facility] 1.2.840.114 [id number] Univers 00:00:00 00:00:00 [facility] 350.1.13.10 it y of [place] 4.2.7.2.686 Ed as PHUC?BLEA [id number] Ok savanna CALLEJAS [address] MEDICAL OFFICE [facility] 2022-10-27 2022-10-27 Outpatient R MARS TEJADA [facility] [id number] Univers 16:20:00 16:53:51 MARS TEJADA ity of [facility] 2022-10-27 2022-10-27 Office Mallory [facility] 1.2.840.114 [id number] Univers 16:20:00 16:53:51 Visit [facility] 350.1.13.10 ity of [place] 4.2.7.2.686 Ed as PHUC?BLEA [id number] Ok savanna [facility] [address] MEDICAL OFFICE [facility] 2022-10-19 2022-10-19 Telephone [facility] 1.2.840.114 [id number] Univers 00:00:00 00:00:00 [facility] 350.1.13.10 it y of [place] 4.2.7.2.686 Ed as PHUC?BLEA [id number] Ok savanna YOON 044 [facility] OFFICE [facility] 2022-10-18 2022-10-18 Telephone [facility] 1.2.840.114 [id number] [facility] 00:00:00 00:00:00 [facility] 350..13.10 ity of [place] 4.2.7.2.686 Ed as PHUC?BLEA [id number] [address] OFFICE [facility] 2022-10-14 2022-10-17 [facility] [id number] 14:16:00 17:30:00 Encounter Felicita [facility] 2022-10-14 2022-10-17 [facility] [id number] 14:16:00 17:30:00 Encounter Felicita Prakash Nejchelsi [facility] 2022-10-14 2022-10-17 Inpatient [facility] Neurology [id number] [facility] 14:16:00 17:30:00 THAO 2022-09-19 2022-09-19 Refill [facility] 1.2.840.114 [id number] Univers 00:00:00 00:00:00 [facility] 350.1.13.10 it y of [place] 4.2.7.2.686 Ed as PHUC?BLEA [phone] Ok dada[address] MEDICAL OFFICE [facility] 2022-07-28 2022-07-28 [facility] 1.2.840.114 [id number] Univers 00:00:00 00:00:00 Wondiful Jason HEALTH 350.1.13.10 ity of [place] 4.2.7.2.686 Ed as PHUC?BLEA [id number] [address] OFFICE [facility] 2022-05-18 2022-05-18 Outpatient SAGLIME_JOH [place] [id number] [place] 10:46:00 10:46:00 N 0714 [facility] 2022-04-24 2022-04-24 Office [facility] 1.2.840.114 [id number] Univers 13:30:00 13:45:00 Visit Lucero GONZALEZ 350.1.13.10 i ty of [place].7.2.686 [place] [id number] [address] 2022-04-24 2022-04-24 Outpatient Sheree NAPOLES [facility] [id number] Univers 13:30:00 13:30:00 [facility] 2022-04-24 2022-04-24 Outpatient Sheree NAPOLES [facility] [id number] Univers 13:30:00 13:30:00 LUCERO [facility] 2022-03-23 2022-03-23 Office Octavio [facility] 1.2.840.114 [id number] Univers 11:00:00 11:30:00 Visit [facility] 350.1.13.10 it y of [place] 4.2.7.2.686 Ed as PHUC?BLEA [id number] [address] OFFICE [facility] 2022-03-23 2022-03-23 Outpatient Sheree [facility] [id number] Univers 11:00:00 11:00:00 MICAELA beasley [facility] 2022-03-23 2022-03-23 Outpatient Sheree [facility] [id number] Univers 11:00:00 11:00:00 MICAELA [facility] 2022-02-28 2022-02-28 Office [facility] 1.2.840.114 [id number] Univers 14:40:00 15:48:53 Visit [facility] 350.1.13.10 ity of [place] 4.2.7.2.686 Ed as PHUC?BLEA [id number] Ok savanna [address] 2022-02-28 2022-02-28 Outpatient MARS MANNING [facility] [id number] Univers 14:40:00 15:48:53 MARS TEJADA [facility] 2022-02-28 2022-02-28 Outpatient MARS MANNING [facility] [id number] Univers 14:40:00 14:40:00 MARS TEJADA [facility] 2022-02-07 2022-02-07 Telephone [facility] 1.2.840.114 [id number] Univers 00:00:00 00:00:00 [facility] 350.1.13.10 ity [facility] 4.2.7.2.686 Ed as PHUC?BLEA [phone] Ok dada[address] 2022-01-04 2022-01-04 Office [facility] 1.2.720.078 [id number] Univers 13:00:00 14:05:16 Visit Boni TITUS 350.1.13.10 i ty of [place] [phone] Ok dadaswathi [address] 2022-01-04 2022-01-04 Outpatient Sheree ESTRELLA [facility] [id number] Univers 13:00:00 14:05:16 [facility]22-[facility]-04 2022-01-04 Outpatient Sheree ESTRELLA [facility] [id number] Univers 13:00:00 13:00:00 [facility] 2021-10-24 2021-10-24 Office [facility] 1.2.840.114 [id number] Univers 13:00:00 13:37:52 Visit Miroslava GONZALEZ 350.1.13.10 i ty of [facility] [place]2.[place] [id number] [facility] [address] 2021-10-24 2021-10-24 Outpatient R KEVIN [facility] [id number] Univers 13:00:00 13:37:52 MIROSLAVA ity of [facility] 2021-10-18 2021-10-18 [facility] [id number] Univers 11:08:45 23:59:00 Encounter Sandip Gandhi TACHO [id number] ity of [facility] [place] [id number] [facility] [address] 2021-10-18 2021-10-18 Outpatient R MARS TEJADA [facility] [id number] Univers 10:30:17 11:07:00 [facility]-10[facility]18 2021-10-18 [facility] [id number] Univers 10:30:00 11:07:00 Encounter Mars Umana TACHO [id number] ity [place] 4.2.7.2.686 [facility] [phone] [facility] [address] 2021-09-22 2021-09-22 [facility], Ang - Db [facility] [id number] Univers 14:58:12 15:13:12 Visit Rodolfo [facility] 350.1.13.1 0 [facility] 4.2.7.2.686 Ed as PHUC?BLEA [phone] [facility] [address] MEDICAL OFFICE BUILDING 2021-09-22 2021-09-22 Office Bernice [facility] 1.2.840.114 [id number] Univers 14:02:46 14:48:25 Visit Marquesdiful [facility] 350.1.13.10 ity of [place] 4.2.7.2.686 Ed as PHUC?BLEA [phone] [facility] [address] MEDICAL OFFICE BUILDING 2021-09-22 2021-09-22 Outpatient R BERNICE [facility] [id number] Univers 14:00:00 14:48:25 WONDIFUL ity o f [facility] 2021-09-22 2021-09-22 Telephone Mallory [facility] 1.2.840.114 [id number] Univers 00:00:00 00:00:00 [facility] 350.1.13.10 ity of [place] 4.2.7.2.686 Ed as PHUC?BLEA [phone] Ok savanna KNBRENNEN 092 [facility] OFFICE [facility] 2021-08-26 2021-08-26 [facility] 1.2.840.114 [id number] Univers 11:18:55 11:44:59 Visit Jenise Tacho 350.1.13.10 i ty of [place] [phone] Ok dical nal 188 [facility] 2021-08-26 2021-08-26 Outpatient Sheree EVANS [facility] [id number] Univers 11:15:00 11:15:00 JENISE beasley of [facility] 2021-08-05 2021-08-05 Office [facility] 1.2.840.114 [id number] Univers 09:41:48 11:12:52 Visit Jenise Tacho 350.1.13.10 i ty of [place] [phone] Ok savanna nal [address] [place] [address] 2021-08-05 2021-08-05 Outpatient Sheree EVANS [facility] [id number] Univers 09:30:00 09:30:00 JENISE beasley of [facility] 2021-08-05 2021-08-05 Orders Doctor JENISE 1.2.840.114 [id number] Univers 00:00:00 00:00:00 Only Unassigned, REHANA 350.1.13.10 ity of [place] [facility] 4.2.7.2.686 Ed as [phone] [address] 2021-07-12 2021-07-12 Office [facility] 1.2.840.114 [id number] Univers 13:36:24 15:02:01 Visit Mars [facility] 350.1.13.10 ity of [place] 4.2.7.2.686 Ed as Phuc?Blea [phone] Ok dicswathi callejas 092 [facility] Office Building 2021-07-12 2021-07-12 Outpatient R MARS TEJADA [facility] [id number] Univers 13:40:00 13:40:00 MARS TEJADA ity [facility] 2021-06-30 2021-06-30 Office [facility] 1.2.840.114 [id number] Univers 12:09:02 12:54:48 Visit Wondiful [facility] 350.1.13.10 ity of [place] 4.2.7.2.686 Ed as Phuc?Blea [phone] Ok dadaga juma 044 [facility] Office Building 2021-06-30 2021-06-30 [facility] [id number] Univers 11:45:00 11:45:00 WONDIFUL ity o f [facility] 2021-06-06 2021-06-06 Machine Rigger Lab, [facility] Fam Pob I [facility] 1.2. 840.114 [id number] Univers 10:33:58 10:53:58 Visit Rodolfo Queen [facility] 350.1.13.1 0 ity of [place] 4.2.7.2.686 Ed as Professio [phone] Ok dada[address] Office Building One 2021-06-06 2021-06-06 Outpatient R BERNICE [facility] [id number] Univers 10:20:00 10:20:00 WONDIFUL ity o f [facility] 2021-06-02 2021-06-02 Office [facility] 1.2.840.114 [id number] Univers 15:39:55 17:24:04 Visit Wondiful [facility] 350.1.13.10 ity of [place] 4.2.7.2.686 Ed as Professio [phone] Ok dada[address] Office Building One 2021-06-02 2021-06-02 Out[facility] [id number] Univers 15:45:00 15:45:00 WONDIFUL ity o f [facility] 2021-05-17 2021-05-17 Office [facility] 1.2.840.114 [id number] Univers 11:13:31 12:02:19 Visit Marquesshaheen [facility] 350.1.13.10 ity of [place] 4.2.7.2.686 Ed as Professio [phone] Ok dical nal [address] Office Building One 2021-05-17 2021-05-17 Out[facility] [id number] Univers 11:15:00 11:15:00 WONDIFUL ity o f [facility] 2021-05-17 2021-05-17 Orders Doctor JENISE 1.2.840.114 [id number] Univers 00:00:00 00:00:00 Only Unassigned, REHANA 350.1.13.10 ity of [place] [facility] 4.2.7.2.686 Ed as [phone] [facility] [address] 2021-04-25 2021-04-25 Office [facility] 1.2.840.114 [id number] Univers 12:54:10 13:09:10 Visit Miroslava GONZALEZ 350.1.13.10 i ty of [facility] 4.2.7.2.[place] [phone] [facility] [address] 2021-04-25 2021-04-25 Out[facility] [id number] Univers 11:30:00 11:30:00 MIROSLAVA ity of [facility] 2021-01-03 2021-01-03 Machine Rigger 2, Adc Lab [facility] 1.2.840.114 [id number] Univers 10:00:53 10:15:53 Visit Boni Estrella 350.1.13.10 ity of [place].2.[place] [phone] Ok dical nal 353 [facility] 2021-01-03 2021-01-03 Office Sameer [facility] 1.2.776.139 [id number] Univers 08:30:48 09:39:14 Visit Boni Titus 350.1.13.10 i ty of [place] 4.2.7.2.[place] [phone] Ok dical nal 134 [facility] 2021-01-03 2021-01-03 Outpatient R SAMEER [facility] [id number] Univers 08:00:00 08:00:00 BONI kamryn [facility] 2020-12-31 2020-12-31 Outpatient [facility] [id number] Univers 09:00:00 09:00:00 BONI [facility] 2020-10-26 2020-10-26 Telephone [facility] 1.2.840.114 [id number] Univers 00:00:00 00:00:00 Wondiful [facility] 350.1.13.10 ity of [place] 4.2.7.2.686 Ed as Professio [phone] [facility] [address] Office [facility] One 2020-10-26 2020-10-26 Orders Doctor JENISE 1.2.840.114 [id number] Univers 00:00:00 00:00:00 Only Unassigned, REHANA 350.1.13.10 ity of [place] [facility] 4.2.7.2.686 Ed as [phone] [facility] [address] 2020-10-25 2020-10-25 Office [facility] 1.2.840.114 [id number] Univers 14:44:52 14:59:52 Visit Miroslava GONZALEZ 350.1.13.10 i ty of [place] 4.2.7.2.[place] [phone] [facility] [address] 2020-10-25 2020-10-25 Outpatient R [facility] [id number] Univers 14:45:00 14:45:00 MIROSLAVAJASON beasley [facility] 2020-10-08 2020-10-08 Ancillary Marilou Franklin [facility] 1.2.840 .114 [id number] Univers 11:06:11 11:46:11 Visit Hesham Max 350.1.13.10 ity of [place].2.[place] [phone] Me dical nal 179 [facility] 2020-10-08 2020-10-08 Outpatient R [facility] [id number] Univers 11:20:00 11:20:00 ity of [facility] 2020-10-08 2020-10-08 Ancillary Snow Lambert [facility] 1.2.8 40.114 [id number] Univers 10:20:06 11:05:06 Visit Hesham Max 350.1.13.10 ity of [place] 4.2.7.2.[place] [phone] Ok dical nal 145 [facility] 2020-10-08 2020-10-08 Outpatient [facility] [id number] Univers 10:15:00 10:15:00 HESHAM ity [facility] 2020-09-24 2020-09-24 Outpatient R [facility] [id number] Univers 10:15:00 10:15:00 ity of [facility] 2020-09-24 2020-09-24 Ancillary Snow Lambert [facility] 1.2.8 40.114 [id number] Univers 09:23:11 10:08:11 Visit Hesham Max 350.1.13.10 ity of [place].2.7.2.[place] [phone] Ok dical nal 145 [facility] 2020-09-24 2020-09-24 Ancillary Narcisa Peraza [facility] 1 .2.840.114 [id number] Univers 08:52:03 09:52:03 Visit Hesham Max 350.1.13.10 ity of [place] 4.2.7.2.[place] [phone] Ok dical nal 179 [facility] 2020-09-24 2020-09-24 Outpatient R [facility] [id number] Univers 08:40:00 08:40:00 ity of [facility] 2020-09-16 2020-09-16 Office [facility] 1.2.840.114 [id number] Univers 14:24:24 15:07:08 Visit [employer] [facility] 350.1.13.10 ity of [place] 4.2.7.2.686 [address]io [phone] [facility] 044 [facility] 2020-09-16 2020-09-16 Outpatient R BERNIEC [facility] [id number] Univers 14:15:00 14:15:00 WONDIFUL ity o f [facility] 2020-01-16 2020-01-16 Telephone [facility] 1.2.840.114 [id number] Univers 00:00:00 00:00:00 Wondiful [facility] 350.1.13.10 ity of [place] 4.2.7.2.686 Ed as Professio [phone] [facility] 044 [facility] 2020-01-09 2020-01-09 Office Larson, [facility] 1.2.410.267 [id number] 9352 [facility] 09:01:26 09:16:26 Visit [address] Jerardo GONZALEZ 350.1.13.10 ity of [facility] 4.2.7.2.686 [place] [phone] [address] 2020-01-09 2020-01-09 Outpatient R MARSHA [facility] [id number] Univers 08:45:00 08:45:00 [facility] ity [facility] 2019-12-26 2020-01-06 Office [facility] 1.2.947.054 [id number] Univers 10:09:19 10:58:29 Visit Boni Titus 350.1.13.10 i ty of [place] 4.2.7.2.[place] [phone] Ok dical nal 134 [facility] 2019-12-26 2019-12-26 Outpatient R SAMEER [facility] [id number] Univers 10:00:00 11:02:01 BONI itkamryn [facility] 2019-12-13 2019-12-13 Machine Rigger Dennis, Adc Lab Main [facility] 1.2.8 40.114 [id number] Univers 09:29:57 09:44:57 Visit Rodolfo Queen 350.1.13. 10 ity of [place].2.[place] [phone] Ok dical nal 353 [facility] 2019-12-13 2019-12-13 Orders Doctor JENISE 1.2.840.114 [id number] Univers 00:00:00 00:00:00 Only Unassigned, REHANA 350.1.13.10 ity of [place] [facility] 4.2.7.2.686 Ed as [phone] [address] 2019-12-12 2019-12-12 Office Bernice [facility] 1.2.840.114 [id number] Univers 11:51:09 12:29:49 Visit Wondiful [facility] 350.1.13.10 ity of [place] 4.2.7.2.686 Ed [address] Professio [phone] [facility] 044 [facility] One 2019-11-25 2019-11-25 Office Bernice [facility] 1.2.840.114 [id number] Univers 10:22:11 11:33:49 Visit Wondiful [facility] 350.1.13.10 ity of [place] 4.2.7.2.686 Ed as Professio [phone] [facility] 044 [facility] One 2019-11-25 2019-11-25 Orders Doctor JENISE 1.2.840.114 [id number] Univers 00:00:00 00:00:00 Only Unassigned, REHANA 350.1.13.10 ity of [place] [facility] 4.2.7.2.686 Ed as [phone] [address] 2018-11-25 2018-11-25 Orders Doctor JENISE 1.2.840.114 [id number] Univers 00:00:00 00:00:00 Only Unassigned, REHANA 350.1.13.10 ity of [place] [facility] 4.2.7.2.686 Ed as [phone] [address] Results Test Description Test Time Test Comments Results Result Comments Source BLOOD CULTURE 2023-03-19 19:01:00 Test Item Value Reference Range Interpretation Comme nts CULTURE (BEAKER) (test code = 1095) No growth in 5 days BLOOD [id number] 19:01:00 Test Item Value Reference Range Interpretation Comments CULTURE (BEAKER) (test No growth in 5 days code = 1095) POC-Glucose [id number] 18:09:19 Test Item Value Reference Range Interpretation Comments POC-Glucose Meter (test 112 mg/dL 70-110 H : TE STED AT [facility] code = 1538) 6720 [facility], 770 30: Apartment Maintenance/Techni rosita ID = [id number] for Kymberly Wang Lab Interpretation (test Abnormal code = 50862-6) [facility] [id number] 18:09:19 Test Item Value Reference Range Interpretation Comments POC-Glucose Meter (test 112 mg/dL 70-110 H : TE STED AT [facility] code = 1538) 6720 [facility], 770 30: Apartment Maintenance/Techni rosita ID = [id number] for Radha Wanga Lab Interpretation (test Abnormal code = 70219-8) [facility] [id number] 18:09:19 Test Item Value Reference Range Interpretation Comments POC-GLUCOSE METER 112 mg/dL 70-110 H : [facility] ([facility]AKER[facility] (test code = [facility], 1538) 16476: Apartment Maintenance/Techni rosita ID = [id number] for An Kymberly meyer POCT-GLUCOSE [id number] 13:52:12 Test Item Value Reference Range Interpretation Comments POC-GLUCOSE METER 143 mg/dL 70-110 H : [facility] (BEAKER) (test code = [facility], 1538) 07778: Apartment Maintenance/Techni rosita ID = [id number] for An Kymberly meyer [id number] 05:55:02 Test Item Value Reference Range Interpretation Comments MAGNESIUM (BEAKER) (test code = 1.8 mg/dL 1.6-2.6 627) Apartment Maintenance ID - NILES [id number] 05:55:02 Test Item Value Reference Range Interpretation Comments PHOSPHORUS (BEAKER) (test code = 3.9 mg/dL 2.3-4.7 604) Apartment Maintenance ID - NILES WCOMPREHENSIVE METABOLIC [id number] 05:55:01 Test Item Value Reference Range Interpretation [...] not appl icable for dialysis patien ts Apartment Maintenance ID - NILES WPOCT-GLUCOSE [id number] 05:19:17 Test Item Value Reference Range Interpretation Comments POC-GLUCOSE METER 105 mg/dL 70-110 : TESTED A T [facility] 6720 (BEAKER) (test code = [place], 1538) 52539: Apartment Maintenance/Techni rosita ID = [id number] for Salvador Frederick CBC W/PLT COUNT & AUTO [id number] 05:09:46 Test Item Value Reference Range Interpretation [...] PERCENT (BEAKER) (test code = 2801) POCT-GLUCOSE [id number] 23:31:36 Test Item Value Reference Range Interpretation Comments POC-GLUCOSE METER 118 mg/dL 70-110 H : TESTED A T [facility] 6720 (BEAKER) (test code = [facility], 153) 80975: Apartment Maintenance/Techni rosita ID = [id number] for REYES DE LA TORRE POCT-GLUCOSE [id number] 18:05:44 Test Item Value Reference Range Interpretation Comments POC-GLUCOSE METER 116 mg/dL 70-110 H : TESTED A T [facility] 6720 (BEAKER) (test code = [facility], 153) 23802: Apartment Maintenance/Techni rosita ID = [id number] for An derson, Kymberly POCT-GLUCOSE [id number] 11:39:36 Test Item Value Reference Range Interpretation Comments POC-GLUCOSE METER 153 mg/dL 70-110 H : TESTED A T [facility] 6720 (BEAKER) (test code = [facility], 153) 59128: Apartment Maintenance/Techni rosita ID = [id number] for An derson, Kymberly POCT-GLUCOSE [id number] 06:05:31 Test Item Value Reference Range Interpretation Comments POC-GLUCOSE METER 89 mg/dL 70-110 : TESTED A T [facility] 6720 (BEAKER) (test code = [facility], 153) 41409: Apartment Maintenance/Techni rosita ID = [id number] for REYES [place] COMPREHENSIVE METABOLIC [id number] 02:16:43 Test Item Value Reference Range Interpretation [...] not appl icable for dialysis patien ts Apartment Maintenance ID - NILES [id number] 02:16:43 Test Item Value Reference Range Interpretation Comments MAGNESIUM (BEAKER) (test code = 2.0 mg/dL 1.6-2.6 627) Apartment Maintenance ID Shemar CAGE [id number] 02:16:43 Test Item Value Reference Range Interpretation Comments PHOSPHORUS (BEAKER) (test code = 3.1 mg/dL 2.3-4.7 604) Apartment Maintenance ID Shemar NILES OCT-GLUCOSE [id number] 01:58:52 Test Item Value Reference Range Interpretation Comments POC-GLUCOSE METER 87 mg/dL 70-110 : TESTED A T [facility] 6720 (BEAKER) (test code = [place], 1538) 80857: Apartment Maintenance/Techni rosita ID = [id number] for REYES [place] CBC W/PLT COUNT & AUTO [id number] 01:53:22 Test Item Value Reference Range Interpretation [...] PERCENT (BEAKER) (test code = 2801) POCT-GLUCOSE [id number] 17:53:44 Test Item Value Reference Range Interpretation Comments POC-GLUCOSE METER 91 mg/dL 70-110 : TESTED A T [facility] 6720 (BEAKER) (test code = [facility], 1538) 21640: Apartment Maintenance/Techni rosita ID = [id number] for Mary Lou Prasad POCT-GLUCOSE [id number] 13:19:13 Test Item Value Reference Range Interpretation Comments POC-GLUCOSE METER 117 mg/dL 70-110 H : TESTED A T [facility] 6720 (AKER) (test code = [facility], 1538) 49189: Apartment Maintenance/Techni rosita ID = [id number] for Brina Fry SPUTUM CULTURE + GRAM [id number] 11:33:50 Test Item Value Reference Interpretation Comments [...] gram negative (BEAKER) (test code = rods 024329) GRAM STAIN RESULT 4+ gram positive (BEAKER) (test code = cocci in chains 532679) and pairs GRAM STAIN RESULT 1+ gram positive (BEAKER) (test code = cocci in clusters 758826) GRAM STAIN RESULT <1+ yeast with (BEAKER) (test code = pseudohyphae 837873) 4+ Normal respiratory almas presentPOCT-GLUCOSE [id number] 06:48:14 Test Item Value Reference Range Interpretation Comments POC-GLUCOSE METER 130 mg/dL 70-110 H : TESTED A T [facility] 6720 (BEAKER) (test code = [facility], 1538) 57896: Apartment Maintenance/Techni rosita ID = [id number] for ON DIMAS, NWADIUTO POCT-GLUCOSE [id number] 06:29:52 Test Item Value Reference Range Interpretation Comments POC-GLUCOSE METER 72 mg/dL 70-110 : TESTED A T [facility] 6720 (BEAKER) (test code = [facility], 1538) 20654: Apartment Maintenance/Techni rosita ID = [id number] for ONREID CONCEPCIONU, NWADIUTO [id number] 04:07:45 Test Item Value Reference Range Interpretation Comments PROCALCITONIN (BEAKER) (test code = < ng/mL <0.05 3036) SEPSIS RISK (ng/mL)Low: 0.05-0.50Intermediate: 0.51-2.00High: >=2.01MAGNESIUM 2023-03-17 04:00:20 Test Item Value Reference Range Interpretation Comments MAGNESIUM (BEAKER) (test code = 1.7 mg/dL 1.6-2.6 627) Apartment Maintenance ID - [id number] 04:00:20 Test Item Value Reference Range Interpretation Comments PHOSPHORUS (BEAKER) (test code = 3.1 mg/dL 2.3-4.7 604) Apartment Maintenance ID - MMCOMPREHENSIVE METABOLIC [id number] 04:00:19 Test Item Value Reference Range Interpretation [...] not appl icable for dialysis patien ts Apartment Maintenance ID - MMCBC W/PLT COUNT & AUTO [id number] 03:29:27 Test Item Value Reference Range Interpretation [...] PERCENT (BEAKER) (test code = 2801) POCT-GLUCOSE [id number] 02:22:13 Test Item Value Reference Range Interpretation Comments POC-GLUCOSE METER 140 mg/dL 70-110 H : TESTED A T [facility] 6720 (BEAKER) (test code = [facility], [facility]8) 17500: Apartment Maintenance/Techni rosita ID = [id number] for ON MARIIALU, NWADIUTO POCT-GLUCOSE [id number] 02:01:04 Test Item Value Reference Range Interpretation Comments POC-GLUCOSE METER 67 mg/dL 70-110 L : TESTED A T [facility] 6720 (BEAKER) (test code = [facility], [facility]8) 04051: Apartment Maintenance/Techni rosita ID = [id number] for ONREID KWELU, NWADIUTO POCT-GLUCOSE [id number] 23:45:29 Test Item Value Reference Range Interpretation Comments POC-GLUCOSE METER 76 mg/dL 70-110 : TESTED A T [facility] 6720 (BEAKER) (test code = [facility], 1538) 95647: Apartment Maintenance/Techni rosita ID = [id number] for ONYE KWELU, NWADIUTO POCT-GLUCOSE [id number] 18:01:23 Test Item Value Reference Range Interpretation Comments POC-GLUCOSE METER 77 mg/dL 70-110 : TESTED A T [facility] 6720 (BEAKER) (test code = [facility], 1538) 37396: Apartment Maintenance/Techni rosita ID = [id number] for Ольга barnes Massiel POCT-GLUCOSE [id number] 13:08:41 Test Item Value Reference Range Interpretation Comments POC-GLUCOSE METER 93 mg/dL 70-110 : TESTED A T [facility] 6720 (BEAKER) (test code = [facility], 1538) 04842: Apartment Maintenance/Techni rosita ID = [id number] for Massiel Carpenter RAD, CHEST, 1 VIEW, NON [id number] 08:56:00Reason for exam:- >intubatedShould this be performed at the bedside?->Yes [facility] TAZ LUNA : 1990 Sex: FFINAL REPORT [...] focal consolidation. Signed: Avery Dunn Verified Date/Time: 03/16/2023 08:56:21 Reading Location: [address] Reading Room POCT-GLUCOSE [id number] 07:02:53 Test Item Value Reference Range Interpretation Comments POC-GLUCOSE METER 94 mg/dL 70-110 : TESTED A T [facility] 6720 (BEAKER) (test code = ALEXANDER Bentley [facility], 153) 72156: Apartment Maintenance/Techni rosita ID = [id number] for Jose D Sewell [id number] 05:19:10 Test Item Value Reference Range Interpretation Comments PROCALCITONIN (BEAKER) (test code 0.12 ng/mL <0.05 H = 3036) SEPSIS RISK (ng/mL)Low: 0.05-0.50Intermediate: 0.51-2.00High: >=2.01 COMPREHENSIVE METABOLIC [id number] 05:15:15 Test Item Value Reference Range Interpretation [...] not appl icable for dialysis patien ts Apartment Maintenance ID - [id number] 05:13:42 Test Item Value Reference Range Interpretation Comments MAGNESIUM (BEAKER) (test code = 1.7 mg/dL 1.6-2.6 627) Apartment Maintenance ID - [id number] 05:13:42 Test Item Value Reference Range Interpretation Comments PHOSPHORUS (BEAKER) (test code = 2.5 mg/dL 2.3-4.7 604) Apartment Maintenance ID - ADMINBlood gas, [id number] 04:47:44 Test Item Value Reference Range Interpretation [...] 30.0 Lab Interpretation Abnormal (test code = 12500-0) [facility], [id number] 04:47:44 Test Item Value Reference Range Interpretation [...] 30.0 Lab Interpretation Abnormal (test code = 92219-8) [facility], [id number] 04:47:44 Test Item Value Reference Range Interpretation [...] 1819) 30.0 CBC W/PLT COUNT & AUTO [id number] 04:41:05 Test Item Value Reference Range Interpretation [...] PERCENT (BEAKER) (test code = 2801) POCT-GLUCOSE [id number] 00:59:22 Test Item Value Reference Range Interpretation Comments POC-GLUCOSE METER 102 mg/dL 70-110 : TESTED A Antonia [facility] 6720 (BEAKER) (test code = ALEXANDER BARTH, 1538) 59918: Apartment Maintenance/Techni rosita ID = [id number] for Jose D Ponce POCT-GLUCOSE [id number] 18:10:01 Test Item Value Reference Range Interpretation Comments POC-GLUCOSE METER 98 mg/dL 70-110 : [facility] (test code = ALEXANDER Bentley [facility], 1538) 14034: Apartment Maintenance/Techni rosita ID = [id number] for Massiel Carpenter POCT-GLUCOSE [id number] 11:16:28 Test Item Value Reference Range Interpretation Comments POC-GLUCOSE METER 108 mg/dL 70-110 : [facility] ([facility] (test code = ALEXANDER Bentley [facility], 1538) [address]: Apartment Maintenance/Techni rosita ID = [id number] for Massiel Partida RAD, CHEST, 1 VIEW, NON [id number] 09:23:00Reason for exam:- >intubatedShould this be performed at the bedside?->[facility] 1990 Sex: FFINAL REPORT [...] Dunn Verified Date/Time: 03/15/2023 09:23:56 Reading Location: [address] Reading Room [id number] 04:45:13 Test Item Value Reference Range Interpretation Comments MAGNESIUM (BEAKER) 1.9 mg/dL 1.6-2.6 Specimen slightly (test code = 627) hemolyzed Apartment Maintenance ID - [id number] 04:45:13 Test Item Value Reference Range Interpretation Comments PHOSPHORUS (BEAKER) 2.8 mg/dL 2.3-4.7 Specimen slightly (test code = 604) hemolyzed Apartment Maintenance ID - ADMINCOMPREHENSIVE METABOLIC [id number] 04:45:13 Test Item Value Reference Range Interpretation [...] not appl icable for dialysis patien ts Apartment Maintenance ID - [id number] 04:39:23 Test Item Value Reference Range Interpretation Comments PROCALCITONIN (BEAKER) (test code 0.13 ng/mL <0.05 H = 3036) SEPSIS RISK (ng/mL)Low: 0.05-0.50Intermediate: 0.51-2.00High: >=2.01BLOOD GAS, [id number] 04:29:39 Test Item Value Reference Range Interpretation [...] 1819) 30.0 CBC W/PLT COUNT & AUTO [id number] 04:26:21 Test Item Value Reference Range Interpretation [...] code = 2801) RAD, ABDOMEN/KUB, 1 VIEW [id number] 19:32:00Reason for exam:->[facility] : 1990 Sex: FFINAL REPORT [...] Micaela Salvador MDReport Verified Date/Time: 03/14/2023 19:32:47 [id number] 19:26:23 Test Item Value Reference Range Interpretation Comments PROCALCITONIN (BEAKER) (test code = < ng/mL <0.05 3036) SEPSIS RISK (ng/mL)Low: 0.05-0.50Intermediate: 0.51-2.00High: >=2.01POCT- GLUCOSE [id number] 18:51:12 Test Item Value Reference Range Interpretation Comments POC-GLUCOSE METER 145 mg/dL 70-110 H : TESTED A T [facility] 6720 (BEAKER) (test code = [place], 1538) [address]: Apartment Maintenance/Techni rosita ID = [id number] for Katherine Skaggs PHENYTOIN LEVEL, [id number] 18:31:08 Test Item Value Reference Range Interpretation Comments PHENYTOIN (DILANTIN) (BEAKER) 15.9 ug/mL 10.0-20.0 (test code = 605) Apartment Maintenance ID - JS(CELLAVISION MANUAL DIFF)2023-03-14 18:07:28 Test [...] CONCENTRATION Adequate (CELLAVISION)(BEAKER) (test code = 3438) Apartment Maintenance ID - Tati Rico comments: Slide comments:CBC W/PLT COUNT & AUTO [id number] 18:07:27 Test Item Value Reference Range Interpretation [...] = 413) Urinalysis w/Microscopic + Reflex to [id number] 17:22:23 Test Item Value Reference Range Interpretation Comments Color, UA (test code Yellow = 5778-6) Clarity, UA (test Cloudy code = 5767-9) Specific Verbena, UA 1.021 1.001-1.035 (test code = 5811-5) pH, UA (test code = 6.5 5.0-8.0 5803-2) Protein, UA (test 30 mg/dL Negative A code = 49838-7) Glucose, UA (test Negative Negative code = 365) Ketones, UA (test 40 mg/dL Negative A code = 2514-8) Bilirubin, UA (test Negative Negative code = 06253-1) Blood, UA (test code Moderate Negative A = 18298-5) Nitrite, UA (test Negative Negative code = 5802-4) Leukocytes, UA (test Negative Negative code = 5799-2) Urobilinogen, UA 0.2 0.2-1.0 (test code = 01374-0) RBC, UA (test code = 27 See_Comment [Autom ated 97191-0) message] The system which generated this result [...] 3 See_Comment [Automate d (test code = 84942-5) messag e] The system which generated this result transmit keron reference range : /HPF. The reference range was not used to interpret this result as normal/abnormal . Specimen Source (test code = 2795) GABRIEL (test code = GABRIEL) Apartment Maintenance ID - [auto]Apartment Maintenance ID - tech Lab Interpretation Abnormal (test code = 38825-9) [facility] + Reflex to Culture 2023-03-14 17:22:23 Test Item Value Reference Range Interpretation Comments Color, UA (test code Yellow = 5778-6) Clarity, UA (test Cloudy code = 5767-9) Specific Verbena, UA 1.021 1.001-1.035 (test code = 5811-5) pH, UA (test code = 6.5 5.0-8.0 5803-2) Protein, UA (test 30 mg/dL Negative A code = 73986-4) Glucose, UA (test Negative Negative code = 365) Ketones, UA (test 40 mg/dL Negative A code = 2514-8) Bilirubin, UA (test Negative Negative code = 96819-2) Blood, UA (test code Moderate Negative A = 30430-5) Nitrite, UA (test Negative Negative code = 5802-4) Leukocytes, UA (test Negative Negative code = 5799-2) Urobilinogen, UA 0.2 0.2-1.0 (test code = 15197-5) RBC, UA (test code = 27 See_Comment [Autom ated 52231-8) message] The system which generated this result [...] 3 See_Comment [Automate d (test code = 78200-5) messag e] The system which generated this result transmit keron reference range : /HPF. The reference range was not used to interpret this result as normal/abnormal . Specimen Source (test code = 2795) GABRIEL (test code = GABRIEL) Apartment Maintenance ID - [auto]Apartment Maintenance ID - tech Lab Interpretation Abnormal (test code = 54864-0) [facility]/ REFLEX URINE [id number] 17:22:23 Test Item Value Reference Range Interpretation [...] = 516) SOURCE(BEAKER) (test code = 2795) Apartment Maintenance ID - [auto]Apartment Maintenance ID - techHIGH SENSITIVITY TROPONIN [id number] 16:18:41 Test Item Value Reference Range Interpretation Comments HIGH SENSITIVITY TROPONIN I (test 8 pg/ml <=17 code = 6526224) Apartment Maintenance ID - ADMINThe DEPARTMENT SECRETARY STAT High Sensitivity Troponin-I results should be used in conjunction with other diagnostic information such as ECG, clinical observations and information, and patientsymptoms to aid in the diagnosis of [place]. COMPREHENSIVE METABOLIC [id number] 16:12:33 Test Item Value Reference Range Interpretation [...] (test code = 347) EGFR (BEAKER) 115 Interpretati on of eGFR (test code = 1092) mL/min/1.[address] age Description sq m Result G1 Kaylene l or high >=90 G2 Mildly decreased 60-89 G3a Mildl y to moderately 45-5 9 G3b Moderately to s everely 30-44 G4 Severl y decreased 15-29 G5 Kidney failure <15Reported eGF R is based on the CKD-EPI 202 equation that d oes not use a race coefficientEsti mated GFR is not as accur ate as Creatinine Violeta sofy in predicting glom erular filtration rate . Estimated GFR is not appl icable for dialysis patien ts Apartment Maintenance ID - [id number] 16:07:10 Test Item Value Reference Range Interpretation Comments PARTIAL THROMBOPLASTIN TIME 26.5 seconds 22.5-36.0 (BEAKER) (test code = 760) PROTHROMBIN TIME/[id number] 16:06:30 Test Item Value Reference Range Interpretation Comments PROTIME (BEAKER) (test code = 14.3 seconds 11.9-14.2 H 759) INR (BEAKER) (test code = 370) 1.13 <=5.90 RECOMMENDED COUMADIN/WARFARIN INR THERAPY RANGESSTANDARD DOSE: 2.0 - 3.0 Includes: PROPHYLAXIS for venous thrombosis, systemic embolization; TREATMENT for venous thrombosis and/or pulmonary embolus.HIGH RISK: Target INR is 2.5-3.5 for patients with mechanical heart valves.LACTIC ACID, [id number] 16:03:42 Test Item Value Reference Range Interpretation Comments LACTATE BLOOD VENOUS (2) (BEAKER) 1.04 mmol/L 0.50-2.00 (test code = 2872) Apartment Maintenance ID - ADMINRAD, CHEST, 1 VIEW, NON [id number] 15:56:00Reason for exam:->IntubatedShould this be performed at the bedside?->Yes [facility] : 1990 Sex: FFINAL REPORT RAD, CHEST, 1 VIEW, NON DEPT INDICATION: Intubated COMPARISON: 11/19/2022 FINDINGS: Portable frontal view of the chest. IMPRESSION: Support Lines: The endotracheal tube terminates 0.7 cm cephalad to the howard projecting towards the right mainstem. Consider retraction approximately 2 cm for more optimal positioning. Enteric tube descends into the stomach beyond jrbyj-cg-xhzh.Lungs and pleura: No consolidation or effusion. No pneumothorax. Heart and mediastinum: Stable contours. Additional findings: None. Signed: Micaela Salvador MDReport Verified Date/Time: 03/14/2023 15:56:50 BLOOD GAS, [id number] 15:46:16 Test Item Value Reference Range Interpretation [...] (BEAKER) (test code = 1819) 30.0 POC-Glucose [id number] 16:50:01 Test Item Value Reference Range Interpretation Comments POC-Glucose Meter (test 101 mg/dL 70-110 : TE STED AT [facility] code = 1538) [address] [facility], 770 30: Apartment Maintenance/Techni rosita ID = [id number] for Andre Isabel Lab Interpretation (test Normal code = 21369-6) [facility] [id number] 16:50:01 Test Item Value Reference Range Interpretation Comments POC-GLUCOSE METER 101 mg/dL 70-110 : TESTED A T [facility] 6720 (BEAKER) (test code = BERTEVELIO R [facility], 1538) [address]: Apartment Maintenance/Techni rosita ID = [id number] for Lo pedelbert, Isabel Screen, [id number] 14:40:42 Test Item Value Reference Range Interpretation Comments Preg Test, Ur (test code = 2112-1) Negative Negative Lab Interpretation (test code = Normal 32778-6) [facility] CenterPregnancy Screen, [id number] 14:40:42 Test Item Value Reference Range Interpretation Comments Preg Test, Ur (test code = 2112-1) Negative Negative Lab Interpretation (test code = Normal 17351-2) [facility] CenterPregnancy Screen, [id number] 14:40:42 Test Item Value Reference Range Interpretation Comments Preg Test, Ur (test code = 2112-1) Negative Negative Lab Interpretation (test code = Normal 98630-2) [facility] CenterPREGNANCY SCREEN, [id number] 14:40:42 Test Item Value Reference Range Interpretation Comments TEST URINE (BEAKER) (test Negative Negative code = 583) SARS-CoV2/RT-PCR (Asymptomatic ONLY)2022-11-19 14:36:36 Test Item Value Reference Interpretation Comments Range SARS-COV2/RT-PCR Negative Negative The SARS-Co V-2 (test code = target nucleic 68124-2) acids are not detected in thi s [...] revoked sooner. Fact Sheet for Healthcare Providers: https://www.[employer]/Documents/Xp ert%20Xpress%20SAR S%20CoV-2/Fact%20S heets/302-3802%20S ARS-COV-2%20HEALTH CARE%20PROVIDERS%2 0FACT%20SHEET.pdf Fact Sheet for Healthcare Patients: https://www.[employer]/Documents/Xp ert%20Xpress%20SAR S%20CoV-2/Fact%20S heets/302-3801%20S ARS-COV-2%20PATIEN T%20FACT%20SHEET.p df Lab Interpretation Normal (test code = 85291-9) [facility]ymptomatic ONLY[facility]2022-11-19 14:36:36 Test Item Value Reference Interpretation Comments Range SARS-COV2/RT-PCR Negative Negative The SARS-Co V-2 (test code = target nucleic 34455-1) acids are not detected in thi s [...] revoked sooner. Fact Sheet for Healthcare Providers: https://www.[employer]/Documents/Xp ert%20Xpress%20SAR S%20CoV-2/Fact%20S heets/302-3802%20S ARS-COV-2%20HEALTH CARE%20PROVIDERS%2 0FACT%20SHEET.pdf Fact Sheet for Healthcare Patients: https://www.[employer]/Documents/Xp ert%20Xpress%20SAR S%20CoV-2/Fact%20S heets/302-3801%20S ARS-COV-2%20PATIEN T%20FACT%20SHEET.p df Lab Interpretation Normal (test code = 35503-2) [facility] (Asymptomatic ONLY)2022-11-19 14:36:36 Test Item Value Reference Interpretation Comments Range SARS-COV2/RT-PCR Negative Negative The SARS-Co V-2 (test code = target nucleic 51447-8) acids are not detected in thi s [...] revoked sooner. Fact Sheet for Healthcare Providers: https://www.[employer]/Documents/Xp ert%20Xpress%20SAR S%20CoV-2/Fact%20S heets/302-3802%20S ARS-COV-2%20HEALTH CARE%20PROVIDERS%2 0FACT%20SHEET.pdf Fact Sheet for Healthcare Patients: https://www.[employer]/Documents/Xp ert%20Xpress%20SAR S%20CoV-2/Fact%20S heets/302-3801%20S ARS-COV-2%20PATIEN T%20FACT%20SHEET.p df Lab Interpretation Normal (test code = 74803-5) [facility] ([facility])2022-11-19 14:36:36 Test Item Value Reference Range Interpretation Comments SARS-COV2/RT-PCR Negative Negative The SARS-Co V-2 target (test code = nucleic acids a re not 8319503) detected in thi s specimen. Negative result [...] revoked sooner. Fact Sheet for Healthcare Providers: https://www.[employer]/Documents/Xpert%20Xpress%20SARS%20CoV-2/Fact%20Sheets/3023802%56ZLSY-GCN-4%20 HEALTHCARE%20PROVIDERS%20FACT%20SHEET.pdf Fact Sheet for Healthcare Patients: https://www.[employer]/Documents/Xpert%20Xp ress%20SARS%20CoV-2/Fact%20Sheets/302-3801%50OAOD-CWV-2%20PATIENT%20FACT%20SHEET .pdfPOCT-GLUCOSE [id number] 12:10:04 Test Item Value Reference Range Interpretation Comments POC-GLUCOSE METER 107 mg/dL 70-110 : TESTED A T [facility] 6720 (JIMMY) (test code = ALEX[place]ER Bentley [facility], 1538) [address]: Apartment Maintenance/Techni rosita ID = [id number] for Isabel Gr Rapid drug screen, [id number] 09:26:21 Test Item Value Reference Range Interpretation Comments Barbiturate Screen Negative Negative (test code = 78989-8) Benzodiazepine Screen Negative Negative (test code = 77846-0) Cocaine (Metab.) Negative Negative Screen (test code = 3397-7) Methadone Screen (test Negative Negative code = 14044-4) Opiate Screen (test Negative Negative code = 11902-6) Cannabinoid Screen Positive Negative A (test code = 07960-4) Amph/Methamph Screen Negative Negative (test code = 28839-7) Phencyclidine Screen Negative Negative (test code = 25848-5) pH, UA (test code = 6.5 5.0-8.0 5803-2) GABRIEL (test code = GABRIEL) DRUG CUTOFF CONC.Cocaine 300 ng/mL Cannabinoid 50 ng/mLBenzodiazepine 200 ng/mLBarbiturate 200 ng/mLPhencyclidine 25 ng/mLOpiate 300 ng/mLMethadone 300 ng/mLAmphetamine/ 1000 ng/mL Methamphetamine This assay provides an unconfirmed qualitative test result for the clinical management of patients in emergency situations. Chain of custody not maintained. Some souc-mvo-woevgut medications, as well as adulterants, may cause inaccurate results. Clinical correlation should be applied. A more comprehensive drug screen or confirmation of a detected drug may be performed upon request.Apartment Maintenance MARILYN Clark ID - tech Lab Interpretation Abnormal (test code = 54375-9) [facility] CenterRapid drug screen, [id number] 09:26:21 Test Item Value Reference Range Interpretation Comments Barbiturate Screen Negative Negative (test code = 82018-6) Benzodiazepine Screen Negative Negative (test code = 46383-2) Cocaine (Metab.) Negative Negative Screen (test code = 3397-7) Methadone Screen (test Negative Negative code = 55337-8) Opiate Screen (test Negative Negative code = 60087-6) Cannabinoid Screen Positive Negative A (test code = 57690-7) Amph/Methamph Screen Negative Negative (test code = 63963-8) Phencyclidine Screen Negative Negative (test code = 85491-2) pH, UA (test code = 6.5 5.0-8.0 5803-2) GABRIEL (test code = GABRIEL) DRUG CUTOFF CONC.Cocaine 300 ng/mL Cannabinoid 50 ng/mLBenzodiazepine 200 ng/mLBarbiturate 200 ng/mLPhencyclidine 25 ng/mLOpiate 300 ng/mLMethadone 300 ng/mLAmphetamine/ 1000 ng/mL Methamphetamine This assay provides an unconfirmed qualitative test result for the clinical management of patients in emergency situations. Chain of custody not maintained. Some vzsx-sot-xjomagk medications, as well as adulterants, may cause inaccurate results. Clinical correlation should be applied. A more comprehensive drug screen or confirmation of a detected drug may be performed upon request.Apartment Maintenance MARILYN Clark ID - tech Lab Interpretation Abnormal (test code = 93136-5) [facility] CenterRapid [facility] screen, [id number] 09:26:21 Test Item Value Reference Range Interpretation Comments Barbiturate Screen Negative Negative (test code = 76220-1) Benzodiazepine Screen Negative Negative (test code = 21640-3) Cocaine (Metab.) Negative Negative Screen (test code = 3397-7) Methadone Screen (test Negative Negative code = 58266-6) Opiate Screen (test Negative Negative code = 19689-9) Cannabinoid Screen Positive Negative A (test code = 34301-3) Amph/Methamph Screen Negative Negative (test code = 42671-5) Phencyclidine Screen Negative Negative (test code = 17113-8) pH, UA (test code = 6.5 5.0-8.0 5803-2) GABRIEL (test code = GABRIEL) DRUG CUTOFF CONC.Cocaine 300 ng/mL Cannabinoid 50 ng/mLBenzodiazepine 200 ng/mLBarbiturate 200 ng/mLPhencyclidine 25 ng/mLOpiate 300 ng/mLMethadone 300 ng/mLAmphetamine/ 1000 ng/mL Methamphetamine This assay provides an unconfirmed qualitative test result for the clinical management of patients in emergency situations. Chain of custody not maintained. Some qcck-oip-axpfawe medications, as well as adulterants, may cause inaccurate results. Clinical correlation should be applied. A more comprehensive drug screen or confirmation of a detected drug may be performed upon request.Apartment Maintenance MARILYN Clark ID - tech Lab Interpretation Abnormal (test code = 70929-4) [facility] CenterRAPID DRUG SCREEN, [id number] 09:26:21 Test Item Value Reference Range Interpretation [...] situations. Chain of custody not maintained. Some pwes-wqw-zxxiiqa medications, as well as adulterants, may cause inaccurate results. Clinical correlation should be applied. A more comprehensive drug screen or confirmation of a detected drug may be performed upon request.Apartment Maintenance ID - CLAUDETTEANNIKA Amber ID - techRAD, CHEST, 1 VIEW, NON [id number] 09:22:00Reason for exam:->cough, concern for aspirationShould this be performed at the bedside?->Yes [facility] Oksana : 1990 Sex: FFINAL REPORT AP view of the chest dated 11/19/2022 CLINICAL INFORMATION: cough, concern for aspiration Comment: Heart is normal in size. Pulmonary vasculature is unremarkable. Lungs are clear. No pulmonary infiltrate or pleural effusion is present. Impression: No active cardiopulmonary disease. Signed: Micaela Barton Verified Date/Time: 11/19/2022 09:22:00 Reading Location: [facility] B1 C013Y CT Body Reading Room CREATINE KINASE (CK)2022-11-19 08:43:21 Test Item Value Reference Range Interpretation Comments CREATINE KINASE TOTAL (BEAKER) (test 406 U/L 29-200 H code = 380) Apartment Maintenance ID - PIAYA LLACTIC ACID, [id number] 08:39:17 Test Item Value Reference Range Interpretation Comments LACTATE BLOOD VENOUS 1.31 mmol/L 0.50-2.20 Specime n slightly (2) (BEAKER) (test hemolyzed code = 0912) Apartment Maintenance ID - PIAYA LTSH/FREE T4 IF [id number] 04:57:19 Test Item Value Reference Range Interpretation Comments THYROID STIMULATING HORMONE 0.891 uIU/mL 0.350-4.940 (BEAKER) (test code = 772) Apartment Maintenance ID - PIAYA LCOMPREHENSIVE METABOLIC [id number] 04:35:14 Test Item Value Reference Range Interpretation [...] not as accur ate as Creatinine Violeta gotez in predicting glom erular filtration rate . Estimated GFR is not appl icable for dialysis patien ts Apartment Maintenance ID - PIAYA LLIPID [id number] 04:35:14 Test Item Value Reference Range Interpretation [...] Borderline 130-159 High 160-189 Very High >=190 Apartment Maintenance ID - PIAYA LBASIC METABOLIC [id number] 04:39:21 Test Item Value Reference Range Interpretation [...] glom erular filtration rate . Estimated GFR i s not applicable for dialysis patients Apartment Maintenance ID - [id number] 04:39:21 Test Item Value Reference Range Interpretation Comments MAGNESIUM (BEAKER) (test code = 1.8 mg/dL 1.6-2.6 627) Apartment Maintenance ID - [id number] 04:39:21 Test Item Value Reference Range Interpretation Comments PHOSPHORUS (BEAKER) (test code = 3.4 mg/dL 2.3-4.7 604) Apartment Maintenance ID - MARCOCBC W/PLT COUNT & AUTO [id number] 04:00:45 Test Item Value Reference Range Interpretation [...] 0.00-1.00 PERCENT (BEAKER) (test code = 2801) [id number] 18:26:18 Test Item Value Reference Range Interpretation Comments PHOSPHORUS (BEAKER) 2.2 mg/dL 2.3-4.7 L Specimen slightly (test code = 604) hemolyzed Apartment Maintenance ID - PIAYA [id number] 18:26:18 Test Item Value Reference Range Interpretation Comments POTASSIUM (BEAKER) 4.0 meq/L 3.5-5.1 Specimen slightly (test code = 379) hemolyzed Apartment Maintenance ID - PIAYA [id number] 18:26:17 Test Item Value Reference Range Interpretation Comments MAGNESIUM (BEAKER) 2.1 mg/dL 1.6-2.6 Specimen slightly (test code = 627) hemolyzed Apartment Maintenance ID - MARIA DEL ROSARIO LPOC-Glucose [id number] 17:59:36 Test Item Value Reference Range Interpretation Comments POC-Glucose Meter (test 108 mg/dL 70-110 : TE STED AT [facility] code = 1538) [address] [facility], [address]70 30: Apartment Maintenance/Techni rosita ID = [id number] for DANIELLA PATEL Lab Interpretation (test Normal code = 07923-7) [facility] CenterPO[facility]GLU[facility] [id number] 17:59:36 Test Item Value Reference Range Interpretation Comments POC-GLUCOSE METER 108 mg/dL 70-110 : TESTED A T [facility] 6720 (BEAKER) (test code = [facility], 1538) [address]: Apartment Maintenance/Techni rosita ID = [id number] for DANIELLA CHEN POCT-GLUCOSE [id number] 16:16:05 Test Item Value Reference Range Interpretation Comments POC-GLUCOSE METER 92 mg/dL 70-110 : [facility] (test code = [facility], 1538) [address]: Apartment Maintenance/Techni rosita ID = [id number] for DANIELLA SANTIAGO POCT-GLUCOSE [id number] 06:01:33 Test Item Value Reference Range Interpretation Comments POC-GLUCOSE METER 100 mg/dL 70-110 : TESTED A T [facility] 6720 (BEAKER) (test code = [facility], 1538) [address]: Apartment Maintenance/Techni rosita ID = [id number] for GIL DE LA TORRE [id number] 05:57:41 Test Item Value Reference Range Interpretation Comments PHOSPHORUS (BEAKER) (test code = 1.5 mg/dL 2.3-4.7 LL 604) Apartment Maintenance ID - MARIA DEL ROSARIO LCOMPREHENSIVE METABOLIC [id number] 05:33:19 Test Item Value Reference Range Interpretation [...] not appl icable for dialysis patien ts Apartment Maintenance ID - MARIA DEL ROSARIO [id number] 05:33:19 Test Item Value Reference Range Interpretation Comments MAGNESIUM (BEAKER) (test code = 1.9 mg/dL 1.6-2.6 627) Apartment Maintenance ID - MARIA DEL ROSARIO LCBC W/PLT COUNT & AUTO [id number] 05:31:00 Test Item Value Reference Range Interpretation [...] PERCENT (BEAKER) (test code = 2801) POCT-GLUCOSE [id number] 15:36:17 Test Item Value Reference Range Interpretation Comments POC-GLUCOSE METER 110 mg/dL 70-110 : TESTED A T [facility] 6720 (BEAKER) (test code = [place], 1538) [address]: Apartment Maintenance/Techni rosita ID = [id number] for An Lula sumner [id number] 12:44:12 Test Item Value Reference Range Interpretation Comments PROCALCITONIN (BEAKER) (test code = < ng/mL <0.05 3036) SEPSIS RISK (ng/mL)Low: 0.05-0.50Intermediate: 0.51-2.00High: >=2.01MAGNESIUM 2022-10-15 12:34:52 Test Item Value Reference Range Interpretation Comments MAGNESIUM (BEAKER) (test code = 2.2 mg/dL 1.6-2.6 627) Apartment Maintenance ID - [id number] 12:34:52 Test Item Value Reference Range Interpretation Comments POTASSIUM (BEAKER) (test code = 3.8 meq/L 3.5-5.1 379) Apartment Maintenance ID - MARCOLACTIC ACID, [id number] 12:32:48 Test Item Value Reference Range Interpretation Comments LACTATE BLOOD VENOUS (2) (BEAKER) 1.10 mmol/L 0.50-2.20 (test code = 2872) Apartment Maintenance ID - MARCOPOCT-GLUCOSE [id number] 09:16:39 Test Item Value Reference Range Interpretation Comments POC-GLUCOSE METER 119 mg/dL 70-110 H : TESTED A T [facility] 6720 (BEAKER) (test code = [place], 1538) [address]: Apartment Maintenance/Techni rosita ID = [id number] for To Irlanda RAD, ABDOMEN/KUB, 1 VIEW [id number] 07:45:00Reason for exam:->S/P corpa placementShould this be performed at the bedside?->Yes [facility] 1990 Sex: FFINAL REPORT [...] Normal contours. Additional findings: None. Signed: Andressa Sebastianepcharles VerifiedDate/Time: 10/15/2022 07:45:36 Blood gas, [id number] 05:54:55 Test Item Value Reference Range Interpretation [...] 40 Lab Interpretation Abnormal (test code = 05515-7) [facility] CenterBlood gas, [id number] 05:54:55 Test Item Value Reference Range Interpretation [...] 40 Lab Interpretation Abnormal (test code = 72138-5) [facility], [id number] 05:54:55 Test Item Value Reference Range Interpretation [...] FIO2 (BEAKER) (test code = 1819) 40.0 [id number] 04:06:58 Test Item Value Reference Range Interpretation Comments PHOSPHORUS (BEAKER) 2.7 mg/dL 2.3-4.7 Specimen slightly (test code = 604) hemolyzed Apartment Maintenance ID - FRANKIE [facility] METABOLIC [id number] 04:06:58 Test Item Value Reference Range Interpretation [...] hemolyzed code = 347) EGFR (BEAKER) 121 Interpretati on of eGFR (test code = 1092) mL/min/1.73 [...] not appl icable for dialysis patien ts Apartment Maintenance ID - FRANKIE [id number] 04:06:57 Test Item Value Reference Range Interpretation Comments MAGNESIUM (BEAKER) 1.8 mg/dL 1.6-2.6 Specimen slightly (test code = 627) hemolyzed Apartment Maintenance ID - FRANKIE MCBC W/PLT COUNT & AUTO [id number] 03:35:01 Test Item Value Reference Range Interpretation [...] code = 2801) RAD, ABDOMEN/KUB, 1 VIEW [id number] 01:14:00Reason for exam:->corpak readjustmentShould this be performed at the bedside?[facility] 1990 Sex: FFINAL REPORT [...] Date/Time: 10/15/2022 01:14:07 RAD, ABDOMEN/KUB, 1 VIEW [id number] 01:11:00Reason for exam:->S/p NG tube readjustmentShould this be performed at the bedside?->Yes [facility] 1990 Sex: FFINAL REPORT CLINICAL HISTORY: S/p NG tube readjustment COMPARISON: 10/15/2022 at 2218 hours FINDINGS: A single image of the upper abdomen is submitted. A feeding tube is similar in position with the distal portion looped in the gastric lumen and the tip projecting over the proximal stomach. The examination is otherwise similar to previous. Signed: Jaret Stallworth [facility] Verified Date/Time: 10/15/2022 01:11:13 RAD, ABDOMEN/KUB, 1 VIEW [id number] 23:16:00Reason for exam:->S/p NG tube placementShould this be performed at the bedside?->Yes [facility] 1990 Sex: FFINAL REPORT [...] Stallworth MDReport Verified Date/Time: 10/14/2022 23:16:15 SARS-CoV2/Influenza/RSV [id number] 19:15:20 Test Item Value Reference Interpretation Comments Range SARS-COV2/RT-PCR Negative Negative The SARS-Co V-2 (test code = target nucleic 77029-1) acids are not detected in thi s [...] om SARS-CoV-2 in a nasopharyngeal swab specimen [facility] from individual s suspected of COVID-19 by the ir healthcare provider. Influenza A RT-PCR Negative Negative The Flu A target (test code = [place] 46531-6) not detected in this specimen. Influenza B RT-PCR Negative Negative The Flu B target (test code = [place] 53222-5) not detected in this specimen. RSV by RT-PCR (test Negative Negative The RSV target code = 88208-9) nucleic acid s are not detected in [...] the Act. Fact Sheet for Healthcare Providers:https://w [employer]/Docu ments/Xpert%20Xpres s%20SARS%20CoV-2/Fa ct%20Sheets/302-390 2%45DMNV-KGI-9%20HE ALTHCARE%20PROVIDER S%20FACT%20SHEET.pd f Fact Sheet for Healthcare Patients:https://ww [employer]/Docum ents/Xpert%20Xpress %20SARS%20Cov-2/Fac t%20Sheets/302-3801 %06KDKB-QTU-3%20PAT IENT%20FACT%20SHEET .pdf Lab Interpretation Normal (test code = 45092-8) [facility] [id number] 19:15:20 Test Item Value Reference Interpretation Comments Range SARS-COV2/RT-PCR Negative Negative The SARS-Co V-2 (test code = target nucleic 96612-5) acids are not detected in thi s [...] (test code = [place] 75243-7) not detected in this specimen. Influenza B RT-PCR Negative Negative The Flu B target (test code = [place] 77323-3) not detected in this specimen. RSV by RT-PCR (test Negative Negative The RSV target code = 89723-3) nucleic acid s are not detected in [...] SARS-CoV-2/Flu/RSV by their healthcare provider. Results from [facility] Xpert Xpress SARS-CoV-2/Flu/RSV test should be correlated [...] the Act. Fact Sheet for Healthcare Providers:https://w [employer]/Docu ments/Xpert%20Xpres s%20SARS%20CoV-2/Fa ct%20Sheets/302-390 2%60OROB-MTK-6%20HE ALTHCARE%20PROVIDER S%20FACT%20SHEET.pd f Fact Sheet for Healthcare Patients:https://[employer]/Docum ents/Xpert%20Xpress %20SARS%20Cov-2/Fac t%20Sheets/302-3801 %15JJJL-RYW-3%20PAT IENT%20FACT%20SHEET .pdf Lab Interpretation Normal (test code = 63152-3) [facility] [id number] 19:15:20 Test Item Value Reference Interpretation Comments Range SARS-COV2/RT-PCR Negative Negative The SARS-Co V-2 (test code = target nucleic 37207-1) acids are not detected in thi s [...] (test code = [place] re 21093-4) not detected in this specimen. Influenza B RT-PCR Negative Negative The Flu B target (test code = [place] 39755-2) not detected in this specimen. RSV by RT-PCR (test Negative Negative The RSV target code = 92694-1) nucleic acid s are not detected in [...] SARS-CoV-2/Flu/RSV by their healthcare provider. Results from [facility] Xpert Xpress SARS-CoV-2/Flu/RSV test should be correlated [...] the Act. Fact Sheet for Healthcare Providers:https://w ww.[employer]/Docu ments/Xpert%20Xpres s%20SARS%20CoV-2/Fa ct%20Sheets/302-390 2%89IFDB-UIC-4%20HE ALTHCARE%20PROVIDER S%20FACT%20SHEET.pd f Fact Sheet for Healthcare Patients:https://ww w.[employer]card/Docum ents/Xpert%20Xpress %20SARS%20Cov-2/Fac t%20Sheets/302-3801 %12ODOM-JVJ-1%20PAT IENT%20FACT%20SHEET .pdf Lab Interpretation Normal (test code = 84788-3) [facility] [id number] 19:15:20 Test Item Value Reference Interpretation Comments Range SARS-COV2/RT-PCR Negative Negative The SARS-Co V-2 (test code = target nucleic 29846-7) acids are not detected in thi s [...] (test code = [place] re [address]-8) not detected in this specimen. Influenza B RT-PCR Negative Negative The Flu B target (test code = [place] re 03409-8) not detected in this specimen. RSV by RT-PCR (test Negative Negative The RSV target code = 63560-0) nucleic acid s are not detected in [...] SARS-CoV-2/Flu/RSV by their healthcare provider. Results from [facility] Xpert Xpress SARS-CoV-2/Flu/RSV test should be correlated [...] the Act. Fact Sheet for Healthcare Providers:https://w [employer]/Docu ments/Xpert%20Xpres s%20SARS%20CoV-2/Fa ct%20Sheets/302-390 2%16DRDL-LLN-2%20HE ALTHCARE%20PROVIDER S%20FACT%20SHEET.pd f Fact Sheet for Healthcare Patients:https://[employer]/Docum ents/Xpert%20Xpress %20SARS%20Cov-2/Fac t%20Sheets/302-3801 %39RSXO-CEO-8%20PAT IENT%20FACT%20SHEET .pdf Lab Interpretation Normal (test code = 25125-1) [facility]RSV [id number] 19:15:20 Test Item Value Reference Range Interpretation Comments SARS-COV2/RT-PCR Negative Negative The SARS-Co V-2 target (test code = nucleic acids a re not 8226219) detected in thi s specimen. Negat janelle [...] individuals yvon pected of COVID-19 by [facility]. INFLUENZA A RT-PCR Negative Negative The Flu A target nucleic (test code = acids are not d etected in 19101209) this specimen. INFLUENZA B RT-PCR Negative Negative The Flu B target nucleic (test code = acids are not d etected in 19101210) this specimen. RSV RT-PCR (test Negative Negative The RSV tar get nucleic code = 5244964) acids are no t detected in this [...] of the Act.Fact Sheet for Healthcare Providers:https ://www.[employer]card/Documents/Xpert%20Xpress%20SARS%20CoV-2/Fact%20Sheets/302-390 2%07DCWW-KTH-8%20HEALTHCARE%20PROVIDERS%20FACT%20SHEET.pdfFact Sheet for Healthcare Patients:https://www.[employer]/Docum ents/Xpert%20Xpress%20SARS%20Cov-2/Fact%20Sheets/302-3801%18FHYZ-QUZ-3%20PATIENT %20FACT%20SHEET.pdfPOCT-GLUCOSE [id number] 17:48:07 Test Item Value Reference Range Interpretation Comments POC-GLUCOSE METER 110 mg/dL 70-110 : TESTED A T [facility] [address] ([place]) (test code = [place], 1538) [address]: Apartment Maintenance/Techni rosita ID = [id number] for Isabel Gr HCG, QUANTITATIVE, [id number] 17:36:23 Test Item Value Reference Range Interpretation Comments GONADOTROPIN, CHORIONIC (HCG) QUANT < mIU/mL 0-10 ([employer]) (test code = 649) Non- Females: <10 mIU/mL Females: Gestation Age Reference Range(mIU/mL) 0.2-1 Week 5-50 1-2 Weeks 50-500 2-3 Weeks 100-5,000 3-4 Weeks 500-10,000 4-5 Weeks 1,000-50,000 5-6 Weeks 10,000-100,000 6-8 Weeks 15,000- 200,000 2-3 Months 10,000-100,000 Apartment Maintenance ID - PIAYA LCOMPREHENSIVE METABOLIC [id number] 17:26:15 Test Item Value Reference Range Interpretation [...] eGF R is based on the CKD-EPI 202 equation that d oes not use a race coefficientEsti mated GFR is not as accur ate as Creatinine Violeta goezt in predicting glom erular filtration rate . Estimated GFR is not appl icable for dialysis patien ts Apartment Maintenance ID - MARIA DEL ROSARIO LUrinalysis with Microscopic If [id number] 17:22:51 Test Item Value Reference Range Interpretation Comments Color, UA (test code = Light Yellow 5778-6) Clarity, UA (test code = Clear 5767-9) Specific Verbena, UA (test 1.010 1.001-1.035 code = 5811-5) pH, UA (test code = 6.0 5.0-8.0 5803-2) Protein, UA (test code = Negative Negative 17008-8) Glucose, UA (test code = 500 mg/dL Negative A 365) Ketones, UA (test code = Negative Negative 2514-8) Bilirubin, UA (test code = Negative Negative 56264-1) Blood, UA (test code = Negative Negative 94476-5) Nitrite, UA (test code = Negative Negative 5802-4) Leukocytes, UA (test code Negative Negative = 5799-2) Urobilinogen, UA (test 0.2 0.2-1.0 code = 76803-3) Specimen Source (test code = 2795) GABRIEL (test code = GABRIEL) Apartment Maintenance ID - [auto]Apartment Maintenance ID - tech Lab Interpretation (test Abnormal code = 58667-6) [facility] [id number] 17:22:51 Test Item Value Reference Range Interpretation Comments Color, UA (test code = Light Yellow 5778-6) Clarity, UA (test code = Clear 5767-9) Specific Verbena, UA (test 1.010 1.001-1.035 code = 5811-5) pH, UA (test code = 6.0 5.0-8.0 5803-2) Protein, UA (test code = Negative Negative 90626-2) Glucose, UA (test code = 500 mg/dL Negative A 365) Ketones, UA (test code = Negative Negative 2514-8) Bilirubin, UA (test code = Negative Negative 02142-3) Blood, UA (test code = Negative Negative 71675-2) Nitrite, UA (test code = Negative Negative 5802-4) Leukocytes, UA (test code Negative Negative = 5799-2) Urobilinogen, UA (test 0.2 0.2-1.0 code = 06692-2) Specimen Source (test code = 2795) GABRIEL (test code = GABRIEL) Apartment Maintenance ID - [auto]Apartment Maintenance ID - tech Lab Interpretation (test Abnormal code = 80157-1) [facility] If [id number] 17:22:51 Test Item Value Reference Range Interpretation Comments Color, UA (test code = Light Yellow 5778-6) Clarity, UA (test code = Clear 5767-9) Specific Verbena, UA (test 1.010 1.001-1.035 code = 5811-5) pH, UA (test code = 6.0 5.0-8.0 5803-2) Protein, UA (test code = Negative Negative 71608-1) Glucose, UA (test code = 500 mg/dL Negative A 365) Ketones, UA (test code = Negative Negative 2514-8) Bilirubin, UA (test code = Negative Negative 10715-7) Blood, UA (test code = Negative Negative 30410-7) Nitrite, UA (test code = Negative Negative 5802-4) Leukocytes, UA (test code Negative Negative = 5799-2) Urobilinogen, UA (test 0.2 0.2-1.0 code = 93076-9) Specimen Source (test code = 2795) GABRIEL (test code = GABRIEL) Apartment Maintenance ID - [auto]Apartment Maintenance ID - tech Lab Interpretation (test Abnormal code = 61815-9) [facility] If [id number] 17:22:51 Test Item Value Reference Range Interpretation Comments Color, UA (test code = Light Yellow 5778-6) Clarity, UA (test code = Clear 5767-9) Specific Verbena, UA (test 1.010 1.001-1.035 code = 5811-5) pH, UA (test code = 6.0 5.0-8.0 5803-2) Protein, UA (test code = Negative Negative 07075-0) Glucose, UA (test code = 500 mg/dL Negative A 365) Ketones, UA (test code = Negative Negative 2514-8) Bilirubin, UA (test code = Negative Negative 69888-9) Blood, UA (test code = Negative Negative 09312-1) Nitrite, UA (test code = Negative Negative 5802-4) Leukocytes, UA (test code Negative Negative = 5799-2) Urobilinogen, UA (test 0.2 0.2-1.0 code = 25034-9) Specimen Source (test code = 2795) GABRIEL (test code = GABRIEL) Apartment Maintenance ID - [auto]Apartment Maintenance ID - tech Lab Interpretation (test Abnormal code = 44172-5) [facility]OSCOPIC IF [id number] 17:22:51 Test Item Value Reference Range Interpretation [...] = 463) SOURCE(BEAKER) (test code = 2795) Apartment Maintenance ID - [auto]Apartment Maintenance ID - techRAD, ABDOMEN/KUB, 1 VIEW [id number] 17:17:00Reason for exam:->OG placement [facility] 1990 Sex: FFINAL REPORT RAD, ABDOMEN/KUB, 1 VIEW AP INDICATION: OG placement COMPARISON: None TECHNIQUE: Limited portable radiograph of the lower chest and upper abdomen was acquired for purposes ofevaluating tube placement FINDINGS/IMPRESSION:NG side-port overlies the esophagus. Signed: Andressa Sebastian Verified Date/Time: 10/14/2022 17:17:14 RAD, CHEST, 1 VIEW, NON DEPT 2022-10-14 17:06:00Post-intubationReason for exam:->Tube positionShould this be performed at the bedside?->Yes [facility] 1990 Sex: FFINAL REPORT RAD, CHEST, 1 VIEW, NON DEPT INDICATION: Tube position COMPARISON: Prior day's exam FINDINGS: Portable frontal view of the chest. IMPRESSION: Support Lines: ET tube tip is 2 cm superior to howard. NG side-port overlies the mid esophagus. Lungs and pleura: Lungs are clear. Nosignificant pneumothorax. Heart and mediastinum: Normal contours. Additional findings: None. Signed:Andressa Sebastian Verified Date/Time: 10/14/2022 17:06:21 D GAS, [id number] 16:58:15 Test Item Value Reference Range Interpretation [...]
--- NOTE | 2023-07-20 10:53 | RAD REPORT ---
EXAM DESCRIPTION: CT - Head Brain Wo Cont - 07/20/2023 10:26 am CLINICAL HISTORY: MENTAL STATUS CHANGE COMPARISON: Head Brain Wo Cont dated 03/14/2023; Head Brain Wo Cont dated 10/13/2022 TECHNIQUE: Noncontrast head CT images were obtained without IV contrast. Multiplanar reformats were generated and reviewed. All CT scans are performed using dose optimization technique as appropriate and may include automated exposure control or mA/KV adjustment according to patient size. FINDINGS: No intracranial hemorrhage, mass, or edema. Midline structures are unremarkable. Normal ventricular caliber for age. Stable encephalomalacia in the lateral right temporal lobe. Hedrick-white matter differentiation is othe rwise preserved, without evidence of acute infarct. No abnormal extra-axial fluid collections. Mastoid air cells are well aerated. Moderate left mucosal thickening along the left paranasal sinuses . No acute bony findings. Sequelae of right frontal kathy hole craniotomy again seen. IMPRESSION: No evidence of an acute intracranial process. Stable encephalomalacia in the lateral ri ght temporal lobe, which could relate to sequelae of prior ischemia or trauma. Gliosis in this region could serve as an epileptogenic focus. Please correlate clinically.
[2023-07-20 11:05] LABS: Absolute Lymphocytes (CBC) 1.8 K/uL (0.7-4.9); Hematocrit 35.4 % (36.0-45.0); Lymphocytes % 10.6 % (15.3-44.8); MCV 88.4 fL (80-100); MPV 7.9 fL (7.6-11.3); Platelets 387 thou/uL (152-406)
[2023-07-20 11:09] LABS: Protime INR 0.95
[2023-07-20 11:18] LABS: ALT/SGPT 26 U/L (13-56); AST/SGOT 19 U/L (15-37); Albumin 3.8 g/dL (3.4-5.0); Alkaline Phosphatase 61 U/L (45-117); BUN Blood Urea Nitrogen 8 mg/dL (7-18); Bicarbonate 24 mEq/L (21-32); Bilirubin Direct < 0.1 mg/dL (0-0.2); Bilirubin Indirect, Calculated ND mg/dL (0.2-0.8); Bilirubin Total 0.2 mg/dL (0.2-1.0); Glomerular Filtration Rate 113 ml/min (=/>90); Glucose Level 125 mg/dL (74-106); Potassium 3.2 mEq/L (3.5-5.1); Protein, Total 7.2 g/dL (6.4-8.2); Sodium Level 141 mEq/L (136-145)
[2023-07-20 11:20] LABS: Specific Gravity 1.018 (1.005-1.030)
[2023-07-20 11:26] LABS: Specific Gravity 1.018 (1.005-1.030); Urine Bacteria None Seen /HPF (<20); Urine Bilirubin NEGATIVE (Negative); Urine Blood Negative (Negative); Urine Clarity Clear (Clear); Urine Color Light-Yellow (Yellow); Urine Glucose NEGATIVE (Negative); Urine Mucus Slight /HPF (None Seen); Urine Protein 1+ (Negative); Urine RBC <5 /HPF (None Seen); Urine Urobilinogen Normal (Normal); Urine pH 6.5 (5.0-7.0)
[2023-07-20] MEDS ORDERED: NA CHLORIDE 0.9% 1,000 ML ONE ×2 (12:02→12:59)
[2023-07-20 12:13] LABS: Barbiturates NEGATIVE (NEGATIVE); Benzodiazepines NEGATIVE (NEGATIVE); Cocaine NEGATIVE (NEGATIVE); METHAMPHETAM NEGATIVE (NEGATIVE); Methadone NEGATIVE (NEGATIVE); Opiates NEGATIVE (NEGATIVE); Phencyclidine NEGATIVE (NEGATIVE); THC Cannibis POSITIVE (NEGATIVE)
--- NOTE | 2023-07-20 12:49 | RAD REPORT ---
EXAM DESCRIPTION: CT - Chest Abdomen Pelvis W Cont - 07/20/2023 12:29 pm CLINICAL HISTORY: Chest and abdominal pain. Cough COMPARISON: none TECHNIQUE: Computed axial tomography of the chest, abdomen and pelvis was obtained. 100 cc Isovue-30 0 was administered intravenously. Oral contrast was not requested. This limits evaluation of bowel. All CT scans are performed using dose optimization technique as appropriate and may include automated exposure control or mA/KV adjustment according to patient size. FINDINGS: The lungs are clear 2.9 x 1.9 centimeter triangular soft tissue structure anterior mediastinum No pleural effusion. No pericardial effusion. Liver, spleen, pancreas, adrenals and kidneys are unremarkable No evidence of diverticulitis Retroverted uterus. No adnexal mass IMPRESSION: 2.9 x 1.9 centimeter triangular soft tissue structure anterior mediastinum has more of t he appearance of thymic as well as lymphoid hyperplasia. It is recommended that the patient have a fo llowup CT chest in 3 months to assess stability/ resolution
[2023-07-20] MEDS ORDERED: POTASSIUM CL SA 10 MEQ TAB PO ONE (12:58)
[2023-07-20] MEDS ORDERED: FOSPHENYTOIN PE 500 MG/10 ML VIAL ONE (12:59)
[2023-07-20] MEDS ORDERED: CEFTRIAXONE 1000 MG/VIAL ONE (12:59)
[2023-07-20] MEDS ORDERED: NA CHLORIDE 0.9% 100 ML ONE (12:59)
--- NOTE | 2023-07-20 13:21 | EDPHYS ---
Physician Documentation [facility] Name: Matt Tillman Age: 32 yrs Sex: Female : 1990 Arrival Date: 07/20/2023 Time: 10:07 Bed 7 Private MD: Adelso Alicea HPI: 07/20 12:17 This 32 yrs old Female presents to ER via EMS with complaints of Seizure. najma 12:17 The patient presents after having a possible seizure episode, no tonic-clonic activity najma was appreciated, no post-ictal period is described. Character of seizure(s): Loss of consciousness: the patient did not lose consciousness, Motor activity: Incontinence: none, Apnea: the patient did not experience apnea, Circulation: the patient did not experience evidence of pulse disturbance. Seizure onset: just prior to arrival. Context: the seizure(s) was witnessed, by family. Seizure Hx: it is unknown whether or not the patient has a previous seizure history. Associated injury: The patient did not suffer any apparent associated injury. EMS care: none. Current symptoms: Currently, the patient is not experiencing any symptoms, the patient feels back to baseline. It is unknown whether or not the patient has had similar symptoms in the past. 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 - Social history:: Smoking status: unknown. - Family history:: not pertinent. ROS: 12:17 Constitutional: Negative for fever, chills, and weight loss, Eyes: Negative for injury, najma pain, redness, and discharge, ENT: Negative for injury, pain, and discharge, Neck: Negative for injury, pain, and swelling, Cardiovascular: Negative for chest pain, palpitations, and edema, Respiratory: Negative for shortness of breath, cough, wheezing, and pleuritic chest pain, Abdomen/GI: Negative for abdominal pain, nausea, vomiting, diarrhea, and constipation, Back: Negative for injury and pain, : Negative for injury, bleeding, discharge, and swelling, MS/Extremity: Negative for injury and deformity, Skin: Negative for injury, rash, and discoloration, Neuro: Negative for headache, weakness, numbness, tingling, and seizure, Psych: Negative for depression, anxiety, suicide ideation, homicidal ideation, and hallucinations, Allergy/Immunology: Negative for hives, rash, and allergies, Endocrine: Negative for neck swelling, polydipsia, polyuria, polyphagia, and marked weight changes. Exam: 12:17 Constitutional: This is a well developed, well nourished patient who is awake, alert, najma and in no acute distress. Head/Face: Normocephalic, atraumatic. Eyes: Pupils equal round and reactive to light, extra-ocular motions intact. Lids and lashes normal. Conjunctiva and sclera are non-icteric and not injected. Cornea within normal limits. Periorbital areas with no swelling, redness, or edema. ENT: Nares patent. No nasal discharge, no septal abnormalities noted. Tympanic membranes are normal and external auditory canals are clear. Oropharynx with no redness, swelling, or masses, exudates, or evidence of obstruction, uvula midline. Mucous membranes moist. Neck: Trachea midline, no thyromegaly or masses palpated, and no cervical lymphadenopathy. Supple, full range of motion without nuchal rigidity, or vertebral point tenderness. No Meningismus. Chest/axilla: Normal chest wall appearance and motion. Nontender with no deformity. No lesions are appreciated. Cardiovascular: Regular rate and rhythm with a normal S1 and S2. No gallops, murmurs, or rubs. Normal PMI, no JVD. No pulse deficits. Respiratory: Lungs have equal breath sounds bilaterally, clear to auscultation and percussion. No rales, rhonchi or wheezes noted. No increased work of breathing, no retractions or nasal flaring. Abdomen/GI: Soft, non-tender, with normal bowel sounds. No distension or tympany. No guarding or rebound. No evidence of tenderness throughout. Back: No spinal tenderness. No costovertebral tenderness. Full range of motion. Skin: Warm, dry with normal turgor. Normal color with no rashes, no lesions, and no evidence of cellulitis. MS/ Extremity: Pulses equal, no cyanosis. Neurovascular intact. Full, normal range of motion. Neuro: Awake and alert, GCS 15, oriented to person, place, time, and situation. Cranial nerves II-XII grossly intact. Motor strength 5/5 in all extremities. Sensory grossly intact. Cerebellar exam normal. Normal gait. 12:17 ECG was reviewed by the Attending Physician. Vital Signs: 10:19 BP 92 / 78; Pulse 58; Resp 18; Temp 97.8; Pulse Ox 99% on R/A; ph 11:30 BP 101 / 72; Pulse 65; Resp 18; Pulse Ox 98% on R/A; ph 12:56 BP 104 / 68; Pulse 68; Resp 18; Pulse Ox 99% on R/A; ph 14:28 BP 112 / 78; Pulse 69; Resp 18; Temp 97.5; Pulse Ox 99% on R/A; ph NIH Stroke Scale Scores: 12:17 NIHSS Score: 0 najma [place] Coma Score: 10:20 Eye Response: to voice(3). Motor Response: obeys commands(6). Verbal Response: ph oriented(5). Total: 14. MDM: 10:14 Patient medically screened. najma 12:26 Differential diagnosis: cerebral vascular accident, drug overdose, cardiac arrhythmia, najma seizure, TIA. Data reviewed: vital signs, nurses notes, EMS record, lab test result(s), EKG, radiologic studies, CT scan, plain films. Consideration of Admission/Observation Escalation of care including admission/observation considered. I considered the following discharge prescriptions or medication management in the emergency department Medications were administered in the Emergency Department. See MAR. Independent interpretation of the following test(s) in the Emergency Department EKG: See my EKG interpretation above. Test considered but Not performed: MRI: NO MRI BRAIN. Historians other than the Patient: EMS: EMS, INFORMED. Care significantly affected by the following chronic conditions: DEPRESSION, SEIZURE, TRUMATIC BRAIN. 07/20 10:13 Order name: Acetaminophen; Complete Time: 12:12 [facility] 07/20 10:13 Order name: Basic Metabolic Panel; Complete Time: 12:12 [facility] 07/20 10:13 Order name: CBC with Diff; Complete Time: 12:12 07/20 10:13 Order name: ETOH Level; Complete Time: 12:12 najma 07/20 10:13 Order name: Hepatic Function; Complete Time: 12:12 07/20 10:13 Order name: PT-INR; Complete Time: 12:12 najma 07/20 10:13 Order name: Test, Urine; Complete Time: 12:12 [facility] 07/20 10:13 Order name: Ptt, Activated; Complete Time: 12:12 [facility] 07/20 10:13 Order name: Salicylate; Complete Time: 12:12 [facility] 07/20 10:13 Order name: Urinalysis w/ reflexes; Complete Time: 12:12 [facility] 07/20 10:13 Order name: Urine Drug Screen; Complete Time: 12:13 [facility] 07/20 12:06 Order name: Lactate w/ 2H reflex if indic.; Complete Time: 13:19 ph 07/20 12:06 Order name: Blood Culture Adult (2) ph 07/20 12:28 Order name: SARS RAPID 07/20 12:28 Order name: Flu najma 07/20 12:30 Order name: Dilantin; Complete Time: 13:19 [facility] 07/20 10:13 Order name: CT Head Brain wo Cont; Complete Time: 12:12 [facility] 07/20 12:13 Order name: CT Chest, Abdomen, Pelvis - W/Contrast; Complete Time: 13:19 [facility] 07/20 10:13 Order name: EKG; Complete Time: 10:14 [facility] 07/20 10:13 Order name: EKG - Nurse/Tech; Complete Time: 10:49 [facility] 07/20 10:13 Order name: IV Saline Lock; Complete Time: 10:49 [facility] 07/20 10:13 Order name: Labs collected and sent; Complete Time: 10:49 [facility] 07/20 10:13 Order name: Seizure Precautions; Complete Time: 10:19 [facility] EC:17 Rate is 62 beats/min. Rhythm is regular. QRS Elsa is Normal. MO interval is normal. QRS najma interval is normal. QT interval is normal. No Q waves. T waves are Normal. No ST changes noted. Clinical impression: Normal ECG and No evidence of ischemia. Interpreted by me. Reviewed by me. Administered Medications: 12:44 Drug: NS 0.9% IV 1000 ml Route: IV; Rate: 1 bolus; Site: left antecubital; ph 13:30 Follow up: Response: No adverse reaction; IV Status: Completed infusion ph 12:56 Drug: Fosphenytoin IVPB 500 mg Route: IVPB; Site: left antecubital; ph 13:30 Follow up: Response: No adverse reaction; IV Status: Completed infusion ph 13:09 Drug: Rocephin IV 1 grams Route: IV; Rate: per protocol; Site: left antecubital; ph 13:30 Follow up: Response: No adverse reaction; IV Status: Completed infusion ph 13:09 Drug: NS 0.9% IV 1000 ml Route: IV; Rate: 1 bolus; Site: left antecubital; ph 14:29 Follow up: Response: No adverse reaction; IV Status: Completed infusion; IV Intake: ph 1000ml 13:09 Drug: Potassium PO Effervescent Tablet 50 mEq Route: PO; ph 14:29 Follow up: Response: No adverse reaction ph 13:52 Drug: Fosphenytoin IVPB 500 mg Route: IVPB; Site: left antecubital; ph 14:29 Follow up: Response: No adverse reaction; IV Status: Completed infusion ph Disposition Summary: 07/20/23 13:20 Discharge Ordered Location: Home najma Problem: new najma Symptoms: have improved najma Condition: Stable najma Diagnosis - Weakness najma - Elevated white blood cell count najma - Hypokalemia najma - Epileptic seizures related to external causes, not intractable, 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 - SUBTHERAPUTIC LEVEL(07/20/23 13:21) Followup: najma - With: Private Physician - When: 2 - 3 days - Reason: Recheck today's complaints, Continuance of care, Re-evaluation by your physician Followup: najma - With: - When: 2 - 3 days - Reason: Recheck today's complaints, Re-evaluation by your physician Discharge Instructions: - Discharge Summary Sheet najma - Potassium Content of Foods najma - Epilepsy najma - Seizure, Adult najma - Weakness najma - Seizure, Adult, [id number] najma - Weakness, [id number] najma - Hypokalemia najma - Deconditioning najma Forms: - Medication Reconciliation Form najma - Thank You Letter najma - Antibiotic Education najma - Prescription Opioid Use najma - Patient Portal Instructions najma - Leadership Thank You Letter [facility] Prescriptions: - Dilantin Kapseal 100 mg Oral Capsule - take 1 capsule by ORAL route every 8 hours; 60 capsule; Refills: 0, Product najma Selection Permitted NIH Stroke Scale - NIH Stroke Score Date: 07/20/2023 Time: 12:17 Total Score = 0 10. Dysarthria (speech clarity - read or repeat words) - 0(Normal) 11. Extinction and Inattention (visual/tactile/auditory/spatial/personal) - 0(No abnormality) 1a. Level of Consciousness (LOC) - 0(Alert) 1b. Level of Consciousness (LOC) (Month \T\ Age) - 0(Both) 1c. LOC Commands (Open \T\ Closes Eyes/Linux Unix Administrator) - 0(Both) 2. Best Gaze (Lateral Gaze Paresis) - 0(Normal) 3. Visual Field Loss - 0(No visual loss) 4. Facial Palsy - 0(Normal) 5a. Left Arm: Motor (10-second hold) - 0(No drift) 5b. Right Arm: Motor (10-second hold) - 0(No drift) 6a. Left Leg: Motor (5-second hold - always test supine) - 0(No drift) 6b. Right Leg: Motor (5-second hold - always test supine) - 0(No drift) 7. Limb Ataxia (finger/nose \T\ heel/daigle - test with eyes open) - 0(Absent) 8. Sensory Loss (pinprick arms/legs/face) - 0(Normal) 9. Best Language: Aphasia (description/naming/reading) - 0(No aphasia) Initials: [facility] Signatures: Dispatcher [employer] EDMS Adelso Wang MD MD cha Hall, Patricia, RN RN ph Óscar Chen RN RN jl7 Corrections: (The following items were deleted from the chart) 10:31 10:13 Suicide Screening ([place]) ordered. [facility] 13:21 13:20 Epileptic seizures related to external causes, not intractable, without najma status epilepticus najma
--- NOTE | 2023-07-20 13:21 | ER ---
Nurse's Notes [facility] Name: Matt Tillman Age: 32 yrs Sex: Female : 1990 Arrival Date: 07/20/2023 Time: 10:07 Bed 7 Private MD: Diagnosis: Weakness;Elevated white blood cell count;Epileptic seizures related to external causes, not intractable, without status epilepticus-SUBTHERAPUTIC LEVEL;Hypokalemia Presentation: 07/20 10:11 Chief complaint: EMS states: Toned out for seizure, on arrival to home pt was laying on jl7 floor thrashing around, able to follow commands. Coronavirus screen: At this time, the client does not indicate any symptoms associated with coronavirus-19. Ebola Screen: No symptoms or risks identified at this time. Risk Assessment:. Onset of symptoms was July 20, 2023. 10:11 Method Of Arrival: EMS: [facility] 10:11 Acuity: ABY 3 [facility] 10:22 Initial Sepsis Screen: Does the patient meet any 2 criteria? No. Patient's initial ph sepsis screen is negative. Does the patient have a suspected source of infection? No. Patient's initial sepsis screen is negative. Risk Assessment: Do you want to hurt yourself or someone else? Patient reports no desire to harm self or others. Triage Assessment: 10:20 General: Appears in no apparent distress. Behavior is calm, cooperative, appropriate ph for age. Pain: Denies pain. Neuro: Level of Consciousness is confused, lethargic, Oriented to person, place, situation, Speech is slurred. Cardiovascular: Capillary refill < 3 seconds in bilateral fingers Patient's skin is warm and dry. Respiratory: Airway is patent Respiratory effort is even, unlabored. Derm: Skin is pink, warm \T\ dry. Musculoskeletal: Amputation of left leg. Circulation, motion, and sensation intact. 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 - Social history:: Smoking status: unknown. - Family history:: not pertinent. Screenin:19 [facility] ED Fall Risk Assessment (Adult) History of falling in the last 3 months, ph including since admission Yes- fall prone (multiple falls) (3 pts) Confusion or Disorientation Yes (5 pts) Intoxicated or Sedated Yes (3 pts) Impaired Gait Yes (1 pt) Mobility Assist Device Used Yes (1 pt) Altered Elimination No (0 pt) Score/Fall Risk Level 3 or more points = High Risk Oriented to surroundings, Maintained a safe environment, Provided non-skid footwear, Hourly rounding (assess needs \T\ fall precautionary measures) done. Abuse screen: Denies threats or abuse. Denies injuries from another. Nutritional screening: No deficits noted. Tuberculosis screening: No symptoms or risk factors identified. Assessment: 11:00 General: SEE TRIAGE ASSESSMENT. ph 12:00 Reassessment: Patient appears in no apparent distress at this time. Patient and/or ph family updated on plan of care and expected duration. Pain level reassessed. Patient is alert, oriented x 3, equal unlabored respirations, skin warm/dry/pink. 13:00 Reassessment: Patient appears in no apparent distress at this time. Patient and/or ph family updated on plan of care and expected duration. Pain level reassessed. Patient is alert, oriented x 3, equal unlabored respirations, skin warm/dry/pink. 14:27 Reassessment: Patient appears in no apparent distress at this time. Patient and/or ph family updated on plan of care and expected duration. Pain level reassessed. Patient is alert, oriented x 3, equal unlabored respirations, skin warm/dry/pink. Pt d/c home w/ family. Vital Signs: 10:19 BP 92 / 78; Pulse 58; Resp 18; Temp 97.8; Pulse Ox 99% on R/A; ph 11:30 BP 101 / 72; Pulse 65; Resp 18; Pulse Ox 98% on R/A; ph 12:56 BP 104 / 68; Pulse 68; Resp 18; Pulse Ox 99% on R/A; ph 14:28 BP 112 / 78; Pulse 69; Resp 18; Temp 97.5; Pulse Ox 99% on R/A; ph [place] Coma Score: 10:20 Eye Response: to voice(3). Motor Response: obeys commands(6). Verbal Response: ph oriented(5). Total: 14. NIH Stroke Scale Scores: 12:17 NIHSS Score: 0 [facility] ED Course: 10:10 Patient arrived in ED. ll1 10:10 Adelso Wang MD is Attending Physician. [facility] 10:13 Triage completed. jl7 10:13 Arm band placed on right wrist. jl7 10:18 Óscar Chen RN is Primary Nurse. jl7 10:21 Patient has correct armband on for positive identification. Bed in low position. Call ph light in reach. Side rails up X2. Seizure precautions initiated. Pulse ox on. NIBP on. Door closed. Noise minimized. Warm blanket given. 10:27 CT Head Brain wo Cont In Process Unspecified. EDMS 10:40 Primary Nurse role handed off by Óscar Chen RN ph 10:40 Ronel Chen RN is Primary Nurse. ph 12:30 CT Chest, Abdomen, Pelvis - W/Contrast In Process Unspecified. EDMS 12:57 Inserted saline lock: 22 gauge in left antecubital area, using aseptic technique. Blood ph collected. 13:20 Rakan Oquendo MD is Referral Physician. [facility] Administered Medications: 12:44 Drug: NS 0.9% IV 1000 ml Route: IV; Rate: 1 bolus; Site: left antecubital; ph 13:30 Follow up: Response: No adverse reaction; IV Status: Completed infusion ph 12:56 Drug: Fosphenytoin IVPB 500 mg Route: IVPB; Site: left antecubital; ph 13:30 Follow up: Response: No adverse reaction; IV Status: Completed infusion ph 13:09 Drug: Rocephin IV 1 grams Route: IV; Rate: per protocol; Site: left antecubital; ph 13:30 Follow up: Response: No adverse reaction; IV Status: Completed infusion ph 13:09 Drug: NS 0.9% IV 1000 ml Route: IV; Rate: 1 bolus; Site: left antecubital; ph 14:29 Follow up: Response: No adverse reaction; IV Status: Completed infusion; IV Intake: ph 1000ml 13:09 Drug: Potassium PO Effervescent Tablet 50 mEq Route: PO; ph 14:29 Follow up: Response: No adverse reaction ph 13:52 Drug: Fosphenytoin IVPB 500 mg Route: IVPB; Site: left antecubital; ph 14:29 Follow up: Response: No adverse reaction; IV Status: Completed infusion ph Medication: 10:22 VIS not applicable for this client. ph Intake: 14:29 IV: 1000ml; Total: 1000ml. ph Outcome: 13:20 Discharge ordered by MD. yao 14:30 Patient left the ED. ph NIH Stroke Scale - NIH Stroke Score Date: 07/20/2023 Time: 12:17 Total Score = 0 10. Dysarthria (speech clarity - read or repeat words) - 0(Normal) 11. Extinction and Inattention (visual/tactile/auditory/spatial/personal) - 0(No abnormality) 1a. Level of Consciousness (LOC) - 0(Alert) 1b. Level of Consciousness (LOC) (Month \T\ Age) - 0(Both) 1c. LOC Commands (Open \T\ Closes Eyes/Oracle Consultant) - 0(Both) 2. Best Gaze (Lateral Gaze Paresis) - 0(Normal) 3. Visual Field Loss - 0(No visual loss) 4. Facial Palsy - 0(Normal) 5a. Left Arm: Motor (10-second hold) - 0(No drift) 5b. Right Arm: Motor (10-second hold) - 0(No drift) 6a. Left Leg: Motor (5-second hold - always test supine) - 0(No drift) 6b. Right Leg: Motor (5-second hold - always test supine) - 0(No drift) 7. Limb Ataxia (finger/nose \T\ heel/daigle - test with eyes open) - 0(Absent) 8. Sensory Loss (pinprick arms/legs/face) - 0(Normal) 9. Best Language: Aphasia (description/naming/reading) - 0(No aphasia) Initials: najma Signatures: Dispatcher [employer] EDAdelso Ornelas MD MD cha Hall, Patricia, RN RN ph Óscar Chen, RN RN jl7 Soto Olivo RN RN ll1
[2023-07-20 13:22] LABS: SARS-CoV-2 Antigen Rapid Res Negative (Negative)
[2023-07-20] MEDS ORDERED: FOSPHENYTOIN PE 100 MG/2 ML VIAL ONE (13:58)
[2023-07-20] MEDS ORDERED: NA CHLORIDE 0.9% 50 ML ONE (13:59)
[2023-07-20 15:14] VITALS: O2SAT 99
[2023-07-20 15:18] VITALS: BP 112/78; TEMP 97.5
--- NOTE | 2023-07-23 19:13 | EKG ---
Test Date: 2023-07-20 Test Time: 10:54:07 Community Relations Representative: LEE MEASUREMENT RESULTS: Intervals: Rate: 62 RI: 138 QRSD: 100 QT: 418 QTc: 424 [place]: P: 73 RI: 138 QRS: 68 T: 57 INTERPRETIVE STATEMENTS: Normal sinus rhythm Normal ECG Compared to ECG 06/27/2023 17:20:42 No significant changes Electronically Signed On 07-23-23 19:08:01 CDT by Wilton Quigley
== END 2023-07-20 14:30 | disposition home or self-care (01) ==
LOC: ER 10:07
DX: G40.509 Epileptic seizures related to external causes, not intractable, without status epilepticus (principal); E87.6 Hypokalemia; D72.829 Elevated white blood cell count, unspecified; Z20.822 Contact with and (suspected) exposure to COVID-19; Z88.8 Allergy status to other drugs, medicaments and biological substances
CPT/HCPCS: 96365; 96361; 87040 ×2; 85025; 81001; 80048; 36415; 81025; 85610; 80076; 83605; 85730; 80185; 80307; 87804 ×2; 70450; 71260; 74177; 99284; 80143; 80179; 82077; 87811; Q9967; Q2009 ×2; J7030 ×2; J0696; 93005

== ENCOUNTER 2024-02-09 14:32 | Emergency (ER) | payer OTHER ==
[2024-02-09] MEDS ORDERED: GLUCAGON 1 MG/VIAL ONE (15:36)
--- NOTE | 2024-02-09 16:49 | RAD REPORT ---
EXAM DESCRIPTION: RAD - Neck Soft Tissue - 02/09/2024 4:43 pm CLINICAL HISTORY: PAIN COMPARISON: Head C Spine Mpr Wo Con dated 11/18/2022 FINDINGS/IMPRESSION: Single lateral view of the neck. No radiopaque foreign bodies. No prevertebral soft tissue swelling. No acute findings.
--- NOTE | 2024-02-09 17:28 | EDPHYS ---
Physician Documentation [facility] Name: Matt Tillman Age: 33 yrs Sex: Female : 1990 Arrival Date: 02/09/2024 Time: 14:32 Bed 13 Private MD: ED Physician Adelso Wang HPI: 02/08 17:21 This 33 yrs old Female presents to ER via Ambulatory with complaints of food stuck in kb throat. 17:24 Pt is a 33 year old female who presents for foreign body feeling in throat. States she kb was eating sausage and felt like she got some stuck so she stuck her finger down her throat and believes she scratched it because she started bleeding after that. States she still feels like something is stuck. Denies shortness of breath. 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 - Infectious Disease History:: Denies. - Social history:: Smoking status: Patient denies any tobacco usage or history of. ROS: 17:26 Constitutional: As per HPI kb Exam: 17:26 Constitutional: This is a well developed, well nourished patient who is awake, alert, kb and in no acute distress. Head/Face: Normocephalic, atraumatic. ENT: Moist Mucous membranes Cardiovascular: Regular rate Respiratory: Respirations even and unlabored. No increased work of breathing. Talking in full sentences Skin: Warm, dry with normal turgor. Normal color. MS/ Extremity: Pulses equal, no cyanosis. Neurovascular intact. Full, normal range of motion. Neuro: Awake and alert, GCS 15, oriented to person, place, time, and situation. Moves all extremities. Normal gait. Vital Signs: 15:13 BP 108 / 64; Pulse 81; Resp 16; Temp 98.3; Pulse Ox 98% on R/A; Weight 53.52 kg; Height hb 5 ft. 3 in. ; Pain 2/10; 15:33 BP 113 / 76; Pulse 83; Resp 16; Pulse Ox 100% on R/A; me1 15:45 BP 110 / 77; Pulse 70; Resp 16; Pulse Ox 97% on R/A; me1 16:00 BP 110 / 66; Pulse 78; Resp 16; Pulse Ox 100% on R/A; me1 16:30 BP 99 / 87; Pulse 77; Resp 16; Pulse Ox 99% on R/A; me1 17:49 BP 105 / 74; Pulse 76; Resp 14; Temp 98.1(O); Pulse Ox 100% ; me1 15:13 Body Mass Index 20.90 (53.52 kg, 160.02 cm) hb 15:13 Pain Scale: Adult hb MDM: 15:10 Patient medically screened. kb 17:27 Data reviewed: vital signs, nurses notes. Counseling: I had a detailed discussion with kb the patient and/or guardian regarding the historical points, exam findings, and any diagnostic results supporting the discharge/admit diagnosis, radiology results, the need for outpatient follow up, a grey tender, to return to the emergency department if symptoms worsen or persist or if there are any questions or concerns that arise at home. ED course: Differential: FB, abrasion of esophagus, perforation of esophagus. ED course: Pt able to tolerate po intake. Educated to follow up with GI if FB sensation persists. 02/08 15:15 Order name: Neck Soft Tissue XRAY; Complete Time: 16:51 kb 02/08 15:15 Order name: IV Start; Complete Time: 15:36 kb Administered Medications: 15:37 Drug: Glucagon IVP 1 mg IVP once Route: IVP; Site: right forearm; me1 15:47 Follow up: Response: No adverse reaction me1 Disposition Summary: 02/09/24 17:28 Discharge Ordered Notes: Location: Home kb Condition: Stable kb Diagnosis - Foreign body in esophagus kb Followup: kb - With: Emergency Department - When: As needed - Reason: Worsening of condition Followup: kb - With: Private Physician - When: 2 - 3 days - Reason: Recheck today's complaints, Continuance of care, Re-evaluation by your physician Discharge Instructions: - Discharge Summary Sheet kb Forms: - Medication Reconciliation Form kb - Thank You Letter kb - Antibiotic Education kb - Prescription Opioid Use kb - Patient Portal Instructions kb - Leadership Thank You Letter kb Signatures: Dispatcher [employer] Jordana Schwartz FNP-C FNP-Ckb Baxter, Heather, RN RN Jena Marc RN RN me1 Corrections: (The following items were deleted from the chart) 15:15 15:14 PSHx: left leg amputation; hb hb 15:15 15:14 PSHx: BKA - Left (left leg amputation); hb hb
--- NOTE | 2024-02-09 17:28 | ER ---
Nurse's Notes [facility] Name: Matt Tillman Age: 33 yrs Sex: Female : 1990 Arrival Date: 02/09/2024 Time: 14:32 Bed 13 Private MD: Diagnosis: Foreign body in esophagus Presentation: 02/08 15:13 Chief complaint: Choked on piece of sausage, concerned she damaged her throat trying to hb get it out with finger. Coronavirus screen: At this time, the client does not indicate any symptoms associated with coronavirus-19. Ebola Screen: No symptoms or risks identified at this time. Initial Sepsis Screen: Does the patient meet any 2 criteria? No. Patient's initial sepsis screen is negative. Does the patient have a suspected source of infection? No. Patient's initial sepsis screen is negative. Risk Assessment: Do you want to hurt yourself or someone else? Patient reports no desire to harm self or others. Onset of symptoms was February 09, 2024. 15:13 Method Of Arrival: Ambulatory hb 15:13 Acuity: ABY 3 hb Triage Assessment: 15:14 General: Appears in no apparent distress. Behavior is calm, cooperative. Pain: Pain hb currently is 2 out of 10 on a pain scale. Neuro: Level of Consciousness is awake, alert, obeys commands, Oriented to person, place, time, situation. Cardiovascular: Patient's skin is warm and dry. MANAGER EMERGENCY: 17:52 LMP N/A - control method, Not me1 Historical: - Allergies: 15:14 levetiracetam; hb - Home Meds: 15:14 citalopram 20 mg tab daily [Active]; lacosamide 10 mg/mL Oral solution 2 mL 2 times per hb day [Active]; Phenytoin Oral [Active]; - PMHx: 15:14 depressive disorder; Seizure; traumatic brain injury; hb - PSHx: 15:14 BKA - Left; hb - Immunization history:: Adult Immunizations up to date. - Infectious Disease History:: Denies. - Social history:: Smoking status: Patient denies any tobacco usage or history of. Screenin:42 [facility] ED Fall Risk Assessment (Adult) History of falling in the last 3 months, me1 including since admission No falls in past 3 months (0 pts) Confusion or Disorientation No (0 pts) Intoxicated or Sedated No (0 pts) Impaired Gait No (0 pts) Mobility Assist Device Used No (0 pt) Altered Elimination No (0 pt) Score/Fall Risk Level 0 - 2 = Low Risk Maintained a safe environment, Provided non-skid footwear, Hourly rounding (assess needs \T\ fall precautionary measures) done. Abuse screen: Denies threats or abuse. Nutritional screening: No deficits noted. Tuberculosis screening: No symptoms or risk factors identified. Assessment: 15:42 General: Appears comfortable, unkempt, Behavior is calm, cooperative, appropriate for me1 age, Reports Choked on piece of sausage, concerned she damaged her throat trying to get it out with finger. Pain: Complains of pain in throat Pain does not radiate. Pain currently is 3 out of 10 on a pain scale. Quality of pain is described as tender, Pain began suddenly, Is continuous. Neuro: Level of Consciousness is awake, alert, obeys commands, Oriented to person, place, time, situation, Appropriate for age. Cardiovascular: Capillary refill < 3 seconds Patient's skin is warm and dry. Respiratory: Airway is patent Respiratory effort is even, unlabored, Respiratory pattern is regular, symmetrical. GI: No signs and/or symptoms were reported involving the gastrointestinal system. : No signs and/or symptoms were reported regarding the genitourinary system. EENT: Reports pain when swallowing. Derm: Skin is intact, is healthy with good turgor, Skin is pink, warm \T\ dry. Musculoskeletal: No signs and/or symptoms reported regarding the musculoskeletal system. Vital Signs: 15:13 BP 108 / 64; Pulse 81; Resp 16; Temp 98.3; Pulse Ox 98% on R/A; Weight 53.52 kg; Height hb 5 ft. 3 in. ; Pain 2/10; 15:33 BP 113 / 76; Pulse 83; Resp 16; Pulse Ox 100% on R/A; me1 15:45 BP 110 / 77; Pulse 70; Resp 16; Pulse Ox 97% on R/A; me1 16:00 BP 110 / 66; Pulse 78; Resp 16; Pulse Ox 100% on R/A; me1 16:30 BP 99 / 87; Pulse 77; Resp 16; Pulse Ox 99% on R/A; me1 17:49 BP 105 / 74; Pulse 76; Resp 14; Temp 98.1(O); Pulse Ox 100% ; me1 15:13 Body Mass Index 20.90 (53.52 kg, 160.02 cm) hb 15:13 Pain Scale: Adult hb ED Course: 14:34 Patient arrived in ED. ra3 15:10 Jordana Gregorio FNP-C is [facility]. kb 15:10 Adelso Wang MD is Attending Physician. kb 15:14 Triage completed. hb 15:14 Arm band placed on. hb 15:16 Client placed on continuous cardiac and pulse oximetry monitoring. NIBP monitoring hb applied. Pulse ox on. NIBP on. 15:19 Jena Marc, RN is Primary Nurse. me1 15:31 Missed attempt(s): 22 gauge in right antecubital area. Bleeding controlled, band aid [id number] applied, catheter tip intact. 15:36 Inserted saline lock: 22 gauge in right forearm, using aseptic technique. ph 15:42 Patient has correct armband on for positive identification. Bed in low position. Call me1 light in reach. Side rails up X 1. Provided Education on: POC. Verbalized understanding. . 15:42 No provider procedures requiring assistance completed. me1 16:45 Neck Soft Tissue XRAY In Process Unspecified. EDMS 17:52 IV discontinued, intact, bleeding controlled, No redness/swelling at site. Pressure me1 dressing applied. Administered Medications: 15:37 Drug: Glucagon IVP 1 mg IVP once Route: IVP; Site: right forearm; me1 15:47 Follow up: Response: No adverse reaction me1 Medication: 15:42 VIS not applicable for this client. me1 Outcome: 17:28 Discharge ordered by . kb 17:52 Discharged to home ambulatory, with family, me1 17:52 Condition: stable 17:52 Discharge instructions given to patient, family, Instructed on discharge instructions, follow up and referral plans. Demonstrated understanding of instructions, follow-up care, 17:52 Patient left the ED. me1 Signatures: Dispatcher [employer] EDMS Jordana Gregorio FNP-C FNP-Ckb Hall, Patricia, RN RN Bonita Carr RN RN Jena Marc RN RN me1 Jeff Melendez [id number] Nicole Broussard ra3 Corrections: (The following items were deleted from the chart) 15:15 15:14 PSHx: left leg amputation; hb hb 15:15 15:14 PSHx: BKA - Left (left leg amputation); hb hb 15:20 15:13 Acuity: ABY 4 hb hb 15:42 15:13 Chief complaint: Choked on piece of sausage, concerned she damaged her throat me1 trying to get it out with finger. hb
[2024-02-09 23:25] VITALS: BP 105/74; TEMP 98.1; O2SAT 100
== END 2024-02-09 17:52 | disposition home or self-care (01) ==
LOC: ER 14:32
DX: T18.128A Food in esophagus causing other injury, initial encounter (principal); Z87.820 Personal history of traumatic brain injury; Z88.8 Allergy status to other drugs, medicaments and biological substances
CPT/HCPCS: 70360; 96374; 99284; J1610